=== PATIENT | female | born 1955 ===

== ENCOUNTER 2020-10-06 10:53 | Outpatient (REF) | payer MEDICARE, SELFPAY ==
[2020-10-09 13:53] LABS: H Pylori Breath Test NOT DETECTED (NOT DETECTED)
== END 2020-10-06 10:54 | disposition home or self-care (01) ==
LOC: HO.LNP 10:53
PROVIDERS: PCP Internal Medicine; Referring Provider Internal Medicine; Visit Provider Physician Assistant
DX: A04.8 Other specified bacterial intestinal infections (principal); R10.9 Unspecified abdominal pain; K59.00 Constipation, unspecified
CPT/HCPCS: 83013; 99202

== ENCOUNTER → 2020-10-20 10:49 | Outpatient (BNVA) | payer MEDICARE, SELFPAY | PROVIDERS: PCP Internal Medicine; Referring Provider Internal Medicine; Visit Provider Physician Assistant | DX: Z13.89 Encounter for screening for other disorder (principal) | CPT/HCPCS: Q3014 ==

== ENCOUNTER 2021-01-02 11:31 | Outpatient (REF) | payer MEDICARE, SELFPAY | END 2021-01-02 11:32 | disposition home or self-care (01) | LOC: HO.HAP 11:31 | PROVIDERS: Visit Provider Internal Medicine | DX: Z46.1 Encounter for fitting and adjustment of hearing aid (principal); H90.3 Sensorineural hearing loss, bilateral | CPT/HCPCS: 99499; V5266 ==

== ENCOUNTER 2021-01-23 10:40 | Outpatient (REF) | payer MEDICARE, SELFPAY ==
--- NOTE | ~2021-01-23 | MM_ITS ---
EXAMINATION: BONE DENSITOMETRY CLINICAL INDICATION: Osteoporosis. COMPARISON: None (current study represents initial baseline exam). TECHNIQUE: Using a [employer] DXA System (software version: 13.1) manufactured by [employer], dual-energy x-ray absorptiometry was performed of the lumbar spine and left hip. The images are of good technical quality. Summary results are attached. FINDINGS: AP SPINE L1-L4: BMD 0.757 g/cm2, Z-score -1.2, T-score -3.5, osteoporosis. LEFT FEMUR, NECK: BMD 0.659 g/cm2, Z-score -0.7, T-score -2.7, osteoporosis. LEFT FEMUR, TOTAL: BMD 0.771 g/cm2, Z-score -0.1, T-score -1.9, osteopenia. IDENTIFIED RISK FACTORS: Recurrent falls. Low calcium intake. Secondary osteoporosis (early menopause). Height loss. HISTORY OF FRACTURE: None listed. MEDICATIONS: Calcium supplement and/or multivitamin. Vitamin D. MM/XR DEXA axial skeleton IMPRESSION: 1. DIAGNOSIS: Osteoporosis based on the lowest T-score value of -3.5 in the lumbar spine applying World Health Organization criteria. 2. 10-YEAR FRACTURE RISK PREDICTION, FRAX: Major osteoporotic fracture (clinical spine, forearm, hip or shoulder) 8.4%. Hip fracture 2.3%. 3. Treatment Recommendations: NOF guidelines recommend consideration for treatment in postmenopausal women and men age 50 and older presenting with the following: -A hip or vertebral (clinical or morphometric) fracture. -T-score less than or equal to -2.5 at the femoral neck or spine after appropriate evaluation to exclude secondary causes. -Low bone mass at the hip or spine and a 10-year fracture probability by FRAX of greater than or equal to 3% for hip fracture or greater than or equal to 20% for major osteoporotic fracture based on the [place] adapted WHO algorithm. 4. Other Recommendations: All treatment decisions require clinical judgment and consideration of individual patient factors, including patient preferences, comorbidities, previous drug use, risk factors not captured in the FRAX model (e.g. frailty, falls, vitamin D deficiency, increased bone turnover, interval significant decline in bone density) and possible under or overestimation of fracture risk by FRAX. Additional medical evaluation for secondary cause of low bone mineral density may be appropriate. FUTURE SCAN RECOMMENDATION: People with diagnosed cases of osteoporosis or at high risk for fracture should have regular bone mineral density tests. For patients eligible for Medicare, routine testing is allowed once every 2 years. The testing frequency can be increased to one year for patients who have rapidly progressing disease, those who are receiving or discontinuing medical therapy to restore bone mass, or have additional risk factors.
== END 2021-01-23 10:41 | disposition home or self-care (01) ==
LOC: HO.MAMMO 10:40
PROVIDERS: PCP Internal Medicine; Visit Provider Internal Medicine
DX: Z13.820 Encounter for screening for osteoporosis (principal); R29.6 Repeated falls; E83.51 Hypocalcemia; R29.890 Loss of height
CPT/HCPCS: 77080

== ENCOUNTER 2021-02-20 12:33 | Outpatient (REF) | payer MEDICARE, SELFPAY ==
--- NOTE | 2021-02-20 12:49 | MHC.AU.HFU ---
Hearing Instrument Follow-Up- Binaural Date of Visit: 02/20/21 Right Ear: Auto Glass Installer: [employer] Model: Pepin SP-7 BTE SP Serial Number: [id number] Repair Warranty: 2017 Loss and Damage Warranty: Battery Size: 13 Color: Black Tubing: #13 Tube Lock Type of Mold: Microsonic Shell Left Ear: Auto Glass Installer: [employer] Model: Pepin SP-7 BTE SP Serial Number: [id number] RepairWarranty: 2017 Loss and Damage Warranty: Battery Size: 13 Color: Black Tubing: #13 Tube Lock Type of Mold: Microsonic Shell Follow-Up Summary: Patient's hearing aids were dropped off, reporting the right side was not working. Excessive moisture noted in the right tubing. Tubing on both molds replaced. Debris cleaned from battery compartments and microphones. Hearing aids are both working well after maintenance. Recommendations: Hearing instrument follow-up or maintenance as needed. Patient is scheduled for an audiological evaluation soon. These hearing aids were dispensed from [employer] and, per [employer], shipped out on 01/02/2015. Patient is likely eligible for new instruments soon. Diagnosis Code(s): Primary Diagnosis: H90.3 Bilateral Sensorineural Hearing Loss Signature: Provider: Radha Montoya, CCC-A
== END 2021-02-20 12:34 | disposition home or self-care (01) ==
LOC: HO.HAP 12:33
PROVIDERS: Visit Provider Internal Medicine
DX: Z46.1 Encounter for fitting and adjustment of hearing aid (principal); H90.3 Sensorineural hearing loss, bilateral
CPT/HCPCS: 92593

== ENCOUNTER 2021-03-06 12:13 | Outpatient (REF) | payer MEDICARE, SELFPAY | END 2021-03-06 12:14 | disposition home or self-care (01) | LOC: HO.MAMMO 12:13 | PROVIDERS: PCP Internal Medicine; Visit Provider Advanced Practice Midwife | DX: Z13.89 Encounter for screening for other disorder (principal) ==

== ENCOUNTER 2021-03-06 12:40 | Outpatient (REF) | payer MEDICARE, SELFPAY ==
--- NOTE | 2021-03-09 12:06 | MHC.AU.HFU ---
Hearing Instrument Follow-Up- Binaural Date of Visit: 03/06/21 Materials Planner Used: Not Applicable Right Ear: Operational Intelligence Analyst: [employer]on Model: Sargent SP-7 BTE SP Serial Number: [id number] Repair Warranty: 2017 Battery Size: 13 Color: Black Tubing: #13 Stay Dri Tube Lock Type of Mold: Microsonic Shell Left Ear: Operational Intelligence Analyst: [employer] Model: Sargent SP-7 BTE SP Serial Number: [id number] Repair Warranty: 2016 Battery Size: 13 Color: Black Tubing: #13 Tube Lock Type of Mold: Microsonic Shell Follow-Up Summary: Patient stayed in car. Reports the right aid volume is intermittently getting softer. Moisture is again noted in the tubing which occurred when aids checked on 02/20/2021. Changed to Stay-Dri tubing and aids is amplifying better. WHEN SEEN FOR HEARING TEST SCHEDULED NEXT WEEK, ADVISE ASKING QUESTIONS ABOUT CONTINUED MOISTURE PROBLEM OF THE RIGHT EAR. According to paperwork, patient appears to be eligible for new hearing aids and patient is interested given the recent problems with the aids. Recommendations: Has hearing re-evaluation scheduled for next week. Diagnosis Code(s): Primary Diagnosis: H90.3 Bilateral Sensorineural Hearing Loss Services Performed: AGUILAR Non-Quantity Charges: HANC: NonBillable Event Signature: Provider: Radha Bill, HARDE[facility]-A
== END 2021-03-06 12:41 | disposition home or self-care (01) ==
LOC: HO.HAP 12:40
PROVIDERS: Visit Provider Internal Medicine
DX: Z13.89 Encounter for screening for other disorder (principal)

== ENCOUNTER 2021-03-09 12:40 | Outpatient (REF) | payer MEDICARE, SELFPAY ==
--- NOTE | 2021-03-09 15:25 | MHC.AU.HAS ---
Hearing Aid Evaluation Date of Visit: 03/09/21 Top Bottom Attaching Machine Operator Used: Patient's SENIOR MAINTENANCE MACHINIST assisted with Tamazight interpretation Historical Information: Description of Hearing: Moderately-severe to profound sensorineural hearing loss bilaterally Current personal amplification information, if applicable: Oticon Weikert SP-7 BTEs Summary: Patient's current hearing aids were dispensed in 2014. She has been experiencing problems with moisture in the tubing. She has also been reporting itching in her ears (dry skin noted today). Hearing aid options were discussed. A different material of mold will be tried to see if it improves itching. Dri-tube will be requested for the molds. Hearing Aid Prescription: Based on the individual?s shared listening needs, communication environments, dexterity, desire for connectivity, and personal preferences, the following prescription for amplification has been made: Right ear: Mortgage Clerk: Oticon Model: Xceed 2 SP Battery Size: 13 Color: Black Type of Mold: Microsonic Shell Xcqkf-n-tuec Clear Left ear: Mortgage Clerk: Oticon Model: Xceed 2 SP Battery Size: 13 Color: Black Type of Mold: Microsonic Shell Btabn-t-rcwr Clear Action Taken/Action Needed: Earmold Impressions Taken Prior authorization to be requested Medical Clearance to be requested from PCP/ENT Hearing Fitting to be scheduled when materials arrive Primary Diagnosis: H90.3 Bilateral Sensorineural Hearing Loss Signature: Provider: Radha Montoya, CCC-A
--- NOTE | 2021-03-09 15:32 | MHC.AU.AHA ---
Adult Audiological Evaluation Date of Visit: 03/09/21 Exchange Mechanic Used: Patient's DRYWALL APPLICATOR assisted with Indian interpretation Reason for Appointment: Long-standing history of hearing loss. Patient arrives to determine if there has been a change in hearing. Patient reports she has been experiencing itchiness in her ears. Previous Hearing Test Results: At this clinic on 12/12/2019- Moderately-severe to profound sensorineural hearing loss bilaterally Ear History: Ear Deformity: None Reported History of Ear Wax Buildup: None Reported Hearing Instrument History- Right Ear: Hospital Education Coordinator: [employer] Model: Whitt SP-7 BTE Serial Number: [id number] Battery Size: 13 Repair Warranty: 2016 Loss and Damage Warranty: Dispensed By: [facility] Date of Fittin01/02/2015 Hearing Instrument History- Left Ear: Hospital Education Coordinator: [employer] Model: Whitt SP-7 BTE Serial Number: [id number] Battery Size: 13 Warranty: 2016 Loss and Damage Warranty: Dispensed By: [facility] Date of Fittin01/02/2015 Otoscopy: Right Ear: No cerumen. Dry skin noted. Left Ear: No cerumen. Dry skin noted. Tympanometry: Tympanometry performed due to: To assess integrity of the middle ear system Right Ear: Normal Middle Ear System (Type A) Left Ear: Hypercompliant Middle Ear System (Type Ad) Hearing Evaluation: Transducer(s) Used: Insert Earphones Method: Conventional Audiometry Stimuli Used: Pure Tones Right Ear: Description of Hearing: Moderately-severe to profound sensorineural hearing loss Left Ear: Description of Hearing: Moderately-severe to profound sensorineural hearing loss Speech Recognition Threshold (SRT): Method Used: Recorded Lists Right Ear: 80 dBHL Left Ear: 80 dBHL Word Discrimination: Method: Recorded Lists Word Lists Used: Lista Bisil?bica (Indian) Right Ear: 68% at 100 dBHL Left Ear: 52% at 100 dBHL Comparison: Compared to the most recent evaluation: Hearing is stable. Recommendations: Audiological re-evaluation in one year. See Hearing Aid Evaluation report for more information. Advised patient that there are ear drops available xumf-fah-jzzzkju that can help moisturize her ears and may help relieve itchiness. We will also try a different material of ear mold, in case the current material is not being tolerated. If itchiness in ear canals persists, follow-up with PCP may be warranted. Diagnosis: Primary Diagnosis: H90.3 Bilateral Sensorineural Hearing Loss Services Performed: Comprehensive Audiological Evaluation (CPT 45507), Tympanometry (CPT 74342) Signature: Provider: Radha Montoya, CCC-A
--- NOTE | 2021-03-09 15:38 | MHC.AU.MED ---
Medical Clearance for Hearing Instrumentation Date: 03/09/21 Patient Name: Saima Hammond Date of : 1955 Primary Care Provider: Referring Provider: Misti Carrillo MD We have seen your patient on 03/09/21 and have determined that they are a candidate for amplification (See accompanying report). Specifically, they would benefit from: Hearing aid use in both ears There is a statute that addresses Medical Evaluation Requirements prior to fitting a patient with a hearing aid. According to [place] statute 265 CMR:6.03(1), (a) General. Except as provided in 265 CMR 6.03(1)(b), a hearing officer shall not sell a hearing aid unless the prospective user has presented to the hearing officer a written statement signed by a licensed physician that states that the patient's hearing loss has been medically evaluated and the patient may be considered a candidate for a hearing aid. The medical evaluation must have taken place within the preceding six months. Please note: Due to the [place] Statute referenced above, we cannot accept a signature other than that of a licensed physician. CLIENT CARE COORDINATOR and PA signatures cannot be accepted. I am in agreement with the above recommendation. There is no medical contraindication for hearing instrumentation. Physician Signature Date Physician Name (Printed)
== END 2021-03-09 12:41 | disposition home or self-care (01) ==
LOC: HO.SH 12:40
PROVIDERS: Visit Provider Internal Medicine
DX: Z46.1 Encounter for fitting and adjustment of hearing aid (principal); H90.3 Sensorineural hearing loss, bilateral
CPT/HCPCS: 92557; 92567; 92591; V5275

== ENCOUNTER 2021-03-25 11:17 | Outpatient (REF) | payer MEDICARE, SELFPAY ==
--- NOTE | ~2021-03-25 | MM_ITS ---
EXAMINATION: MM SCREENING DIGITAL BREAST TOMOSYNTHESIS, BILATERAL CLINICAL INFORMATION: Screening. Asymptomatic. The lifetime risk of breast cancer based on the Tyrer-Cuzick Model is 2.2%. COMPARISON: Mammography: December 21, 2019 and May 25, 2016 TECHNIQUE: Digital breast tomosynthesis is performed in both the craniocaudal and mediolateral oblique views along with computer-aided detection (CAD). Synthesized 2D images are generated from the tomosynthesis. FINDINGS: There are scattered areas of fibroglandular density (ACR BI-RADS breast composition Category b). There are no significant masses, abnormal calcifications, or other abnormalities. MM/MM tomosynthesis screening BI IMPRESSION: There are no significant changes from prior study. ASSESSMENT: BI-RADS 1: Negative RECOMMENDATION: Routine annual mammography screening. This patient's information was entered into a reminder system with a target due date for their next mammogram.
== END 2021-03-25 11:18 | disposition home or self-care (01) ==
LOC: HO.MAMMO 11:17
PROVIDERS: Visit Provider Internal Medicine
DX: Z12.31 Encounter for screening mammogram for malignant neoplasm of breast (principal)
CPT/HCPCS: 77063; 77067

== ENCOUNTER 2021-04-20 15:08 | Outpatient (REF) | payer MEDICARE, SELFPAY | END 2021-04-20 15:09 | disposition home or self-care (01) | LOC: HO.HAP 15:08 | PROVIDERS: Visit Provider Internal Medicine | DX: Z46.1 Encounter for fitting and adjustment of hearing aid (principal); H90.3 Sensorineural hearing loss, bilateral | CPT/HCPCS: 92593 ==

== ENCOUNTER → 2021-04-29 12:17 | Outpatient (BNVA) | payer MEDICARE, SELFPAY | PROVIDERS: PCP Internal Medicine; Referring Provider Internal Medicine; Visit Provider Internal Medicine Cardiovascular Disease | DX: I10 Essential (primary) hypertension (principal); R00.2 Palpitations | CPT/HCPCS: 93005; 99202 ==

== ENCOUNTER → 2021-05-06 10:57 | Outpatient (REF) | payer MEDICARE, SELFPAY | LOC: HO.CARD 10:57 | PROVIDERS: Visit Provider Internal Medicine Cardiovascular Disease | DX: R00.2 Palpitations (principal) | CPT/HCPCS: 93270 ==

== ENCOUNTER 2021-05-08 12:40 | Outpatient (REF) | payer MEDICARE, SELFPAY ==
--- NOTE | 2021-05-13 09:13 | MHC.AU.HFA ---
Hearing Instrument Fitting- Adult- Binaural Date of Visit: 05/08/21 Supervisor Cartography Used: Ruthie Haddad, patient's TECHNICAL CUSTOMER SUPPORT SPECIALIST, assisted with Sri Lankan interpretation. Waiver signed. Hearing Instruments Dispensed: Right Ear: Demolition Hammer Operator: [employer]on Model: Xceed 2 BTE SP Serial Number: [id number] Repair Warranty: 05/02/2024 Loss and Damage Warranty: 05/02/2024 Service Plan: 05/08/2022 Battery Size: 13 Color: Black Tubing: Dri-Tube Type of Mold: Microsonic Shell Uhxxi-n-icqc Clear Left Ear: Demolition Hammer Operator: [employer]on Model: Xceed 2 BTE SP Serial Number: [id number] Repair Warranty: 05/02/2024 Loss and Damage Warranty: 05/02/2024 Service Plan: 05/08/2022 Battery Size: 13 Color: Black Tubing: Dri-Tube Type of Mold: Microsonic Shell Nchqy-n-xtim Clear Summary of Fitting: Verifit performed and levels adjusted to better reach targets. Patient felt that initial sound was uncomfortably loud. Lowered until patient felt sound was comfortable. Program button is deactivated. Volume control switch is activated. Patient was pleased with the sound of the instruments. She does not have a smart phone to pair them to at this time. Hearing aid care and maintenance were discussed and practiced. Recommendations: Patient is an experienced hearing aid user. She will call if follow-up is necessary. Diagnosis Code(s): Primary Diagnosis: H90.3 Bilateral Sensorineural Hearing Loss Signature: Provider: Radha Montoya, [facility]
== END 2021-05-08 12:41 | disposition home or self-care (01) ==
LOC: HO.HAP 12:40
PROVIDERS: Visit Provider Internal Medicine
DX: Z46.1 Encounter for fitting and adjustment of hearing aid (principal); H90.3 Sensorineural hearing loss, bilateral
CPT/HCPCS: V5011; V5020; V5160; V5261; V5264; V5266

== ENCOUNTER 2021-06-05 12:43 | Outpatient (REF) | payer MEDICARE, SELFPAY | END 2021-06-05 12:44 | disposition home or self-care (01) | LOC: HO.HAP 12:43 | PROVIDERS: Visit Provider Internal Medicine | DX: Z13.89 Encounter for screening for other disorder (principal) ==

== ENCOUNTER → 2021-07-29 12:36 | Outpatient (BNVA) | payer MEDICARE, SELFPAY | PROVIDERS: PCP Internal Medicine; Referring Provider Internal Medicine; Visit Provider Internal Medicine Cardiovascular Disease | DX: I10 Essential (primary) hypertension (principal); R00.2 Palpitations | CPT/HCPCS: 99212 ==

== ENCOUNTER 2021-09-11 10:43 | Outpatient (REF) | payer MEDICARE, SELFPAY ==
--- NOTE | 2021-09-11 13:24 | MHC.AU.HFU ---
Hearing Instrument Follow-Up- Binaural Date of Visit: 09/11/21 Fertilizer Supervisor Used: Patient's SUPERVISOR GRAIN AND YEAST PLANTS provided Venezuelan interpretation Right Ear: Director Of Counseling: [employer]on Model: Xceed 2 BTE SP Serial Number: [id number] Repair Warranty: 05/02/2024 Loss and Damage Warranty: 05/02/2024 Service Plan: 05/08/2022 Battery Size: 13 Color: Black Tubing: Dri-Tube Type of Mold: Microsonic Shell Vajyf-y-uprn Clear Dispensed By: [facility] Date of Fittin05/08/2021 Left Ear: Director Of Counseling: O[employer]on Model: Xceed 2 BTE SP Serial Number: [id number] Repair Warranty: 05/02/2024 Loss and Damage Warranty: 05/02/2024 Service Plan: 05/08/2022 Battery Size: 13 Color: Black Tubing: Dri-Tube Type of Mold: Microsonic Shell Diodi-n-uull Clear Dispensed By: [facility] Date of Fittin05/08/2021 Follow-Up Summary: Patient reports that her right hearing aid has been making a strange noise. When the noise happens, the hearing aid becomes muffled for a little while. Based on patient's description of the sound, she is likely hearing O[employer]on's feedback interruption system. The right hearing aid was inspected and re-tubed (patient did not bring left instrument today). The hearing aid is in good condition and amplifying clearly. When patient put the mold back in her ear, the top portion was not tucked into the helix. Counseled patient that the helix part must be tucked in to create an adequate seal and prevent feedback. Feedback analyzer was also run. Patient reports the hearing aid sounds good, and we could not recreate the noise in the office today after maintenance and running feedback analyzer. If the sound continues, we may need to consider remaking the mold or sending the hearing aid out for repair. Recommendations: Hearing instrument follow-up or maintenance as needed. Please contact our clinic with any questions or concerns. Diagnosis Code(s): Primary Diagnosis: H90.3 Bilateral Sensorineural Hearing Loss Signature: Provider: Radha Montoya, [facility]
== END 2021-09-11 10:44 | disposition home or self-care (01) ==
LOC: HO.HAP 10:43
PROVIDERS: Visit Provider Internal Medicine
DX: Z13.89 Encounter for screening for other disorder (principal)

== ENCOUNTER 2022-01-22 11:24 | Outpatient (REF) | payer MEDICARE, SELFPAY | END 2022-01-22 11:25 | disposition home or self-care (01) | LOC: HO.LAB 11:24 | PROVIDERS: PCP Internal Medicine | DX: N39.0 Urinary tract infection, site not specified (principal) | CPT/HCPCS: 87086; 99202 ==

== ENCOUNTER → 2022-01-29 11:52 | Outpatient (BNVA) | payer MEDICARE, SELFPAY | PROVIDERS: PCP Internal Medicine; Visit Provider Urology | DX: Z13.89 Encounter for screening for other disorder (principal) ==

== ENCOUNTER 2022-02-24 09:51 | Outpatient (REF) | payer OTHER, SELFPAY ==
[2022-02-24 15:15] LABS: CT PCR NOT DETECTED (Not Detect.); NG PCR NOT DETECTED (Not Detect.)
[2022-02-25 11:09] LABS: BV Int Neg Control Negative (Negative); BV Int Pos Control Positive (Positive)
[2022-02-27 07:26] LABS: HPV mRNA E6/E7 rflx Not Detected (Not Detected)
== END 2022-02-24 09:52 | disposition home or self-care (01) ==
LOC: HO.LAB 09:51
PROVIDERS: PCP Internal Medicine; Visit Provider Advanced Practice Midwife
DX: Z01.419 Encounter for gynecological examination (general) (routine) without abnormal findings (principal); Z11.51 Encounter for screening for human papillomavirus (HPV); N89.8 Other specified noninflammatory disorders of vagina; Z20.2 Contact with and (suspected) exposure to infections with a predominantly sexual mode of transmission; L29.2 Pruritus vulvae; N95.1 Menopausal and female climacteric states
CPT/HCPCS: 87480; 87491; 87510; 87591; 87624; 87660; 88142

== ENCOUNTER 2022-03-12 11:47 | Outpatient (REF) | payer SELFPAY | END 2022-03-12 11:48 | disposition home or self-care (01) | LOC: HO.HAP 11:47 | PROVIDERS: Visit Provider Internal Medicine | DX: Z13.89 Encounter for screening for other disorder (principal) ==

== ENCOUNTER 2022-03-26 11:56 | Outpatient (REF) | payer OTHER, SELFPAY ==
--- NOTE | ~2022-03-26 | MM_ITS ---
EXAMINATION: MM SCREENING DIGITAL BREAST TOMOSYNTHESIS, BILATERAL CLINICAL INFORMATION: Screening. Asymptomatic. The lifetime risk of breast cancer based on the Tyrer-Cuzick Model is 2%. COMPARISON: Mammography: 03/25/2021, 12/21/2019; outside mammography 05/25/2016 ([facility]). TECHNIQUE: Digital breast tomosynthesis is performed in both the craniocaudal and mediolateral oblique views along with computer-aided detection (CAD). Synthesized 2D images are generated from the tomosynthesis. Additional right MLO view is provided. FINDINGS: There are scattered areas of fibroglandular density (ACR BI-RADS breast composition Category b). There are no significant masses, abnormal calcifications, or other abnormalities. Parenchymal pattern is similar to prior studies and there is no developing density or architectural abnormality. The axilla and skin contours are unremarkable. MM/MM tomosynthesis screening BI IMPRESSION: No mammographic evidence of malignancy. ASSESSMENT: BI-RADS 1: Negative RECOMMENDATION: Routine annual mammography screening. This patient's information was entered into a reminder system with a target due date for their next mammogram.
== END 2022-03-26 11:57 | disposition home or self-care (01) ==
LOC: HO.MAMMO 11:56
PROVIDERS: Visit Provider Internal Medicine
DX: Z12.31 Encounter for screening mammogram for malignant neoplasm of breast (principal)
CPT/HCPCS: 77063; 77067

== ENCOUNTER 2022-07-26 11:48 | Outpatient (REF) | payer OTHER, SELFPAY ==
--- NOTE | ~2022-07-26 | XR_ITS ---
EXAMINATION: XR LUMBOSACRAL SPINE WITH OBLIQUES CLINICAL INFORMATION: Low back pain COMPARISON: None TECHNIQUE: AP, both oblique, and lateral views of the lumbar spine. Lateral view of the lumbosacral junction. FINDINGS: There is normal lumbar lordosis. The vertebral heights, alignment and disc heights are normal. No visible acute fracture, dislocation or subluxation seen. The SI joints are symmetrical and normal. XR/XR lumbar spine 4V min IMPRESSION: Unremarkable lumbar spine exam.
== END 2022-07-26 11:49 | disposition home or self-care (01) ==
LOC: HO.XRAY 11:48
PROVIDERS: Absent Provider Internal Medicine; PCP Internal Medicine; Visit Provider Internal Medicine
DX: M54.50 Low back pain, unspecified (principal)
CPT/HCPCS: 72110

== ENCOUNTER 2022-09-15 12:00 | Outpatient (RCR) | payer OTHER, SELFPAY | END 2022-10-13 14:26 | disposition home or self-care (01) | LOC: HO.PT 12:00 | PROVIDERS: PCP Internal Medicine; Visit Provider Internal Medicine | DX: M54.50 Low back pain, unspecified (principal) | CPT/HCPCS: 97110; 97162 ==

== ENCOUNTER → 2023-01-10 12:32 | Outpatient (BNVA) | payer OTHER, SELFPAY | PROVIDERS: PCP Internal Medicine; Referring Provider Internal Medicine; Visit Provider Internal Medicine Cardiovascular Disease | DX: I10 Essential (primary) hypertension (principal); R00.2 Palpitations | CPT/HCPCS: 93005; 99212 ==

== ENCOUNTER 2023-04-13 11:38 | Outpatient (REF) | payer OTHER, SELFPAY ==
--- NOTE | ~2023-04-13 | MM_ITS ---
EXAMINATION: MM SCREENING DIGITAL BREAST TOMOSYNTHESIS, BILATERAL CLINICAL INFORMATION: Screening. Asymptomatic. The lifetime risk of breast cancer based on the Tyrer-Cuzick Model is 2%. COMPARISON: Mammography: 03/26/2022, 03/25/2021, 12/21/2019, outside mammography 05/25/2016. TECHNIQUE: Digital breast tomosynthesis is performed in both the craniocaudal and mediolateral oblique views along with computer-aided detection (CAD). Synthesized 2D images are generated from the tomosynthesis. FINDINGS: There are scattered areas of fibroglandular density (ACR BI-RADS breast composition Category b). Right breast parenchymal pattern is similar to prior studies and there is no developing density or architectural abnormality or significant mass. Both breasts show scattered benign vascular and some round calcifications. The axilla and skin contours are unremarkable. Left breast has smooth benign-appearing macrolobulated nodule 6 mm in length mid central breast approximately 6 cm from nipple inferior to posterior nipple line. Smaller adjacent satellite nodule. The nodularity is increased from prior exams, possibly representing cysts. Patient will be recalled for targeted ultrasound. MM/MM tomosynthesis screening BI IMPRESSION: Left: -Benign-appearing nodularity mid central breast under 1 cm possibly cyst (s). Right: -No mammographic evidence of malignancy. ASSESSMENT: BI-RADS 0: Incomplete - Need Additional Imaging Evaluation RECOMMENDATION: 1. Targeted ultrasound left breast. 2. Radiology department staff will contact the patient for additional imaging. This patient's information was entered into a reminder system with a target due date for their next mammogram.
== END 2023-04-13 11:39 | disposition home or self-care (01) ==
LOC: HO.MAMMO 11:38
PROVIDERS: PCP Internal Medicine; Visit Provider Internal Medicine
DX: Z12.31 Encounter for screening mammogram for malignant neoplasm of breast (principal)
CPT/HCPCS: 77063; 77067

== ENCOUNTER 2023-04-25 12:40 | Outpatient (REF) | payer OTHER, SELFPAY ==
--- NOTE | ~2023-04-25 | US_ITS ---
EXAMINATION: US DIAGNOSTIC ULTRASOUND BREAST, LEFT CLINICAL INFORMATION: Macrolobulated nodule mid central left breast just inferior to posterior nipple line. COMPARISON: Prior mammography exams including most recent 04/13/2023. TECHNIQUE: Ultrasound left breast is performed using grayscale imaging and color Doppler without and with harmonics. FINDINGS: There is a grouping of at least 3 small circumscribed hypoechoic nodules mid 6:00 left breast corresponding to the finding on recent screening mammography. There is no associated color flow. Margins are smooth. There is no increased or decreased through transmission of sound. No architectural abnormality. Results are discussed with the patient at time of visit, using an pharmacist in charge owner. Findings are probably benign, possibly mildly complicated cysts with apocrine metaplasia. US/US breast LT limited IMPRESSION: - Small circumscribed hypoechoic nodules mid 6:00 left breast corresponding to finding on mammography, possibly mildly complicated cysts with apocrine metaplasia. No associated color flow. No posterior shadowing. ASSESSMENT: BI-RADS 3: Probably Benign RECOMMENDATION: Diagnostic left mammography and targeted ultrasound in 6 months. This patient's information was entered into a reminder system with a target due date for their next mammogram.
== END 2023-04-25 12:41 | disposition home or self-care (01) ==
LOC: HO.MAMMO 12:40
PROVIDERS: PCP Internal Medicine; Visit Provider Internal Medicine
DX: N63.25 Unspecified lump in the left breast, overlapping quadrants (principal)
CPT/HCPCS: 76642

== ENCOUNTER 2023-11-25 12:44 | Outpatient (REF) | payer OTHER, SELFPAY ==
--- NOTE | ~2023-11-25 | US_ITS ---
EXAMINATION: MM DIAGNOSTIC DIGITAL BREAST TOMOSYNTHESIS, LEFT US BREAST LIMITED, LEFT MAMMOGRAPHY: CLINICAL INFORMATION: Follow-up for smooth benign appearing macrolobulated grouped nodules in the mid central breast approximately 6 cm from the nipple just inferior to the posterior nipple line. COMPARISON: Mammography: 04/13/2013, 03/26/2022, 03/25/2021, 12/21/2017, and dating back to 2016. TECHNIQUE: Digital left breast tomosynthesis is performed in both the craniocaudal and mediolateral oblique views along with computer-aided detection (CAD). Synthesized 2D images are generated from the tomosynthesis. In addition, a full-field 3-D digital left mediolateral view was obtained. FINDINGS: There are scattered areas of fibroglandular density (ACR BI-RADS breast composition Category b). Within the central 6:00 axis of the left breast, there are a group of clustered nodules 3 cm from the nipple, of which at least one demonstrates a visible fatty notch, likely representing an intramammary lymph node. This measures 6 mm in length, with 2 smaller immediately satellite nodules. In review of mammography from 2020, these nodules are stable and unchanged, consistent with stability and benignity. Otherwise, there are vascular calcifications in the left breast. No suspicious masses, suspicious grouped microcalcifications, or areas of architectural distortion. No skin or axillary abnormalities. On ultrasound, there is a small benign intramammary lymph node at the 6:00 axis, 3 cm from the nipple, correlating well with the mammographic foci. There is an immediately abutting simple cyst also at the 6:00 axis, consistent with the additional mammographic foci. No suspicious findings on ultrasound, abnormal shadowing or mass. There has been no significant change from 04/25/2023 ultrasound exam. ULTRASOUND: CLINICAL INFORMATION: As above COMPARISON: 04/25/2023. TECHNIQUE: Targeted sonographic evaluation left breast 6:00 axis was performed using a high frequency linear transducer. Selected archived documentation. FINDINGS: LEFT BREAST: As stated above. US/US breast LT limited mamm only IMPRESSION: No findings suspicious for malignancy in the left breast. Previously described nodule for follow-up are stable, and in retrospect unchanged from 2020 exam, consistent with benign entity. At least one of these is a 6 mm benign intramammary lymph node. The other is a microcyst. These findings are benign and no further follow-up recommended. Recommend the patient resume routine annual screening mammography. OVERALL ASSESSMENT: Mammography: BI-RADS 2 - Benign Findings Ultrasound: BI-RADS 2 - Benign Findings RECOMMENDATION: 1 year F/U Results were provided to the patient at time of visit by the technologist. This patient's information was entered into a reminder system with a target due date for their next mammogram.
== END 2023-11-25 12:45 | disposition home or self-care (01) ==
LOC: HO.MAMMO 12:44
PROVIDERS: PCP Internal Medicine; Visit Provider Internal Medicine
DX: R92.2 Inconclusive mammogram (principal)
CPT/HCPCS: 76642; 77061; 77065

== ENCOUNTER → 2023-11-25 13:00 | Outpatient (BNV) | payer OTHER, SELFPAY | PROVIDERS: PCP Internal Medicine; Visit Provider Radiology Diagnostic Radiology | DX: N63.25 Unspecified lump in the left breast, overlapping quadrants (principal) | CPT/HCPCS: 76642; 77061; 77065 ==

== ENCOUNTER 2023-12-06 10:30 | Outpatient (REF) | payer OTHER, SELFPAY ==
[2023-12-06 12:56] LABS: Anion Gap 11 (12-20); Blood Urea Nitrogen 13 mg/dL (9-16); Calcium 9.6 mg/dL (8.4-10.2); Carbon Dioxide 27 mmol/L (22-29); Chloride 109 mmol/L (96-108); Cholesterol 232 mg/dL (<200); Estimated Glomerular Filt Rate > 60; Glucose Random 82 mg/dL (60-115); HDL Cholesterol 70 mg/dL (>40); LDL Cholesterol Calculated 133 mg/dL (<100); Potassium 3.9 mmol/L (3.3-5.1); Sodium 143 mmol/L (135-145); Triglycerides 149 mg/dL (<150)
[2023-12-06 13:13] LABS: TSH reflex Free T4 1.38 uIU/mL (0.32-4.0); Vitamin D 25-OH Total 16.3 ng/mL (>30)
[2023-12-06 13:17] LABS: Folate 11.7 ng/mL (> or = 4.0); Vitamin B12 271 pg/mL (200-900)
[2023-12-06 14:00] LABS: Reflex LDLD? No
== END 2023-12-06 10:31 | disposition home or self-care (01) ==
LOC: HO.HHCL 10:30
PROVIDERS: Visit Provider Internal Medicine
DX: I10 Essential (primary) hypertension (principal); E53.8 Deficiency of other specified B group vitamins; N95.2 Postmenopausal atrophic vaginitis
CPT/HCPCS: 36415; 80048; 80061; 82306; 82607; 82746; 84443

== ENCOUNTER 2024-01-16 12:27 | Outpatient (AMB) | payer OTHER, SELFPAY ==
[2024-01-16 12:46] VITALS: BP 110/54; PULSE 58; BMI 19.7
--- NOTE | 2024-01-16 12:46 | MHC.OFFVIS ---
Intake Vital Signs 01/16/24 12:46 Height 5 ft 1 in Weight 104 lb 0.931 oz BMI 19.7 BP 110/54 L Blood Pressure Location Lt brachial Position Sitting Pulse 58 Intake Visit Reasons: 1 yr f/u Intake Note: pt its here for a 1 yr f/up pt states that some time she feels the palpitations then it goes away. Servomechanism Assembler Required: No Servomechanism Assembler Name: clive/agricultural specialist Accompanied by: Employer Allergies penicillamine [PENICILLAMINE] Adverse Reaction (Intermediate, Verified 01/10/23 12:49) PALPATATIONS Medication List - Last Reconciled 01/16/24 by Lawson Kuhn MD amlodipine 2.5 mg PO DAILY clotrimazole-betamethasone 1-0.05 % 1 appl topical BID PRN 7 days docusate sodium (Colace) 100 mg PO BID estradiol 0.01%(0.1mg/gram) (Estrace) pea sized amount per urethra daily; 30 days omeprazole 40 mg PO DAILY HPI HPI Comments History of Present Illness Details 69-year-old female who is here for f/u. She previously saw us for palpitations. She was referred for cardiac event monitoring. It appears she had an allergic reaction with the lead stickers. She could not get the cardiac event monitor. She is here for follow-up. On follow-up today she is saying she gets palpitations 2 times a week lasting for couple of seconds. No dizziness or lightheadedness. No chest discomfort shortness of breath. Blood pressure control is good on the current regimen of amlodipine 2.5 mg. Overall doing well. 01/16/24: She returns for follow-up. She has been doing well. No chest discomfort shortness of breath. Occasional palpitations which last for few seconds. No new complaints otherwise. [facility] Medical History Hypertension Frequent UTI Surgical History No pertinent past surgical history Family History Father Prostate CA Mother No problems noted. Social History Household Members: None Alcohol intake: never Patient Tobacco Use Status: Never used Tobacco Review of Systems Const Denies chills, Denies fatigue, Denies fever(s), Denies frequent falls, Denies weakness, Denies weight gain and Denies weight loss ENT Denies dizziness Card Denies chest pain, Denies leg edema, Denies lightheadedness, Denies palpitations, Denies dyspnea and Denies dyspnea on exertion Resp Denies cough, Denies dyspnea and Denies dyspnea on exertion GI Denies hematochezia Musc Denies abnormal gait, Denies muscle weakness, Denies numbness, Denies radiating pain into limb and Denies tingling Neuro Denies abnormal gait, Denies dizziness, Denies frequent falls, Denies numbness, Denies tingling and Denies weakness Endo Denies fatigue and Denies palpitations Physical Exam Vital Signs: Last Vital Signs Pulse 58 01/16/24 12:46 BP 110/54 L 01/16/24 12:46 BMI result Body Mass Index 19.7 GENERAL APPEARANCE: in no acute distress, pleasant. NECK: no carotid bruit, no jugular venous distention. SKIN: no suspicious lesions, warm and dry. HEART: no murmurs, regular rate and rhythm. LUNGS: clear to auscultation bilaterally. ABDOMEN: soft, nontender. EXTREMITIES: no edema. PERIPHERAL PULSES: equal. NEUROLOGIC: No gross deficits, AAO X 3 Office Procedures EKG Details: Bradycardia 58 beats per minute, otherwise normal EKG, QTC 408 milliseconds. [id number], Complete Assessment & Plan Assessment & Plan (1) Palpitations: Code(s): R00.2 - Palpitations (2) Essential hypertension: Code(s): I10 - Essential (primary) hypertension Plan Very pleasant 69 year female who is here for follow-up. Blood pressure is well controlled on amlodipine 2.5 mg daily. She occasionally gets palpitations lasting for few seconds only. Clinically she has been stable. I have advised her to see us as needed from here onwards. Thank you for allowing me to participate in the care of your patient. Please feel free to contact me if you have any questions. Coding Level of Care Code Est Pt Level 3 (19238) Diagnoses Palpitations R00.2 Essential hypertension I10 CPT Codes EKG - CPT: [id number], Complete ([id number])
== END 2024-01-16 13:10 | disposition home or self-care (01) ==
PROVIDERS: PCP Internal Medicine; Visit Provider Internal Medicine Cardiovascular Disease
DX: R00.2 Palpitations (principal); I10 Essential (primary) hypertension
CPT/HCPCS: 93010; 99213

== ENCOUNTER → 2024-01-16 12:27 | Outpatient (BNVA) | payer OTHER, SELFPAY | PROVIDERS: Visit Provider Internal Medicine Cardiovascular Disease | DX: R00.2 Palpitations (principal); I10 Essential (primary) hypertension | CPT/HCPCS: 93005; 99212 ==

== ENCOUNTER 2024-05-14 18:12 | Outpatient (REF) | payer OTHER, SELFPAY | END 2024-05-14 18:13 | disposition home or self-care (01) | LOC: HO.HHCLNP 18:12 | PROVIDERS: Visit Provider Nurse Practitioner Family | DX: R10.9 Unspecified abdominal pain (principal) | CPT/HCPCS: 87086 ==

== ENCOUNTER 2024-05-16 11:35 | Outpatient (REF) | payer OTHER, SELFPAY | END 2024-05-16 11:36 | disposition home or self-care (01) | LOC: HO.MAMMO 11:35 | PROVIDERS: PCP Internal Medicine; Visit Provider Internal Medicine | DX: Z12.31 Encounter for screening mammogram for malignant neoplasm of breast (principal) | CPT/HCPCS: 77063; 77067 ==

== ENCOUNTER → 2024-05-16 11:45 | Outpatient (BNV) | payer OTHER, SELFPAY | PROVIDERS: PCP Internal Medicine; Visit Provider Radiology Diagnostic Radiology | DX: Z12.31 Encounter for screening mammogram for malignant neoplasm of breast (principal) | CPT/HCPCS: 77063; 77067 ==

== ENCOUNTER 2024-05-22 13:30 | Outpatient (REF) | payer OTHER, SELFPAY ==
--- NOTE | ~2024-05-22 | XR_ITS ---
EXAMINATION: XR LUMBOSACRAL SPINE CLINICAL INFORMATION: Lower back pain. COMPARISON: 07/26/2022 TECHNIQUE: Three views of the lumbosacral spine. FINDINGS: Bones appear to be diffusely osteopenic. There are five segmented, nonrib-bearing vertebra of the lumbar spine. The vertebral bodies have normal height and alignment. The disc spaces are maintained. No evidence of degenerative disc disease. No pars interarticularis defect or vertebral compression fracture. The anterior and posterior elements are intact. No lytic or osteoblastic lesion. No erosions or syndesmophyte formation. Sacrum and sacroiliac joints are normal. XR/XR lumbar spine 2-3V IMPRESSION: * Bones are diffusely osteopenic. * No specific source of pain is identified. No evidence of degenerative disc disease or lumbar vertebral compression fracture. No acute findings compared to 07/26/2022.
--- NOTE | ~2024-05-22 | XR_ITS ---
EXAMINATION: XR HIP, RIGHT XR HIP, LEFT CLINICAL INFORMATION: Chronic low back pain. Right hip pain. Left hip pain. Recent fall. COMPARISON: None TECHNIQUE: AP and frog-leg lateral views of each hip. FINDINGS: RIGHT HIP: No fracture. Alignment is anatomic. Hip joint space is maintained. Soft tissues are unremarkable. LEFT HIP: No fracture. Alignment is anatomic. Hip joint space is maintained. Soft tissues are unremarkable. XR/XR hip RT min 2V IMPRESSION: Normal hip radiographs.
== END 2024-05-22 13:31 | disposition home or self-care (01) ==
LOC: HO.HHCX 13:30
PROVIDERS: Visit Provider Family Medicine
DX: M54.50 Low back pain, unspecified (principal); M25.551 Pain in right hip; G89.29 Other chronic pain
CPT/HCPCS: 72100; 73502

== ENCOUNTER 2024-05-31 11:49 | Outpatient (REF) | payer OTHER, SELFPAY ==
--- NOTE | ~2024-05-31 | XR_ITS ---
EXAMINATION: XR HIP, RIGHT XR HIP, LEFT CLINICAL INFORMATION: Chronic low back pain. Right hip pain. Left hip pain. Recent fall. COMPARISON: None TECHNIQUE: AP and frog-leg lateral views of each hip. FINDINGS: RIGHT HIP: No fracture. Alignment is anatomic. Hip joint space is maintained. Soft tissues are unremarkable. LEFT HIP: No fracture. Alignment is anatomic. Hip joint space is maintained. Soft tissues are unremarkable. XR/XR hip LT min 2V IMPRESSION: Normal hip radiographs.
== END 2024-05-31 11:50 | disposition home or self-care (01) ==
LOC: HO.XRAY 11:49
PROVIDERS: PCP Internal Medicine; Visit Provider Family Medicine
DX: M25.552 Pain in left hip (principal)
CPT/HCPCS: 73502

== ENCOUNTER 2024-07-26 11:01 | Outpatient (AMB) | payer OTHER, SELFPAY ==
--- NOTE | 2024-07-26 11:11 | MHC.OFFVIS ---
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 Patient reports her pain has been present for 2 months with her right hip is worse. States her pain is located at the lateral aspect of hip that was radiating down her leg however this has subsided. She has numbness and tingling in her left leg. No previous tx. Finds some relief with Tylenol and no relief with topical patches. Food Preparation Supervisor Required: Yes Food Preparation Supervisor Services: Food Preparation Supervisor Present Food Preparation Supervisor Name: Alida ID#[id number] Allergies penicillamine [PENICILLAMINE] Adverse Reaction (Intermediate, Verified 07/26/24 11:16) PALPATATIONS Medication List - Last Reconciled 07/26/24 by Emanuel Lacy PA-C amlodipine 2.5 mg PO DAILY clindamycin HCl 300 mg PO Q6H clotrimazole-betamethasone 1-0.05 % 1 appl topical BID PRN 7 days docusate sodium (Colace) 100 mg PO BID estradiol 0.01%(0.1mg/gram) (Estrace) pea sized amount per urethra daily; 30 days omeprazole 40 mg PO DAILY HPI HPI FLOOR SCRAPER-Left Hip Pain: Details: 69 yo female presents to the office today for bilat hip pain, R>L. She states most of her pain is located along the side of the leg and travels down the leg. She denies n/t in the legs. She does feel weakness in the legs. She states when she is sleeping she has pain in the hips. She denies treatment to date. [facility] Medical History (Updated 07/26/24 @ 11:29 by Emanuel Lacy PA-C) Hypertension Frequent UTI Surgical History No pertinent past surgical history Family History Father Prostate CA Mother No problems noted. Social History Household Members: None Alcohol intake: never Patient Tobacco Use Status: Never used Tobacco Review of Systems Const All systems reviewed & are unremarkable except as noted in HPI and below Physical Exam Vital Signs: BMI result Body Mass Index 19.6 Const General: cooperative and no acute distress Orientation/consciousness: patient oriented x3 Resp Effort & Inspection: normal respiratory effort and able to speak in complete sentences Cardio Peripheral pulses: Peripheral pulses 2+ throughout Neuro General: patient oriented x3 Extrem Other: Bilat hip normal to inspection. No pain with ROM of the hip. Pain along the greater trochanter. No pain with hip flexion or abduction.There is tenderness along the si joint, Negative SLR. NVI. Results Reviewed Results Reviewed: Bilateral hip x-rays obtained in May of 2024- for any acute or chronic abnormalities. Assessment & Plan Assessment & Plan (1) Greater trochanteric bursitis of both hips: Code(s): M70.61 - Trochanteric bursitis, right hip; M70.62 - Trochanteric bursitis, left hip Category: Medical Plan: We discussed options which include PT, NSAIDs and injections. She will defer on the injection today and proceed with PT and NSAIDs. If symptoms persist she will contact me for an injection, otherwise, prn. Orders: Orders PT Evaluation and Treatment Today M70.61 - Trochanteric bursitis, right hip, M70.62 - Trochanteric bursitis, left hip Coding Level of Care Code New Pt Level 3 (77661) Complex EM visit Add On G2211 Diagnoses Greater trochanteric bursitis of both hips M70.61; M70.62
[2024-07-26 11:18] VITALS: BMI 19.6
== END 2024-07-26 11:30 | disposition home or self-care (01) ==
PROVIDERS: PCP Internal Medicine; Visit Provider Physician Assistant
DX: M70.61 Trochanteric bursitis, right hip (principal); M70.62 Trochanteric bursitis, left hip
CPT/HCPCS: 99203; G2211

== ENCOUNTER → 2024-07-26 11:01 | Outpatient (BNVA) | payer OTHER, SELFPAY | PROVIDERS: PCP Internal Medicine; Visit Provider Physician Assistant | DX: M70.61 Trochanteric bursitis, right hip (principal); M70.62 Trochanteric bursitis, left hip | CPT/HCPCS: 99202 ==

== ENCOUNTER 2024-08-10 18:01 | Outpatient (REF) | payer OTHER, SELFPAY | END 2024-08-10 18:02 | disposition home or self-care (01) | LOC: HO.CHCLNP 18:01 | PROVIDERS: Visit Provider Internal Medicine | DX: N95.2 Postmenopausal atrophic vaginitis (principal); R10.2 Pelvic and perineal pain | CPT/HCPCS: 87086 ==

== ENCOUNTER 2024-08-30 08:30 | Outpatient (REF) | payer OTHER, SELFPAY ==
[2024-08-30 11:31] LABS: Anion Gap 11 (12-20); Blood Urea Nitrogen 15 mg/dL (9-16); Calcium 9.7 mg/dL (8.4-10.2); Carbon Dioxide 27 mmol/L (22-29); Chloride 109 mmol/L (96-108); Cholesterol 228 mg/dL (<200); Estimated Glomerular Filt Rate > 60; Glucose Random 85 mg/dL (60-115); HDL Cholesterol 65 mg/dL (>40); LDL Cholesterol Calculated 139 mg/dL (<100); Potassium 3.8 mmol/L (3.3-5.1); Sodium 143 mmol/L (135-145); Triglycerides 123 mg/dL (<150)
[2024-08-30 11:35] LABS: Estimated Average Glucose 97 mg/dL; Hemoglobin A1C 102.9268 umol/L; Total Hemoglobin (HGBA1C) 3254.9133 umol/L
[2024-08-30 11:51] LABS: TSH reflex Free T4 1.68 uIU/mL (0.32-4.0); Vitamin D 25-OH Total 38.1 ng/mL (>30)
[2024-08-30 11:53] LABS: Syphilis Screen Nonreactive (Nonreactive)
[2024-08-30 12:12] LABS: Vitamin B12 203 pg/mL (200-900)
[2024-08-30 12:36] LABS: Reflex LDLD? No
== END 2024-08-30 08:31 | disposition home or self-care (01) ==
LOC: HO.HHCL 08:30
PROVIDERS: Visit Provider Internal Medicine
DX: R41.3 Other amnesia (principal); I10 Essential (primary) hypertension; K59.01 Slow transit constipation; Z13.1 Encounter for screening for diabetes mellitus
CPT/HCPCS: 36415; 80048; 80061; 82306; 82607; 82746; 83036; 84443; 86780

== ENCOUNTER 2024-09-06 11:23 | Outpatient (REF) | payer OTHER, SELFPAY | END 2024-09-06 11:24 | disposition home or self-care (01) | LOC: HO.US 11:23 | PROVIDERS: PCP Internal Medicine; Visit Provider Internal Medicine | DX: R10.2 Pelvic and perineal pain (principal) | CPT/HCPCS: 76830; 76856 ==

== ENCOUNTER 2024-09-26 10:58 | Outpatient (RCR) | payer OTHER, SELFPAY ==
--- NOTE | 2024-08-22 12:53 | MHC.PT.EP ---
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 THE Pt HAS DECR HS AND CALF FLEXIB, HABITUAL PPT W (+) LLI, WEAK TRUNK STAB, (-) SENSORY DEFICITS, AND FLUCTUATING PAIN LEVELS IN Rt > Lt HIP. THE Pt HAS DECR LUISA TO STANDING AND WALKING- SHE IS LIMITED W SQUAT MECH -> TENDS TO COMPENSATE W TRUNK FLEX. SHE WOULD BENEFIT FROM PT TO DEV A HEP, IMPROVE BODY MECH AWARENESS, INCR ACTIVITY LUISA/ HEP -> W HER DIRECTOR BUSINESS SYSTEMS'S SUPPORT. Frequency and Duration: The patient will be seen 2 x WK x 4 WKS Short Term Goals: *DECR LBP/ HIP PAIN TO 2-3/10 * INITIATE HEP-> IMPROVE HS AND CALF FLEXIB *Pt DEMON WFL SQUAT MECH Dispatcher Ship Pilot Goals: *INDEP HEP AND SELF SX MGMT TECHN *IMPROVE FUNCT MOB LUISA EVIDENT W IMPROVED LEFI (AT EVAL 18) *Pt DEMON WFL HS/ CALF FLEXIB-> MORE NEAUTRAL SPINE/ GAIT MECH/POSTURE Treatment Plan: Modalities to reduce pain, spasms and effusion. Manual therapy to restore motion and function. Therapeutic exercise to improve strength and flexibility. Neuromuscular re-education for posture and balance. Therapeutic activities to return to functional activities of daily living. Electronically signed by: AI FAYPT Please sign and return to therapist. Thank you for your referral.
--- NOTE | 2024-11-12 12:00 | MHC.PT.DC ---
[facility] [place] Office [place] Office [place] Office [address] Alaina Childers [address] [phone] F: [phone] F: [phone] F: [phone] F: [phone] Physical Therapy Discharge Report Diagnosis: Rt > Lt TROCHANTERIC BURSITIS Date of Surgery: Date of Evaluation: 08/22/24 Date of Discharge: 11/12/24 Treatments to Date: 4 Cancellations to Date: 5 No Shows to Date: 2 Discharge Status: Visit Non-compliance Discharge Summary: THE Pt HAD POOR ATTENDANCE FOR SCHED PT APPTS AND IS THEREFORE D/C FROM PT PER THE ATTENDANCE POLICY. Electronically signed by: AI FAY, PT Please sign and return to therapist. Thank you for your referral.
== END 2024-11-12 12:43 | disposition home or self-care (01) ==
LOC: HO.PT 10:58
PROVIDERS: PCP Internal Medicine; Visit Provider Physician Assistant
DX: M70.61 Trochanteric bursitis, right hip (principal); M70.62 Trochanteric bursitis, left hip
CPT/HCPCS: 97110; 97162

== ENCOUNTER 2024-11-16 11:33 | Outpatient (REF) | payer OTHER, SELFPAY ==
[2024-11-16 16:15] LABS: Bacterial Vaginosis PCR NEGATIVE (Negative); Candida Group PCR NOT DETECTED (Not Detect); Candida glab krusei PCR NOT DETECTED (Not Detect); Trichomonas vaginalis PCR NOT DETECTED (Not Detect)
[2024-11-16 16:44] LABS: CT PCR NOT DETECTED (Not Detect.); NG PCR NOT DETECTED (Not Detect.)
== END 2024-11-16 11:34 | disposition home or self-care (01) ==
LOC: HO.LNP 11:33
PROVIDERS: PCP Internal Medicine; Visit Provider Obstetrics & Gynecology
DX: N85.9 Noninflammatory disorder of uterus, unspecified (principal); D25.9 Leiomyoma of uterus, unspecified; N94.89 Other specified conditions associated with female genital organs and menstrual cycle; R10.2 Pelvic and perineal pain; R31.29 Other microscopic hematuria; N89.8 Other specified noninflammatory disorders of vagina
CPT/HCPCS: 81515; 87086; 87491; 87591; 99202; 99459

== ENCOUNTER 2024-11-16 11:33 | Outpatient (AMB) | payer OTHER, SELFPAY ==
--- NOTE | 2024-11-16 12:29 | MHC.OFFVIS ---
Intake Visit Reasons: pelvic pain Associate Professor Of Kinesiology Required: Yes Associate Professor Of Kinesiology Language: Gold Cutter Services: Associate Professor Of Kinesiology Present (in person) Associate Professor Of Kinesiology Name: EDA Flor Information Interpreted: non-clinical & clinical Plate Maker: Plate Maker Present (Joana EDA Cortes) Accompanied by: Self / Same As Patient Allergies penicillamine [PENICILLAMINE] Adverse Reaction (Intermediate, Verified 11/16/24 12:30) PALPATATIONS HPI Comments Details: The patient is referred complaining of a bilateral lower pelvic pain, throbbing in nature associated with vaginal discharge with no odor itching, no fever or chills no nausea or vomiting no constipation. No history of vaginal bleeding Pelvic ultrasound done on 09/06/2024 showed the following: IMPRESSION: 1. There is fluid within the endometrium, this is abnormal for postmenopausal patient. Cannot rule out obstructing lesion. Recommend UI UX DEVELOPER consultation, may consider D&C and/or Consider correlation with follow-up ultrasound in 6-8 weeks. 2. Prominence of the pelvic veins, cannot rule out pelvic congestion. 3. Intramural uterine mass likely fibroid 2 cm. 4. Ovaries not visualized might have been obscured by bowel gas or atrophic. [facility] Medical History Hypertension Frequent UTI Surgical History No pertinent past surgical history Family History Father Prostate CA Mother No problems noted. Social History Household Members: None Alcohol intake: never Patient Tobacco Use Status: Never used Tobacco Review of Systems Const All systems reviewed & are unremarkable except as noted in HPI and below Physical Exam General: Yes no CVA tenderness External Female Exam: normal external appearance and normal appearance of the urethra Speculum Exam - Vagina: normal appearance of the vagina, normal palpation, no lesions and no masses Speculum Exam - Cervix: normal appearance of the cervix, normal palpation, no lesions, no masses and nontender Bimanual exam- vagina & uterus: normal bimanual exam, normal palpation, uterine size normal, normal palpation, uterine shape normal, No Cervical tenderness present and non-tender Bimanual Exam- Adnexa, other: normal adnexae Back/Spine/Pelvis Back: no CVA tenderness Assessment & Plan Assessment & Plan (1) Fluid in endometrial cavity: Code(s): N85.9 - Noninflammatory disorder of uterus, unspecified Category: Medical Plan: Discussed with the patient the finding of fluid in the endometrial cavity, in spite of no vaginal bleeding the concern is the endometrial fluid visualized on ultrasound in case of cervical stenosis might be bleeding into the endometrial cavity and the blood and/or tissue was are unable to pass through the cervical os. Endometrial sampling in postmenopausal bleeding with endometrial fluid is indicated in case endometrial thickness is above 4 mm, however in cases with thin endometrial stripe, 4 mm and below, without any focal lesions, is a reassuring finding with a high negative predictive value for endometrial pathology including endometrial hyperplasia and/or malignancy or polyps. Instructions given to patient to call in case of vaginal bleeding will proceed with endometrial sampling to rule out endometrial pathology (2) Uterine myoma: Code(s): D25.9 - Leiomyoma of uterus, unspecified Category: Medical Plan: Discussed with the patient the findings on pelvic ultrasound & the risk of myosarcoma; discussed with the patient the options of treatment including expectant management versus hysterectomy; the pros and cons, risks benefits of each approach were discussed with the patient including the fact that in cases of myosarcoma, surgical treatment can lead to early diagnosis and positively affects the prognosis; after further discussion, the patient decided to proceed with expectant management. Will repeat pelvic ultrasound periodically. Instructions given to patient to call in case any of the following occurs: pressure symptoms, abnormal uterine bleeding, pelvic pain; and to schedule a six-months pelvic ultrasound (order placed) and a follow-up appointment . All questions answered, the patient verbalized understanding and agreed with the plan . (3) Pelvic congestion: Code(s): N94.89 - Other specified conditions associated with female genital organs and menstrual cycle Category: Medical Plan: Discussed with the patient the pelvic congestion syndrome treatment options including: Medical treatment , Invasive treatment available for patient who do not respond to medical therapy include embolization or sclerotherapy of the ovarian veins with or without the internal iliac veins, laparoscopic or open ligation of the ovarian veins and hysterectomy with bilateral salpingo-oophorectomy. Will proceed with the workup and treat accordingly. All questions answered, the patient verbalized understanding. (4) Pelvic pain: Code(s): R10.2 - Pelvic and perineal pain Category: Medical Plan: Urine dip done in the office showed microscopic hematuria. GC and chlamydia taken and pelvic ultrasound ordered. Discussed with the patient the differential diagnosis of pelvic pain including but not limited to adnexal, uterine masses, pelvic infections (PID), GI the (Irritable bowel syndrome, diverticulitis, others), musculoskeletal, myofascial pain abdominal wall , adhesions, endometriosis, psychological and others causes. Will check results and treat accordingly. All questions answered, the patient verbalized understanding. Instructed the patient to schedule a follow-up appointment in 2 weeks. All questions answered, the patient verbalized understanding and agreed with the plan. (5) Microscopic hematuria: Code(s): R31.29 - Other microscopic hematuria Category: Medical Plan: Urine dip showed microscopic hematuria, urine culture sent. Will repeat urine dip in 2 weeks. Discussed with the patient the possible causes of microscopic hematuria including but not limited to: interstitial cystitis, polyps, stones, masses, urethral inflammatory processes and others. If Urine Culture is negative and repeat urine dip in 2 weeks shows persistent microscopic hematuria, will proceed with CT abdomen/pelvis and urology referral. Instructions given the patient to schedule a 2 week urine dip follow-up appointment. All questions answered and the patient verbalized understanding. (6) Vaginal discharge: Code(s): N89.8 - Other specified noninflammatory disorders of vagina Category: Medical Plan: GC//CT with BV panel collected, will check the results and treat accordingly Orders: Orders US pelvic and transvaginal 6 Months D25.9 - Leiomyoma of uterus, unspecified Coding Level of Care Code New Pt Level 3 (02159) Diagnoses Fluid in endometrial cavity N85.9 Uterine myoma D25.9 Pelvic congestion N94.89 Pelvic pain R10.2 Microscopic hematuria R31.29 Vaginal discharge N89.8
== END 2024-11-16 12:56 | disposition home or self-care (01) ==
PROVIDERS: PCP Internal Medicine; Visit Provider Obstetrics & Gynecology
DX: N85.9 Noninflammatory disorder of uterus, unspecified (principal); D25.9 Leiomyoma of uterus, unspecified; N94.89 Other specified conditions associated with female genital organs and menstrual cycle; R10.2 Pelvic and perineal pain; R31.29 Other microscopic hematuria; N89.8 Other specified noninflammatory disorders of vagina
CPT/HCPCS: 99203

== ENCOUNTER 2024-12-04 12:57 | Outpatient (AMB) | payer OTHER, SELFPAY ==
--- NOTE | 2024-12-04 13:14 | A.OFFVIS_ITS ---
Intake Visit Reasons: urine dip Delivery Table Operator Required: Yes Delivery Table Operator Language: Advertising Associate Services: Delivery Table Operator Present ([employer]) Delivery Table Operator Name: Dot [id number] Information Interpreted: clinical only Pipe Threader: Pipe Threader Present (Molly) Accompanied by: Self / Same As Patient Allergies penicillamine [PENICILLAMINE] Adverse Reaction (Intermediate, Verified 12/04/24 13:14) PALPATATIONS HPI Comments Details: Presenting for repeat urine dip, last visit urine dip showed microscopic hematuria, urine culture grew lactobacillus 50-100 K. No other symptoms PFSH Medical History Hypertension Frequent UTI Surgical History No pertinent past surgical history Family History Father Prostate CA Mother No problems noted. Social History Household Members: None Alcohol intake: never Patient Tobacco Use Status: Never used Tobacco Review of Systems Const All systems reviewed & are unremarkable except as noted in HPI and below Reports as per HPI and Reports no additional complaints GI Reports no additional complaints Reports no additional complaints Assessment & Plan Assessment & Plan (1) Microscopic hematuria: Code(s): R31.29 - Other microscopic hematuria Category: Medical Plan: Repeat urine dip showed persistent microscopic hematuria. Discussed with the patient the possible causes of microscopic hematuria including but not limited to: interstitial cystitis, polyps, stones, masses, urethral inflammatory processes and others. Will proceed with CT abdomen/pelvis and urology referral. Instructed the patient to call our office back in case a referral appointment is not scheduled, missed or canceled so that we will assist on rescheduling another appointment, the patient verbalized understanding agreed with the plan. Orders: Orders CT abdomen pelvis wo/w IV con Today R31.29 - Other microscopic hematuria Referrals Urology Referral R31.29 - Other microscopic hematuria Coding Level of Care Code Est Pt Level 3 (26519) Diagnoses Microscopic hematuria R31.29
--- OUTSIDE RECORDS SUMMARY | 2024-12-04 13:52 | XMS_ITS | Data Portability ---
Author Organization [employer], [place] in - [place] Self Representation Document Preparation Address [address] [place] [address] Care Team Providers Care Soldering Machine Tender Name Role Phone [facility] Referring Provider Assessment No assessment recorded. Plan of Treatment Reminders Order Date Submit Date Provider Last Modified By Organization Details Last Modified Time Details Appointments None recorded. Lab culture, urine 023 023 [place] [facility], [address], [id number], 3 08:59:40 Referral None recorded. Procedures None recorded. Surgeries None recorded. Imaging None recorded. Medication Orders Bactrim DS 800 mg-160 mg tablet 023 023 [facility], [address] [facility] [place], [id number], 3 09:49:27 Patient TargetsNo targets recorded. Patient InstructionsNo instructions recorded. Reason for Referral None Reported. Results Created Date Observation Date Name Description Value Unit Range Abnormal Flag Note LastModifiedBy Organization Detail LastModifiedTime 07/15/2007/15/2023 URINE CULTU RE specimen description BLOOD Not Available [facility] [address] [place], [id number], 07/17/2023 08:59:39 07/15/20 23 07/15/2023 URINE CULTU RE special requests NONE Not Available [facility] [address] [place], [id number], 07/17/2023 08:59:39 07/15/20 23 07/17/2023 URINE CULTU RE culture <10,00 0 COL/ML abnormal Not Available [facility] [address] [place], [id number], 07/17/2023 08:59:39 07/15/20 23 07/17/2023 URINE CULTU RE report status FINAL 2022 Not Available [facility] [address] [place], [id number], 07/17/2023 08:59:39 Result Notes None recorded. Medical Equipment None Reported. Allergies Allergen ID Allergen Name Allergen Category Reaction Reaction Severity Criticality Documentation Date Start Date Code Code System Note Provider Name and Address Organization Details Recorded Time 8891 Product containin g penicilli n and antibioti c (product) medicatio n Not available Not available Not available 09/04/2024 83362 05 SNOMED Not Available [facility] - production 03:47:31 Medications Name Sig Start Date Stop Date Status Note LastModified by Organization Details LastModified Time cetirizine 10 mg tablet TAKE 1 TABLET BY MOUTH EVERY MORNING active Not Available Not Available No t Available clindamycin HCl 150 mg capsule TAKE 1 CAPSULE BY MOUTH EVERY 6 HOURS active Not Available Not Available No t Available amlodipine 2.5 mg tablet TAKE 1 TABLET BY MOUTH EVERY DAY active Not Available Not Available No t Available sulfamethoxa zole 800 mg-trimethop rim 160 mg tablet TAKE 1 TABLET BY MOUTH EVERY TWELVE HOURS FOR 7 DAYS active Not Available Not Available No t Available acetaminophe n ER 650 mg tablet,exten ded release TAKE 2 TABLETS BY MOUTH EVERY 8 HOURS NEEDED. SWALLOW WHOLE WITH WATER. DO NOT BREAK, CRUSH, DISSOLVE OR CHEW active Not Available Not Available No t Available prednisolone acetate 1 % eye drops,suspen steve ADMINISTER 1 DROP IN EACH EYE TWICE DAILY FOR FOURTEEN DAYS. SHAKE WELL BEFORE DE USE active Not Available Not Available No t Available ibuprofen 400 mg tablet TAKE 1 TABLET BY MOUTH EVERY 4 TO 6 HOURS NEEDED active Not Available Not Available No t Available cyclobenzapr ine 5 mg tablet TAKE 1 TABLET BY MOUTH THREE TIMES DAILY active Not Available Not Available Not Available chlorhexidin e gluconate 0.12 % mouthwash active Not Available Not Available No t Available diclofenac 1 % topical gel APPLY TO THE AFFECTED AREA(S) 2 GRAMS TWICE DAILY active Not Available Not Available No t Available Eye Itch Relief 0.025 % (0.035 %) drops INSTILL 1 DROP IN EACH EYE TWICE DAILY active Not Available Not Available Not Available Vitals Date Recorded Respiratory rate Heart rate Body temperature Oxygen saturation Oxygen saturation in Arterial blood by Pulse oximetry Systolic blood pressure Diastolic blood pressure Provider Name and Address Organization Details Last Updated DateTime 3 18 /min 84 /min 98.8 [degF] 99 % 99 % 130 mm[Hg] 78 mm[Hg] Not Available [facility] - production 3 15:57:04 Social History None recorded. Functional Status None recorded. Mental Status None recorded. Family History Nothing Reported. Medical History No medical history recorded. Gynecological HistoryNo gynecological history recorded. Obstetrics History GPAL:G 0 P 0 0 0 0 Past Encounters Encounter ID Performer Location Encounter Start Date Encounter Closed Date Diagnosis/Indication Diagnosis SNOMED-CT Code Diagnosis ICD10 Code Diagnosis Note [id number] Juan Huerta MD [facility] - [facility] [address] [place] [address] [phone] 07/15/2023 15:57:02 07/16/2023 16:03:07 Acute urinary tract infection [id number] N39.0 This 68-year-ol d female has had urinary symptoms for several days. Her U/A appeared consistent with an early UTI. I ordered a U/C and treatment with Bactrim DS twice daily for five days. She will follow-up with her PCP. The patient agreed with this plan. Urinary symptoms 9233105 08 R39.9 Health Concerns Section Related Observation LastModified by Organization Detai ls LastModified Time None Recorded Concern Status LastModified by Organization Details LastModified Time None Recorded Advance Directives Directive None Recorded Payers Encounter Date Sequence Insurance Name Policy Number Policy Chow Covered Member ID Chow Member ID Guarantor Name 07/15/2023 1 [facility] - DOS ON OR AFTER 2023 - DUAL ELIGIBLE - [facility] [employer] AND ONE [employer] (MEDICARE REPLACEMENT/AD VANTAGE - HMO) Saima Rodrigues [id number] Saima Rodrigues Notes Date Note Type Note Provider Name and Address Organization Details Recorded Time 07/15/2023 text/html HPI: Call to Saima Rodrigues, reports having pain with urination x 1 month. Per pt urine is very dark yellow. No blood or odor to urine. Pt having urinary frequency and urgency. Per pt no nausea or vomiting. Is having pelvic pain /flank pain. No fever. Unable to come into [facility]. Agrees to [facility] referral for UA/Cx. ..................... ..................... ..................... ..................... ..................... ..................... ............... CRC Nursing Assessment: Comments: Reviewed - Jass LUCERO ..................... ..................... ..................... ..................... ..................... ..................... ............... Lunch Wagon Operator Note From Emery Lai: PT complains of lower quadrant pain and dysuria (burning sensation) x months. PT was normal in appearance and reports that she missed a PCP appointment months ago and never rescheduled. PT denies chest pain. PT reports lower abdominal pain which increases upon urination and no abdominal tenderness was noted upon examination. PT denies lightheadedness and dizziness. PT reports decreased PO fluid intake in recent days at 8-12oz, normal appetite. PT denies flank pain and CVA tenderness was negative. UA dipstick was performed and cultures were obtained. contacted and ordered Bactrim DS, Rx was sent to PT preferred pharmacy and PT advised to increase PO fluid intake. PT education was provided related to symptom worsening. VG ..................... ..................... ..................... ..................... ..................... ..................... ............... Disposition: Fulfilled Juan Huerta MD [address] [place] [address],[address] [facility], [place], [phone], JOAN VALLE 07/15/2023 16:05:16 OBGyn Episode No OBEpisode recorded.
--- OUTSIDE RECORDS SUMMARY | 2024-12-04 13:52 | XMS_ITS | Encounter Summary ---
Author Organization [employer] Address [address] [facility] [address] [place] [address] Care Team Providers Care Cyber Incident Handler Name Role Phone Misti Carrillo MD Primary Care Provider + Misti Carrillo MD Unavailable [phone] Reason for Visit * Reason Comments Hypertension Encounter Details Date Type Department Care Team ([facility] st Contact Info) Description 11/19/2024 11:15 AM EST Office Visit [facility] [address], [place] [phone] Misti Carrillo MD [address], [place] [phone] Benign essential HTN (Primary Dx); Dysuria; Hypercholesterolemia; Screening for colon cancer; Uterine leiomyoma, unspecified location Social History Tobacco Use Types Packs/Day Years Used Date Smoking Tobacco: Never Passive Smoke Exposure: Never Smokeless Tobacco: Never Tobacco Cessation:Counseling Given: Not Answered Alcohol Use Standard Drinks/Week Comments Never 0 (1 standard drink = 0.6 oz pur e alcohol) Housing Stability Answer Date Recorded What is your housing situation today? I have veronica foley 11/30/[address] you li ve. Do you have problems with any of the following? None of the above 11/30/2023 Food Insecurity Answer Date Recorded Within the past 12 months, y ou worried that your food would run out before you got money to buy more: Never True 11/30/2023 Within the past 12 months,th e food you bought just didn't last and you didn't have enough money to get more: Never True Transportation Answer Date Recorded In the past 12 months, has l ack of transportation kept you from medical appts, meetings, work or from getting things needed for daily living? No 11/30/2023 Utilities Answer Date Recorded In the past 12 months, has t he electric, gas, oil or water company threatened to shut off services in your home? No 11/30/2023 Depression Answer Date Recorded Patient Health Questionnaire-2 Score 0 11/30/2023 Internet Access Answer Date Recorded Internet Access Q1 Yes 11/09/2024 Internet Access Q2 Not on file 11/09/2024 Comments Unknown Sex and Gender Information Value Date Recorded Sex Assigned at Female 07/15/2023 4:01 PM EDT Legal Sex Female 4:21 PM EDT Gender Identity Female 07/15/2023 4:01 PM EDT Sexual Orientation Lesbian or John 07/15/2023 4: 01 PM EDT Sexual Orientation Straight 07/15/2023 4: 01 PM EDT documented as of this encounter Last Filed Vital Signs Vital Sign Reading Time Taken Comments Blood Pressure 133/67 11/19/2024 11:10 AM EST Pulse 64 11/19/2024 11:10 AM EST Temperature 34.9 ??C (94.8 ??F) 11/19/2024 11:[address] Respiratory Rate 16 11/19/2024 11:10 AM EST Oxygen Saturation - - Inhaled Oxygen Concentration - - Weight 45.9 kg (101 lb 4 oz) 11/19/2024 11:10 AM EST Height 144.8 cm (4' 9 ) 11/19/2024 11:10 AM EST Body Mass Index 21.91 11/19/2024 11:10 AM EST documented in this encounter Progress Notes * Misti Carrillo MD - 11/19/2024 11:15 AM EST SUBJECTIVE: Saima Hammond is a 69 y.o. year old female who presents for fu . Denies recent illness,injury, or hospitalization. Patient had ultrasound on 09/06/2024 that showed uterine fibroids plus endometrial fluid, she was referred to the IT INSTRUCTOR. Labs on 08/30/2024 showed hyperlipidemia (she started on Atorvastatin), TSH, Vit D, BMP where normal. Patient has ERP BUSINESS ANALYST in consult with her. She comments to have her ser the IT INSTRUCTOR last Chad on 11/16/2024 and the doctor performed ? Endometrial biopsy. She has a follow up appointment with [facility] on 12/04/2024. Patient mentions to have persistent dysuria, blood in her urine and a whitish discharge. Vaginal swab on 11/16/2024 was negative. She says to be compliant with cholesterol medication taking it every night. Acute Concerns: Social History Social History Narrative Lives alone on a 4th floor apartment. Has ERP BUSINESS ANALYST. Her children live in [place] Patient Active Problem List Diagnosis Seasonal allergic rhinitis Allergic conjunctivitis of both eyes Atrophic vaginitis Decreased hearing Cobalamin deficiency Chronic low back pain Pruritus of vagina Hip pain Hyperactivity of bladder Left flank pain Low vision, both eyes Palpitations Slow transit constipation Dysuria Benign essential HTN Immunization declined Hypercholesterolemia Vitamin D deficiency Tipped teeth Dental calculus Periodontal disease Missing teeth, acquired Generalized gingival recession Memory deficit Trochanteric bursitis of left hip Pelvic pain Ear itching Earache Onychomycosis of toenail Screening for colon cancer Uterine leiomyoma Family History Problem Relation Name Age of Onset Prostate cancer Father Review of Systems Constitutional: Negative for chills, fatigue and fever. HENT: Negative for congestion, ear pain, nosebleeds, rhinorrhea, sinus pressure, sore throat and trouble swallowing. Eyes: Negative for pain and discharge. Respiratory: Negative for cough, chest tightness and shortness of breath. Cardiovascular: Negative for chest pain, palpitations and leg swelling. Gastrointestinal: Negative for abdominal pain, blood in stool, constipation, diarrhea and nausea. Endocrine: Negative for polydipsia and polyuria. Genitourinary: Positive for dysuria, hematuria and vaginal discharge. Negative for frequency, genital sores and pelvic pain. Musculoskeletal: Negative for back pain and neck pain. Skin: Negative for rash. Allergic/Immunologic: Negative for environmental allergies. Neurological: Negative for dizziness, seizures, weakness, light-headedness and headaches. Hematological: Negative for adenopathy. Psychiatric/Behavioral: Negative for agitation, behavioral problems, self-injury and suicidal ideas. OBJECTIVE: Vitals: 11/19/24 1110 BP: 133/67 Pulse: 64 Resp: 16 Temp: 94.8 ??F (34.9 ??C) Physical Exam HENT: Right Ear: Tympanic membrane and ear canal normal. Left Ear: Tympanic membrane and ear canal normal. Mouth/Throat: Mouth: Mucous membranes are moist. Pharynx: No oropharyngeal exudate or posterior oropharyngeal erythema. Eyes: Pupils: Pupils are equal, round, and reactive to light. Cardiovascular: Rate and Rhythm: Regular rhythm. Pulses: Normal pulses. Comments: Varicose vein, bilateral lower extremities, no ulcerations, or chronic skin changes. Pulmonary: Breath sounds: Normal breath sounds. Abdominal: General: Bowel sounds are normal. Palpations: Abdomen is soft. Tenderness: There is no abdominal tenderness. Musculoskeletal: General: Normal range of motion. Cervical back: Neck supple. Skin: General: Skin is warm. Neurological: General: No focal deficit present. Mental Status: She is alert and oriented to person, place, and time. Psychiatric: Mood and Affect: Mood normal. Behavior: Behavior normal. ASSESSMENT/PLAN Problem List Items Addressed This Visit Benign essential HTN - Primary Controlled. Compliant w/meds Continue Amlodipine 2.5 mg Counseled re low salt diet/increase moderate physical activity. Check home BP BIW and prn CP/AGUILAR/DOMÍNGUEZ Non smoking patient. Cautioned Pt and ERP BUSINESS ANALYST regarding cautious change of position due to vasovagal Sx. Patient denied having the Flu vaccine administered at this time. Dysuria Unclear if related to atrophic vaginitis versus hyperactive bladder. FU with [facility] for results of endometrial biopsy, otherwise she needs to FU with Urologist whom she sees every year. Hypercholesterolemia We discussed re rx options. Recommended moderate amount of exercise and increase consumption of fruit, vegetables, fish and high fiber foods. Should decrease consumption of highly saturated fats or trans fats. Patient started on Atorvastatin, tolerates well. FU lipids in 3-4 months and adjust medication if needed. Relevant Orders Hepatic Function Panel Lipid Panel with Reflex to Direct LDL Screening for colon cancer I discussed with patient CRC screening methods, including colonoscopy and cologuard. She wants to do Cologuard at this time. Relevant Orders Cologuard?? colon cancer screening Uterine leiomyoma Unclear if producing compressive symptoms on urinary bladder. Patient will FU with [facility]. FU with me in 6 months. Follow Up: Current Outpatient Medications on File Prior to Visit Medication Sig Dispense Refill acetaminophen (Tylenol 8 Hour) 650 MG ER tablet Take 1 tablet (650 mg) by mouth every 8 (eight) hours if needed for mild pain. Do not crush, chew, or split. 90 tablet 1 amLODIPine (Norvasc) 2.5 MG tablet Take 1 tablet by mouth at bed time. ammonium lactate (Amlactin) 12 % cream Apply topically if needed for dry skin. 140 g 3 cetirizine (ZyrTEC) 10 MG tablet Take 1 tablet (10 mg) by mouth Once per day. 90 tablet 3 chlorhexidine (Peridex) 0.12 % solution Diclofenac Sodium 1 % gel APPLY TO THE AFFECTED AREA(S) 2 GRAMS TWICE DAILY docusate sodium (Colace) 100 MG capsule Take 1 capsule (100 mg) by mouth Once per day. 90 capsule 3 estradiol (Estrace) 0.1 MG/GM vaginal cream 1 applicator full at bedtime x 2w then three times per week x 2w then BIW thereafter 42.5 g 5 ketotifen (Zaditor) 0.025 % ophthalmic solution Administer 1 drop into both eyes 2 times daily. 10 mL 1 [DISCONTINUED] atorvastatin (Lipitor) 40 MG tablet Take 1 tablet (40 mg) by mouth Once per day. 90 tablet 1 No current facility-administered medications on file prior to visit. I, Milady Rae, am serving as a scribe to document services personally performed by Dr. Misti Carrillo, based on the patient's response to questions by provider and provider's statements to me. documented in this encounter Miscellaneous Notes * Assessment & Plan Note - Milady Rae MA - 11/19/2024 12:08 PM EST Associated Problem(s): Encounter for colorectal cancer screening I discussed with patient CRC screening methods, including colonoscopy and cologuard. She wants to do Cologuard at this time. * Assessment & Plan Note - Milady Rae MA - 11/19/2024 12:06 PM EST Associated Problem(s): Hypercholesterolemia We discussed re rx options. Recommended moderate amount of exercise and increase consumption of fruit, vegetables, fish and high fiber foods. Should decrease consumption of highly saturated fats or trans fats. Patient started on Atorvastatin, tolerates well. FU lipids in 3-4 months and adjust medication if needed. * Assessment & Plan Note - Milady Rae MA - 11/19/2024 12:04 PM EST Associated Problem(s): Uterine leiomyoma Unclear if producing compressive symptoms on urinary bladder. Patient will FU with [facility]. FU with me in 6 months. * Assessment & Plan Note - Milady Rae MA - 11/19/2024 12:02 PM EST Associated Problem(s): Dysuria Unclear if related to atrophic vaginitis versus hyperactive bladder. FU with [facility] for results of endometrial biopsy, otherwise she needs to FU with Urologist whom she sees every year. * Assessment & Plan Note - Milady Rae MA - 11/19/2024 11:17 AM EST Associated Problem(s): Benign essential HTN Controlled. Compliant w/meds Continue Amlodipine 2.5 mg Counseled re low salt diet/increase moderate physical activity. Check home BP BIW and prn CP/AGUILAR/DOMÍNGUEZ Non smoking patient. Cautioned Pt and ERP BUSINESS ANALYST regarding cautious change of position due to vasovagal Sx. Patient denied having the Flu vaccine administered at this time. * Result Encounter Note - Misti Carrillo MD - 11/19/2024 11:15 AM EST Cologuard results on 11/22/24 was POS. I called patient but she was not available, I left voice message with ERP BUSINESS ANALYST Cinthia to call back about Cologuard results. Please let patient know that her results showed some changes in the colon cells present in the stool that may or not indicate that she has a tumor, please tell her she needs to be referred to colonoscopy to further evaluate the presence or notof a colon polyp. documented in this encounter Plan of Treatment Scheduled Orders Name Type Priority Associated Diagnoses Orde r Schedule Hepatic Function Panel Lab Routine Hypercholesterolemia Expected: 02/17/2025 (Approximate), Expires: 11/19/2025 Lipid Panel with Reflex to Direct LDL Lab Routine Hypercholesterolemia Expected: 02/17/2025 (Approximate), Expires: 11/19/2025 documented as of this encounter Procedures Procedure Name Priority Date/Time Associated Diagnosis Comments LAB COLOGUARD?? COLON CANCER SCREEN Routine 11/22/2024 11:47 AM EST Screening for colon cancer documented in this encounter Results * (ABNORMAL) Cologuard?? colon cancer screening (11/22/2024 11:47 AM EST) Cologuard Result Positive( A) Negative 11/29/2024 10:22 AM EST [facility] (CLIA #:[id number]) Comment: POSITIVE TEST RESULT. A positive Cologuard result should be followed with a colonoscopy or visual examination of the colon. The normal value (reference range) for this assay is negative. TEST DESCRIPTION: Composite algorithmic analysis of stool DNA-biomarkers with hemoglobin immunoassay. ?? Quantitative values of individual biomarkers are not reportable and are not associated with individual biomarker result reference ranges. Cologuard is intended for colorectal cancer screening of adults of either sex, 45 years or older, who are at average-risk for colorectal cancer (CRC). Cologuard has been approved for use by the U.S. FDA. The performance of Cologuard was established in a cross sectional study of average-risk adults aged 50-84. Cologuard performance in patients ages 45 to 49 years was estimated by sub-group analysis of near-age groups. Colonoscopies performed for a positive result may find as the most clinically significant lesion: colorectal cancer [4.0%], advanced adenoma (including sessile serrated polyps greater than or equal to 1cm diameter) [20%] or non- advanced adenoma [31%]; or no colorectal neoplasia [45%]. These estimates are derived from a prospective cross-sectional screening study of 10,000 individuals at average risk for colorectal cancer who were screened with both Cologuard and colonoscopy. (Annabel Martin al, N Engl J Med 2014;370(14):0761-7034.) Cologuard may produce a false negative or false positive result (no colorectal cancer or precancerous polyp present at colonoscopy follow up). A negative Cologuard test result does not guarantee the absence of CRC or advanced adenoma (pre-cancer). The current Cologuard screening interval is every 3 years. ([employer] and U.S. Multi-Society Task Force). Cologuard performance data in a 10,000 patient pivotal study using colonoscopy as the reference method can be accessed at the following location: www.[employer]/results. Additional description of the Cologuard test process, warnings and precautions can be found at [email or web address]. Stool specimen (specimen) 11/22/2024 11:47 AM EST 11/23/2024 1:19 PM EST Misti Carrillo MD LAB MOLECULAR DIAGNOSTIC S ORDERABLES Final Result [facility] (CLIA #:[id number]) [place] [address], documented in this encounter Visit Diagnoses Diagnosis Benign essential HTN- Primary Dysuria Hypercholesterolemia Pure hypercholesterolemia Screening for colon cancer Special screening for malignant neoplasms, colon Uterine leiomyoma, unspecified location documented in this encounter Care Teams Cyber Incident Handler Relationship Specialty Start Date End Date Misti Carrillo MD [address], [place] [phone] PCP - General Internal Medicine 07/15/23 Misti Carrillo MD [address], [place] [phone] Family Medicine 07/15/23 documented as of this encounter
--- OUTSIDE RECORDS SUMMARY | 2024-12-04 13:52 | XMS_ITS | Encounter Summary ---
Author Organization [employer] [facility] Address [address] [facility] 7t [place] [address] Care Team Providers Care Evp Name Role Phone Misti Carrillo MD Primary Care Provider + Misti Carrillo MD Primary Care Provider + Misti Carrillo MD Unavailable [phone] Encounter Details Date Type Department Care Team (Latest Contact Info) Description 10/17/2019 Abstract [facility] CONVERSIONS Dental, Provider, DDS Social History Tobacco Use Types Packs/Day Years Used Date Smoking Tobacco: Never Assessed Comments Unknown Sex and Gender Information Value Date Recorded Sex Assigned at Female 07/15/2023 4:01 PM EDT Legal Sex Female 4:21 PM EDT Gender Identity Female 07/15/2023 4:01 PM EDT Sexual Orientation Lesbian or John 07/15/2023 4: 01 PM EDT Sexual Orientation Straight 07/15/2023 4: 01 PM EDT documented as of this encounter Plan of Treatment Not on file documented as of this encounter Visit Diagnoses Not on filedocumented in this encounter Care Teams Evp Relationship Specialty Start Date End Date Misti Carrillo MD [address] [place] [address] PCP - General Family Medicine 10/17/19 07/14/23 Misti Carrillo MD [address] [place] [address] PCP - General Internal Medicine 07/15/23 Misti Carrillo MD [address] [place] [address] Family Medicine 07/15/23 documented as of this encounter
--- OUTSIDE RECORDS SUMMARY | 2024-12-04 13:52 | XMS_ITS | Encounter Summary ---
Author Organization [employer] Address [address] [facility] [facility] [address] 7t [place] [address] Care Team Providers Care Reimbursement Rep Name Role Phone Misti Carrillo MD Primary Care Provider + Misti Carrillo MD Unavailable [phone] Reason for Visit * Reason Onset Date Comments Error (VOID this visit) 11/29/2024 Encounter Details Date Type Department Care Team ([facility] st Contact Info) Description 11/29/2024 Telephone [facility] MEDICINE [address] [place] [address] Hillary Donovan, RN Error (VOID this visit) Social History Tobacco Use Types Packs/Day Years Used Date Smoking Tobacco: Never Passive Smoke Exposure: Never Smokeless Tobacco: Never Alcohol Use Standard Drinks/Week Comments Never 0 (1 standard drink = 0.6 oz pur e alcohol) Housing Stability Answer Date Recorded What is your housing situation today? I have veronica alaina 11/30/[address] you li [...] on filedocumented in this encounter Care Teams Reimbursement Rep Relationship Specialty Start Date End Date Misti Carrillo MD [address] [place] [address] PCP - General Internal Medicine 07/15/23 Misti Carrillo MD [address] [place] [address] Family Medicine 07/15/23 documented as of this encounter
--- OUTSIDE RECORDS SUMMARY | 2024-12-04 13:52 | XMS_ITS | Clinical Summary ---
Author Organization [facility] Address [address] [place] [address] Care Team Providers Care Twenty One Dealer Name Role Phone Trisha Jacques PA-C Primary Care Provider [phone] Source Comments PLEASE NOTE, if this patient is a minor, it may be UNLAWFUL to discuss sensitive information that is contained in these records (such as FAMILY PLANNING, MENTAL HEALTH or SUBSTANCE ABUSE) with the minor patient's parent or other person without the patient's specific authorization.[facility] Allergies No known active allergies Medications sodium chloride 0.65 % nasal solutionIndicatio ns:Routine adult health maintenance Place 2 Sprays into the nostril(s) as needed for nasal congestion. 50 mL 0 5 Active polyethylene glycol (GLYCOLAX, MIRALAX) 17 gram packetIndications :Constipation - functional Take 17 g by mouth once daily. Dissolve contents of packet in a glass (8 oz) of water. 30 Each 1 5 Active fluticasone (FLONASE) 50 mcg/actuation nasal sprayIndications: Throat dry Place 1 [place] into the nostril(s) once daily. 16 g 1 5 Active docusate sodium (COLACE) 50 mg capsuleIndication s:Slow transit constipation Take 1 Cap by mouth 2 (two) times daily. 60 Cap 1 5 Active polyethylene glycol (GLYCOLAX, MIRALAX) 17 gram/dose powderIndications :Constipation - functional Take 17 g by mouth once daily. Dissolve in a glass (8 oz) of water. 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 15 Cap 0 6 Active butalbital-acetam inophen-caffeine (FIORICET, ESGIC) 50-325-40 mg per tablet TAKE 1 TABLET BY MOUTH NEEDED FOR MIGRAINE 15 Tab 0 6 Active naproxen (NAPROSYN) 500 mg tablet Take 1 tablet by mouth 2 (two) times daily with a meal. 60 Tab 0 6 Active Active Problems Problem Noted Date Diagnosed Date Microscopic hematuria 10/13/2015 Overview (02/13/2016): Seen on urine culture on 09/26/2015 Saw urology on 01/09/2016 Dr. Malcolm at [facility]rology: negative workup With cysto and CT urogram. No further work up is necesarry at this point. A follow up urinalysis should be done yearly. Cystoscopy should be repeated if gross new onset hematuria occurs or change in symptoms occurs. Renal cyst: these are simple Bosniak 1 cysts and we no longer need to follow them as they do not represent malignancy. History of Papanicolaou smear of cervix 06/16/20 15 Overview (06/16/2015): Done 05/20/2015: Comments: Negative for Squamous Intraepithelial Lesion and Malignancy, High risk HPV negative, atrophy with inflammation is present. History of mammogram 03/24/2015 Overview (01/15/2016): Yesika screening done at [facility] on 03/20/2015: No mammographic evidence of malignancy in the right breast. Further eval of the left breast group of microcalcification by additional views. Pt will be contacted directly for imaging. BIRADS category 0 incomplete. Need further imaging. Second mammogram done 04/02/2015 at [facility]: small cluster microcalcifications seen in the mis third of the left breast likley represent early vascular calcicfications. Short term follow up with left breast mammogram with spot magnification in 2 projections is recommended in 6 months. The patient was informed. BIRADS category 3 probably benign. Short interval follow up recommended. Immunizations Name Administration Dates Next Due INFLUENZA, SEASONAL, INJECTABLE 12/31/2014 Family History Medical History Relation Name Comments Allergies Father Heart Problems Father Other (See Comments) Mother TB Relation Name Status Comments Father Mother Social History Tobacco Use Types Packs/Day Years Used Date Smoking Tobacco: Never Alcohol Use Standard Drinks/Week Comments No 0 (1 standard drink = 0.6 oz pur e alcohol) Comments No Sex and Gender Information Value Date Recorded Sex Assigned at Not on file Legal Sex Female 6:01 AM PST Gender Identity Not on file Sexual Orientation Not on file Occupation Industry Job Start Date Job End Date unemployed Not on file Not on file Not on file Last Filed Vital Signs Vital Sign Reading Time Taken Comments Blood Pressure 125/80 02/05/2016 4:03 PM EDT Pulse 82 02/05/2016 4:03 PM EDT Temperature 37.1 ??C (98.7 ??F) 02/05/2016 4:03 PM ED T Respiratory Rate 17 02/05/2016 4:03 PM EDT Oxygen Saturation 98% 05/21/2015 2:22 PM EDT Inhaled Oxygen Concentration - - Weight 54.4 kg (120 lb) 02/05/2016 4:03 PM EDT Height 146 cm (4' 9.48 ) 02/05/2016 4:03 PM EDT Body Mass Index 25.54 02/05/2016 4:03 PM EDT Plan of Treatment Not on file Insurance [facility] Member Subscriber Plan / Payer (Ef fective 2014-Present) Name:Saima Hand Relation to Subscriber:Self Name:Saima Hand Payer ID:[id number] Group ID:Not on file Type:Medicaid Address: [facility] [id number] [place] [address] [facility] [place] [address] [facility] Care Teams Twenty One Dealer Relationship Specialty Start Date End Date Trisha Jacques PA-C [address] [place] [address] PCP - General 09/27/18
--- OUTSIDE RECORDS SUMMARY | 2024-12-04 13:52 | XMS_ITS | Encounter Summary ---
Author Organization [email or web address] Address [address] [facility] [address] 7t [place] [address] Care Team Providers Care Pipe Line Gauger Name Role Phone Misti Carrillo MD Primary Care Provider + Misti Carrillo MD Unavailable [phone] Encounter Details Date Type Department Care Team ([facility] st Contact Info) Description 11/09/2024 Telephone [facility] MEDICINE [address] [place], [place] [phone] Misti Carrillo MD [address] [place], [place] [phone] Social History Tobacco Use Types Packs/Day Years Used Date Smoking Tobacco: Never Passive Smoke Exposure: Never Smokeless Tobacco: Never Alcohol Use Standard Drinks/Week Comments Never 0 (1 standard drink = 0.6 oz pur e alcohol) Housing Stability Answer Date Recorded What is your housing situation today? I have veronica sing 11/30/[address] you li [...] PM EDT documented as of this encounter Miscellaneous Notes * Telephone Encounter - Bee Oh LPN - 11/09/2024 1:00 PM EST Multiple attempts to reach patient at listed numbers for triage. No answers. Voice mails left for patient to return call to [phone]. Protocol Used: No Contact or Duplicate Contact Call (Adult) Protocol-Based Disposition: No Contact Call Positive Triage Questions: * Message left on identified voicemail * Second attempt to contact caller AND no contact made. Phone number verified. * Third attempt to contact caller AND no contact made. Phone number verified. * All higher-acuity triage questions were negative documented in this encounter Plan of Treatment Not on file documented as of this encounter Visit Diagnoses Not on filedocumented in this encounter Care Teams Pipe Line Gauger Relationship Specialty Start Date End Date Misti Carrillo MD [address] [place] [address] PCP - General Internal Medicine 07/15/23 Misti Carrillo MD [address] [place] [address] Family Medicine 07/15/23 documented as of this encounter
--- OUTSIDE RECORDS SUMMARY | 2024-12-04 13:52 | XMS_ITS | Encounter Summary ---
Author Organization [employer] [facility] Address [address] [facility] 7t [place] [address] Care Team Providers Care Electronic Health Records Specialist Name Role Phone Misti Carrillo MD Primary Care Provider + Misti Carrillo MD Primary Care Provider + Misti Carrillo MD Unavailable [phone] Encounter Details Date Type Department Care Team (Late st Contact Info) Description 10/19/2022 Abstract [facility] [address] [place] [address] Allison Sheehan, DDS [address] [place], [place] [phone] Social History Tobacco Use Types Packs/Day Years [...] on filedocumented in this encounter Care Teams Electronic Health Records Specialist Relationship Specialty Start Date End Date Misti Carrillo MD [address] [place] [address] PCP - General Family Medicine 10/17/19 07/14/23 Misti Carrillo MD [address] [place] [address] PCP - General Internal Medicine 07/15/23 Misti Carrillo MD [address] [place] [address] Family Medicine 07/15/23 documented as of this encounter
--- OUTSIDE RECORDS SUMMARY | 2024-12-04 13:52 | XMS_ITS | Encounter Summary ---
Author Organization [employer] Address [address] [address] [address] 7t [place] [address] Care Team Providers Care Catcher Filter Tip Name Role Phone Misti Carrillo MD Primary Care Provider + Misti Carrillo MD Unavailable [phone] Encounter Details Date Type Department Care Team (Late st Contact Info) Description 11/29/2024 Telephone [facility] MEDICINE [address] [place], [place] [phone] Hillary Donovan, RN Social History Tobacco Use Types Packs/Day Years [...] encounter Miscellaneous Notes * Telephone Encounter - Hillary Donovan RN - 11/29/2024 4:13 PM EST TC placed to pt via [employer] senior payroll administrator (ID#[id number]) per PCP message, Cologuard results on 11/22/24 was POS. I called patient but she was not available, I left voice message with DEMETRIA Vicente to call back about Cologuard results. Please let patient know that her results showed some changes in the colon cells present in the stool that may or not indicate that she has a tumor, please tell her she needs to be referred to colonoscopy to further evaluate the presence or not of a colon polyp. No answer, leftvoicemail requesting the patient call office back and ask to speak to the red team nurses. TC placed to home phone number via [employer] senior payroll administrator ([employer] ID#[id number]). Pt informed of PCP message. Pt informeda referral was placed and she will receive a call from gastroenterology to set up an appointment with them. Pt denies any further questions or concerns at this time. documented in this encounter Plan of Treatment Not on file documented as of this encounter Visit Diagnoses Not on filedocumented in this encounter Care Teams Catcher Filter Tip Relationship Specialty Start Date End Date Misti Carrillo MD [address] [place] [address] PCP - General Internal Medicine 07/15/23 Misti Carrillo MD [address] [place] [address] Family Medicine 07/15/23 documented as of this encounter
--- OUTSIDE RECORDS SUMMARY | 2024-12-04 13:52 | XMS_ITS | Encounter Summary ---
Author Organization [employer] Address [address] [facility] [address] [address] 7t [place] [address] Care Team Providers Care Signals Officer Name Role Phone Misti Carrillo MD Primary Care Provider + Misti Carrillo MD Unavailable [phone] Encounter Details Date Type Department Care Team (Late st Contact Info) Description 11/16/2024 Orders Only GENERIC EXTERNAL DATA DEPARTMENT Provider, Generic External Data Social History Tobacco Use Types Packs/Day Years [...] on file documented as of this encounter Procedures Procedure Name Priority Date/Time Associated Diagnosis Comments BACTERIAL VAGINOSIS PANEL Routine 11/16/2024 11:33 AM EST CHLAMYDIA/N. GONORRHOEAE RNA, TMA, UROGENITAL Routine 11/16/2024 11:33 AM EST CULTURE, URINE, ROUTINE Routine 11/16/2024 11:33 AM EST documented in this encounter Results * Culture, Urine, Routine (11/16/2024 11:33 AM EST) Urine Urine specimen obtained by clean catch procedure / Unknown 11/16/2024 11:33 AM EST 11/16/2024 3:33 PM EST Comment:UACC Narrative [facility] - 11/18/2024 11:25 AM EST Lactobacillus species Quant 50,000 to 100,000 cfu/mL Specimen Source: Urine clean catch us Generic External Data Provider LAB MICROBIOLOGY - GENERAL ORDERABLES Final Result [facility] [address] [place] [phone] * Chlamydia/N. Gonorrhoeae RNA, TMA, Urogenitial (11/16/2024 11:33 AM EST) CT PCR NOT DETECTED Not Detect. [facility] Comment:A not detected test result does not exclude the possibilityof infection because test results can be affected byimproper specimen collection, concurrent antibiotic therapy,or the number of organisms in the specimen which may bebelow the sensitivity of the test. As with many diagnostictests, results from the Xpert CT/NG assay should beinterpreted in conjunction with other laboratory andclinical data available to the clinician.Xpert CT/NG performance has not been evaluated in patientsless than 14 years of age. The assay should not be used forthe evaluationof suspected sexual abuse or for other medico-legalindications. Additional testing is recommended in anycircumstance when false positive or false negative resultscould lead to adverse medical, social or psychologicalconsequences. NG PCR NOT DETECTED Not Detect. [facility] Comment:A not detected test result does not exclude the possibilityof infection because test results can be affected byimproper specimen collection, concurrent antibiotic therapy,or the number of organisms in the specimen which may bebelow the sensitivity of the test. As with many diagnostictests, results from the Xpert CT/NG assay should beinterpreted in conjunction with other laboratory andclinical data available to the clinician.Xpert CT/NG performance has not been evaluated in patientsless than 14 years of age. The assay should not be used forthe evaluationof suspected sexual abuse or for other medico-legalindications. Additional testing is recommended in anycircumstance when false positive or false negative resultscould lead to adverse medical, social or psychologicalconsequences. 11/16/2024 11:3 3 AM EST 11/16/2024 3:07 PM EST Narrative [facility] - 11/16/2024 4:44 PM EST Vaginal us Generic External Data Provider LAB MICROBIOLOGY - GENERAL ORDERABLES Final Result [facility] [address] [place] [phone] * Bacterial Vaginosis (11/16/2024 11:33 AM EST) TRICHOMONAS VAGINALIS DETECTION BY PCR NOT DETECTED Not Detect [facility] BACTERIAL VAGINOSIS DETECTION BY PCR NEGATIVE Negative [facility] Comment:The BV organism targ ets of the Xpert Xpress MVP test can becommensal in women; Xpert Xpress MVP positive results forbacterial vaginosis should be considered in conjunction withother clinical and patient information to determine thedisease status. Organisms that are not detected by the XpertXpress MVP test have also been reported to be associatedwith BV and aerobic vaginitis.The Xpert Xpress MVP test performance has not been evaluatedin patients under the age of 14. RIA GROUP DETECTION BY PCR NOT DETECTED Not Detect [facility] Ria glab krusei PCR NOT DETECTED Not Detect [facility] 11/16/2024 11:3 3 AM EST 11/16/2024 3:07 PM EST us Generic External Data Provider LAB MICROBIOLOGY - GENERAL ORDERABLES Final Result Performing Organization Address City/State/[facility] Co de Phone Number [facility] [address] [place] [phone] documented in this encounter Visit Diagnoses Not on filedocumented in this encounter Care Teams Signals Officer Relationship Specialty Start Date End Date Misti Carrillo MD [address] [place] [address] PCP - General Internal Medicine 07/15/23 Misti Carrillo MD [address] [place] [address] Family Medicine 07/15/23 documented as of this encounter
--- OUTSIDE RECORDS SUMMARY | 2024-12-04 13:52 | XMS_ITS | Encounter Summary ---
Author Organization [employer] Address [address] [facility] 7t [place] [address] Care Team Providers Care Animal Care Technician Name Role Phone Misti Carrillo MD Primary Care Provider + Misti Carrillo MD Unavailable [phone] Reason for Referral * Consultation (Routine) - Closed Specialty Diagnoses / Procedures Referred By Contac t Referred To Contact Obstetrics and Gynecology Diagnoses Pelvic pain Atrophic vaginitis Misti Carrillo MD [address] [place] [address] Phone: tel: fax: [facility] [address] 5[address] Floor [address] (Main Hospital Entrance) [place], [place] Phone: tel: fax: Referral ID Status Reason Start Date Expiration Date V isits Requested Visits Authorized [id number] Closed Specialty Services Required 11/05/2024 11/05/2025 1 1 Encounter Details Date Type Department Care Team (Late st Contact Info) Description 11/05/2024 Orders Only [facility] MEDICINE [address] [place] [address] [phone] Misti Carrillo MD [address] [place] [phone] Pelvic pain (Primary Dx); Atrophic vaginitis Social History Tobacco Use Types Packs/Day Years [...] Recorded Patient Health Questionnaire-2 Score 0 11/30/2023 Comments Unknown Sex and Gender Information Value Date Recorded Sex Assigned at Female 07/15/2023 4:01 PM EDT Legal Sex Female 4:21 PM EDT Gender Identity Female 07/15/2023 4:01 PM EDT Sexual Orientation Lesbian or John 07/15/2023 4: 01 PM EDT Sexual Orientation Straight 07/15/2023 4: 01 PM EDT documented as of this encounter Plan of Treatment Scheduled Referrals Name Type Priority Associated Diagnoses Order Schedule Referral to Gynecology Outpatient Referral Routine Pelvic pain Atrophic vaginitis Expected: 11/05/2024 (Approximate), Expires: 11/05/2025 documented as of this encounter Visit Diagnoses Diagnosis Pelvic pain- Primary Atrophic vaginitis Postmenopausal atrophic vaginitis documented in this encounter Care Teams Animal Care Technician Relationship Specialty Start Date End Date Misti Carrillo MD [address] [place] [address] PCP - General Internal Medicine 07/15/23 Misti Carrillo MD [address] [place] [address] [place] [address] Family Medicine 07/15/23 documented as of this encounter
--- OUTSIDE RECORDS SUMMARY | 2024-12-04 13:52 | XMS_ITS | Encounter Summary ---
Author Organization [employer] Address [address] [facility] 7t [place] [address] Care Team Providers Care Criminal Defense Lawyer Name Role Phone Misti Carrillo MD Primary Care Provider + Misti Carrillo MD Unavailable [phone] Encounter Details Date Type Department Care Team (Latest Contact Info) Description 11/19/2024 Travel Social History Tobacco Use Types Packs/Day Years [...] on filedocumented in this encounter Care Teams Criminal Defense Lawyer Relationship Specialty Start Date End Date Misti Carrillo MD [address] [place] [address] PCP - General Internal Medicine 07/15/23 Misti Carrillo MD [address] [place] [address] Family Medicine 07/15/23 documented as of this encounter
--- OUTSIDE RECORDS SUMMARY | 2024-12-04 13:52 | XMS_ITS | Encounter Summary ---
Author Organization [employer] Address [address] [facility] 7t [place] [address] Care Team Providers Care Bait Packer Name Role Phone Misti Carrillo MD Primary Care Provider + Misti Carrillo MD Unavailable [phone] Reason for Visit * Reason Comments Pre-visit Planning SDOH screening negat arnav and tobacco screening negative Encounter Details Date Type Department Care Team (Late st Contact Info) Description 11/09/2024 Patient Outreach [facility] MEDICINE [address] [place], [place] [phone] Misti Carrillo MD [address] [place], [place] [phone] Pre-visit Planning (SDOH screening negative and tobacco screening negative) Social History Tobacco Use Types Packs/Day Years [...] PM EDT documented as of this encounter Progress Notes * Trena Schwarz - 11/09/2024 10:12 AM EST CC Trena placed successful outbound call to patient for pre-visit planning. Patient name and confirmed. Patient confirms appt date and time, and has transportation. Biggest concern for appointment at this time is bladder pain with dark urine and noted blood in urine Patient advised to bring toappointment a photo id and insurance card. Appropriate screenings completed in anticipation of appointment. documented in this encounter Plan of Treatment Not on file documented as of this encounter Visit Diagnoses Not on filedocumented in this encounter Care Teams Bait Packer Relationship Specialty Start Date End Date Misti Carrillo MD [address] [place] [address] PCP - General Internal Medicine 07/15/23 Misti Carrillo MD [address] [place] [address] Family Medicine 07/15/23 documented as of this encounter
--- OUTSIDE RECORDS SUMMARY | 2024-12-04 13:52 | XMS_ITS | Clinical Summary ---
Author Organization [employer] Address [address] [facility] [address] [place] [address] Care Team Providers Care Air Traffic Instructor Name Role Phone Misti Carrillo MD Primary Care Provider + Misti Carrillo MD Unavailable Allergies Active Allergy Reactions Criticality Noted Date Comments Penicillins 10/17/2019 Other reaction(s): palpitations Medications amLODIPine (Norvasc) 2.5 MG tablet Take 1 tablet by mouth at bed time. Active ketotifen (Zaditor) 0.025 % ophthalmic solution Administer 1 drop into both eyes 2 times daily. 10 mL 1 02/19/20 23 Active chlorhexidine (Peridex) 0.12 % solution 06/11/20 20 Active ammonium lactate (Amlactin) 12 % cream Apply topically if needed for dry skin. 140 g 3 05/18/20 24 025 Active cetirizine (ZyrTEC) 10 MG tablet Take 1 tablet (10 mg) by mouth Once per day. 90 tablet 3 05/14/20 24 025 Active Diclofenac Sodium 1 % gel APPLY TO THE AFFECTED AREA(S) 2 GRAMS TWICE DAILY 07/23/20 22 Active estradiol (Estrace) 0.1 MG/GM vaginal cream 1 applicator full at bedtime x 2w then three times per week x 2w then BIW thereafter 42.5 g 5 08/10/20 24 Active docusate sodium (Colace) 100 MG capsule Take 1 capsule (100 mg) by mouth Once per day. 90 capsule 3 08/10/20 24 025 Active acetaminophen (Tylenol 8 Hour) 650 MG ER tablet Take 1 tablet (650 mg) by mouth every 8 (eight) hours if needed for mild pain. Do not crush, chew, or split. 90 tablet 1 08/10/20 24 Active atorvastatin (Lipitor) 40 MG tablet Take 1 tablet (40 mg) by mouth Once per day. 90 tablet 1 11/19/19 25 026 Active atorvastatin (Lipitor) 40 MG tablet Take 1 tablet (40 mg) by mouth Once per day. 90 tablet 1 09/04/20 24 025 Discontinued(Re order (will not trigger notification to Pharmacy)) clotrimazole (Lotrimin) 1 % external solution Apply topically 2 times daily. 09/10/20 24 024 Active Problems Problem Noted Date Diagnosed Date Positive colorectal cancer screening using Colog uard test 11/29/2024 Encounter for colorectal cancer screening 2024 Assessment & Plan (11/19/2024 12:08 PM EST): I discussed with patient CRC screening methods, including colonoscopy and cologuard. She wants to do Cologuard at this time. Uterine leiomyoma 11/19/2024 Assessment & Plan (11/19/2024 12:05 PM EST): Unclear if producing compressive symptoms on urinary bladder. Patient will FU with Slab Lifting Supervisor. FU with me in 6 months. Ear itching 08/21/2024 Assessment & Plan (08/21/2024 2:21 PM EDT): Patient with c/o bilateral ear itch for weeks. On exam no evidence of infection. Only external auditory canal dryness. Plan: I have discussed with patient the importance of NOT using Qtips to allow for some cerumen to be built and naturally lubricate her ear canal. Pt reasurred Earache 08/21/2024 Onychomycosis of toenail 08/21/2024 Assessment & Plan (08/21/2024 2:22 PM EDT): Patient with c/o thickened and painful toe nails Exam suggestive of onychomycosis Plan: Podiatry evaluation for proper toe nail care Memory deficit 08/10/2024 Assessment & Plan (08/10/2024 2:07 PM EDT): KITCHEN LEAD reports that she is forgetting things at times, I notice she asked same questions today. Order labs and follow up in 3 months, will need mini COG. She has a KITCHEN LEAD to help her with cooking, she will be keeping an eye on activities that may put Pt at risk. Trochanteric bursitis of left hip 08/10/2024 Assessment & Plan (08/10/2024 2:05 PM EDT): Seen by Orthopaedics, she will follow up with PT. Take Tylenol prn. Pelvic pain 08/10/2024 Assessment & Plan (08/10/2024 2:03 PM EDT): Order pelvic US Tipped teeth 2024 Dental calculus 2024 Periodontal disease 2024 Missing teeth, acquired 2024 Generalized gingival recession 2024 Hypercholesterolemia 12/19/2023 Assessment & Plan (11/19/2024 12:06 PM EST): We discussed re rx options. Recommended moderate amount of exercise and increase consumption of fruit, vegetables, fish and high fiber foods. Should decrease consumption of highly saturated fats or trans fats. Patient started on Atorvastatin, tolerates well. FU lipids in 3-4 months and adjust medication if needed. Assessment & Plan (05/18/2024 12:12 PM EDT): Lipids are wnl, Recommended moderate amount of exercise and increase consumption of fruit, vegetables, fish and high fiber foods. Should decrease consumption of highly saturated fats or trans fats. Vitamin D deficiency 12/19/2023 Assessment & Plan (05/18/2024 12:12 PM EDT): Start vit D supplementation x 6m Advised re outdoor exercise, sun exposure x 15min/d Benign essential HTN 11/30/2023 Assessment & Plan (11/19/2024 11:39 AM EST): Controlled. Compliant w/meds Continue Amlodipine 2.5 mg Counseled re low salt diet/increase moderate physical activity. Check home BP BIW and prn CP/AGUILAR/DOMÍNGUEZ Non smoking patient. Cautioned Pt and KITCHEN LEAD regarding cautious change of position due to vasovagal Sx. Patient denied having the Flu vaccine administered at this time. Assessment & Plan (08/10/2024 2:04 PM EDT): Controlled. Compliant w/meds Continue Amlodipine 2.5 mg Counseled re low salt diet/increase moderate physical activity. Check home BP BIW and prn CP/AGUILAR/DOMÍNGUEZ Non smoking patient. Cautioned Pt and KITCHEN LEAD regarding cautious change of position due to vasovagal Sx. Follow up in 3 months with labs. Assessment & Plan (11/30/2023 1:48 PM EST): Controlled. Compliant w/meds Continue amlodipine same dose Counseled re low salt diet/increase moderate physical activity. Check home BP BIW and prn CP/AGUILAR/DOMÍNGUEZ Non smoking patient. Fu with labs next month. Immunization declined 11/30/2023 Assessment & Plan (11/30/2023 1:56 PM EST): Declined Influenza, Covid and PCV vax today. I explained that these viral diseases can cause serious complications and advised to get vaccinated at earliest covenience. Atrophic vaginitis 11/29/2023 11/29/2023 Assessment & Plan (08/10/2024 2:05 PM EDT): Pt is symptomatic, will restart Estrace daily x 2 weeks and continue three times per week. Pap smear due next year with lay midwife. Assessment & Plan (05/18/2024 12:10 PM EDT): Doing better re U. Incontinence on estrace cream. Advised to continue maintenance at least 1x/w Needs pelvic exam next year Assessment & Plan (11/30/2023 1:50 PM EST): Restart estrace cream daily x 2w then taper down slowly to BIW FU 1mo. Decreased hearing 11/29/2023 11/29/2023 Cobalamin deficiency 11/29/2023 11/29/2023 Assessment & Plan (05/18/2024 12:11 PM EDT): Off b12 supplementation, levels are nl/low side. Advised re increase B12 consumption, red meat 1x/w, eggs, can buy OTC MVI Recheck levels. next year. Assessment & Plan (11/30/2023 1:50 PM EST): Recheck b12 levels. Chronic low back pain 11/29/2023 11/29/2023 Pruritus of vagina 11/29/2023 11/29/2023 Hip pain 11/29/2023 11/29/2023 Hyperactivity of bladder 11/29/2023 024 Left flank pain 11/29/2023 11/29/2023 Low vision, both eyes 11/29/2023 11/29/2023 Palpitations 11/29/2023 11/29/2023 Slow transit constipation 11/29/20232023 Assessment & Plan (08/10/2024 2:04 PM EDT): Advised increase of fluids, advised to take Colace daily. Agreed to have Colonoscopy, never has had Colonoscopy. Dysuria 11/29/2023 11/29/2023 Assessment & Plan (11/19/2024 12:02 PM EST): Unclear if related to atrophic vaginitis versus hyperactive bladder. FU with Slab Lifting Supervisor for results of endometrial biopsy, otherwise she needs to FU with Urologist whom she sees every year. Assessment & Plan (11/30/2023 1:46 PM EST): UA is normal, FU urine cx, no abs Given. It maybe related to atrophic vaginitis, hyperactive bladder FU at next RV. Allergic conjunctivitis of both eyes 03/17/2023 Seasonal allergic rhinitis 02/18/2023 Resolved Problems Problem Noted Date Diagnosed Date Resolved Date RSV bronchitis 11/30/2023 08/10/2024 Assessment & Plan (11/30/2023 1:48 PM EST): Mostly resolved, O2 sat on ambulation 3 min is still 100% RA. I told her To Take breaks and she could still have some bronchial inflammation, will consider inhaled steroids if sxs persist next month. Declined Influenza, Covid or PCV20. Fu 1mo Elevated blood pressure read ing with diagnosis of hypertension 11/29/2023 11/29/2023 11/19/2024 UTI symptoms 11/29/2023 11/29/2023 11/19/2024 Encounters Date Type Department Care Team Description 11/29/2024 Telephone [facility] [place] [address] Hillary Donovan, JAZMINE Error (VOID this visit) 11/29/2024 Telephone [facility] [place] [address] Hillary Donovan, JAZMINE 11/29/2024 Orders Only [facility] [place] [address] Misti Carrillo MD Encounter for colorectal cancer screening (Primary Dx); Positive colorectal cancer screening using Cologuard test 11/19/2024 11:15 AM EST Office Visit [facility] [place] [address] Misti Carrillo MD Benign essential HTN (Primary Dx); Dysuria; Hypercholesterolemia; Screening for colon cancer; Uterine leiomyoma, unspecified location 11/19/2024 Travel 11/16/2024 Orders Only GENERIC EXTERNAL DATA DEPARTMENT Provider, Generic External Data 11/09/2024 Telephone [facility] [place] [address] Misti Carrillo MD 11/09/2024 Patient Outreach [facility] [place] [address] Misti Carrillo MD Pre-visit Planning (SDOH screening negative and tobacco screening negative) 11/05/2024 Telephone [facility] [place] [address] Brianna Wilde, JAZMINE Results 11/05/2024 Orders Only [facility] [place] [address] Misti Carrillo MD Pelvic pain (Primary Dx); Atrophic vaginitis 09/21/2024 10:30 AM EST Office Visit [facility] [address] [place] [address] Yan Rachel 09/18/2024 Telephone [facility] [address] [place] [address] Misti Carrillo MD November09/13/2024 11:00 AM EST Office Visit [facility] [address] [place], [place] [phone] Caitlyn Snyder Dental calculus (Primary Dx) 09/05/2024 Telephone [facility] [address] [place], [place] [phone] Evi Kapoor RN 09/04/2024 Orders Only [facility] [address] [place], [place] [phone] Misti Carrillo MD Pure hypercholesterolemia (Primary Dx) from Last 3 Months Immunizations Name Administration Dates Next Due Influenza High-dose Quadriva lent Preservative Free 09/03/2021,11/12/2020 Influenza, High Dose Seasona l, Preservative Free 10/19/2019 Influenza, IIV3, injectable 12/15/2018, 8,12/31/2014 Pneumococcal Conjugate PCV 13 01/18/2018 Pneumococcal Polysaccharide PPSV23 01/18/2018 Tdap 01/18/2018 Family History Medical History Relation Name Comments Prostate cancer Father Relation Name Status Comments Father Social History Tobacco Use Types Packs/Day Years [...] Orientation Straight 07/15/2023 4: 01 PM EDT Last Filed Vital Signs Vital Sign Reading Time Taken Comments Blood Pressure 133/67 11/19/2024 11:10 AM EST Pulse 64 11/19/2024 11:10 AM EST Temperature 34.9 ??C (94.8 ??F) 11/19/2024 11:[address] Respiratory Rate 16 11/19/2024 11:10 AM EST Oxygen Saturation 99% 08/21/2024 1:49 PM EDT Inhaled Oxygen Concentration - - Weight 45.9 kg (101 lb 4 oz) 11/19/2024 11:10 AM EST Height 144.8 cm (4' 9 ) 11/19/2024 11:10 AM EST Body Mass Index 21.91 11/19/2024 11:10 AM EST Plan of Treatment Health Maintenance Due Date Last Done Comments CT Colonography 1955 Colonoscopy 1955 FIT 1955 FOBT 1955 Sigmoidoscopy 1955 Alcohol/Substance Use Screening 1965 Hepatitis C Screening 1971 Zoster Vaccines (1 of 2) 2003 COVID-19 Vaccine ( season) 2024 Influenza Vaccine (#1) 2024 1, 11/12/2020, 10/19/2019, Additional history exists Depression Screening 11/30/2024 11/30/2023, 11/30/19 Dental X-Ray: Bitewings 2025 2024 Dental Oral Exam 03/14/2025 09/13/2024, 03/2024, 08/02/2023, Additional history exists Dental Prophylaxis 03/14/2025 09/13/2024, 0 2024, 09/27/2022 Mammogram 05/16/2025 05/16/2024, 11/07, 11/25/2023, Additional history exists SDOH Screening 11/09/2025 11/09/2024 Tobacco Screening 11/19/2025 11/19/2024 Dental X-Ray: Full Mouth 08/03/2026 023, 01/21/2022, 10/17/2019 HPV/Cotest 02/24/2027 02/24/2022, 04/2 , 01/29/2022 Pap Smear 02/24/2027 02/24/2022, 01/29/2022 Colorectal Cancer Screening 11/22/2027 FIT DNA/Cologuard 11/22/2027 11/22/2024 RSV Patients and Patients Aged 60 years or older (1 - 1-dose 75+ series) 01/11/2028 DTaP/Tdap/Td Vaccines (2 - Td or Tdap) 01/19/2028 01/18/2018 Lipid Panel 08/30/2029 08/30/2024, 12/06/2023 Pneumococcal Vaccine: 65+ Years Completed 01/18/2018, 01/18/2018 HIB Vaccines Aged Out No longer eligi ble based on patient's age to complete this topic HPV Vaccines Aged Out No longer eligi ble based on patient's age to complete this topic Hepatitis A Vaccines Aged Out No long er eligible based on patient's age to complete this topic Hepatitis B Vaccines Aged Out No long er eligible based on patient's age to complete this topic IPV Vaccines Aged Out No longer eligi ble based on patient's age to complete this topic Meningococcal Vaccine Aged Out No christi mackenzie eligible based on patient's age to complete this topic RSV under 20 months Aged Out No longe r eligible based on patient's age to complete this topic Rotavirus Vaccines Aged Out No longer eligible based on patient's age to complete this topic Procedures Procedure Name Priority Date/Time Associated Diagnosis Comments LAB COLOGUARD?? COLON CANCER SCREEN Routine 11/22/2024 11:47 AM EST Screening for colon cancer CULTURE, URINE, ROUTINE Routine 11/16/2024 11:33 AM EST CHLAMYDIA/N. GONORRHOEAE RNA, TMA, UROGENITAL Routine 11/16/2024 11:33 AM EST BACTERIAL VAGINOSIS PANEL Routine 11/16/2024 11:33 AM EST LIMITED ORAL EVALUATION - PROBLEM FOCUSED Routine 09/21/2024 10:30 AM EST COMPREHENSIVE PERIODONTAL EVALUATION - NEW OR ESTABLISHED PATIENT Routine 09/13/2024 11:00 AM EST PERIODIC ORAL EVALUATION - ESTABLISHED PATIENT Routine 09/13/2024 11:00 AM EST ORAL HYGIENE INSTRUCTIONS Routine 09/13/2024 11:00 AM EST ADJUNCTIVE GENERAL SERVICES - PROFESSIONAL VISITS - CASE PRESENTATION, SUBSEQUENT TO DETAILED AND EXTENSIVE TREATMENT PLANNING Routine 09/13/2024 11:00 AM EST PROPHYLAXIS - ADULT Routine 09/13/2024 1 1:00 AM EST US PELVIS TRANSVAGINAL Routine 11:47 AM EDT Pelvic pain LIPID PANEL WITH REFLEX TO DIRECT LDL Routine 08/30/2024 8:35 AM EDT Benign essential HTN BI MAMMOGRAM SCREENING TOMOSYNTHESIS BILATERAL Routine 05/16/2024 12:00 PM EDT PANORAMIC RADIOGRAPHIC IMAGE Routine 08/02/2023 10:30 AM EDT ZZZ HISTORICAL HPV E6/E7 RFLX KATHLEEN 16 18/45 Routine 02/24/2022 10:32 AM EDT HM PAP/HPV Routine 02/24/2022 from Last 3 Months or Most Recently Relevant to Health Maintenance Results * (ABNORMAL) Cologuard?? colon cancer screening (11/22/2024 11:47 AM EST) Cologuard Result Positive( A) Negative 11/29/2024 10:22 AM EST [facility] (CLIA #:[id number]) Comment: POSITIVE TEST RESULT. A positive Cologuard [...] screened with both Cologuard and colonoscopy. (Annabel Ward. et al, N Engl J Med 2014;370(14):9245-4148.) Cologuard may produce a false negative or false positive result (no colorectal cancer or precancerous polyp present at colonoscopy follow up). A negative Cologuard test result does not guarantee the absence of CRC or advanced adenoma (pre-cancer). The current Cologuard screening interval is every 3 years. ([place] [employer] and U.S. Multi-Society Task Force). Cologuard performance data in a 10,000 patient pivotal study using colonoscopy as the reference method can be accessed at the following location: www.[employer].me/results. Additional description of the Cologuard test process, warnings and precautions can be found at www.cologuard.com. Stool specimen (specimen) 11/22/2024 11:47 AM EST 11/23/2024 1:19 PM EST Misti Carrillo MD LAB MOLECULAR DIAGNOSTIC S ORDERABLES Final Result [facility] (CLIA #:[id number]) [place] [address], * Bacterial Vaginosis (11/16/2024 11:33 AM EST) TRICHOMONAS VAGINALIS DETECTION BY PCR NOT DETECTED Not Detect [facility] BACTERIAL VAGINOSIS DETECTION BY PCR NEGATIVE Negative [facility] Comment:The BV organism targ ets of [...] DETECTION BY PCR NOT DETECTED Not Detect [facility] Ria glab krusei PCR NOT DETECTED Not Detect [facility] 11/16/2024 11:3 3 AM EST 11/16/2024 3:07 PM EST us Generic External Data Provider LAB MICROBIOLOGY - GENERAL ORDERABLES Final Result Performing Organization Address City/[facility]/ZIP Co de Phone Number [facility] [address] [place] [phone] * Chlamydia/N. Gonorrhoeae RNA, TMA, Urogenitial (11/16/2024 11:33 AM EST) CT PCR NOT DETECTED Not Detect. [facility] Comment:A not detected test result does [...] psychologicalconsequences. NG PCR NOT DETECTED Not Detect. [facility] Comment:A not detected test result does [...] AM EST 11/16/2024 3:07 PM EST Narrative [facility] - 11/16/2024 4:44 PM EST Vaginal us Generic External Data Provider LAB MICROBIOLOGY - GENERAL ORDERABLES Final Result [facility] [address] [place] [phone] * Culture, Urine, Routine (11/16/2024 11:33 AM EST) Urine Urine specimen obtained by clean catch procedure / Unknown 11/16/2024 11:33 AM EST 11/16/2024 3:33 PM EST Comment:UACC Narrative [facility] - 11/18/2024 11:25 AM EST Lactobacillus species Quant 50,000 to 100,000 cfu/mL Specimen Source: Urine clean catch us Generic External Data Provider LAB MICROBIOLOGY - GENERAL ORDERABLES Final Result [facility] [address] [place] [address] [phone] * US Pelvis Transvaginal (09/06/2024 11:47 AM EDT) Anatomical Region Laterality Modality Pelvis Ultrasound 09/06/2024 11:4 7 AM EDT Narrative 11/03/2024 1:58 PM EST ? [facility] ?[address] ?[place] [address] ? Ultrasound Report ? Signed ? Patient: Machicote Hammond,Saima ?MR ?? #: [id number] ? : 1955 ?Acct:[id number] ? Age/Sex: 69 / F ?ADM Date: 09/06/24 ? Loc: HO.US ? Attending Dr: Misti Carrillo MD ? Ordering Physician: Misti Carrillo MD ?? Date of Service: 09/06/24 ?? Procedure(s): US pelvic and transvaginal ?? Accession Number(s): [id number] ? cc: Misti Carrillo MD ? EXAMINATION:US PELVIS TRANSABDOMINAL AND TRANSVAGINAL ? CLINICAL INFORMATION: ??pelvic pain ? COMPARISON: ?? No priors available. ? LMP: Postmenopausal ? FINDINGS: ? UTERUS: The uterus is anteverted. ?? Size: 5.5 x 2.3 x 3.4 cm. ?? Uterine mass: Intramural uterine mass likely fibroid 2 x 1.5 x 1.8 cm. ?? Cervix: Grossly unremarkable. ?? Endometrium: No ultrasound evidence of endometrial lesion. endometrial ?? thickness measures 0.3 cm normal thickness. Fluid seen within the ?? endometrium, this is abnormal for postmenopausal patient. Cannot rule ?? out obstructing lesion. Prominence of the pelvic veins, cannot rule out ?? pelvic congestion. ? ADNEXA: Ovaries not visualized might have been obscured by bowel gas or ?? atrophic. ?? FREE FLUID: Trace amount of free fluid. ? OTHER FINDINGS: None ? US/US pelvic and transvaginal ?? IMPRESSION: ? 1. ??There is fluid within the endometrium, this is abnormal for ?? postmenopausal patient. Cannot rule out obstructing lesion. Recommend ?? EXHIBITION CARVER consultation, may consider D C and/or Consider correlation with ?? follow-up ultrasound in 6-8 weeks. ? 2. ??Prominence of the pelvic veins, cannot rule out pelvic congestion. ? 3. ??Intramural uterine mass likely fibroid 2 cm. ? 4. ??Ovaries not visualized might have been obscured by bowel gas or ?? atrophic. ? Electronically signed by: ??Huang Grayson MD ??11/03/2024 01:55 PM EST ? Dictated By: ?Huang Grayson MD ? Signed By: ?<Electronically signed by Huang Grayson MD in OV> ?11/03/24 0115 ? DD/ 1147 ? TD/TT: 09/06/24 1208 ? Routing Equipment Tender: HS ? Procedure Note Ismael, Gus - 11/03/2024 [place] [address] Ultrasound Report Signed Patient: Vania Pelaez #: [id number] : 3Acct:[id number] Age/Sex: 69 / FADM Date: 09/06/24 Loc: HO.US Attending Dr: Misti Carrillo MD Ordering Physician: Misti Carrillo MD Date of Service: 09/06/24 Procedure(s): US pelvic and transvaginal Accession Number(s): [id number] cc: Misti Carrillo MD EXAMINATION:US PELVIS TRANSABDOMINAL AND TRANSVAGINAL CLINICAL INFORMATION: pelvic pain COMPARISON: No priors available. LMP: Postmenopausal FINDINGS: UTERUS: The uterus is anteverted. Size: 5.5 x 2.3 x 3.4 cm. Uterine mass: Intramural uterine mass likely fibroid 2 x 1.5 x 1.8 cm. Cervix: Grossly unremarkable. Endometrium: No ultrasound evidence of endometrial lesion. endometrial thickness measures 0.3 cm normal thickness. Fluid seen within the endometrium, this is abnormal for postmenopausal patient. Cannot rule out obstructing lesion. Prominence of the pelvic veins, cannot rule out pelvic congestion. ADNEXA: Ovaries not visualized might have been obscured by bowel gas or atrophic. FREE FLUID: Trace amount of free fluid. OTHER FINDINGS: None US/US pelvic and transvaginal IMPRESSION: 1. There is fluid within the endometrium, this is abnormal for postmenopausal patient. Cannot rule out obstructing lesion. Recommend EXHIBITION CARVER consultation, may consider D C and/or Consider correlation with follow-up ultrasound in 6-8 weeks. 2. Prominence of the pelvic veins, cannot rule out pelvic congestion. 3. Intramural uterine mass likely fibroid 2 cm. 4. Ovaries not visualized might have been obscured by bowel gas or atrophic. Electronically signed by: Huang Grayson MD 11/03/2024 01:55 PM [facility] Dictated By: Huang Grayson MD Signed By: <Electronically signed by Huang Grayson MD in OV> 11/03/24 1355 DD/ 1147 TD/TT: 09/06/24 1208 Routing Equipment Tender: us Misti Carrillo MD IM US PROCEDURES Edited Result - Final * (ABNORMAL) Lipid Panel with Reflex to Direct LDL (08/30/2024 8:35 AM EDT) Triglycerides 123 <150 mg/dL [facility] Comment:Desirable Triglyceri de: less than 150 mg/dLBorderline High Triglyceride 150-199 mg/dLHigh Triglyceride: 200-499 mg/dLVery High Triglyceride: greater than or equal to 5OO mg/dL Cholesterol 228(H) <200 mg/dL [facility] Comment:Desirable Cholestero l: less than 200 mg/dLBorderline High Cholesterol: 200-239 mg/dLHigh Cholesterol: greater than 239 mg/dL LDL Cholesterol Calculated 139(H) <100 mg/dL [facility] Comment:Desirable LDL: less than 100 mg/dLNear Optimal/Above Optimal LDL: 110- 129 mg/dLBorderline High LDL: 130-159 mg/dLHigh LDL: 160-189 mg/dLVery High LDL: greater than or equal to 190 mg/dL HDL Cholesterol 65 >40 mg/dL [facility] Comment:Desirable HDL: great er than 40 mg/dL Note: This HDL assay may give artificially low results in patients with liver disease. Blood 08/30/2024 8:35 AM EDT 08/30/2024 10:59 AM EDT us Misti Carrillo MD LAB BLOOD ORDERABLES Fin al Result [facility] [address] [place] [address] [phone] * BI Mammogram Screening Tomosynthesis Bilateral (05/16/2024 12:00 PM EDT) Anatomical Region Laterality Modality Breast Bilateral Mammography 05/16/2024 12:0 0 PM EDT Narrative 06/11/2024 10:53 PM EDT ? [facility] ? [address] ?[place] [address] ? Mammography Report ? Signed ? Patient: Machicote Hammond,Saima ?MR ?? #: [id number] ? : 1955 ?Acct:[id number] ? Age/Sex: 69 / F ?ADM Date: 07//24 ? Loc: HO.MAMMO ? Attending Dr: Misti Carrillo MD ? Ordering Physician: Misti Carrillo MD ?Results: 1Ne ?? gative ? Date of Service: 05/16/24 ?Follow Up: 1 Year From Orig ?? inal Mammogram ? Procedure(s): MM tomosynthesis screening BI ?? Accession Number(s): [id number] ? cc: Misti Carrillo MD ? EXAMINATION: ?? MM SCREENING DIGITAL BREAST TOMOSYNTHESIS, BILATERAL ? CLINICAL INFORMATION: ? Screening. Asymptomatic. ? COMPARISON: ?? Mammography: This study is compared with prior exams dating back to ?? 2019. ? TECHNIQUE: ?? Digital breast tomosynthesis is performed in both the craniocaudal and ?? mediolateral oblique views along with computer-aided detection (CAD). ?? Synthesized 2D images are generated from the tomosynthesis. ? FINDINGS: ?? There are scattered areas of fibroglandular density (ACR BI-RADS breast ?? composition Category b). ? There are no significant masses, abnormal calcifications, or other ?? abnormalities. ? MM/MM tomosynthesis screening BI ?? IMPRESSION: ?? No mammographic evidence of malignancy. ? ASSESSMENT: ? BI-RADS BI-RADS 1 - Negative ? RECOMMENDATION: ?? Routine annual mammography screening. ? 1 year F/U ? This examination should not preclude the clinical evaluation of a ?? suspicious palpable abnormality. ? This patient's information was entered into a reminder system with a ?? target due date for their next mammogram. ? Dictated By: ?Ashleigh Griffiths MD ? Signed By: ?<Electronically signed by Ashleigh Griffiths MD in OV> ? 06/11/242248 ? DD/ 1200 ? TD/TT: ? Routing Equipment Tender: ? Procedure Note Ismael, Gus - 06/11/2024 [facility] [address] [place] [address] [place] [address] Mammography Report Signed Patient: Naty PelaezR #: [id number] : 3Acct:[id number] Age/Sex: 69 / FADM Date: 05/16/24 Loc: HO.MAMMO Attending Dr: Misti Carrillo MD Ordering Physician: Misti Carrillo MDResults: 1Ne gative Date of Service: 05/16/24Follow Up: 1 Year From Orig inal Mammogram Procedure(s): MM tomosynthesis screening BI Accession Number(s): [id number] cc: Misti Carrillo MD EXAMINATION: MM SCREENING DIGITAL BREAST TOMOSYNTHESIS, BILATERAL CLINICAL INFORMATION: Screening. Asymptomatic. COMPARISON: Mammography: This study is compared with prior exams dating back to 2019. TECHNIQUE: Digital breast tomosynthesis is performed in both the craniocaudal and mediolateral oblique views along with computer-aided detection (CAD). Synthesized 2D images are generated from the tomosynthesis. FINDINGS: There are scattered areas of fibroglandular density (ACR BI-RADS breast composition Category b). There are no significant masses, abnormal calcifications, or other abnormalities. MM/MM tomosynthesis screening BI IMPRESSION: No mammographic evidence of malignancy. ASSESSMENT: BI-RADS BI-RADS 1 - Negative RECOMMENDATION: Routine annual mammography screening. 1 year F/U This examination should not preclude the clinical evaluation of a suspicious palpable abnormality. This patient's information was entered into a reminder system with a target due date for their next mammogram. Dictated By: Ashleigh Griffiths MD Signed By: <Electronically signed by Ashleigh Griffiths MD in OV> 06/11/24 2249 DD/ 1200 TD/TT: Routing Equipment Tender: Misti Carrillo MD IMG BI PROCEDURES Final Result * HPV E6/E7 RFLX KATHLEEN 16 18/45 (02/24/2022 10:32 AM EDT) HPV mRNA E6/E7 rflx Not Detected Not Detected [facility] Comment: Methodology: [employer] Architect-Mediated Amplification This assay detects E6/E7 viral messenger RNA (mRNA) from 14 high-risk HPV types (16,18,31,33,35,39,45,51,52,56,58,59,66,68). The analytical performance characteristics of this assay have been determined by [employer]. The modifications have not been cleared or approved by the FDA. This assay has been validated pursuant to the CLIA regulations and is used for clinical purposes. For additional information, please refer to http://education.Win Win Slots/faq/RHX824d0 (This link if provided for information/ educational purposes only.) THIS TEST WAS PERFORMED AT: [facility] [address] [place] [address] [address] [place], [place] ??[phone] DEV MICHAEL MD 02/24/2022 10:3 2 AM EDT Jessica Monroy HISTORICAL/NON ORDERABLE LABS Fi nal Result [facility] [address] * Hm Pap Smear (02/24/2022) Historical Provider HEALTH MAINTENANCE Final Result from Last 3 Months or Most Recently Relevant to Health Maintenance Insurance [facility] - [facility] Care Teams Air Traffic Instructor Relationship Specialty Start Date End Date Misti Carrillo MD [address] [place] [address] PCP - General Internal Medicine 07/15/23 Misti Carrillo MD [address] [place] [address] Family Medicine 07/15/23
--- OUTSIDE RECORDS SUMMARY | 2024-12-04 13:52 | XMS_ITS | Encounter Summary ---
Author Organization [facility] Address [address] [facility] 7[address] [place] [address] Care Team Providers Care Claims Adjudicator Name Role Phone Misti Carrillo MD Primary Care Provider + Misti Carrillo MD Unavailable [phone] Reason for Referral * Consultation (Routine) - Authorized Specialty Diagnoses / Procedures Referred By Contrufina moncada Referred To Contact Gastroenterology Diagnoses Encounter for colorectal cancer screening Positive colorectal cancer screening using Cologuard test Misti Carrillo MD [address] [place] [address] Phone: tel: fax: [facility] [address] [place] [address] Phone: tel: fax: Referral ID Status Reason Start Date Expiration Date Visits Requested Visits Authorized [id number] Authorized Specialty Services Required 11/29/2024 11/29/2025 1 1 Encounter Details Date Type Department Care Team (Late st Contact Info) Description 11/29/2024 Orders Only [facility] MEDICINE [address] [place], [place] [phone] Misti Carrillo MD [address] [place], [place] [phone] Encounter for colorectal cancer screening (Primary Dx); Positive colorectal cancer screening using Cologuard test Social History Tobacco Use Types Packs/Day Years [...] Priority Associated Diagnoses Order Schedule Referral to Gastroenterology Outpatient Referral Routine Encounter for colorectal cancer screening Positive colorectal cancer screening using Cologuard test Expected: 11/29/2024 (Approximate), Expires: 11/29/2025 documented as of this encounter Visit Diagnoses Diagnosis Encounter for colorectal cancer screening- Primary Positive colorectal cancer screening using Cologuard test documented in this encounter Care Teams Claims Adjudicator Relationship Specialty Start Date End Date Misti Carrillo MD [address] [place] [address] PCP - General Internal Medicine 07/15/23 Misti Carrillo MD [address] [place] [address] Family Medicine 07/15/23 documented as of this encounter
--- OUTSIDE RECORDS SUMMARY | 2024-12-04 13:52 | XMS_ITS | Encounter Summary ---
Author Organization [employer] Address [address] [facility] [address] 7[address] [place] [address] Care Team Providers Care Paralegal Name Role Phone Misti Carrillo MD Primary Care Provider + Misti Carrillo MD Primary Care Provider + Misti Carrillo MD Unavailable [phone] Reason for Visit * Reason Onset Date Comments Referral 03/11/2023 Encounter Details Date Type Department Care Team (Late st Contact Info) Description 03/11/2023 Telephone [facility] MEDICINE [address] [place], [place] [phone] Misti Carrillo MD [address] [place], [place] [phone] Referral Social History Tobacco Use Types Packs/Day Years Used Date Smoking Tobacco: Never Passive Smoke Exposure: Never Smokeless Tobacco: Never Comments Unknown Sex and Gender Information Value Date Recorded Sex Assigned at Female 07/15/2023 4:01 PM EDT Legal Sex Female 4:21 PM EDT Gender Identity Female 07/15/2023 4:01 PM EDT Sexual Orientation Lesbian or John 07/15/2023 4: 01 PM EDT Sexual Orientation Straight 07/15/2023 4: 01 PM EDT COVID-19 Exposure Response Date Recorded In the last 10 days, have yo u been in contact with someone who was confirmed or suspected to have Coronavirus/COVID-19? No / Unsure 03/11/2023 12:52 PM EDT documented as of this encounter Miscellaneous Notes * Telephone Encounter - Christina Rodgers - 03/11/2023 2:03 PM EDT Tc from Ruthie alyson SENIOR ACCOUNT CLERK requesting a referral for a patient care specialist advised by her counter pocket trimmer. [facility] and has a f/u appt on 03/25/23 for allergy. Patient speaks Indonesian documented in this encounter Plan of Treatment Not on file documented as of this encounter Visit Diagnoses Diagnosis Allergic conjunctivitis of both eyes- Primary Other chronic allergic conjunctivitis Seasonal allergic rhinitis due to pollen documented in this encounter Care Teams Paralegal Relationship Specialty Start Date End Date Misti Carrillo MD [address] [place] [address] PCP - General Family Medicine 10/17/19 07/14/23 Misti Carrillo MD [address] [place] [address] PCP - General Internal Medicine 07/15/23 Misti Carrillo MD [address] [place] [address] Family Medicine 07/15/23 documented as of this encounter
--- OUTSIDE RECORDS SUMMARY | 2024-12-04 13:52 | XMS_ITS | Encounter Summary ---
Author Organization [employer] Address [address] [facility] [address] 7[address] [place] [address] Care Team Providers Care Screen Tender Helper Name Role Phone Misti Carrillo MD Primary Care Provider + Misti Carrillo MD Unavailable Reason for Visit * Reason Onset Date Comments Results 11/05/2024 Encounter Details Date Type Department Care Team ([facility] Contact Info) Description 11/05/2024 Telephone [facility] MEDICINE [address] [place], [place] [phone] Brianna Wilde, JAZMINE Results Social History Tobacco Use Types Packs/Day Years [...] encounter Miscellaneous Notes * Telephone Encounter - Brianna Wilde RN - 11/06/2024 10:10 AM EST Telephone call returned to patient in regards to below message. Patient verbalized understanding and denied having any further questions or concerns at this time. Patient to follow up as needed. * Telephone Encounter - Brianna Wilde RN - 11/05/2024 2:29 PM EST Telephone call placed to patient in regards to message below. No answer, left voicemail. Patient tocall as needed. * Telephone Encounter - Shahzad Sweeney - 11/05/2024 2:24 PM EST Tc from pt returning your call. Pt does speak armenian. Contact information: [phone] * Telephone Encounter - Brianna Wilde RN - 11/05/2024 2:05 PM EST Telephone call placed to pt x1 PM in regards to below lab results. No answer, left VM. Will retask to red nurses for second attempt * Telephone Encounter - Brianna Wilde RN - 11/05/2024 2:05 PM EST ----- Message from Misti Carrillo MD sent at 11/05/2024 1:22 PM EST ----- Pelvic US on 09/06/24 (read on 11/03) showed pelvic congestion + uterine fibroid + endometrial fluid. Please call patient and tell her she needs to be seen by REGULATORY TECHNICIAN due to pelvic pain as it may be related to fibroid or something else like estrogen cream use? She needs addtl eval. Tell her to stop using vaginal cream for now. documented in this encounter Plan of Treatment Not on file documented as of this encounter Visit Diagnoses Not on filedocumented in this encounter Care Teams Screen Tender Helper Relationship Specialty Start Date End Date Misti Carrillo MD [address] [place] [address] PCP - General Internal Medicine 07/15/23 Misti Carrillo MD [address] [place] [address] Family Medicine 07/15/23 documented as of this encounter
--- OUTSIDE RECORDS SUMMARY | 2024-12-04 13:52 | XMS_ITS | Clinical Summary ---
Author Organization [address] [facility] Address [address] [place] [address] Phone Care Team Providers Care Cylinder Block Mechanic Name Role Phone Toby Fink MD Primary Care Provi dinh Allergies Active Allergy Reactions Criticality Noted Date Comments Penicillins 09/10/2024 Medications Medication Sig Dispensed Refills Start Date End Date Status clotrimazole (LOTRIMIN) 1 % external solution Apply topically 2 (two) times a day. 30 mL 09/10/2024 11/05/2024 Encounters Date Type Department Care Team Description 09/10/2024 1:15 PM EST Office Visit Orthopedic [facility] [address] [phone] Shahab Rivera, DPM Dermatophytosis of nail (Primary Dx); Tinea pedis of both feet from Last 3 Months Social History Tobacco Use Types Packs/Day Years Used Date Smoking Tobacco: Never Assessed Sex and Gender Information Value Date Recorded Sex Assigned at Not on file Gender Identity Not on file Sexual Orientation Not on file Job Start Date Occupation Industry Not on file Not on file Not on file Last Filed Vital Signs Vital Sign Reading Time Taken Comments Blood Pressure - - Pulse - - Temperature - - Respiratory Rate - - Oxygen Saturation - - Inhaled Oxygen Concentration - - Weight 47.6 kg (105 lb) 09/10/2024 1:30 PM EST Height 144.8 cm (4' 9 ) 09/10/2024 1:30 PM EST Body Mass Index 22.72 09/10/2024 1:30 PM EST Plan of Treatment Upcoming Encounters Date Type Department Care Team ([facility] st Contact Info) Description 01/15/2025 10:45 AM EDT Office Visit Orthopedic [facility] [address] [phone] Shahab Rivera, DPM [facility] [address] [place] [address] Health Maintenance Due Date Last Done Comments Breast Cancer Screening 1955 Zoster Vaccines (1 of 2) 2003 COVID-19 Vaccine ( season) 2024 Influenza Vaccine (#1) 2024 , 11/12/2020, 10/19/2019, Additional history exists Cholesterol Screening (Lipid Panel) 08/27/2024 Colorectal Cancer Screening: Colonoscopy 08/27/2024 Depression Screening 08/27/2024 Falls Risk Assessment 08/27/2024 Hepatitis C Screening 08/27/2024 Osteoporosis Screening (Bone Density Screening) 08/27/2024 Social Influencers of Health Screening 08/27/2024 Hypertension/CHF/CAD Annual BMP Blood Test 08/30/2025 08/30/2024 RSV Immunization Patients 60+ Years Old (1 - 1-dose 75+ series) 01/11/2028 DTaP,Tdap,and Td Vaccines (2 - Td or Tdap) 01/19/2028 01/18/2018 Pneumococcal Vaccine: 65+ Years Completed 01/18/2018, 01/18/2018 [...] on patient's age to complete this topic MMR Vaccines Aged Out No longer eligi ble based on patient's age to complete this topic Meningococcal ACWY Vaccine Aged Out N o longer eligible based on patient's age to complete this topic RSV Immunization Patients Under 20 months Aged Out No longer eligible based on patient's age to complete this topic Varicella Vaccines Aged Out No longer eligible based on patient's age to complete this topic Care Teams Cylinder Block Mechanic Relationship Specialty Start Date End Date Toby Fink MD [address] [place] [address] PCP - General Internal Medicine 08/27/24
--- OUTSIDE RECORDS SUMMARY | 2024-12-04 13:52 | XMS_ITS | Encounter Summary ---
Author Organization [employer] [facility] Address [address] [facility] 7t [place] [address] Care Team Providers Care Planning Associate Name Role Phone Misti Carrillo MD Primary Care Provider + Misti Carrillo MD Unavailable [phone] Encounter Details Date Type Department Care Team (Late st Contact Info) Description 08/04/2023 Orders Only [facility] MEDICINE [address] [place] [address] Provider, MD Eloisa Social History Tobacco Use Types Packs/Day Years [...] Procedure Name Priority Date/Time Associated Diagnosis Comments HM PAP/HPV Routine 02/24/2022 documented in this encounter Results * Hm Pap Smear (02/24/2022) Historical Provider HEALTH MAINTENANCE Final Result documented in this encounter Visit Diagnoses Not on filedocumented in this encounter Care Teams Planning Associate Relationship Specialty Start Date End Date Misti Carrillo MD [address] [place], [place] [phone] PCP - General Internal Medicine 07/15/23 Misti Carrillo MD [address] [place] [address] Family Medicine 07/15/23 documented as of this encounter
--- OUTSIDE RECORDS SUMMARY | 2024-12-04 13:52 | XMS_ITS | Encounter Summary ---
Author Organization [employer] [facility] Address [address] [facility] 7t [place] [address] Care Team Providers Care Phlebotomy Tech Name Role Phone Misti Carrillo MD Primary Care Provider + Misti Carrillo MD Primary Care Provider + Misti Carrillo MD Unavailable [phone] Encounter Details Date Type Department Care Team (Latest Contact Info) Description 06/09/2022 Abstract [facility] CONVERSIONS Dental, Provider, DDS Social History Tobacco [...] on filedocumented in this encounter Care Teams Phlebotomy Tech Relationship Specialty Start Date End Date Misti Carrillo MD [address] [place] [address] PCP - General Family Medicine 10/17/19 07/14/23 Misti Carrillo MD [address] [place], [place] [phone] PCP - General Internal Medicine 07/15/23 Misti Carrillo MD [address] [place] [address] Family Medicine 07/15/23 documented as of this encounter
== END 2024-12-04 14:20 | disposition home or self-care (01) ==
LOC: HO.HWS 12:57
PROVIDERS: PCP Internal Medicine; Visit Provider Obstetrics & Gynecology
DX: R31.29 Other microscopic hematuria (principal)
CPT/HCPCS: 99213

== ENCOUNTER → 2024-12-04 12:57 | Outpatient (BNVA) | payer OTHER, SELFPAY | PROVIDERS: PCP Internal Medicine; Visit Provider Obstetrics & Gynecology | DX: R31.29 Other microscopic hematuria (principal) | CPT/HCPCS: 99212 ==

== ENCOUNTER 2024-12-27 11:28 | Outpatient (AMB) | payer OTHER, SELFPAY ==
[2024-12-27 12:09] VITALS: BMI 19.6
--- NOTE | 2024-12-27 12:09 | A.OFFVIS_ITS ---
Vital Signs 12/27/24 12:09 Height 5 ft 1 in Weight 104 lb BMI 19.6 Intake Visit Reasons: vaginal itching Program Clinician Required: Yes Program Clinician Language: Mold Tooling Technician Services: Program Clinician Present (in person) Program Clinician Name: Joana VERAS Information Interpreted: non-clinical & clinical Superintendent Generating Plant: Superintendent Generating Plant Present (Joana VERAS) Accompanied by: Self / Same As Patient Allergies penicillamine [PENICILLAMINE] Adverse Reaction (Intermediate, Verified 12/27/24 12:19) PALPATATIONS HPI Comments Details: Presenting complaining of vulvovaginalirritation no associated vaginal discharge or itching PFSH Medical History Hypertension Frequent UTI Surgical History No pertinent past surgical history Family History Father Prostate CA Mother No problems noted. Social History Household Members: None Alcohol intake: never Patient Tobacco Use Status: Never used Tobacco Review of Systems Const All systems reviewed & are unremarkable except as noted in HPI and below Physical Exam General: Yes no CVA tenderness External Female Exam: normal appearance of the urethra and other (Left labia majora 0.5 cm dark lesion) Speculum Exam - Vagina: normal appearance of the vagina, normal palpation, no lesions and no masses Speculum Exam - Cervix: normal appearance of the cervix, normal palpation, no lesions, no masses and nontender Bimanual exam- vagina & uterus: normal bimanual exam, normal palpation, uterine size normal, normal palpation, uterine shape normal, No Cervical tenderness present and non-tender Bimanual Exam- Adnexa, other: normal adnexae Back/Spine/Pelvis Back: no CVA tenderness Assessment & Plan Assessment & Plan (1) Atrophic vaginitis: Code(s): N95.2 - Postmenopausal atrophic vaginitis Category: Medical Plan: Discussed with the patient the finding on pelvic exam showing atrophic vaginitis, recommended estrogen vaginal treatment, all pros and cons risks benefits were discussed with the patient, the patient would like to think about it and get back to us in addition , recommended the patient to use KY jelly during intercourse. All questions answered, the patient verbalized understanding (2) Vulvar lesion: Comment: Left labia majora 0.5 cm dark lesion Code(s): N90.89 - Other specified noninflammatory disorders of vulva and perineum Category: Medical Plan: Discussed with the patient the finding on pelvic exam showing a left labia majora 0.5 cm dark lesions, differential diagnosis was discussed with the patient including precancer and cancer, recommended excisional biopsy. Instructions given the patient to schedule excisional biopsy within 2 weeks. All questions answered the patient verbalized understanding and agreed with the plan Coding Level of Care Code Est Pt Level 3 (03492) Diagnoses Atrophic vaginitis N95.2 Vulvar lesion N90.89
--- OUTSIDE RECORDS SUMMARY | 2024-12-27 12:48 | XMS_ITS | Clinical Summary ---
Author Organization [facility] Address [address] [place] [address] Care Team Providers Care Associate Professor Name Role Phone Trisha Jacques PA-C Primary Care Provider [phone] Source Comments PLEASE NOTE, if this patient [...] mcg/actuation nasal sprayIndications: Throat dry Place 1 [place] into the nostril(s) once daily. 16 g [...] Saw urology on 01/09/2016 Dr. Malcolm at [facility] urology: negative workup With cysto and CT [...] 03/24/2015 Overview (01/15/2016): Yesika screening done at [facility] on 03/20/2015: No mammographic evidence of malignancy in the right breast. Further eval of the left breast group of microcalcification by additional views. Pt will be contacted directly for imaging. BIRADS category 0 incomplete. Need further imaging. Second mammogram done 04/02/2015 at [facility]: small cluster microcalcifications seen in the [...] Plan of Treatment Not on file Insurance [facility] Member Subscriber Plan / Payer (Ef fective 2014-Present) Name:Saima Hand Relation to Subscriber:Self Name:Saima Hand Payer ID:[id number] Group ID:Not on file Type:Medicaid Address: [facility] [id number] [place] [address] [facility] [place] [address] [facility] D[facility] Care Teams Associate Professor Relationship Specialty Start Date End Date Trisha Jacques PA-C [address] [place] [address] PCP - General 09/27/18
--- OUTSIDE RECORDS SUMMARY | 2024-12-27 12:48 | XMS_ITS | Data Portability ---
Author Organization [employer] Address [address] [place] [address] Care Team Providers Care Border Measurer Name Role Phone [facility] Referring Provider Assessment No assessment recorded. Plan of Treatment Reminders Order Date Submit Date Provider Last Modified By Organization Details Last Modified Time Details Appointments None recorded. Lab culture, urine 023 023 [place], [address] [place], [id number], 3 08:59:40 Referral None recorded. Procedures None recorded. Surgeries None recorded. Imaging None recorded. Medication Orders Bactrim DS 800 mg-160 mg tablet 023 023 [facility], [address] [facility] [place], [id number], 3 09:49:27 Patient TargetsNo targets recorded. Patient InstructionsNo instructions recorded. Reason for Referral None Reported. Results Created Date Observation Date Name Description Value Unit Range Abnormal Flag Note LastModifiedBy Organization Detail LastModifiedTime 07/15/2007/15/2023 URINE CULTU RE specimen description BLOOD Not Available [facility] [address] [place], [id number], 07/17/2023 08:59:39 07/15/20 23 07/15/2023 URINE CULTU RE special requests NONE Not Available [facility] [address] [place], [address], 07/17/2023 08:59:39 07/15/20 23 07/17/2023 URINE CULTU RE culture <10,00 0 COL/ML abnormal Not Available [facility] [address] [place], [address], 07/17/2023 08:59:39 07/15/20 23 07/17/2023 URINE CULTU RE report status FINAL 2022 Not Available [facility] [address] [place], [address], 07/17/2023 08:59:39 Result Notes None recorded. Medical Equipment None Reported. Allergies Allergen ID Allergen Name Allergen Category Reaction Reaction Severity Criticality Documentation Date Start Date Code Code System Note Provider Name and Address Organization Details Recorded Time 8891 Product containin g penicilli n (product) medicatio n Not available Not available Not available 09/04/2024 89578 8001 SNOMED Not Available [facility] - production 03:47:31 [...] SNOMED-CT Code Diagnosis ICD10 Code Diagnosis Note [id number] Juan Huerta MD Main - [facility] [address] [place] [phone] 07/15/2023 15:57:02 07/16/2023 16:03:07 Acute urinary tract infection [id number] N39.0 This 68-year-ol d female has had urinary symptoms for several days. Her U/A appeared consistent with an early UTI. I ordered a U/C and treatment with Bactrim DS twice daily for five days. She will follow-up with her PCP. The patient agreed with this plan. Urinary symptoms [id number] R39.9 Health Concerns Section Related Observation LastModified by Organization Detai ls LastModified Time None Recorded Concern Status LastModified by Organization Details LastModified Time None Recorded Advance Directives Directive None Recorded Payers Encounter Date Sequence Insurance Name Policy Number Policy Chow Covered Member ID Chow Member ID Guarantor Name 07/15/2023 1 [facility] - DOS ON OR AFTER 2023 - DUAL ELIGIBLE - LONG TERM OPTIONS AND ONE CARE (MEDICARE REPLACEMENT/AD VANTAGE - HMO) Saima Rodrigues [id number] Saima Rodrigues Notes Date Note Type Note [...] pain. No fever. Unable to come into [facility]. Agrees to [facility] referral for UA/Cx. ..................... ..................... ..................... ..................... ..................... ..................... ............... CRC Nursing Assessment: Comments: Reviewed - Jass LUCERO ..................... ..................... ..................... ..................... ..................... ..................... ............... Director Of Home Health Services Note From Emery Lai: PT complains of [...] ..................... ............... Disposition: Fulfilled Juan Huerta MD [address] [place] [address],[address] [facility], [place], [phone], JOAN VALLE 07/15/2023 16:05:16 OBGyn Episode No OBEpisode recorded.
--- OUTSIDE RECORDS SUMMARY | 2024-12-27 12:48 | XMS_ITS | Clinical Summary ---
Author Organization [address] [facility] Address [address] [place] [address] Phone Care Team Providers Care Mold Builder Name Role Phone Toby Fink MD Primary Care Provi dinh Allergies Active Allergy Reactions Criticality Noted Date Comments Penicillins 09/10/2024 Social History Tobacco Use Types Packs/Day Years Used Date Smoking Tobacco: Never Assessed Comments Unknown Sex and Gender Information Value Date Recorded Sex Assigned at Not on file Legal Sex Female 11:03 PM EST Gender Identity Not on file Sexual Orientation Not on file Last Filed Vital Signs [...] Upcoming Encounters Date Type Department Care Team ([facility] Contact Info) Description 01/15/2025 10:45 AM EDT Office Visit Orthopedic Surgery - [place] [address] [phone] Shahab Rivera DPM [address] [address] Health Maintenance Due Date Last Done Comments [...] Td or Tdap) 01/19/2028 01/18/2018 Pneumococcal Vaccine: 50+ Years Completed 01/18/2018, 01/18/2018 HIB Vaccines Aged [...] patient's age to complete this topic Meningococcal B Vacine Aged Out No lo nger eligible based on patient's age to complete this topic RSV Immunization Patients Under 20 months Aged Out No longer eligible based on patient's age to complete this topic Varicella Vaccines Aged Out No longer eligible based on patient's age to complete this topic Insurance MEDICAID - [place] Care Teams Mold Builder Relationship Specialty Start Date End Date Toby Fink MD [address] [place] [phone] PCP - General Internal Medicine 08/27/24
== END 2024-12-27 12:23 | disposition home or self-care (01) ==
PROVIDERS: PCP Internal Medicine; Visit Provider Obstetrics & Gynecology
DX: N95.2 Postmenopausal atrophic vaginitis (principal); N90.89 Other specified noninflammatory disorders of vulva and perineum
CPT/HCPCS: 99213

== ENCOUNTER → 2024-12-27 11:28 | Outpatient (BNVA) | payer OTHER, SELFPAY | PROVIDERS: PCP Internal Medicine; Visit Provider Obstetrics & Gynecology | DX: N95.2 Postmenopausal atrophic vaginitis (principal); N90.89 Other specified noninflammatory disorders of vulva and perineum | CPT/HCPCS: 99212 ==

== ENCOUNTER 2024-12-28 10:17 | Outpatient (REF) | payer OTHER, SELFPAY ==
--- OUTSIDE RECORDS SUMMARY | 2024-12-28 11:07 | XMS_ITS | Encounter Summary ---
Author Organization [employer] [facility] Address [address] [facility] 7t [place] [address] Care Team Providers Care Test Manager Name Role Phone Misti Carrillo MD Primary Care Provider + Misti Carrillo MD Primary Care Provider + Misti Carrillo MD Unavailable [phone] Encounter Details Date Type Department Care Team (Latest Contact Info) Description 06/09/2022 Abstract [facility] CONVERSIONS Dental, Provider, DDS Social History Tobacco [...] on filedocumented in this encounter Care Teams Test Manager Relationship Specialty Start Date End Date Misti Carrillo MD [address] [place] [address] PCP - General Family Medicine 10/17/19 07/14/23 Misti Carrillo MD [address] [place], [place] [phone] PCP - General Internal Medicine 07/15/23 Misti Carrillo MD [address] [place] [address] Family Medicine 07/15/23 documented as of this encounter
--- OUTSIDE RECORDS SUMMARY | 2024-12-28 11:07 | XMS_ITS | Encounter Summary ---
Author Organization [facility] Address [address] [facility] 7t [place] [address] Care Team Providers Care Industrial Hygienist Name Role Phone Misti Carrillo MD Primary Care Provider + Misti Carrillo MD Primary Care Provider + Misti Carrillo MD Unavailable [phone] Encounter Details Date Type Department Care Team (Latest Contact Info) Description 10/17/2019 Abstract [facility] CONVERSIONS Dental, Provider, DDS Social History [...] on filedocumented in this encounter Care Teams Industrial Hygienist Relationship Specialty Start Date End Date Misti Carrillo MD [address] [place] [address] PCP - General Family Medicine 10/17/19 07/14/23 Misti Carrillo MD [address] [place] [address] PCP - General Internal Medicine 07/15/23 Misti Carrillo MD [address] [place] [phone] Family Medicine 07/15/23 documented as of this encounter
--- OUTSIDE RECORDS SUMMARY | 2024-12-28 11:08 | XMS_ITS | Encounter Summary ---
Author Organization [employer] [facility] Address [address] [facility] 7t [place] [address] Care Team Providers Care Manager Financial Reporting Name Role Phone Misti Carrillo MD Primary Care Provider + Misti Carrillo MD Unavailable [phone] Reason for Referral * Consultation (Routine) - Authorized Specialty Diagnoses / Procedures Referred By Contrufina monacda Referred To Contact Gastroenterology Diagnoses Encounter for colorectal cancer screening Positive colorectal cancer screening using Cologuard test Misti Carrillo MD [address] [place] [address] Phone: tel: fax: [facility] [address] [place] [address] Phone: tel: fax: Referral ID Status Reason Start Date Expiration Date Visits Requested Visits Authorized [id number] Authorized Specialty Services Required 11/29/2024 11/29/2025 1 1 Encounter Details Date Type Department Care Team (Late st Contact Info) Description 11/29/2024 Orders Only [facility] MEDICINE [address] [place], [place] [phone] Misti Carrillo MD [address] [place], [place] [phone] Encounter for colorectal cancer screening (Primary Dx); [...] test documented in this encounter Care Teams Manager Financial Reporting Relationship Specialty Start Date End Date Misti Carrillo MD [address] [place] [phone] PCP - General Internal Medicine 07/15/23 Misti Carrillo MD [address] [place] [phone] Family Medicine 07/15/23 documented as of this encounter
--- OUTSIDE RECORDS SUMMARY | 2024-12-28 11:08 | XMS_ITS | Clinical Summary ---
Author Organization [address] [facility] Address [address] [place] [address] Phone Care Team Providers Care Open Hearth Furnace Operator Name Role Phone Toby Fink MD Primary [...] Upcoming Encounters Date Type Department Care Team ([facility] Contact Info) Description 01/15/2025 10:45 AM EDT Office Visit Orthopedic Surgery [facility] [address] [phone] Shahab Rivera DPM [address] [address] Health Maintenance Due Date Last Done Comments [...] topic Insurance MEDICAID - [place] Care Teams Open Hearth Furnace Operator Relationship Specialty Start Date End Date Toby Fink MD [address] [place] [phone] PCP - General Internal Medicine 08/27/24
--- OUTSIDE RECORDS SUMMARY | 2024-12-28 11:08 | XMS_ITS | Encounter Summary ---
Author Organization [employer] Address [address] [facility] [address] [place] [address] Care Team Providers Care Nuclear Equipment Design Engineer Name Role Phone Misti Carrillo MD Primary Care Provider + Misti Carrillo MD Unavailable [phone] Encounter Details Date Type Department Care Team (Late st Contact Info) Description 11/29/2024 Telephone [facility]INE [address] [place], [place] [phone] Hillary Donovan, RN Social History Tobacco Use [...] PM EST TC placed to pt via [employer] workflow consultant (ID#[id number]) per PCP message, Cologuard results on 11/22/24 [...] TC placed to home phone number via [employer] workflow consultant ([employer] ID#[id number]). Pt informed of PCP message. Pt informeda referral was placed and she will receive a call from gastroenterology to set up an appointment with them. Pt denies any further questions or concerns at this time. documented in this encounter Plan of Treatment Not on file documented as of this encounter Visit Diagnoses Not on filedocumented in this encounter Care Teams Nuclear Equipment Design Engineer Relationship Specialty Start Date End Date Misti Carrillo MD [address] [place] [phone] PCP - General Internal Medicine 07/15/23 Misti Carrillo MD [address] [place] [phone] Family Medicine 07/15/23 documented as of this encounter
--- OUTSIDE RECORDS SUMMARY | 2024-12-28 11:09 | XMS_ITS | Encounter Summary ---
Author Organization [employer] Address [address] [facility] [address] 7[address] [place] [address] Care Team Providers Care Photographic Equipment Inspector Name Role Phone Misti Carrillo MD Primary Care Provider + Misti Carrillo MD Primary Care Provider + Misti Carrillo MD Unavailable [phone] Reason for Visit * Reason Onset Date Comments Referral 03/11/2023 Encounter Details Date Type Department Care Team (Late st Contact Info) Description 03/11/2023 Telephone [facility] MEDICINE [address] [place], [place] [phone] Misti Carrillo MD [address] [place], [place] [phone] Referral Social History Tobacco Use Types Packs/Day [...] 2:03 PM EDT Tc from Ruthie alyson [facility] requesting a referral for a assessment specialist advised by her bankman. Patient was seen at the [facility] 03/11/23 and has a f/u appt on 03/25/23 for allergy. Patient speaks Algerian documented in this encounter Plan of Treatment Not on file documented as of this encounter Visit Diagnoses Diagnosis Allergic conjunctivitis of both eyes- Primary Other chronic allergic conjunctivitis Seasonal allergic rhinitis due to pollen documented in this encounter Care Teams Photographic Equipment Inspector Relationship Specialty Start Date End Date Misti Carrillo MD [address] [place] [address] PCP - General Family Medicine 10/17/19 07/14/23 Misti Carrillo MD [address] [place] [address] PCP - General Internal Medicine 07/15/23 Misti Carrillo MD [address] [place] [phone] Family Medicine 07/15/23 documented as of this encounter
--- OUTSIDE RECORDS SUMMARY | 2024-12-28 11:09 | XMS_ITS | Encounter Summary ---
Author Organization [employer] [facility] Address [address] [facility] 7t [place] [address] Care Team Providers Care Pick Pack Worker Name Role Phone Misti Carrillo MD Primary Care Provider + Misti Carrillo MD Unavailable [phone] Encounter Details Date Type Department Care Team (Late st Contact Info) Description 08/04/2023 Orders Only [facility] MEDICINE [address] [place] [address] Provider, MD Eloisa Social History Tobacco Use [...] on filedocumented in this encounter Care Teams Pick Pack Worker Relationship Specialty Start Date End Date Misti Carrillo MD [address] [place], [place] [phone] PCP - General Internal Medicine 07/15/23 Misti Carrillo MD [address] [place] [phone] Family Medicine 07/15/23 documented as of this encounter
--- OUTSIDE RECORDS SUMMARY | 2024-12-28 11:09 | XMS_ITS | Clinical Summary ---
Author Organization [employer] Address [address] [facility] 7t [place] [address] Care Team Providers Care Fish Smoker Name Role Phone Misti Carrillo MD Primary Care Provider + Misti Carrillo MD Unavailable [phone] Allergies Active Allergy Reactions Criticality Noted Date Comments Penicillins 10/17/2019 Other reaction(s): palpitations Medications amLODIPine (Norvasc) 2.5 MG tablet Take 1 tablet by mouth at bed time. Active ketotifen (Zaditor) 0.025 % ophthalmic solution Administer 1 drop into both eyes 2 times daily. 10 mL 1 3 Active chlorhexidine (Peridex) 0.12 % solution 0 Active ammonium lactate (Amlactin) 12 % cream Apply topically if needed for dry skin. 140 g 3 4 05/18/20 25 Active cetirizine (ZyrTEC) 10 MG tablet Take 1 tablet (10 mg) by mouth Once per day. 90 tablet 3 4 05/14/20 25 Active Diclofenac Sodium 1 % gel APPLY TO THE AFFECTED AREA(S) 2 GRAMS TWICE DAILY 2 Active estradiol (Estrace) 0.1 MG/GM vaginal cream 1 applicator full at bedtime x 2w then three times per week x 2w then BIW thereafter 42.5 g 5 4 Active docusate sodium (Colace) 100 MG capsule Take 1 capsule (100 mg) by mouth Once per day. 90 capsule 3 4 08/10/20 25 Active acetaminophen (Tylenol 8 Hour) 650 MG ER tablet Take 1 tablet (650 mg) by mouth every 8 (eight) hours if needed for mild pain. Do not crush, chew, or split. 90 tablet 1 4 Active atorvastatin (Lipitor) 40 MG tablet Take 1 tablet (40 mg) by mouth Once per day. 90 tablet 1 5 11/19/19 26 Active Active Problems Problem Noted Date Diagnosed [...] on urinary bladder. Patient will FU with Printed Circuit Board Panels Plater. FU with me in 6 months. Ear [...] Assessment & Plan (08/10/2024 2:07 PM EDT): SYSTEM SAFETY ENGINEER reports that she is forgetting things at times, I notice she asked same questions today. Order labs and follow up in 3 months, will need mini COG. She has a SYSTEM SAFETY ENGINEER to help her with cooking, she will [...] CP/AGUILAR/DOMÍNGUEZ Non smoking patient. Cautioned Pt and SYSTEM SAFETY ENGINEER regarding cautious change of position due to vasovagal Sx. Patient denied having the Flu vaccine administered at this time. Assessment & Plan (08/10/2024 2:04 PM EDT): Controlled. Compliant w/meds Continue Amlodipine 2.5 mg Counseled re low salt diet/increase moderate physical activity. Check home BP BIW and prn CP/AGUILAR/DOMÍNGUEZ Non smoking patient. Cautioned Pt and SYSTEM SAFETY ENGINEER regarding cautious change of position due to [...] week. Pap smear due next year with middle card tender. Assessment & Plan (05/18/2024 12:10 PM EDT): [...] pain 11/29/2023 11/29/2023 Hyperactivity of bladder 11/29/2023 Left flank pain 11/29/2023 11/29/2023 Low vision, both eyes 11/29/2023 11/29/2023 Palpitations 11/29/2023 11/29/2023 Slow transit constipation 11/29/20232023 Assessment & Plan (08/10/2024 2:04 PM EDT): Advised increase of fluids, advised to take Colace daily. Agreed to have Colonoscopy, never has had Colonoscopy. Dysuria 11/29/2023 11/29/2023 Assessment & Plan (11/19/2024 12:02 PM EST): Unclear if related to atrophic vaginitis versus hyperactive bladder. FU with Printed Circuit Board Panels Plater for results of endometrial biopsy, otherwise she [...] Type Department Care Team Description 11/29/[address] [address] Hillary Donovan, JAZMINE Error (VOID this visit) 11/29/[address] [address] Hillary Donovan, RN 11/29/2024 Orders Only [address] [address] Misti Carrillo MD Encounter for colorectal cancer screening (Primary Dx); Positive colorectal cancer screening using Cologuard test 11/19/2024 11:15 AM EST Office Visit [address] [address] Misti Carrillo MD Benign essential HTN (Primary Dx); Dysuria; Hypercholesterolemi a; Screening for colon cancer; Uterine leiomyoma, unspecified location 11/19/2024 Travel 11/16/2024 Orders Only GENERIC EXTERNAL DATA DEPARTMENT Provider, Generic External Data 11/09/[address] [address] Misti Carrillo MD 11/09/2024 Patient Outreach [address] [address] Misti Carrillo MD Pre-visit Planning (SDOH screening negative and tobacco screening negative) 11/05/[address] [address] Brianna Wilde, JAZMINE Results 11/05/2024 Orders Only [address] [address] Misti Carrillo MD Pelvic pain (Primary Dx); Atrophic vaginitis from Last 3 Months Immunizations Name Administration [...] 2024 , 11/12/2020, 10/19/2019, Additional history exists Depression Screening [...] Lipid Panel 08/30/2029 08/30/2024, 12/06/2023 Pneumococcal Vaccine: 50+ Years Completed 01/18/2018, 01/18/2018 [...] VAGINOSIS PANEL Routine 11/16/2024 11:33 AM EST PROPHYLAXIS - ADULT Routine 09/13/2024 1 1:00 AM EST PERIODIC ORAL EVALUATION - ESTABLISHED PATIENT Routine 09/13/2024 11:00 AM EST LIPID PANEL WITH REFLEX TO DIRECT LDL [...] Positive( A) Negative 11/29/2024 10:22 AM EST [facility] (CLIA #:[id number]) Comment: POSITIVE TEST RESULT. A positive Cologuard [...] (Annabel Martin al, N Engl J Med 2014;370(14):6621-1204.) Cologuard may produce a false negative or false positive result (no colorectal cancer or precancerous polyp present at colonoscopy follow up). A negative Cologuard test result does not guarantee the absence of CRC or advanced adenoma (pre-cancer). The current Cologuard screening interval is every 3 years. ([place] [employer] Society and U.S. Multi-Society Task Force). Cologuard performance data in a 10,000 patient pivotal study using colonoscopy as the reference method can be accessed at the following location: www.medidametrics.LYYN/results. Additional description of the Cologuard test process, warnings and precautions can be found at [email or web address]. Stool specimen (specimen) 11/22/2024 11:47 AM EST 11/23/2024 1:19 PM EST Misti Carrillo MD LAB MOLECULAR DIAGNOSTIC S ORDERABLES Final Result [facility] (CLIA #:[id number]) [place] [address], * Bacterial Vaginosis (11/16/2024 11:33 AM EST) TRICHOMONAS VAGINALIS DETECTION BY PCR NOT DETECTED Not Detect [facility] BACTERIAL VAGINOSIS DETECTION BY PCR NEGATIVE Negative [facility] Comment:The BV organism targ ets of [...] DETECTION BY PCR NOT DETECTED Not Detect [facility] Ria glab krusei PCR NOT DETECTED Not Detect [facility] 11/16/2024 11:3 3 AM EST 11/16/2024 3:07 PM EST us Generic External Data Provider LAB MICROBIOLOGY - GENERAL ORDERABLES Final Result [facility] [address] [place] [address] [phone] * Chlamydia/N. Gonorrhoeae RNA, TMA, Urogenitial (11/16/2024 11:33 AM EST) CT PCR NOT DETECTED Not Detect. [facility] Comment:A not detected test result does [...] psychologicalconsequences. NG PCR NOT DETECTED Not Detect. [facility] Comment:A not detected test result does [...] AM EST 11/16/2024 3:07 PM EST Narrative [facility] - 11/16/2024 4:44 PM EST Vaginal us Generic External Data Provider LAB MICROBIOLOGY - GENERAL ORDERABLES Final Result Performing Organization Address City/[facility]/ZIP Co de Phone Number [facility] [address] [place] [address] [phone] * Culture, Urine, Routine (11/16/2024 11:33 AM EST) Urine Urine specimen obtained by clean catch procedure / Unknown 11/16/2024 11:33 AM EST 11/16/2024 3:33 PM EST Comment:UACC Narrative [facility] - 11/18/2024 11:25 AM EST Lactobacillus species Quant 50,000 to 100,000 cfu/mL Specimen Source: Urine clean catch us Generic External Data Provider LAB MICROBIOLOGY - GENERAL ORDERABLES Final Result Performing Organization Address [facility] Co de Phone Number [facility] [address] [place] [address] [phone] * (ABNORMAL) Lipid Panel with Reflex to Direct LDL (08/30/2024 8:35 AM EDT) Triglycerides 123 <150 mg/dL [facility] Comment:Desirable Triglyceri de: less than 150 mg/dLBorderline High Triglyceride 150-199 mg/dLHigh Triglyceride: 200-499 mg/dLVery High Triglyceride: greater than or equal to 5OO mg/dL Cholesterol 228(H) <200 mg/dL [facility] Comment:Desirable Cholestero l: less than 200 mg/dLBorderline High Cholesterol: 200-239 mg/dLHigh Cholesterol: greater than 239 mg/dL LDL Cholesterol Calculated 139(H) <100 mg/dL [facility] Comment:Desirable LDL: less than 100 mg/dLNear Optimal/Above Optimal LDL: 110- 129 mg/dLBorderline High LDL: 130-159 mg/dLHigh LDL: 160-189 mg/dLVery High LDL: greater than or equal to 190 mg/dL HDL Cholesterol 65 >40 mg/dL [facility] Comment:Desirable HDL: great er than 40 mg/dL Note: This HDL assay may give artificially low results in patients with liver disease. Blood 08/30/2024 8:35 AM EDT 08/30/2024 10:59 AM EDT us Misti Carrillo MD LAB BLOOD ORDERABLES Fin al Result [facility] [address] [facility] [place] [address] [phone] * BI Mammogram Screening Tomosynthesis Bilateral (05/16/2024 12:00 PM EDT) Anatomical Region Laterality Modality Breast Bilateral Mammography 05/16/2024 12:0 0 PM EDT Narrative 06/11/2024 10:53 PM EDT ? [facility] ? [address] ?[place] [address] ? Mammography Report ? Signed ? Patient: Machicote Hammond,Saima ?MR ?? #: [id number] ? : 1955 ?Acct:[id number] ? Age/Sex: 69 / F ?ADM Date: 05/16/24 ? Loc: HO.MAMMO ? Attending Dr: Misti Carrillo MD ? Ordering Physician: Misti Carrillo MD ?Results: 1Ne ?? gative ? Date of Service: 05/16/24 ?Follow Up: 1 Year From Orig ?? inal Mammogram ? Procedure(s): MM tomosynthesis screening BI ?? Accession Number(s): [id number] ? cc: Misti Carrillo MD ? EXAMINATION: [...] by Ashleigh Griffiths MD in OV> ? 06/11/249 ? DD/ 1200 ? TD/TT: ? Rn Assessment: ? Procedure Note Gus Guevara - 06/11/2024 [facility] [address] [place] [address] Mammography Report Signed Patient: Melanie PelaezDeglado #: [id number] : 3Acct:[id number] Age/Sex: 69 / FADM Date: 05/16/24 Loc: JANETH Attending Dr: Misti Carrillo MD Ordering Physician: Misti Carrilloults: 1Ne gative Date of Service: 05/16/24Follow Up: 1 Year From [facility] Mammogram Procedure(s): MM tomosynthesis screening BI Accession Number(s): [id number] cc: Misti Carrillo MD EXAMINATION: MM SCREENING [...] in OV> 06/11/24 2249 DD/ 1200 TD/TT: Rn Assessment: Misti Carrillo MD IMG BI PROCEDURES Final Result * HPV E6/E7 RFLX KATHLEEN 16 18/45 (02/24/2022 10:32 AM EDT) HPV mRNA E6/E7 rflx Not Detected Not Detected [facility] Comment: Methodology: Senior National Account Manager-Mediated Amplification This assay detects E6/E7 viral messenger RNA (mRNA) from 14 high-risk HPV types (16,18,31,33,35,39,45,51,52,56,58,59,66,68). The analytical performance characteristics of this assay have been determined by [facility]. The modifications have not been cleared or approved by the FDA. This assay has been validated pursuant to the CLIA regulations and is used for clinical purposes. For additional information, please refer to http://education.Knowable.LYYN/faq/LJW106o3 (This link if provided for information/ educational purposes only.) THIS TEST WAS PERFORMED AT: [facility] [address] [facility] [address] [place], [place] ??[phone] DEV MICHAEL MD 02/24/2022 10:3 2 AM EDT Jessica Monroy HISTORICAL/NON ORDERABLE LABS Fi nal Result [facility] [address] * Pap Smear (02/24/2022) Historical Provider HEALTH MAINTENANCE Final Result from Last 3 Months or Most Recently Relevant to Health Maintenance Insurance [facility] Care Teams Fish Smoker Relationship Specialty Start Date End Date Misti Carrillo MD [address] [place] [address] PCP - General Internal Medicine 07/15/23 Misti Carrillo MD [address] [place] [address] Family Medicine 07/15/23
--- OUTSIDE RECORDS SUMMARY | 2024-12-28 11:09 | XMS_ITS | Encounter Summary ---
Author Organization [employer] Address [address] 7[address] [place] [address] Care Team Providers Care Post Office Markup Clerk Name Role Phone Misti Carrillo MD Primary Care Provider + Misti Carrillo MD Unavailable [phone] Reason for Visit * Reason Onset Date Comments Error (VOID this visit) 11/29/2024 Encounter Details Date Type Department Care Team ([facility] st Contact Info) Description 11/29/2024 Telephone [facility] MEDICINE [address] [place] [address] Hillary Donovan, RN Error (VOID this visit) [...] on filedocumented in this encounter Care Teams Post Office Markup Clerk Relationship Specialty Start Date End Date Misti Carrillo MD [address] [place] [address] PCP - General Internal Medicine 07/15/23 Misti Carrillo MD [address] [place] [address] Family Medicine 07/15/23 documented as of this encounter
--- OUTSIDE RECORDS SUMMARY | 2024-12-28 11:09 | XMS_ITS | Encounter Summary ---
Author Organization [employer] [facility] Address [address] [facility] 7t [place] [address] Care Team Providers Care Roofer Name Role Phone Misti Carrillo MD Primary Care Provider + Misti Carrillo MD Primary Care Provider + Misti Carrillo MD Unavailable [phone] Encounter Details Date Type Department Care Team (Late st Contact Info) Description 10/19/2022 Abstract [facility] [address] [place] [address] Allison Sheehan, DDS [address] [place], [place] [phone] Social History Tobacco Use Types Packs/Day Years [...] on filedocumented in this encounter Care Teams Roofer Relationship Specialty Start Date End Date Misti Carrillo MD [address] [place] [address] PCP - General Family Medicine 10/17/19 07/14/23 Misti Carrillo MD [address] [place] [address] PCP - General Internal Medicine 07/15/23 Misti Carrillo MD [address] [place] [address] Family Medicine 07/15/23 documented as of this encounter
[2024-12-28 11:44] LABS: Alanine Aminotransferase 20 U/L (0-31); Alkaline Phosphatase 83 U/L (39-117); Aspartate Amino Transferase 22 U/L (5-31); Bilirubin Direct 0.2 mg/dL (0.0-0.5); Bilirubin Total 0.7 mg/dL (0.0-1.0); Cholesterol 222 mg/dL (<200); HDL Cholesterol 66 mg/dL (>40); LDL Cholesterol Calculated 135 mg/dL (<100); Total Protein 6.9 g/dL (6.5-8.0); Triglycerides 107 mg/dL (<150)
[2024-12-28 11:46] LABS: Reflex LDLD? No
== END 2024-12-28 10:18 | disposition home or self-care (01) ==
LOC: HO.HHCL 10:17
PROVIDERS: Visit Provider Internal Medicine
DX: E78.00 Pure hypercholesterolemia, unspecified (principal)
CPT/HCPCS: 36415; 80061; 80076

== ENCOUNTER 2025-01-25 10:20 | Outpatient (AMB) | payer OTHER, SELFPAY ==
--- NOTE | 2025-01-25 10:36 | A.OFFVIS_ITS ---
Intake Visit Reasons: vulva biopsy Resource Development Director Required: Yes Resource Development Director Language: Office Machine Inspector Services: Resource Development Director Present (in person) Resource Development Director Name: EDA Flor Information Interpreted: non-clinical & clinical Global Account Director: Global Account Director Present (Molly) Accompanied by: Self / Same As Patient Allergies penicillamine [PENICILLAMINE] Adverse Reaction (Intermediate, Verified 01/25/25 10:37) PALPATATIONS HPI Comments Details: Presenting for left vulvar dark lesion excisional biopsy [facility] Medical History Hypertension Frequent UTI Surgical History No pertinent past surgical history Family History Father Prostate CA Mother No problems noted. 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 Preop dx: Left lower vulvar dark lesion Op: Left lower vulvar dark lesion excision Post op: Same Anesthesia: Lidocaine 1% 3cc used Procedure: Using betadine the area was scrubbed and draped in the usual manner. 3 cc of lidocaine was used for anesthesia at the Left lower vulvar dark lesion area ; using scissors and pickup the left lower vulvar dark lesion was excised, 4.0 Vicryl was used to approximate the edges. Pressure was used for hemostasis. The patient tolerated the procedure well. Discharge Instructions: The patient was instructed to schedule an appointment in 2 weeks for follow-up and to call if temp>100.4, area of the biopsy redness or pain, nausea/vomiting. This note was generated with a voice recognition program. Some errors may have been overlooked during the review of this note. Sometimes these errors may affect the content or meaning of a given sentence. 62461-Vwuyae of Vulva/Perineum Procedure code (CPT) selection complete Assessment & Plan Assessment & Plan (1) Vulvar lesion: Comment: Left labia majora 0.5 cm dark lesion Code(s): N90.89 - Other specified noninflammatory disorders of vulva and perineum Category: Medical Plan: Excisional biopsy of the left low vulva dark lesion done, see procedure Orders: Orders AMB [employer] PRODUCTS INSPECTORS Biopsy Today N90.89 - Other specified noninflammatory disorders of vulva and perineum Coding Level of Care Code Procedure Only Diagnoses Vulvar lesion N90.89 CPT Codes [employer] INSPECTORS Biopsy - CPT: 39991-Zbmvgf of Vulva/Perineum ([id number])
== END 2025-01-25 11:15 | disposition home or self-care (01) ==
PROVIDERS: PCP Internal Medicine; Visit Provider Obstetrics & Gynecology
DX: N90.89 Other specified noninflammatory disorders of vulva and perineum (principal)
CPT/HCPCS: 56605

== ENCOUNTER 2025-01-25 10:20 | Outpatient (REF) | payer OTHER, SELFPAY | END 2025-01-25 10:21 | disposition home or self-care (01) | LOC: HO.LNP 10:20 | PROVIDERS: PCP Internal Medicine; Visit Provider Obstetrics & Gynecology | DX: N90.89 Other specified noninflammatory disorders of vulva and perineum (principal) | CPT/HCPCS: 56605; 88305 ==

== ENCOUNTER 2025-01-31 10:25 | Outpatient (REF) | payer OTHER, SELFPAY ==
--- NOTE | ~2025-01-31 | CT_ITS ---
CLINICAL HISTORY: R31.29 - Other microscopic hematuria CT abdomen and pelvis with and without contrast Comparison: None Findings: No consolidation or effusion. The gallbladder and solid organs are within normal limits. There are right renal parenchymal calculi. No bowel obstruction, pneumoperitoneum, or pneumatosis. Pelvic contents unremarkable. Normal appendix. No acute fracture. IMPRESSION: No acute findings. This document has been electronically signed by: Abhijeet Torres MD on 02/01/2025 08:26:44
[2025-01-31] MEDS: iohexoL 350 MG/ML 100 ML INFUS..BTL IV (11:30)
--- OUTSIDE RECORDS SUMMARY | 2025-01-31 13:26 | XMS_ITS | Encounter Summary ---
Author Organization [employer] [facility] Address [address] [facility] 7t [place] [address] Care Team Providers Care Biomedical Engineering Supervisor Name Role Phone Misti Carrillo MD Primary Care Provider + Misti Carrillo MD Primary Care Provider + Misti Carrillo MD Unavailable [phone] Encounter Details Date Type Department Care Team (Latest Contact Info) Description 10/17/2019 Abstract [facility] CONVERSIONS Dental, Provider, DDS Social [...] as of this encounter Plan of Treatment Upcoming Encounters Date Type Department Care Team (Late st Contact Info) Description 04/23/2025 11:15 AM EDT Office Visit [facility] MEDICINE [address] [place] [address] Misti Carrillo MD [address] [place], [place] [phone] documented as of this encounter Visit Diagnoses Not on filedocumented in this encounter Care Teams Biomedical Engineering Supervisor Relationship Specialty Start Date End Date Misti Carrillo MD [address] [place], [place] [phone] PCP - General Family Medicine 10/17/19 07/14/23 Misti Carrillo MD [address] [place] [address] PCP - General Internal Medicine 07/15/23 Misti Carrillo MD [address] [place] [address] Family Medicine 07/15/23 documented as of this encounter
--- OUTSIDE RECORDS SUMMARY | 2025-01-31 13:26 | XMS_ITS | Encounter Summary ---
Author Organization [email or web address] [facility] Address [address] [facility] 7t [place] [address] Care Team Providers Care Hot Baller Name Role Phone Misti Carrillo MD Primary Care Provider + Misti Carrillo MD Primary Care Provider + Misti Carrillo MD Unavailable [phone] Encounter Details Date Type Department Care Team (Latest Contact Info) Description 06/09/2022 Abstract [facility] CONVERSIONS Dental, Provider, DDS Social History Tobacco [...] Description 04/23/2025 11:15 AM EDT Office Visit [facility] MEDICINE [address] [place] [address] Misti Carrillo MD [address] [place], [place] [phone] documented as of this encounter Visit Diagnoses Not on filedocumented in this encounter Care Teams Hot Baller Relationship Specialty Start Date End Date Misti Carrillo MD [address] [place], [place] [phone] PCP - General Family Medicine 10/17/19 07/14/23 Misti Carrillo MD [address] [place] [address] PCP - General Internal Medicine 07/15/23 Misti Carrillo MD [address] [place] [address] Family Medicine 07/15/23 documented as of this encounter
--- OUTSIDE RECORDS SUMMARY | 2025-01-31 13:27 | XMS_ITS | Clinical Summary ---
Author Organization [address] [facility] Address [address] [place] [address] Phone Care Team Providers Care Silver Recovery Operator Name Role Phone Toby Fink MD [...] 09/10/2024 1:30 PM EST Plan of Treatment Health Maintenance Due [...] patient's age to complete this topic Insurance [place] [id number] MEDICAID - [place] Care Teams Silver Recovery Operator Relationship Specialty Start Date End Date Toby Fink MD [address] [place] [address] PCP - General Internal Medicine 08/27/24
--- OUTSIDE RECORDS SUMMARY | 2025-01-31 13:27 | XMS_ITS | Encounter Summary ---
Author Organization [email or web address] Address [address] [facility] 7t [place] [address] Care Team Providers Care Staffing Specialist Name Role Phone Misti Carrillo MD Primary Care Provider + Misti Carrillo MD Unavailable [phone] Reason for Visit * Reason Onset Date Comments Spring recall 01/18/2025 Encounter Details Date Type Department Care Team ([facility] st Contact Info) Description 01/18/2025 Telephone [facility] MEDICINE [address] [place], [place] [phone] Misti Carrillo MD [address] [place], [place] [phone] April recall Social History Tobacco Use Types Packs/Day Years [...] encounter Miscellaneous Notes * Telephone Encounter - Yamila Howard MA - 01/18/2025 2:42 PM EDT Telephone call to patient to schedule the following recall: Visit type: Office visit Appointment notes: fu dysuria/HTN Patient agree to appointment on 04/23/25 at 11:15 AM with Lorena. documented in this encounter Plan of Treatment Upcoming Encounters Date Type Department Care Team (Late st Contact Info) Description 04/23/2025 11:15 AM EDT Office Visit [facility] MEDICINE [address] [place] [phone] Misti Carrillo MD [address] [place] [address] documented as of this encounter Visit Diagnoses Not on filedocumented in this encounter Care Teams Staffing Specialist Relationship Specialty Start Date End Date Misti Carrillo MD [address] [place] [address] PCP - General Internal Medicine 07/15/23 Misti Carrillo MD [address] [place] [address] Family Medicine 07/15/23 documented as of this encounter
--- OUTSIDE RECORDS SUMMARY | 2025-01-31 13:28 | XMS_ITS | Encounter Summary ---
Author Organization [employer] Address [address] 7[address] [place] [address] Care Team Providers Care Aircraft Metalsmith Name Role Phone Misti Carrillo MD Primary Care Provider + Misti Carrillo MD Primary Care Provider + Misti Carrillo MD Unavailable [phone] Reason for Visit * Reason Onset Date Comments Referral 03/11/2023 Encounter Details Date Type Department Care Team (Late st Contact Info) Description 03/11/2023 Telephone [facility] MEDICINE [address] [place], [place] [phone] Misti Carrillo MD [address] [place], [place] [phone] Referral Social History Tobacco Use Types Packs/Day [...] 03/11/2023 2:03 PM EDT Tc from Ruthie patients SUB ACUTE CARE NURSE requesting a referral for a forest fire specialist supervisor advised by her grid inspector. [facility] and has a f/u appt on 03/25/23 for allergy. Patient speaks Czech documented in this encounter Plan of Treatment Upcoming Encounters Date Type Department Care Team (Late st Contact Info) Description 04/23/2025 11:15 AM EDT Office Visit [facility] MEDICINE [address] [place] [address] Misti Carrillo MD [address] [place] [phone] documented as of this encounter Visit Diagnoses Diagnosis Allergic conjunctivitis of both eyes- Primary Other chronic allergic conjunctivitis Seasonal allergic rhinitis due to pollen documented in this encounter Care Teams Aircraft Metalsmith Relationship Specialty Start Date End Date Misti Carrillo MD [address] [place] [address] PCP - General Family Medicine 10/17/19 07/14/23 Misti Carrillo MD [address] [place] [phone] PCP - General Internal Medicine 07/15/23 Misti Carrillo MD [address] [place] [address] Family Medicine 07/15/23 documented as of this encounter
--- OUTSIDE RECORDS SUMMARY | 2025-01-31 13:28 | XMS_ITS | Data Portability ---
Author Organization [facility] Address [address] [place] [address] Care Team Providers Care Large Animal Veterinarian Name Role Phone [facility] Referring Provider Assessment No assessment recorded. Plan of Treatment Reminders Order Date Submit Date Provider Last Modified By Organization Details Last Modified Time Details Appointments None recorded. Lab culture, urine 023 023 [facility] (Centralized Electronic Ordering - All Locations), Patient Can Go To The Location Of Their Choice, 08:59:40 Referral None recorded. Procedures None recorded. Surgeries None recorded. Imaging None recorded. Medication Orders Bactrim DS 800 mg-160 mg tablet 023 023 [facility], [address], [place], [id number], 3 09:49:27 Patient TargetsNo targets recorded. Patient InstructionsNo instructions recorded. Reason for Referral None Reported. Results Created Date Observation Date Name Description Value Unit Range Abnormal Flag Note LastModifiedBy Organization Detail LastModifiedTime 07/15/2007/15/2023 URINE CULTU RE specimen description BLOOD Not Available [facility] (Centralized Electronic Ordering - All Locations) Patient Can Go To The Location Of Their Choice, 07/17/2023 08:59:39 07/15/2007/15/2023 URINE CULTU RE special requests NONE Not Available [facility] (Centralized Electronic Ordering - All Locations) Patient Can Go To The Location Of Their Choice, 07/17/2023 08:59:39 07/15/2007/17/2023 URINE CULTU RE culture <10,00 0 COL/ML abnormal Not Available [facility] (Centralized Electronic Ordering - All Locations) Patient Can Go To The Location Of Their Choice, 07/17/2023 08:59:39 07/15/20 23 07/17/2023 URINE CULTU RE report status FINAL 2022 Not Available [facility] (Centralized Electronic Ordering - All Locations) Patient Can Go To The Location Of Their Choice, [id number] 07/17/2023 08:59:39 Result Notes None recorded. Medical Equipment None Reported. Allergies Allergen ID Allergen Name Allergen Category Reaction Reaction Severity Criticality Documentation Date Start Date Code Code System Note Provider Name and Address Organization Details Recorded Time 8891 Product containin g penicilli n (product) medicatio n Not available Not available Not available 09/04/2024 [id number] 8001 SNOMED Not Available [facility] - production [...] SNOMED-CT Code Diagnosis ICD10 Code Diagnosis Note [id number] [facility] [address] [place] [address] 07/15/2023 15:57:02 07/16/2023 16:03:07 Acute urinary tract infection [id number] N39.0 This 68-year-ol d female has had urinary symptoms for several days. Her U/A appeared consistent with an early UTI. I ordered a U/C and treatment with Bactrim DS twice daily for five days. She will follow-up with her PCP. The patient agreed with this plan. Urinary symptoms [id number] R39.9 Health Concerns Section Related Observation LastModified by Organization Detai ls LastModified Time None Recorded Concern Status LastModified by Organization Details LastModified Time None Recorded Advance Directives Directive None Recorded Payers Encounter Date Sequence Insurance Name Policy Number Policy Chow Covered Member ID Chow Member ID Guarantor Name 07/15/2023 1 [facility] - DOS ON OR AFTER 2023 - DUAL ELIGIBLE - [employer] OPTIONS AND ONE [employer] (MEDICARE REPLACEMENT/AD VANTAGE - HMO) Saima Rodrigues [id number] Saima Rodrigues Notes Date Note Type Note [...] pain. No fever. Unable to come into [facility]. Agrees to [facility] referral for UA/Cx. ..................... ..................... ..................... ..................... ..................... ..................... ............... CRC Nursing Assessment: Comments: Reviewed - Jass LUCERO ..................... ..................... ..................... ..................... ..................... ..................... ............... Proofer Prepress Note From Emery Lai: PT complains of [...] ..................... ............... Disposition: Fulfilled Juan Huerta MD [address] [facility],[address], [place], [address], JOAN VALLE 07/15/2023 16:05:16 OBGyn Episode No OBEpisode recorded.
--- OUTSIDE RECORDS SUMMARY | 2025-01-31 13:28 | XMS_ITS | Clinical Summary ---
Author Organization [employer] Address [address] [facility] 7t [place] [address] Care Team Providers Care Paper Finisher Name Role Phone Misti Carrillo MD Primary Care Provider + Misti Carrillo MD Unavailable [phone] Allergies Active Allergy Reactions Criticality Noted Date [...] on urinary bladder. Patient will FU with Distance Learning Unit Leader. FU with me in 6 months. Ear [...] Assessment & Plan (08/10/2024 2:07 PM EDT): TEACHER DANCING reports that she is forgetting things at times, I notice she asked same questions today. Order labs and follow up in 3 months, will need mini COG. She has a TEACHER DANCING to help her with cooking, she will [...] CP/AGUILAR/DOMÍNGUEZ Non smoking patient. Cautioned Pt and TEACHER DANCING regarding cautious change of position due to vasovagal Sx. Patient denied having the Flu vaccine administered at this time. Assessment & Plan (08/10/2024 2:04 PM EDT): Controlled. Compliant w/meds Continue Amlodipine 2.5 mg Counseled re low salt diet/increase moderate physical activity. Check home BP BIW and prn CP/AGUILAR/DOMÍNGUEZ Non smoking patient. 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 Assessment & Plan (05/18/2024 12:10 PM EDT): [...] atrophic vaginitis versus hyperactive bladder. FU with Distance Learning Unit Leader for results of endometrial biopsy, otherwise she [...] Encounters Date Type Department Care Team Description 01/25/2025 Orders Only GENERIC EXTERNAL DATA DEPARTMENT Provider, Generic External Data 01/18/[address] [address] Misti Carrillo MD Spring recall 11/29/[address] [address] Hillary Donovan, RN Error (VOID this visit) 11/29/[address] [address] Hillary Donovan, RN 11/29/2024 Orders Only [address] [address] Misti Carrillo MD Encounter for colorectal cancer screening (Primary Dx); Positive colorectal cancer screening using Cologuard test 11/19/2024 11:15 AM EST Office Visit [address] [address] Misti Carrillo MD Benign essential HTN (Primary Dx); Dysuria; Hypercholesterolemi a; Screening for colon cancer; Uterine leiomyoma, unspecified location 11/19/2024 Travel 11/16/2024 Orders Only GENERIC EXTERNAL DATA DEPARTMENT Provider, Generic External Data 11/09/[address] [address] Misti Carrillo MD 11/09/2024 Patient Outreach [address] [address] Misti Carrillo MD Pre-visit Planning (SDOH screening negative and tobacco screening negative) 11/05/[address] [address] Brianna Wilde, JAZMINE Results 11/05/2024 Orders Only [address] [address] Misti Carrillo MD Pelvic pain (Primary Dx); [...] 11/19/2024 11:10 AM EST Plan of Treatment Upcoming Encounters Date Type Department Care Team (Late st Contact Info) Description 04/23/2025 11:15 AM EDT Office Visit [facility] [address] [place], [place] [phone] Misti Carrillo MD [address] [place], [place] [phone] Health Maintenance Due Date Last Done Comments [...] 08/03/2026 023, 01/21/2022, 10/17/2019 HPV/Cotest 02/24/2027 02/24/2022, 02/06, 01/29/2022 Pap Smear 02/24/2027 02/24/2022, 01/29/2022 Colorectal Cancer Screening 11/22/2027 FIT DNA/Cologuard 11/22/2027 11/22/2024 RSV Patients and Patients Aged 60 years or older (1 - 1-dose 75+ series) 01/11/2028 DTaP/Tdap/Td Vaccines (2 - Td or Tdap) 01/19/2028 01/18/2018 Lipid Panel 12/28/2029 12/28/2024, 08/08, 12/06/2023 Pneumococcal Vaccine: 50+ Years Completed 01/18/2018, [...] Procedure Name Priority Date/Time Associated Diagnosis Comments HEMATOXYLIN AND EOSIN STAIN Routine 01/25/2025 11:15 AM EDT HEPATIC FUNCTION PANEL Routine 12/28/2024 10:19 AM EST Hypercholesterolemia LIPID PANEL WITH REFLEX TO DIRECT LDL Routine 12/28/2024 10:19 AM EST Pure hypercholesterolemia LAB COLOGUARD?? COLON CANCER SCREEN Routine 11/22/2024 11:47 AM EST Screening for colon cancer CULTURE, URINE, ROUTINE Routine 11/16/2024 11:33 AM EST CHLAMYDIA/N. GONORRHOEAE RNA, TMA, UROGENITAL Routine 11/16/2024 11:33 AM EST BACTERIAL VAGINOSIS PANEL Routine 11/16/2024 11:33 AM EST PROPHYLAXIS - ADULT Routine 09/13/2024 11:00 AM EST PERIODIC ORAL EVALUATION - ESTABLISHED PATIENT Routine 09/13/2024 11:00 AM EST BI MAMMOGRAM SCREENING TOMOSYNTHESIS BILATERAL Routine 05/16/2024 12:00 PM EDT PANORAMIC RADIOGRAPHIC IMAGE Routine 08/02/2023 10:30 AM EDT GRACIELA HISTORICAL HPV E6/E7 RFLX KATHLEEN 16 18/45 Routine 02/24/2022 10:32 AM EDT HM PAP/HPV Routine 02/24/2022 from Last 3 Months or Most Recently Relevant to Health Maintenance Results * Hematoxylin and Eosin Stain (01/25/2025 11:15 AM EDT) 01/25/2025 11:1 5 AM EDT 01/25/2025 3:10 PM EDT [facility] - 01/28/2025 3:36 PM EDT ----- ------- Name: Saima Pelaez ?Age/Sex: 70/F ? : 1955 Unit#: [id number] ?? Attend Dr: Favio Cook MD ?Re01/25/25 ?Status: DEP REF ? Location: HO.LNP ?Disch: ? ----- ------- SPEC : [id number] ? RECD: 01/25/25-1509 ? STATUS: ??SOUT ? REQ NUM: [id number] ? BAR: 01/25/25-5 ? SUBM DR: Favio Cook MD ? ENTERED: ??01/25/25-1511 ?SP TYPE: Surgical ? OTHR DR: Misti Carrillo MD ? ORDERED: ??HE Stain/3, Gross Micro L4 ? Diagnosis ?? Vulva, lesion, excision: ??Seborrheic keratosis. ?Clinical History Vulva lesion ?Microscopic Description Microscopic sections reviewed. ? Material Received ?? Vulva lesion ? Gross Description Received in formalin labeled ?vulva lesion? is a fragment of skin measuring 0.9 x 0.8 x 0.3 cm. ??The skin surface is gruber to brown and smooth. ??The underside is white and unremarkable. The underside is inked blue. ??The specimen is bisected, wrapped in lens paper and entirely submitted for microscopic examination, 2 pieces in cassette A. ??([facility]) This case was reviewed intradepartmentally. Copies To: ?? Misti Carrillo MD ?? [facility] ?? [address] ?? [place] [address] ?? [phone] ?? Favio Coko MD ?? [facility] ?? [address] [facility] [address] ?? [place] [address] ?? [phone] ----- ------- Signed (signature on file) Yadi Aleman 01/28/25 1536 ? ----- ------- ? END OF REPORT ? us Generic External Data Provider LAB BLOOD ORDERAB LES Final Result Performing Organization Address [facility] de Phone Number [facility] [address] [place] [address] [phone] * (ABNORMAL) Lipid Panel with Reflex to Direct LDL (12/28/2024 10:19 AM EST) Triglycerides 107 <150 mg/dL [facility] Comment:Desirable Triglyceri de: less than 150 mg/dLBorderline High Triglyceride 150-199 mg/dLHigh Triglyceride: 200-499 mg/dLVery High Triglyceride: greater than or equal to 5OO mg/dL Cholesterol 222(H) <200 mg/dL [facility] Comment:Desirable Cholestero l: less than 200 mg/dLBorderline High Cholesterol: 200-239 mg/dLHigh Cholesterol: greater than 239 mg/dL LDL Cholesterol Calculated 135(H) <100 mg/dL [facility] Comment:Desirable LDL: less than 100 mg/dLNear Optimal/Above Optimal LDL: 110- 129 mg/dLBorderline High LDL: 130-159 mg/dLHigh LDL: 160-189 mg/dLVery High LDL: greater than or equal to 190 mg/dL HDL Cholesterol 66 >40 mg/dL [facility] Comment:Desirable HDL: great er than 40 mg/dL Note: This HDL assay may give artificially low results in patients with liver disease. Blood 12/28/2024 10:1 9 AM EST 12/28/2024 11:04 AM EST us Misti Carrillo MD LAB BLOOD ORDERABLES Fin al Result Performing Organization Address [facility]/ZIP Co de Phone Number [facility] [address] [place] [address] [phone] * Hepatic Function Panel (12/28/2024 10:19 AM EST) Bilirubin, Total 0.7 0.0 - 1.0 mg/dL [facility] Bilirubin, Direct 0.2 0.0 - 0.5 mg/dL [facility] Aspartate Amino Transferase 22 5 - 31 U/L [facility] Alanine Aminotransferase 20 0 - 31 U/L [facility] Total Protein 6.9 6.5 - 8.0 g/dL [facility] Albumin Level 4.0 3.5 - 5.0 g/dL [facility] Alkaline Phosphatase 83 39 - 117 U/L [facility] Blood Venous blood specimen / Unknown 12/28/2024 10:19 AM EST 12/28/2024 11:04 AM EST us Misti Carrillo MD LAB BLOOD ORDERABLES Fin al Result [facility] [address] [place] [address] [phone] * (ABNORMAL) Cologuard?? colon cancer screening (11/22/2024 11:47 AM EST) Cologuard Result Positive( A) Negative 11/29/2024 10:22 AM EST [employer] [facility] (CLIA #:[id number]) Comment: POSITIVE TEST RESULT. A positive Cologuard [...] (Annabel Martin al, N Engl J Med 2014;370(14):3914-2890.) Cologuard may produce a false negative or false positive result (no colorectal cancer or precancerous polyp present at colonoscopy follow up). A negative Cologuard test result does not guarantee the absence of CRC or advanced adenoma (pre-cancer). The current Cologuard screening interval is every 3 years. ([place] Cancer Society and U.S. Multi-Society Task Force). Cologuard performance data in a 10,000 patient pivotal study using colonoscopy as the reference method can be accessed at the following location: www.[employer]oc/results. Additional description of the Cologuard test process, warnings and precautions can be found at www.[employer]rd.iCrossing. Stool specimen (specimen) 11/22/2024 11:47 AM EST 11/23/2024 1:19 PM EST us Misti Carrillo MD LAB MOLECULAR DIAGNOSTIC S ORDERABLES Final Result [facility] (CLIA #:[id number]) [place] [address], * Bacterial Vaginosis (11/16/2024 11:33 AM EST) TRICHOMONAS VAGINALIS DETECTION BY PCR NOT DETECTED Not Detect [facility] BACTERIAL VAGINOSIS DETECTION BY PCR NEGATIVE Negative [facility] Comment:The BV organism targ ets [...] DETECTION BY PCR NOT DETECTED Not Detect [facility] Ria glab krusei PCR NOT DETECTED Not Detect [facility] 11/16/2024 11:3 3 AM EST 11/16/2024 3:07 PM EST us Generic External Data Provider LAB MICROBIOLOGY - GENERAL ORDERABLES Final Result [facility] [address] [place] [address] [phone] * Chlamydia/N. Gonorrhoeae RNA, TMA, Urogenitial (11/16/2024 11:33 AM EST) CT PCR NOT DETECTED Not Detect. [facility] Comment:A not detected test result [...] psychologicalconsequences. NG PCR NOT DETECTED Not Detect. [facility] Comment:A not detected test result [...] 3 AM EST 11/16/2024 3:07 PM EST [facility] - 11/16/2024 4:44 PM EST Vaginal Generic External Data Provider LAB MICROBIOLOGY - GENERAL ORDERABLES Final Result Performing Organization Address [facility] de Phone Number [facility] [address] [place] [phone] * Culture, Urine, Routine (11/16/2024 11:33 AM EST) Urine Urine specimen obtained by clean catch procedure / Unknown 11/16/2024 11:33 AM EST 11/16/2024 3:33 PM EST Comment:UACC Narrative [facility] - 11/18/2024 11:25 AM EST Lactobacillus species Quant 50,000 to 100,000 cfu/mL Specimen Source: Urine clean catch Generic External Data Provider LAB MICROBIOLOGY - GENERAL ORDERABLES Final Result Performing Organization Address [facility] de Phone Number [facility] [address] [place] [phone] * BI Mammogram Screening Tomosynthesis Bilateral (05/16/2024 12:00 PM EDT) Anatomical Region Laterality Modality Breast Bilateral Mammography 05/16/2024 12:0 0 PM EDT Narrative 06/11/2024 10:53 PM EDT ? [facility] ? [address] ?[place] [address] ? Mammography Report ? Signed ? Patient: Machicote Hammond,Saima ?MR ?? #: [id number] ? : 1955 ?Acct:[id number] ? Age/Sex: 69 / F ?ADM Date: 07/10/24 ? Loc: HO.MAMMO ? Attending Dr: Misti Carrillo MD ? Ordering Physician: Misti Carrillo MD ?Results: 1Ne ?? gative ? Date of Service: 05/16/24 ?Follow Up: 1 Year From Orig ?? inal Mammogram ? Procedure(s): MM tomosynthesis screening BI ?? Accession Number(s): [id number] ? cc: Misti Carrillo MD ? EXAMINATION: [...] 06/11/242248 ? DD/ 1200 ? TD/TT: ? Generator Operator Straight Bevel Gear: ? Procedure Note Donotuseinterpreter, Image - 06/11/2024 [place] [facility] [address] [place] [address] Mammography Report Signed Patient: Naty PelaezR #: [id number] : 3Acct:[id number] Age/Sex: 69 / FADM Date: 05/16/24 Loc: HO.MAMMO Attending Dr: Misti Carrillo MD Ordering Physician: Misti Carrillo MDResults: 1Ne gative Date of Service: 05/16/24Follow Up: 1 Year From Orig inal Mammogram Procedure(s): MM tomosynthesis screening BI Accession Number(s): [id number] cc: Misti Carrillo MD EXAMINATION: MM SCREENING [...] in OV> 06/11/24 2249 DD/ 1200 TD/TT: Generator Operator Straight Bevel Gear: Misti Carrillo MD IMG BI PROCEDURES Final Result * HPV E6/E7 RFLX KATHLEEN 16 18/45 (02/24/2022 10:32 AM EDT) HPV mRNA E6/E7 rflx Not Detected Not Detected [facility] Comment: Methodology: Plant Maintenance Manager-Mediated Amplification This assay detects E6/E7 viral messenger RNA (mRNA) from 14 high-risk HPV types (16,18,31,33,35,39,45,51,52,56,58,59,66,68). The analytical performance characteristics of this assay have been determined by [employer]. The modifications have not been cleared or approved by the FDA. This assay has been validated pursuant to the CLIA regulations and is used for clinical purposes. For additional information, please refer to http://education.Disrupt CK/faq/FHA890w2 (This link if provided for information/ educational purposes only.) THIS TEST WAS PERFORMED AT: [employer] [address] [facility] [address] [place], [place] ??[phone] DEV MICHAEL MD 02/24/2022 10:3 2 AM EDT Jessica Monroy HISTORICAL/NON ORDERABLE LABS Fi nal Result [facility] [address] * Hm Pap Smear (02/24/2022) Historical Provider HEALTH MAINTENANCE Final Result from Last 3 Months or Most Recently Relevant to Health Maintenance [place] [address] [place] [address] - [facility] Care Teams Paper Finisher Relationship Specialty Start Date End Date Misti Carrillo MD [address] [place] [address] PCP - General Internal Medicine 07/15/23 Misti Carrillo MD [address] [place] [address] Family Medicine 07/15/23
--- OUTSIDE RECORDS SUMMARY | 2025-01-31 13:28 | XMS_ITS | Encounter Summary ---
Author Organization [employer] Address [address] [facility] [place] [address] Care Team Providers Care Construction Mgr Name Role Phone Misti Carrillo MD Primary Care Provider + Misti Carrillo MD Unavailable [phone] Encounter Details Date Type Department Care Team (Late st Contact Info) Description 01/25/2025 Orders Only GENERIC EXTERNAL DATA [...] Description 04/23/2025 11:15 AM EDT Office Visit [facility] MEDICINE [address] [place], [place] [phone] Misti Carrillo MD [address] [place] [address] documented as of this encounter Procedures Procedure Name Priority Date/Time Associated Diagnosis Comments HEMATOXYLIN AND EOSIN STAIN Routine 01/25/2025 11:15 AM EDT documented in this encounter Results * Hematoxylin and Eosin Stain (01/25/2025 11:15 AM EDT) 01/25/2025 11:1 5 AM EDT 01/25/2025 3:10 PM EDT [facility] - 01/28/2025 3:36 PM EDT ----- ------- Name: Saima Pelaez ?Age/Sex: 70/F ? : 1955 Unit#: [id number] ?? Attend Dr: Favio Cook MD ?Re01/25/25 ?Status: DEP REF ? Location: HO.LNP ?Disch: ? ----- ------- SPEC : [id number] ? RECD: 01/25/25 ? STATUS: ??SOUT ? REQ NUM: [id number] ? BAR: 01/25/25-1115 ? SUBM DR: Favio Cook MD ? ENTERED: ??01/25/25 ?SP TYPE: Surgical ? OTHR DR: Misti [...] microscopic examination, 2 pieces in cassette A. ??([facility]) This case was reviewed intradepartmentally. Copies To: ?? Misti Carrillo MD ?? [facility] ?? [address] [facility] ?? [place] [address] ?? [phone] ?? Favio Cook MD ?? [facility] ?? [address] [facility] [address] ?? [place] [address] ?? [phone] ----- ------- Signed (signature on file) Yadi Aleman 01/28/251535 ? ----- ------- ? END OF REPORT ? us Generic External Data Provider LAB BLOOD ORDERAB LES Final Result [facility] [address] [place] [address] [phone] documented in this encounter Visit Diagnoses Not on filedocumented in this encounter Care Teams Construction Mgr Relationship Specialty Start Date End Date Misti Carrillo MD [address] [place] [address] PCP - General Internal Medicine 07/15/23 Misti Carrillo MD [address] [place] [phone] Family Medicine 07/15/23 documented as of this encounter
--- OUTSIDE RECORDS SUMMARY | 2025-01-31 13:28 | XMS_ITS | Encounter Summary ---
Author Organization [employer] [facility] Address [address] [facility] [address] [place] [address] Care Team Providers Care Family Living Educator Name Role Phone Misti Carrillo MD Primary Care Provider + Misti Carrillo MD Unavailable [phone] Encounter Details Date Type Department Care Team (Late st Contact Info) Description 08/04/2023 Orders Only [facility] MEDICINE [address] [place] [address] ProviderEloisa MD Social History Tobacco Use Types Packs/Day Years [...] Description 04/23/2025 11:15 AM EDT Office Visit [facility] MEDICINE [address] [place] [phone] Misti Carrillo MD [address] [place] [address] documented as of this encounter Procedures Procedure Name Priority Date/Time Associated Diagnosis Comments HM PAP/HPV Routine 02/24/2022 documented in this encounter Results * Hm Pap Smear (02/24/2022) us Historical Provider HEALTH MAINTENANCE Final Result documented in this encounter Visit Diagnoses Not on filedocumented in this encounter Care Teams Family Living Educator Relationship Specialty Start Date End Date Misti Carrillo MD [address] [place] [phone] PCP - General Internal Medicine 07/15/23 Misti Carrillo MD [address] [place] [address] Family Medicine 07/15/23 documented as of this encounter
--- OUTSIDE RECORDS SUMMARY | 2025-01-31 13:28 | XMS_ITS | Encounter Summary ---
Author Organization [employer] [facility] Address [address] [facility] 7t [place] [address] Care Team Providers Care Station Examiner Name Role Phone Misti Carrillo MD Primary Care Provider + Misti Carrillo MD Primary Care Provider + Misti Carrillo MD Unavailable [phone] Encounter Details Date Type Department Care Team (Late st Contact Info) Description 10/19/2022 Abstract [facility] [address] [place] [address] Allison Sheehan, DDS [address], [place] [phone] Social History Tobacco Use Types Packs/Day Years [...] 11:15 AM EDT Office Visit [facility] MED[facility]INE [address] [place] [address] Misti Carrillo MD [address] [place] [address] documented as of this encounter Visit Diagnoses Not on filedocumented in this encounter Care Teams Station Examiner Relationship Specialty Start Date End Date Misti Carrillo MD [address] [place] [address] PCP - General Family Medicine 10/17/19 07/14/23 Misti Carrillo MD [address] [place] [phone] PCP - General Internal Medicine 07/15/23 Misti Carrillo MD [address] [place] [address] Family Medicine 07/15/23 documented as of this encounter
[2025-02-01 12:42] LABS: Creatinine POC 0.7 mg/dL (0.5-1.4); GFR POC > 60
== END 2025-01-31 10:26 | disposition home or self-care (01) ==
LOC: HO.CT 10:25
PROVIDERS: PCP Internal Medicine; Visit Provider Obstetrics & Gynecology
DX: R31.29 Other microscopic hematuria (principal)
CPT/HCPCS: 74178; 82565; Q9967

== ENCOUNTER → 2025-01-31 10:29 | Outpatient (BNV) | payer OTHER, SELFPAY | PROVIDERS: PCP Internal Medicine; Visit Provider Specialist | DX: R31.29 Other microscopic hematuria (principal); N20.0 Calculus of kidney | CPT/HCPCS: 74178 ==

== ENCOUNTER 2025-02-04 10:23 | Outpatient (REF) | payer OTHER, SELFPAY ==
--- OUTSIDE RECORDS SUMMARY | 2025-02-04 14:59 | XMS_ITS | Clinical Summary ---
Author Organization [facility] Address [address] [place] [address] Care Team Providers Care Director Of Billing Name Role Phone Trisha Jacques PA-C Primary Care Provider [phone] Source Comments PLEASE NOTE, if this patient [...] mcg/actuation nasal sprayIndications: Throat dry Place 1 [place] into the nostril(s) once daily. 16 g [...] Saw urology on 01/09/2016 Dr. Malcolm at [facility] urology: negative workup With cysto and [...] 03/24/2015 Overview (01/15/2016): Yesika screening done at [facility] on 03/20/2015: No mammographic evidence of malignancy in the right breast. Further eval of the left breast group of microcalcification by additional views. Pt will be contacted directly for imaging. BIRADS category 0 incomplete. Need further imaging. Second mammogram done 04/02/2015 at [facility]: small cluster microcalcifications seen in the mis [...] of Treatment Not on file Insurance [facility] Member Subscriber Plan / Payer (Ef fective 2014-Present) Name:Saima Hand Relation to Subscriber:Self Name:Saima Hand Payer ID:[id number] Group ID:Not on file Type:Medicaid Address: [facility] [id number] [place] [address] [facility] [place] [address] [facility] Care Teams Director Of Billing Relationship Specialty Start Date End Date Trisha Jacques PA-C [address] [place] [address] PCP - General 09/27/18
--- OUTSIDE RECORDS SUMMARY | 2025-02-04 14:59 | XMS_ITS | Encounter Summary ---
Author Organization [employer] [facility] Address [address] [facility] 7t [place] [address] Care Team Providers Care Booking Prizer Name Role Phone Misti Carrillo MD Primary Care Provider + Misti Carrillo MD Unavailable [phone] Encounter Details Date Type Department Care Team (Late st Contact Info) Description 08/04/2023 Orders Only [facility] MEDICINE [address] [place] [address] ProviderEloisa MD Social History Tobacco Use [...] Description 04/23/2025 11:15 AM EDT Office Visit [facility] [address] [place] [address] [phone] Misti Carrillo MD [address] [place] [address] documented as of this encounter Procedures Procedure Name Priority Date/Time Associated Diagnosis Comments HM PAP/HPV Routine 02/24/2022 documented in this encounter Results * Hm Pap Smear (02/24/2022) us Historical Provider HEALTH MAINTENANCE Final Result documented in this encounter Visit Diagnoses Not on filedocumented in this encounter Care Teams Booking Prizer Relationship Specialty Start Date End Date Misti Carrillo MD [address] [place] [address] PCP - General Internal Medicine 07/15/23 Misti Carrillo MD [address] [place] [address] Family Medicine 07/15/23 documented as of this encounter
--- OUTSIDE RECORDS SUMMARY | 2025-02-04 14:59 | XMS_ITS | Encounter Summary ---
Author Organization [employer] [facility] Address [address] [facility] 7t [place] [address] Care Team Providers Care Weight Loss Counselor Name Role Phone Misti Carrillo MD Primary Care Provider + Misti Carrillo MD Primary Care Provider + Misti Carrillo MD Unavailable [phone] Encounter Details Date Type Department Care Team (Latest Contact Info) Description 10/17/2019 Abstract [facility] CONVERSIONS Dental, Provider, DDS Social History [...] Description 04/23/2025 11:15 AM EDT Office Visit [facility] MEDICINE [address] [place] [address] Misti Carrillo MD [address] [place], [place] [phone] documented as of this encounter Visit Diagnoses Not on filedocumented in this encounter Care Teams Weight Loss Counselor Relationship Specialty Start Date End Date Misti Carrillo MD [address] [place], [place] [phone] PCP - General Family Medicine 10/17/19 07/14/23 Misti Carrillo MD [address] [place] [address] PCP - General Internal Medicine 07/15/23 Misti Carrillo MD [address] [place] [address] Family Medicine 07/15/23 documented as of this encounter
--- OUTSIDE RECORDS SUMMARY | 2025-02-04 14:59 | XMS_ITS | Encounter Summary ---
Author Organization [employer] [facility] Address [address] [facility] 7t [place] [address] Care Team Providers Care Painting Technician Name Role Phone Misti Carrillo MD Primary Care Provider + Misti Carrillo MD Primary Care Provider + Misti Carrillo MD Unavailable [phone] Encounter Details Date Type Department Care Team (Latest Contact Info) Description 06/09/2022 Abstract [facility] CONVERSIONS Dental, Provider, DDS Social History Tobacco [...] Description 04/23/2025 11:15 AM EDT Office Visit [facility] MEDICINE [address] [place] [address] Misti Carrillo MD [address] [place], [place] [phone] documented as of this encounter Visit Diagnoses Not on filedocumented in this encounter Care Teams Painting Technician Relationship Specialty Start Date End Date Misti Carrillo MD [address] [place], [place] [phone] PCP - General Family Medicine 10/17/19 07/14/23 Misti Carrillo MD [address] [place] [address] PCP - General Internal Medicine 07/15/23 Misti Carrillo MD [address] [place] [address] Family Medicine 07/15/23 documented as of this encounter
--- OUTSIDE RECORDS SUMMARY | 2025-02-04 14:59 | XMS_ITS | Clinical Summary ---
Author Organization [facility] Address [address] [place] [address] Phone Care Team Providers Care Senior Quality Assurance Specialist Name Role Phone Toby Fink MD Primary [...] patient's age to complete this topic Insurance [address] [address] [address] MEDICAID - [place] Care Teams Senior Quality Assurance Specialist Relationship Specialty Start Date End Date Toby Fink MD [address] [place] [address] PCP - General Internal Medicine 08/27/24
--- OUTSIDE RECORDS SUMMARY | 2025-02-04 15:00 | XMS_ITS | Encounter Summary ---
Author Organization [employer] Address [address] [facility] [address] [address] [facility] [address] 7t [place] [address] Care Team Providers Care Purchasing Contracting Clerk Name Role Phone Misti Carrillo MD Primary Care Provider + Misti Carrillo MD Primary Care Provider + Misti Carrillo MD Unavailable [phone] Reason for Visit * Reason Onset Date Comments Referral 03/11/2023 Encounter Details Date Type Department Care Team (Late st Contact Info) Description 03/11/2023 Telephone [facility] MEDICINE [address] [place], [place] [phone] Misti Carrillo MD 230 [place], [place] [phone] Referral Social History Tobacco Use Types Packs/Day [...] 2:03 PM EDT 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 [facility] and has a f/u appt on 03/25/23 for allergy. Patient speaks Ukrainian documented in this encounter Plan of Treatment Upcoming Encounters Date Type Department Care Team (Late st Contact Info) Description 04/23/2025 11:15 AM EDT Office Visit [facility] MEDICINE [address] [place] [address] Misti Carrillo MD [address] [place] [address] documented as of this encounter Visit Diagnoses Diagnosis Allergic conjunctivitis of both eyes- Primary Other chronic allergic conjunctivitis Seasonal allergic rhinitis due to pollen documented in this encounter Care Teams Purchasing Contracting Clerk Relationship Specialty Start Date End Date Misti Carrillo MD [address] [place] [address] PCP - General Family Medicine 10/17/19 07/14/23 Misti Carrillo MD [address] [place] [address] [phone] PCP - General Internal Medicine 07/15/23 Misti Carrillo MD [address] [place] [address] Family Medicine 07/15/23 documented as of this encounter
--- OUTSIDE RECORDS SUMMARY | 2025-02-04 15:00 | XMS_ITS | Encounter Summary ---
Author Organization [employer] [facility] Address [address] [facility] 7t [place] [address] Care Team Providers Care Stock Sheets Cleaner Inspector Name Role Phone Misti Carrillo MD Primary Care Provider + Misti Carrillo MD Primary Care Provider + Misti Carrillo MD Unavailable [phone] Encounter Details Date Type Department Care Team (Late st Contact Info) Description 10/19/2022 Abstract [facility] [address] [place] [address] Allison Sheehan, DDS [address] [place], [place] [phone] Social History Tobacco Use Types Packs/Day Years [...] Description 04/23/2025 11:15 AM EDT Office Visit [facility]ICINE [address] [place] [address] Misti Carrillo MD [address] [place] [address] documented as of this encounter Visit Diagnoses Not on filedocumented in this encounter Care Teams Stock Sheets Cleaner Inspector Relationship Specialty Start Date End Date Misti Carrillo MD [address] [place] [address] PCP - General Family Medicine 10/17/19 07/14/23 Misti Carrillo MD [address] [place] [address] PCP - General Internal Medicine 07/15/23 Misti Carrillo MD [address] [place] [address] Family Medicine 07/15/23 documented as of this encounter
--- OUTSIDE RECORDS SUMMARY | 2025-02-04 15:00 | XMS_ITS | Clinical Summary ---
Author Organization [employer] Address [address] [facility] 7t [place] [address] Care Team Providers Care Civil Engineer In Training Name Role Phone Misti Carrillo MD Primary Care Provider + Misti Carrillo MD Unavailable [phone] Allergies Active Allergy Reactions Criticality Noted Date [...] on urinary bladder. Patient will FU with Heading Maker. FU with me in 6 months. Ear [...] Assessment & Plan (08/10/2024 2:07 PM EDT): ELECTRIC SHOVEL OPERATOR reports that she is forgetting things at times, I notice she asked same questions today. Order labs and follow up in 3 months, will need mini COG. She has a ELECTRIC SHOVEL OPERATOR to help her with cooking, she will [...] CP/AGUILAR/DOMÍNGUEZ Non smoking patient. Cautioned Pt and ELECTRIC SHOVEL OPERATOR regarding cautious change of position due to vasovagal Sx. Patient denied having the Flu vaccine administered at this time. Assessment & Plan (08/10/2024 2:04 PM EDT): Controlled. Compliant w/meds Continue Amlodipine 2.5 mg Counseled re low salt diet/increase moderate physical activity. Check home BP BIW and prn CP/AGUILAR/DOMÍNGUEZ Non smoking patient. Cautioned Pt and ELECTRIC SHOVEL OPERATOR regarding cautious change of position due to [...] week. Pap smear due next year with software developer mid level. Assessment & Plan (05/18/2024 12:10 PM EDT): [...] atrophic vaginitis versus hyperactive bladder. FU with Heading Maker for results of endometrial biopsy, otherwise she [...] DEPARTMENT Provider, Generic External Data 01/18/[address] [address] Misti Carrillo MD Spring recall 11/29/[address] [address] Hillary Donovan, RN Error (VOID this visit) 11/29/[address] [address] Hillary Donovan, JAZMINE 11/29/2024 Orders Only [address] [address] Misti Carrillo MD Encounter for colorectal cancer screening (Primary Dx); Positive colorectal cancer screening using Cologuard test 11/19/2024 11:15 AM EST Office Visit [address] [address] Misti Carrillo MD Benign essential HTN (Primary Dx); Dysuria; Hypercholesterolemi a; Screening for colon cancer; Uterine leiomyoma, unspecified location 11/19/2024 Travel 11/16/2024 Orders Only GENERIC EXTERNAL DATA DEPARTMENT Provider, Generic External Data 11/09/[address] [address] Misti Carrillo MD 11/09/2024 Patient Outreach [address] [address] Misti Carrillo MD Pre-visit Planning (SDOH screening [...] Description 04/23/2025 11:15 AM EDT Office Visit [facility] [address] [place] [address] Misti Carrillo MD [address] [place] [address] Health Maintenance Due Date Last Done Comments [...] AM EDT GRACIELA HISTORICAL HPV E6/E7 RFLX KATLHEEN 16 18/45 Routine 02/24/2022 10:32 AM EDT HM PAP/HPV Routine 02/24/2022 from Last 3 Months or Most Recently Relevant to Health Maintenance Results * CT Abdomen Pelvis w/ and w/o Contrast (02/01/2025 8:26 AM EDT) Anatomical Region Laterality Modality Body, Pelvis, Abdomen Computed T omography 02/01/2025 8:26 AM EDT Narrative 02/01/2025 8:28 AM EDT ? [facility] ?[address] ?[place] [address] ? CT Scan Report ? Signed ? Patient: Machicote Hammond,Saima ?MR ?? #: [id number] ? : 1955 ?Acct:[id number] ? Age/Sex: 70 / F ?ADM Date: 03/27/25 ? Loc: HO.CT ? Attending Dr: Favio Cook MD ? Ordering Physician: Favio Cook MD ?? Date of Service: 01/31/25 ?? Procedure(s): CT abdomen pelvis wo/w IV con ?? Accession Number(s): [id number] ? cc: Misti Carrillo MD; Favio Cook MD ? Report Number: ?? [id number]: Total DLP = ??369.00 mGy-cm ? CLINICAL [...] ? DD/ 5 ? TD/TT: 02/01/25825 ? Rn Clinical Research: ? Procedure Note Ismael, Gus - 02/01/[address] [place] [address] [address] Scan Report Signed Patient: Vania Pelaez #: [id number] : 3Acct:[id number] Age/Sex: 70 / FADM Date: 01/31/25 Loc: HO.CT Attending Dr: Favio Cook MD Ordering Physician: Favio Cook MD Date of Service: 01/31/25 Procedure(s): CT abdomen pelvis wo/w IV con Accession Number(s): [id number] cc: Misti Carrillo MD; Favio Cook MD Report Number: [id number]: Total DLP = 369.00 mGy-cm CLINICAL HISTORY: [...] in OV> 02/01/25826 DD/ 5 TD/TT: 02/01/25825 Rn Clinical Research: [facility] External Provider IMG CT PROCEDURES Final Result * POCT Creatinine GFR (01/31/2025 10:54 AM EDT) POCT Creatinine 0.7 0.5 - 1.4 mg/dL [facility] GFR POC >60 [facility] Comment:Chronic Kidney Disea se: Estimated GFR < 60 mL/min/1.66r0Sxbuvs Kidney Disease: Estimated GFR < 15 mL/min/1.73m2 01/31/2025 10:5 4 AM EDT 02/01/2025 12:40 PM EDT [facility] - 02/01/2025 12:42 PM EDT [id number] Generic External Data Provider LAB POINT OF CARE TEST DOCKED DEVICE ORDERABLES Final Result [facility] [address] [place] [phone] * Hematoxylin and Eosin Stain (01/25/2025 11:15 AM EDT) 01/25/2025 11:1 5 AM EDT 01/25/2025 3:10 PM EDT [facility] - 01/28/2025 3:36 PM EDT ----- ------- Name: Saima Pelaez ?Age/Sex: 70/F ? : 1955 Unit#: [id number] ?? Attend Dr: Favio Cook MD ?Re01/25/25 ?Status: DEP REF ? Location: HO.LNP ?Disch: ? ----- ------- SPEC : [id number] ? RECD: 01/25/25-1509 ? STATUS: ??SOUT ? REQ NUM: [id number] ? BAR: 01/25/25-1115 ? SUBM DR: Favio [...] microscopic examination, 2 pieces in cassette A. ??([facility]) This case was reviewed intradepartmentally. Copies To: ?? Misti Carrillo MD ?? [facility] ?? [address] [facility] ?? [place] [address] ?? [phone] ?? Favio Cook MD ?? [facility] ?? [address] [place] [address] [address] ?? [place] [address] ?? [phone] ----- ------- Signed (signature on file) Yadi Aleman 01/28/25 1536 ? ----- ------- ? END OF REPORT ? us Generic External Data Provider LAB BLOOD ORDERAB LES Final Result Performing Organization Address [facility] de Phone Number [facility] [address] [place] [address] [phone] * (ABNORMAL) Lipid Panel with Reflex to Direct LDL (12/28/2024 10:19 AM EST) Triglycerides 107 <150 mg/dL [facility] Comment:Desirable Triglyceri de: less than 150 mg/dLBorderline High Triglyceride 150-199 mg/dLHigh Triglyceride: 200-499 mg/dLVery High Triglyceride: greater than or equal to 5OO mg/dL Cholesterol 222(H) <200 mg/dL [facility] Comment:Desirable Cholestero l: less than 200 mg/dLBorderline High Cholesterol: 200-239 mg/dLHigh Cholesterol: greater than 239 mg/dL LDL Cholesterol Calculated 135(H) <100 mg/dL [facility] Comment:Desirable LDL: less than 100 mg/dLNear Optimal/Above Optimal LDL: 110- 129 mg/dLBorderline High LDL: 130-159 mg/dLHigh LDL: 160-189 mg/dLVery High LDL: greater than or equal to 190 mg/dL HDL Cholesterol 66 >40 mg/dL [facility] Comment:Desirable HDL: great er than 40 mg/dL Note: This HDL assay may give artificially low results in patients with liver disease. Blood 12/28/2024 10:1 9 AM EST 12/28/2024 11:04 AM EST us Misti Carrillo MD LAB BLOOD ORDERABLES Fin al Result Performing Organization Address [facility]/ZIP Co de Phone Number [facility] [address] [place] [address] [phone] * Hepatic Function Panel (12/28/2024 10:19 AM EST) Bilirubin, Total 0.7 0.0 - 1.0 mg/dL [facility] Bilirubin, Direct 0.2 0.0 - 0.5 mg/dL [facility] Aspartate Amino Transferase 22 5 - 31 U/L [facility] Alanine Aminotransferase 20 0 - 31 U/L [facility] Total Protein 6.9 6.5 - 8.0 g/dL [facility] Albumin Level 4.0 3.5 - 5.0 g/dL [facility] Alkaline Phosphatase 83 39 - 117 U/L [facility] Blood Venous blood specimen / Unknown 12/28/2024 10:19 AM EST 12/28/2024 11:04 AM EST Misti Carrillo MD LAB BLOOD ORDERABLES Fin al Result [facility] [address] [place] [phone] * (ABNORMAL) Cologuard?? colon cancer screening (11/22/2024 11:47 AM EST) Pathologist [facility] Cologuard Result Positive( A) Negative 11/29/2024 10:22 AM EST [facility] (CLIA #:[id number]) Comment: POSITIVE TEST RESULT. A positive Cologuard [...] Contreras et al, N Engl J Med 2014;370(14):5834-7183.) Cologuard may produce a false negative or false positive result (no colorectal cancer or precancerous polyp present at colonoscopy follow up). A negative Cologuard test result does not guarantee the absence of CRC or advanced adenoma (pre-cancer). The current Cologuard screening interval is every 3 years. ([place] Cancer Society and U.S. Multi-Society Task Force). Cologuard performance data in a 10,000 patient pivotal study using colonoscopy as the reference method can be accessed at the following location: www.FrogApps/results. Additional description of the Cologuard test process, warnings and precautions can be found at [email or web address].My COI. Stool specimen (specimen) 11/22/2024 11:47 AM EST 11/23/2024 1:19 PM EST us Misti Carrillo MD LAB MOLECULAR DIAGNOSTIC S ORDERABLES Final Result [facility] (CLIA #:[id number]) [place] [address] [place] [address], * Bacterial Vaginosis (11/16/2024 11:33 AM EST) TRICHOMONAS VAGINALIS DETECTION BY PCR NOT DETECTED Not Detect [facility] BACTERIAL VAGINOSIS DETECTION BY PCR NEGATIVE Negative [facility] Comment:The BV organism targ ets [...] DETECTION BY PCR NOT DETECTED Not Detect [facility] Ria glab krusei PCR NOT DETECTED Not Detect [facility] 11/16/2024 11:3 3 AM EST 11/16/2024 3:07 PM EST us Generic External Data Provider LAB MICROBIOLOGY - GENERAL ORDERABLES Final Result [facility] [address] [place] [address] [phone] * Chlamydia/N. Gonorrhoeae RNA, TMA, Urogenitial (11/16/2024 11:33 AM EST) CT PCR NOT DETECTED Not Detect. [facility] Comment:A not detected test result [...] psychologicalconsequences. NG PCR NOT DETECTED Not Detect. [facility] Comment:A not detected test result [...] AM EST 11/16/2024 3:07 PM EST Narrative [facility] - 11/16/2024 4:44 PM EST Vaginal Generic External Data Provider LAB MICROBIOLOGY - GENERAL ORDERABLES Final Result Performing Organization Address [facility] Co de Phone Number [facility] [address] [place] [phone] * Culture, Urine, Routine (11/16/2024 11:33 AM EST) Urine Urine specimen obtained by clean catch procedure / Unknown 11/16/2024 11:33 AM EST 11/16/2024 3:33 PM EST Comment:UACC Narrative [facility] - 11/18/2024 11:25 AM EST Lactobacillus species Quant 50,000 to 100,000 cfu/mL Specimen Source: Urine clean catch Generic External Data Provider LAB MICROBIOLOGY - GENERAL ORDERABLES Final Result Performing Organization Address [facility] de Phone Number [facility] [address] [place] [phone] * BI Mammogram Screening Tomosynthesis Bilateral (05/16/2024 12:00 PM EDT) Anatomical Region Laterality Modality Breast Bilateral Mammography 05/16/2024 12:0 0 PM EDT Narrative 06/11/2024 10:53 PM EDT ? [facility] ? [address] ?[place] [address] ? Mammography Report ? Signed ? Patient: Machicote Hammond,Saima ?MR ?? #: [id number] ? : 1955 ?Acct:[id number] ? Age/Sex: 69 / F ?ADM Date: 07//24 ? Loc: HO.MAMMO ? Attending Dr: Misti Carrillo MD ? Ordering Physician: Misti Carrillo MD ?Results: 1Ne ?? gative ? Date of Service: 05/16/24 ?Follow Up: 1 Year From Orig ?? inal Mammogram ? Procedure(s): MM tomosynthesis screening BI ?? Accession Number(s): [id number] ? cc: Misti Carrillo MD ? EXAMINATION: [...] 06/11/242248 ? DD/ 1200 ? TD/TT: ? Rn Clinical Research: ? Procedure Note Donotcateinterpreter, Image - 06/11/2024 [facility] [address] [place] [address] Mammography Report Signed Patient: Naty PelaezR #: [id number] : 3Acct:[id number] Age/Sex: 69 / FADM Date: 05/16/24 Loc: HO.MAMMO Attending Dr: Misti Carrillo MD Ordering Physician: Misti Carrillo MDResults: 1Ne gative Date of Service: 05/16/24Follow Up: 1 Year From Orig ina Mammogram Procedure(s): MM tomosynthesis screening BI Accession Number(s): [id number] cc: Misti Carrillo MD EXAMINATION: MM SCREENING [...] OV> 06/11/24 2249 DD/ 1200 TD/TT: Rn Clinical Research: Misti Carrillo MD IMG BI PROCEDURES Final Result * HPV E6/E7 RFLX KATHLEEN 16 18/45 (02/24/2022 10:32 AM EDT) HPV mRNA E6/E7 rflx Not Detected Not Detected [facility] Comment: Methodology: Dredge Operator Supervisor-Mediated Amplification This assay detects E6/E7 viral messenger RNA (mRNA) from 14 high-risk HPV types (16,18,31,33,35,39,45,51,52,56,58,59,66,68). The analytical performance characteristics of this assay have been determined by [employer] The modifications have not been cleared or approved by the FDA. This assay has been validated pursuant to the CLIA regulations and is used for clinical purposes. For additional information, please refer to http://education.The Bucket BBQ/faq/YFW615t3 (This link if provided for information/ educational purposes only.) THIS TEST WAS PERFORMED AT: [facility] [address] [place], [place] ??[phone] DEV MICHAEL MD 02/24/2022 10:3 2 AM EDT Jessica Monroy HISTORICAL/NON ORDERABLE LABS Fi nal Result [facility] [address] * Hm Pap Smear (02/24/2022) Historical Provider HEALTH MAINTENANCE Final Result from Last 3 Months or Most Recently Relevant to Health Maintenance Insurance [facility] - [facility] Care Teams Civil Engineer In Training Relationship Specialty Start Date End Date Misti Carrillo MD [address] [place] [address] PCP - General Internal Medicine 07/15/23 Misti Carrillo MD [address] [place] [address] Family Medicine 07/15/23
--- OUTSIDE RECORDS SUMMARY | 2025-02-04 15:00 | XMS_ITS | Encounter Summary ---
Author Organization [employer] Address [address] [facility] [place] [address] Care Team Providers Care Biology Specimen Technician Name Role Phone Misti Carrillo MD Primary Care Provider + Misti Carrillo MD Unavailable [phone] Encounter Details Date Type Department Care Team [...] Description 04/23/2025 11:15 AM EDT Office Visit [facility] [address] [place] [address] Misti Carrillo MD [address] [place] [address] documented as of this encounter Procedures Procedure Name Priority Date/Time Associated Diagnosis Comments POCT CREATININE GFR Routine 01/31/2025 1 0:54 AM EDT documented in this encounter Results * POCT Creatinine GFR (01/31/2025 10:54 AM EDT) POCT Creatinine 0.7 0.5 - 1.4 mg/dL [facility] GFR POC >60 [facility] Comment:Chronic Kidney Disea se: Estimated GFR < 60 mL/min/1.16d6Krlays Kidney Disease: Estimated GFR < 15 mL/min/1.73m2 01/31/2025 10:5 4 AM EDT 02/01/2025 12:40 PM EDT Narrative [facility] - 02/01/2025 12:42 PM EDT [id number] us Generic External Data Provider LAB POINT OF CARE TEST DOCKED DEVICE ORDERABLES Final Result [facility] [address] [place] [address] [phone] documented in this encounter Visit Diagnoses Not on filedocumented in this encounter Care Teams Biology Specimen Technician Relationship Specialty Start Date End Date Misti Carrillo MD [address] [place] [phone] PCP - General Internal Medicine 07/15/23 Misti Carrillo MD [address] [place] [address] Family Medicine 07/15/23 documented as of this encounter
[2025-02-04 16:56] LABS: Urine Cytology See Pathology rpt
== END 2025-02-04 10:24 | disposition home or self-care (01) ==
LOC: HO.LAB 10:23
PROVIDERS: PCP Internal Medicine; Visit Provider Urology
DX: N39.0 Urinary tract infection, site not specified (principal); R31.29 Other microscopic hematuria; R30.0 Dysuria; N28.89 Other specified disorders of kidney and ureter
CPT/HCPCS: 51798; 81003; 88112; 99202

== ENCOUNTER 2025-02-04 10:23 | Outpatient (AMB) | payer OTHER, SELFPAY ==
--- NOTE | 2025-02-04 11:26 | MHC.OFFVIS ---
Intake Visit Reasons: microscopic hematuria Intake Note: New patient presents today for initial visit for microscopic hematuria Imagin01/31/25 Urology Medication:Estradiol Blood Thinner:none Antibiotic Allergies:Penicillin PVR:0ml Allergies penicillamine [PENICILLAMINE] Adverse Reaction (Intermediate, Verified 02/04/25 11:45) PALPATATIONS Medication List - Last Reconciled 02/04/25 by Cecilia Rodriguez MD amlodipine 2.5 mg PO DAILY clindamycin HCl 300 mg PO Q6H clotrimazole-betamethasone 1-0.05 % 1 appl topical BID PRN 7 days docusate sodium (Colace) 100 mg PO BID estradiol 0.01%(0.1mg/gram) (Estrace) pea sized amount per urethra daily; 30 days omeprazole 40 mg PO DAILY HPI Comments Details: Saima is a 70-year-old female who is evaluation for microscopic hematuria. She presents with her friend and declines pattern puncher. she was sent by Dr. Joey vázquez a CT imaging was performed which noted some parenchymal calcifications in the kidneys. I have discussed further evaluation with 24 hour urine I have discussed reasons for blood in the urine may include but are not limited to kidney stones, cancer in the urinary tract, BPH, or inflammatory conditions of the urinary tract. I have discussed workup to include cystoscopy evaluation. Discussed further evaluation with office cystoscopy, we will send urine for cytology. She complains of dysuria and I have discussed avoiding dietary bladder irritants to include but not limited to caffeinated beverages spicy foods sodas. PFSH Medical History Hypertension Frequent UTI Surgical History No pertinent past surgical history Family History Father Prostate CA Mother No problems noted. Social History Household Members: None Alcohol intake: never Patient Tobacco Use Status: Never used Tobacco Review of Systems Const All systems reviewed & are unremarkable except as noted in HPI and below Reports no additional complaints Eyes Reports no additional complaints ENT Reports no additional complaints Card Reports no additional complaints Resp Reports no additional complaints GI Reports no additional complaints Reports as per HPI Musc Reports no additional complaints Skin/Breast Reports system reviewed and no additional complaints, except as documented Neuro Reports no additional complaints Psych Reports no additional complaints Endo Reports no additional complaints Carlos/Lymph Reports no additional complaints Aller/Immun Reports no additional complaints Physical Exam Const General: cooperative, healthy appearing and no acute distress Orientation/consciousness: patient oriented x3 HEENT Head: Yes normal to inspection, Yes normocephalic and Yes atraumatic Eyes Conjunctivae: conjunctivae normal Neck Neck: Yes normal visual inspection and Yes trachea midline Chest Chest palpation & inspection: normal inspection of the chest Resp Effort & Inspection: normal respiratory effort Cardio Rate: regular rate GI Inspection: Yes normal to inspection Neuro General: patient oriented x3 Psych Appearance: grossly normal Results Reviewed Results Reviewed: Date of Service: 01/31/25 Procedure(s): CT abdomen pelvis wo/w IV con Accession Number(s): [id number] cc: Misti Carrillo MD; Favio Cook MD~ Report Number: [id number]: Total DLP = 369.00 mGy-cm CLINICAL HISTORY: R31.29 - Other microscopic hematuria CT abdomen and pelvis with and without contrast Comparison: None Findings: No consolidation or effusion. The gallbladder and solid organs are within normal limits. There are right renal parenchymal calculi. No bowel obstruction, pneumoperitoneum, or pneumatosis. Pelvic contents unremarkable. Normal appendix. No acute fracture. IMPRESSION: No acute findings. Assessment & Plan Assessment & Plan (1) Dysuria: Code(s): R30.0 - Dysuria Category: Medical (2) Renal calcification: Code(s): N28.89 - Other specified disorders of kidney and ureter Category: Medical (3) Microscopic hematuria: Code(s): R31.29 - Other microscopic hematuria Category: Medical Plan Urine cytology, follow-up office cystoscopy, 24 hour urine. Avoid dietary bladder irritants Patient Instructions: The patient had an opportunity to ask questions regarding treatment plan. The patient expressed understanding and agreement with the above treatment plan. The patient is aware they should contact our office by phone for worsening of their current condition or the appearance of new symptoms. Compliance is encouraged with any medications and followup testing that is ordered. It is a privilege to be allowed the opportunity to participate in the urologic care of your patient. If you have any questions or concerns regarding treatment for the above conditions please do not hesitate to contact me. The office telephone contact is [phone]. This note is constructed in part using voice recognition software. While every effort has been made to ensure accuracy research associate policy errors may have been included. Yours sincerely, Cecilia Rodriguez MD Coding Level of Care Code New Pt Level 4 (46982) Diagnoses Dysuria R30.0 Renal calcification N28.89 Microscopic hematuria R31.29
--- OUTSIDE RECORDS SUMMARY | 2025-02-04 11:36 | XMS_ITS | Clinical Summary ---
Author Organization [address] [facility] Address [address] [place] [address] Phone Care Team Providers Care Cafeteria Director Name Role Phone Toby Fink MD Primary [...] patient's age to complete this topic [place] [id number] MEDICAID - [place] Care Teams Cafeteria Director Relationship Specialty Start Date End Date Toby Fink MD [address] [place] [address] PCP - General Internal Medicine 08/27/24
--- OUTSIDE RECORDS SUMMARY | 2025-02-04 11:36 | XMS_ITS | Clinical Summary ---
Author Organization [facility] Address [address] [facility] [address] [place] [address] Care Team Providers Care Credit Card Specialist Name Role Phone Misti Carrillo MD Primary Care Provider + Misti Carrillo MD Unavailable [phone] Allergies Active Allergy Reactions Criticality Noted Date [...] on urinary bladder. Patient will FU with Pouch Making Machine Operator. FU with me in 6 months. Ear [...] Assessment & Plan (08/10/2024 2:07 PM EDT): SPECIAL NEEDS TUTOR reports that she is forgetting things at times, I notice she asked same questions today. Order labs and follow up in 3 months, will need mini COG. She has a SPECIAL NEEDS TUTOR to help her with cooking, she will [...] CP/AGUILAR/DOMÍNGUEZ Non smoking patient. Cautioned Pt and SPECIAL NEEDS TUTOR regarding cautious change of position due to vasovagal Sx. Patient denied having the Flu vaccine administered at this time. Assessment & Plan (08/10/2024 2:04 PM EDT): Controlled. Compliant w/meds Continue Amlodipine 2.5 mg Counseled re low salt diet/increase moderate physical activity. Check home BP BIW and prn CP/AGUILAR/DOMÍNGUEZ Non smoking patient. Cautioned Pt and SPECIAL NEEDS TUTOR regarding cautious change of position due to [...] week. Pap smear due next year with shaker flatwork. Assessment & Plan (05/18/2024 12:10 PM EDT): [...] atrophic vaginitis versus hyperactive bladder. FU with Pouch Making Machine Operator for results of endometrial biopsy, otherwise she [...] Encounters Date Type Department Care Team Description 01/31/2025 Orders Only GENERIC EXTERNAL DATA DEPARTMENT Provider, Generic External Data 01/25/2025 Orders Only GENERIC EXTERNAL DATA DEPARTMENT Provider, Generic External Data 01/18/[address] [address] Misti Carrillo MD Spring recall 11/29/[address] [address] Hillary Donovan, RN Error (VOID this visit) 11/29/[address] [address] Hillary Donovan, JAZMINE 11/29/2024 Orders Only [address] [address] Misti Carrillo MD Encounter for colorectal cancer screening (Primary Dx); Positive colorectal cancer screening using Cologuard test 11/19/2024 11:15 AM EST Office Visit [address] [address] Misti Carrillo MD Benign essential HTN (Primary Dx); Dysuria; Hypercholesterolemi a; Screening for colon cancer; Uterine leiomyoma, unspecified location 11/19/2024 Travel 11/16/2024 Orders Only GENERIC EXTERNAL DATA DEPARTMENT Provider, Generic External Data 11/09/[address] [address] Misti Carrillo MD 11/09/2024 Patient Outreach [address] [address] Misti Carrillo MD Pre-visit Planning (SDOH screening negative and tobacco screening negative) from Last 3 Months Immunizations Name Administration [...] is your housing situation today? I have veronicafrancesco foley 11/30/[address] you [...] Description 04/23/2025 11:15 AM EDT Office Visit [facility] [address] [place] [address] Misti Carrillo MD [address] [place] [address] Health Maintenance Due Date Last Done Comments CT Colonography 1955 Colonoscopy 1955 FIT 1955 FOBT 1955 Sigmoidoscopy 1955 Alcohol/Substance Use Screening 1965 Hepatitis C Screening 1971 Zoster Vaccines (1 of 2) 2003 COVID-19 Vaccine ( season) 2024 Influenza Vaccine (#1) 2024 , 11/12/2020, 10/19/2019, Additional history exists Depression Screening 11/30/2024 11/30/2023, 11/30/19 24 Dental X-Ray: Bitewings 2025 2024 Dental Oral Exam 03/14/2025 09/13/2024, 03/2024, 08/02/2023, Additional history exists Dental Prophylaxis 03/14/2025 09/13/2024, 0 2024, 09/27/2022 Mammogram 05/16/2025 05/16/2024, 11/07, 11/25/2023, Additional history exists SDOH Screening 11/09/2025 11/09/2024 Tobacco Screening 11/19/2025 11/19/2024 Dental X-Ray: Full Mouth 08/03/2026 023, 01/21/2022, 10/17/2019 HPV/Cotest 02/24/2027 02/24/2022, 2 , 01/29/2022 Pap Smear 02/24/2027 02/24/2022, 01/29/2022 [...] Procedure Name Priority Date/Time Associated Diagnosis Comments CT ABDOMEN PELVIS W AND WO CONTRAST Routine 02/01/2025 8:26 AM EDT POCT CREATININE GFR Routine 01/31/2025 10:54 AM EDT HEMATOXYLIN AND EOSIN STAIN Routine 01/25/2025 11:15 [...] Recently Relevant to Health Maintenance Results * CT Abdomen Pelvis w/ and w/o Contrast (02/01/2025 8:26 AM EDT) Anatomical Region Laterality Modality Body, Pelvis, Abdomen Computed T omography 02/01/2025 8:26 AM EDT Narrative 02/01/2025 8:28 AM EDT ? [facility] ?[address] ?[place] [address] ? CT Scan Report ? Signed ? Patient: Machicote Hammond,Saima ?MR ?? #: [id number] ? : 1955 ?Acct:[id number] ? Age/Sex: 70 / F ?ADM Date: 03/27/25 ? Loc: HO.CT ? Attending Dr: Favio Cook MD ? Ordering Physician: Favio Cook MD ?? Date of Service: 01/31/25 ?? Procedure(s): CT abdomen pelvis wo/w IV con ?? Accession Number(s): [id number] ? cc: Misti Carrillo MD; Favio Cook MD ? Report Number: ?? [id number]: Total DLP = ??369.00 mGy-cm ? CLINICAL HISTORY: R31.29 - Other microscopic hematuria ? CT abdomen and pelvis with and without contrast ? Comparison: None ? Findings: ?? No consolidation or effusion. ? The gallbladder and solid organs are within normal limits. ?? There are right renal parenchymal calculi. ?? No bowel obstruction, pneumoperitoneum, or pneumatosis. ? Pelvic contents unremarkable. Normal appendix. ?? No acute fracture. ? IMPRESSION: ?? No acute findings. ? This document has been electronically signed by: Abhijeet Torres MD on ?? 02/01/2025 08:26:44 ? Dictated By: ?Abhijeet Torres MD ? Signed By: ?<Electronically signed by Abhijeet Torres MD in OV> ?02/01/25 0827 ? DD/ 5 ? TD/TT: 02/01/25825 ? Switch Cleaner: ? Procedure Note Ismael, Gus - 02/01/[address] [place] [address] [address] Scan Report Signed Patient: Vania Pelaez #: [id number] : 3Acct:[id number] Age/Sex: 70 / FADM Date: 01/31/25 Loc: HO.CT Attending Dr: Favio Cook MD Ordering Physician: Favio Cook MD Date of Service: 01/31/25 Procedure(s): CT abdomen pelvis wo/w IV con Accession Number(s): [id number] cc: Misti Carrillo MD; Favio Cook MD Report Number: [id number]: Total DLP = 369.00 mGy-cm CLINICAL HISTORY: R31.29 - Other microscopic hematuria CT abdomen and pelvis with and without contrast Comparison: None Findings: No consolidation or effusion. The gallbladder and solid organs are within normal limits. There are right renal parenchymal calculi. No bowel obstruction, pneumoperitoneum, or pneumatosis. Pelvic contents unremarkable. Normal appendix. No acute fracture. IMPRESSION: No acute findings. This document has been electronically signed by: Abhijeet Torres MD on 02/01/2025 08:26:44 Dictated By: Abhijeet Torres MD Signed By: <Electronically signed by Abhijeet Torres MD in OV> 02/01/25826 DD/ 5 TD/TT: 02/01/25825 Switch Cleaner: [facility] External Provider IMG CT PROCEDURES Final Result * POCT Creatinine GFR (01/31/2025 10:54 AM EDT) POCT Creatinine 0.7 0.5 - 1.4 mg/dL [facility] GFR POC >60 [facility] Comment:Chronic Kidney Disea se: Estimated GFR < 60 mL/min/1.32v1Ddmcqs Kidney Disease: Estimated GFR < 15 mL/min/1.73m2 01/31/2025 10:5 4 AM EDT 02/01/2025 12:40 PM EDT [facility] - 02/01/2025 12:42 PM EDT [id number] Generic External Data Provider LAB POINT OF CARE TEST DOCKED DEVICE ORDERABLES Final Result [facility] [address] [place] [phone] * Hematoxylin and Eosin Stain (01/25/2025 11:15 AM EDT) 01/25/2025 11:1 5 AM EDT 01/25/2025 3:10 PM EDT [facility] - 01/28/2025 3:36 PM EDT ----- ------- Name: Saima Pelaez ?Age/Sex: 70/F ? : 1955 Unit#: [id number] ?? Attend Dr: Favio Cook MD ?Re01/25/25 ?Status: DEP REF ? Location: HO.LNP ?Disch: ? ----- ------- SPEC : [id number] ? RECD: 01/25/25-1509 ? STATUS: ??SOUT ? REQ NUM: [id number] ? BAR: 01/25/25-1115 ? SUBM DR: Favio [...] microscopic examination, 2 pieces in cassette A. ??([facility]) This case was reviewed intradepartmentally. Copies To: ?? Misti Carrillo MD ?? [facility] ?? [address] [facility] ?? [place] [address] ?? [phone] ?? Favio Cook MD ?? [facility] ?? [address] [place] [address] [address] ?? [place] [address] ?? [phone] ----- ------- Signed (signature on file) Yadi Aleman 01/28/25 1536 ? ----- ------- ? END OF REPORT ? us Generic External Data Provider LAB BLOOD ORDERAB LES Final Result Performing Organization Address [facility] de Phone Number [facility] [address] [place] [address] [phone] * (ABNORMAL) Lipid Panel with Reflex to Direct LDL (12/28/2024 10:19 AM EST) Triglycerides 107 <150 mg/dL [facility] Comment:Desirable Triglyceri de: less than 150 mg/dLBorderline High Triglyceride 150-199 mg/dLHigh Triglyceride: 200-499 mg/dLVery High Triglyceride: greater than or equal to 5OO mg/dL Cholesterol 222(H) <200 mg/dL [facility] Comment:Desirable Cholestero l: less than 200 mg/dLBorderline High Cholesterol: 200-239 mg/dLHigh Cholesterol: greater than 239 mg/dL LDL Cholesterol Calculated 135(H) <100 mg/dL [facility] Comment:Desirable LDL: less than 100 mg/dLNear Optimal/Above Optimal LDL: 110- 129 mg/dLBorderline High LDL: 130-159 mg/dLHigh LDL: 160-189 mg/dLVery High LDL: greater than or equal to 190 mg/dL HDL Cholesterol 66 >40 mg/dL [facility] Comment:Desirable HDL: great er than 40 mg/dL Note: This HDL assay may give artificially low results in patients with liver disease. Blood 12/28/2024 10:1 9 AM EST 12/28/2024 11:04 AM EST us Misti Carrillo MD LAB BLOOD ORDERABLES Fin al Result Performing Organization Address [facility]/ZIP Co de Phone Number [facility] [address] [place] [address] [phone] * Hepatic Function Panel (12/28/2024 10:19 AM EST) Bilirubin, Total 0.7 0.0 - 1.0 mg/dL [facility] Bilirubin, Direct 0.2 0.0 - 0.5 mg/dL [facility] Aspartate Amino Transferase 22 5 - 31 U/L [facility] Alanine Aminotransferase 20 0 - 31 U/L [facility] Total Protein 6.9 6.5 - 8.0 g/dL [facility] Albumin Level 4.0 3.5 - 5.0 g/dL [facility] Alkaline Phosphatase 83 39 - 117 U/L [facility] Blood Venous blood specimen / Unknown 12/28/2024 10:19 AM EST 12/28/2024 11:04 AM EST Misti Carrillo MD LAB BLOOD ORDERABLES Fin al Result [facility] [address] [place] [phone] * (ABNORMAL) Cologuard?? colon cancer screening (11/22/2024 11:47 AM EST) Pathologist [facility] Cologuard Result Positive( A) Negative 11/29/2024 10:22 AM EST Team [employer] (CLIA #:[id number]) Comment: POSITIVE TEST RESULT. A positive Cologuard [...] screened with both Cologuard and colonoscopy. (Annabel Contreras et al, N Engl J Med 2014;370(14):5790-7055.) Cologuard may produce a false negative or false positive result (no colorectal cancer or precancerous polyp present at colonoscopy follow up). A negative Cologuard test result does not guarantee the absence of CRC or advanced adenoma (pre-cancer). The current Cologuard screening interval is every 3 years. ([place] [employer] Society and U.S. Multi-Society Task Force). Cologuard performance data in a 10,000 patient pivotal study using colonoscopy as the reference method can be accessed at the following location: www.Anystream/results. Additional description of the Cologuard test process, warnings and precautions can be found at www.SafeBootrd.eKonnekt. Stool specimen (specimen) 11/22/2024 11:47 AM EST 11/23/2024 1:19 PM EST us Misti Carrillo MD LAB MOLECULAR DIAGNOSTIC S ORDERABLES Final Result Team [employer] (CLIA #:[id number]) [place] [address] [address], * Bacterial Vaginosis (11/16/2024 11:33 AM EST) TRICHOMONAS VAGINALIS DETECTION BY PCR NOT DETECTED Not Detect [facility] BACTERIAL VAGINOSIS DETECTION BY PCR NEGATIVE Negative [facility] Comment:The BV organism targ ets [...] DETECTION BY PCR NOT DETECTED Not Detect [facility] Ria glab krusei PCR NOT DETECTED Not Detect [facility] 11/16/2024 11:3 3 AM EST 11/16/2024 3:07 PM EST us Generic External Data Provider LAB MICROBIOLOGY - GENERAL ORDERABLES Final Result [facility] [address] [place] [phone] * Chlamydia/N. Gonorrhoeae RNA, TMA, Urogenitial (11/16/2024 11:33 AM EST) CT PCR NOT DETECTED Not Detect. [facility] Comment:A not detected test result [...] psychologicalconsequences. NG PCR NOT DETECTED Not Detect. [facility] Comment:A not detected test result [...] AM EST 11/16/2024 3:07 PM EST Narrative [facility] - 11/16/2024 4:44 PM EST Vaginal Generic External Data Provider LAB MICROBIOLOGY - GENERAL ORDERABLES Final Result Performing Organization Address [facility] Co de Phone Number [facility] [address] [place] [phone] * Culture, Urine, Routine (11/16/2024 11:33 AM EST) Urine Urine specimen obtained by clean catch procedure / Unknown 11/16/2024 11:33 AM EST 11/16/2024 3:33 PM EST Comment:UACC Narrative [facility] - 11/18/2024 11:25 AM EST Lactobacillus species Quant 50,000 to 100,000 cfu/mL Specimen Source: Urine clean catch Generic External Data Provider LAB MICROBIOLOGY - GENERAL ORDERABLES Final Result Performing Organization Address [facility] de Phone Number [facility] [address] [place] [phone] * BI Mammogram Screening Tomosynthesis Bilateral (05/16/2024 12:00 PM EDT) Anatomical Region Laterality Modality Breast Bilateral Mammography 05/16/2024 12:0 0 PM EDT Narrative 06/11/2024 10:53 PM EDT ? [facility] ? [address] ?[place] [address] ? Mammography Report ? Signed ? Patient: Machicote Hammond,Saima ?MR ?? #: [id number] ? : 1955 ?Acct:[id number] ? Age/Sex: 69 / F ?ADM Date: 07//24 ? Loc: HO.MAMMO ? Attending Dr: Misti Carrillo MD ? Ordering Physician: Misti Carrillo MD ?Results: 1Ne ?? gative ? Date of Service: 05/16/24 ?Follow Up: 1 Year From Orig ?? inal Mammogram ? Procedure(s): MM tomosynthesis screening BI ?? Accession Number(s): [id number] ? cc: Misti Carrillo MD ? EXAMINATION: [...] 06/11/242248 ? DD/ 1200 ? TD/TT: ? Switch Cleaner: ? Procedure Note Donotcateinterpreter, Image - 06/11/2024 [place] [facility] [address] [place] [address] Mammography Report Signed Patient: Naty PelaezR #: [id number] : 3Acct:[id number] Age/Sex: 69 / FADM Date: 05/16/24 Loc: HO.MAMMO Attending Dr: Misti Carrillo MD Ordering Physician: Misti Carrillo MDResults: 1Ne gative Date of Service: 05/16/24Follow Up: 1 Year From Orig ina Mammogram Procedure(s): MM tomosynthesis screening BI Accession Number(s): [id number] cc: Misti Carrillo MD EXAMINATION: MM SCREENING [...] in OV> 06/11/24 2249 DD/ 1200 TD/TT: Switch Cleaner: Misti Carrillo MD IMG BI PROCEDURES Final Result * HPV E6/E7 RFLX KATHLEEN 16 18/45 (02/24/2022 10:32 AM EDT) HPV mRNA E6/E7 rflx Not Detected Not Detected [facility] Comment: Methodology: Diffuser Operator-Mediated Amplification This assay detects E6/E7 viral messenger RNA (mRNA) from 14 high-risk HPV types (16,18,31,33,35,39,45,51,52,56,58,59,66,68). The analytical performance characteristics of this assay have been determined by [employer]. The modifications have not been cleared or approved by the FDA. This assay has been validated pursuant to the CLIA regulations and is used for clinical purposes. For additional information, please refer to http://education.Myer/faq/TJD862z6 (This link if provided for information/ educational purposes only.) THIS TEST WAS PERFORMED AT: [employer] [address] [place], [place] ??[phone] DEV MICHAEL MD 02/24/2022 10:3 2 AM EDT Jessica Monroy HISTORICAL/NON ORDERABLE LABS Fi nal Result [facility] [address] * Hm Pap Smear (02/24/2022) Historical Provider HEALTH MAINTENANCE Final Result from Last 3 Months or Most Recently Relevant to Health Maintenance Insurance [facility] Care Teams Credit Card Specialist Relationship Specialty Start Date End Date Misti Carrillo MD [address] [place] [address] PCP - General Internal Medicine 07/15/23 Misti Carrillo MD [address] [place] [address] Family Medicine 07/15/23
--- OUTSIDE RECORDS SUMMARY | 2025-02-04 11:36 | XMS_ITS | Encounter Summary ---
Author Organization [employer] [facility] Address [address] [facility] 7t [place] [address] Care Team Providers Care Plant Maintenance Technician Name Role Phone Misti Carrillo MD Primary Care Provider + Misti Carrillo MD Primary Care Provider + Misti Carrillo MD Unavailable [phone] Encounter Details Date Type Department Care Team (Latest Contact Info) Description 06/09/2022 Abstract [facility] CONVERSIONS Dental, Provider, DDS Social History [...] Description 04/23/2025 11:15 AM EDT Office Visit [facility] [address] [place] [address] Misti Carrillo MD 230 [place], [place] [phone] documented as of this encounter Visit Diagnoses Not on filedocumented in this encounter Care Teams Plant Maintenance Technician Relationship Specialty Start Date End Date iMsti Carrillo MD [address] [place], [place] [phone] PCP - General Family Medicine 10/17/19 07/14/23 Misti Carrillo MD [address] [place] [address] PCP - General Internal Medicine 07/15/23 Misti Carrillo MD [address] [place] [address] Family Medicine 07/15/23 documented as of this encounter
--- OUTSIDE RECORDS SUMMARY | 2025-02-04 11:36 | XMS_ITS | Encounter Summary ---
Author Organization [employer] [facility] Address [address] [facility] 7t [place] [address] Care Team Providers Care Cashier Associate Name Role Phone Misti Carrillo MD Primary Care Provider + Misti Carrillo MD Primary Care Provider + Misti Carrillo MD Unavailable [phone] Encounter Details Date Type Department Care Team (Latest Contact Info) Description 10/17/2019 Abstract [facility] CONVERSIONS Dental, Provider, DDS Social History [...] Description 04/23/2025 11:15 AM EDT Office Visit [facility] MEDICINE [address] [place] [address] Misti Carrillo MD [address] [place], [place] [phone] documented as of this encounter Visit Diagnoses Not on filedocumented in this encounter Care Teams Cashier Associate Relationship Specialty Start Date End Date Misti Carrillo MD [address] [place], [place] [phone] PCP - General Family Medicine 10/17/19 07/14/23 Misti Carrillo MD [address] [place] [address] PCP - General Internal Medicine 07/15/23 Misti Carrillo MD [address] [place] [address] Family Medicine 07/15/23 documented as of this encounter
--- OUTSIDE RECORDS SUMMARY | 2025-02-04 11:36 | XMS_ITS | Clinical Summary ---
Author Organization [facility] Address [address] [place] [address] Care Team Providers Care Keyboarding Clerk Name Role Phone Trisha Jacques PA-C Primary Care Provider [phone] Source Comments PLEASE NOTE, if this patient [...] mcg/actuation nasal sprayIndications: Throat dry Place 1 [place] into the nostril(s) once daily. 16 g [...] Saw urology on 01/09/2016 Dr. Malcolm at [facility] urology: negative workup With cysto and CT [...] 03/24/2015 Overview (01/15/2016): Yesika screening done at [facility] on 03/20/2015: No mammographic evidence of malignancy in the right breast. Further eval of the left breast group of microcalcification by additional views. Pt will be contacted directly for imaging. BIRADS category 0 incomplete. Need further imaging. Second mammogram done 04/02/2015 at [facility]: small cluster microcalcifications seen in the mis third of the left breast likley represent early vascular calcicfications. Short term follow up with left breast mammogram with spot magnification in 2 projections is recommended in 6 months. The patient was informed. BIRADS category 3 probably benign. Short interval follow up recommended. Immunizations Immunization Administration Dates Next Due INFLUENZA, SEASONAL, INJECTABLE [...] of Treatment Not on file Insurance [facility] Member Subscriber Plan / Payer (Ef fective 2014-Present) Name:Saima Hand Relation to Subscriber:Self Name:Saima Hand Payer ID:[id number] Group ID:Not on file Type:Medicaid Address: [facility] [id number] [place] [address] [facility] [place] [place] [address] [facility] Care Teams Keyboarding Clerk Relationship Specialty Start Date End Date Trisha Jacques PA-C [address] [place] [address] PCP - General 09/27/18
--- OUTSIDE RECORDS SUMMARY | 2025-02-04 11:36 | XMS_ITS | Encounter Summary ---
Author Organization [employer] Address [address] 7t [place] [address] Care Team Providers Care Director Case Management Name Role Phone Misti Carrillo MD Primary Care Provider + Misti Carrillo MD Unavailable [phone] Encounter Details Date Type Department Care Team (Late st Contact Info) Description 01/31/2025 Orders Only GENERIC EXTERNAL DATA [...] Description 04/23/2025 11:[address] [facility] MEDICINE [address] [place] [address] Misti Carrillo MD [address] [place] [address] documented as of this encounter Procedures Procedure Name Priority Date/Time Associated Diagnosis Comments POCT CREATININE GFR Routine 01/31/2025 1 0:54 AM EDT documented in this encounter Results * POCT Creatinine GFR (01/31/2025 10:54 AM EDT) POCT Creatinine 0.7 0.5 - 1.4 mg/dL [facility] GFR POC >60 [facility] Comment:Chronic Kidney Disea se: Estimated GFR < 60 mL/min/1.57x7Okvuqm Kidney Disease: Estimated GFR < 15 mL/min/1.73m2 01/31/2025 10:5 4 AM EDT 02/01/2025 12:40 PM EDT Narrative [facility] - 02/01/2025 12:42 PM EDT [id number] us Generic External Data Provider LAB POINT OF CARE TEST DOCKED DEVICE ORDERABLES Final Result [facility] [address] [place] [address] [phone] documented in this encounter Visit Diagnoses Not on filedocumented in this encounter Care Teams Director Case Management Relationship Specialty Start Date End Date Misti Carrillo MD [address] [place] [phone] PCP - General Internal Medicine 07/15/23 Misti Carrillo MD [address] [place] [address] Family Medicine 07/15/23 documented as of this encounter
--- OUTSIDE RECORDS SUMMARY | 2025-02-04 11:36 | XMS_ITS | Encounter Summary ---
Author Organization [employer] Address [address] [facility] [address] 7t [place] [address] Care Team Providers Care Coal Miner Name Role Phone Misti Carrillo MD Primary Care Provider + Misti Carrillo MD Primary Care Provider + Misti Carrillo MD Unavailable [phone] Reason for Visit * Reason Onset Date Comments Referral 03/11/2023 Encounter Details Date Type Department Care Team (Late st Contact Info) Description 03/11/2023 Telephone [facility] MEDICINE [address] [place], [place] [phone] Misti Carrillo MD [address] [place], [place] [phone] Referral Social History Tobacco Use Types Packs/Day [...] 2:03 PM EDT Tc from [facility] CLIENT ANALYST requesting a referral for a market research specialist advised by her fitting room maintenance mechanic. [facility] and has a f/u appt on 03/25/23 for allergy. Patient speaks Kiswahili documented in this encounter Plan of Treatment Upcoming Encounters Date Type Department Care Team (Late st Contact Info) Description 04/23/2025 11:15 AM EDT Office Visit [facility]IC[facility] [address] [place] [address] Misti Carrillo MD [address] [place] [address] documented as of this encounter Visit Diagnoses Diagnosis Allergic conjunctivitis of both eyes- Primary Other chronic allergic conjunctivitis Seasonal allergic rhinitis due to pollen documented in this encounter Care Teams Coal Miner Relationship Specialty Start Date End Date Misti Carrillo MD [address] [place] [address] PCP - General Family Medicine 10/17/19 07/14/23 Misti Carrillo MD [address] [place] [address] [phone] PCP - General Internal Medicine 07/15/23 Misti Carrillo MD [address] [place] [address] Family Medicine 07/15/23 documented as of this encounter
--- OUTSIDE RECORDS SUMMARY | 2025-02-04 11:36 | XMS_ITS | Encounter Summary ---
Author Organization [employer] [facility] Address [address] [facility] 7t [place] [address] Care Team Providers Care Mail Examiner Name Role Phone Misti Carrillo MD Primary Care Provider + Misti Carrillo MD Primary Care Provider + Misti Carrillo MD Unavailable [phone] Encounter Details Date Type Department Care Team (Late st Contact Info) Description 10/19/2022 Abstract [facility] [address] [place] [address] Allison Sheehan, DDS [address] [place], [place] [phone] Social History Tobacco Use Types Packs/Day Years [...] Description 04/23/2025 11:15 AM EDT Office Visit [facility] MEDICINE [address] [place] [address] Misti Carrillo MD 230 [place] [address] documented as of this encounter Visit Diagnoses Not on filedocumented in this encounter Care Teams Mail Examiner Relationship Specialty Start Date End Date Misti Carrillo MD [address] [place] [address] PCP - General Family Medicine 10/17/19 07/14/23 Misti Carrillo MD [address] [place] [address] PCP - General Internal Medicine 07/15/23 Misti Carrillo MD [address] [place] [address] Family Medicine 07/15/23 documented as of this encounter
--- OUTSIDE RECORDS SUMMARY | 2025-02-04 11:36 | XMS_ITS | Data Portability ---
Author Organization [employer] [facility] Address [address] [place] [address] Care Team Providers Care Anesthesiology Crna Name Role Phone [facility] Referring Provider Assessment No assessment recorded. Plan of Treatment Reminders Order Date Submit Date Provider Last Modified By Organization Details Last Modified Time Details Appointments None recorded. Lab culture, urine 023 023 [place] [facility] (Centralized Electronic Ordering - All Locations), Patient Can Go To The Location Of Their Choice, 08:59:40 Referral None recorded. Procedures None recorded. Surgeries None recorded. Imaging None recorded. Medication Orders Bactrim DS 800 mg-160 mg tablet 023 023 [facility], [address] [place], [place], [id number], 3 09:49:27 Patient TargetsNo targets recorded. Patient [...] Go To The Location Of Their Choice, [address] 07/17/2023 08:59:39 Result Notes None recorded. Medical Equipment None Reported. Allergies Allergen ID Allergen Name Allergen Category Reaction Reaction Severity Criticality Documentation Date Start Date Code Code System Note Provider Name and Address Organization Details Recorded Time 8891 Product containin g penicilli n (product) medicatio n Not available Not available Not available 09/04/2024 83119 8001 SNOMED Not Available [facility] - production [...] SNOMED-CT Code Diagnosis ICD10 Code Diagnosis Note [id number] [facility] [address] [place] [address] 07/15/2023 15:57:02 07/16/2023 16:03:07 Acute urinary tract infection [id number] N39.0 This 68-year-ol d female has had urinary symptoms for several days. Her U/A appeared consistent with an early UTI. I ordered a U/C and treatment with Bactrim DS twice daily for five days. She will follow-up with her PCP. The patient agreed with this plan. Urinary symptoms [id number] R39.9 Health Concerns Section Related Observation LastModified by Organization Detai ls LastModified Time None Recorded Concern Status LastModified by Organization Details LastModified Time None Recorded Advance Directives Directive None Recorded Payers Encounter Date Sequence Insurance Name Policy Number Policy Chow Covered Member ID Chow Member ID Guarantor Name 07/15/[address] [facility] - DOS ON OR AFTER 2023 - DUAL ELIGIBLE - HALFWAY OPTIONS AND ONE CARE (MEDICARE REPLACEMENT/AD VANTAGE - HMO) Saima Rodrigues [id number] Saima Rodrigues Notes Date Note Type Note [...] pain. No fever. Unable to come into [facility]. Agrees to [facility] referral for UA/Cx. ..................... ..................... ..................... ..................... ..................... ..................... ............... CRC Nursing Assessment: Comments: Reviewed - Jass LUCERO ..................... ..................... ..................... ..................... ..................... ..................... ............... Market Developer Note From Emery Lai: PT complains of [...] ............... Disposition: Fulfilled Juan Huerta MD [address] [facility],[address], [place], [address], JOAN VALLE 07/15/2023 16:05:16 OBGyn Episode No OBEpisode recorded.
--- OUTSIDE RECORDS SUMMARY | 2025-02-04 11:36 | XMS_ITS | Encounter Summary ---
Author Organization [facility] Address [address] [facility] 7t [place] [address] Care Team Providers Care Sales Mgr Name Role Phone Misti Carrillo MD Primary Care Provider + Misti Carrillo MD Unavailable [phone] Encounter Details Date Type Department Care Team (Late st Contact Info) Description 08/04/2023 Orders Only [facility] MEDICINE [address] [place] [address] ProviderEloisa MD Social History Tobacco Use [...] Description 04/23/2025 11:15 AM EDT Office Visit [facility] [address] [place] [address] [phone] Misti Carrillo MD [address] [place] [address] documented as of this encounter Procedures Procedure Name Priority Date/Time Associated Diagnosis Comments HM PAP/HPV Routine 02/24/2022 documented in this encounter Results * Hm Pap Smear (02/24/2022) us Historical Provider HEALTH MAINTENANCE Final Result documented in this encounter Visit Diagnoses Not on filedocumented in this encounter Care Teams Sales Mgr Relationship Specialty Start Date End Date Misti Carrillo MD [address] [place] [address] PCP - General Internal Medicine 07/15/23 Misti Carrillo MD [address] [place] [address] Family Medicine 07/15/23 documented as of this encounter
== END 2025-02-04 12:16 | disposition home or self-care (01) ==
LOC: HO.HUSH 10:23
PROVIDERS: PCP Internal Medicine; Visit Provider Urology
DX: R30.0 Dysuria (principal); N28.89 Other specified disorders of kidney and ureter; R31.29 Other microscopic hematuria; Z13.9 Encounter for screening, unspecified
CPT/HCPCS: 99204

== ENCOUNTER 2025-02-19 10:26 | Outpatient (AMB) | payer OTHER, SELFPAY ==
--- NOTE | 2025-02-19 10:46 | MHC.OFFVIS ---
Intake Visit Reasons: Biopsy results Physical Science Professor Required: Yes Physical Science Professor Language: Modern Greek Studies Professor Services: Physical Science Professor Present (in person) Physical Science Professor Name: EDA Flor Information Interpreted: non-clinical & clinical Household Appliance Mechanic: Household Appliance Mechanic Present (Joana EDA Cortes) Accompanied by: Self / Same As Patient Allergies penicillamine [PENICILLAMINE] Adverse Reaction (Intermediate, Verified 02/19/25 10:47) PALPATATIONS HPI Comments Details: The patient is presenting after vulvar excisional biopsy. The patient has no complaints, no vaginal bleeding, no feverishness chills or abdominal pain. The vulvar lesion pathology showed the following: Vulva, lesion, excision: Seborrheic keratosis PFSH Medical History Hypertension Frequent UTI Surgical History No pertinent past surgical history Family History Father Prostate CA Mother No problems noted. Social History Household Members: None Alcohol intake: never Patient Tobacco Use Status: Never used Tobacco Review of Systems Const All systems reviewed & are unremarkable except as noted in HPI and below Reports as per HPI and Reports no additional complaints GI Reports no additional complaints Reports no additional complaints Assessment & Plan Assessment & Plan (1) Seborrheic keratosis: Code(s): L82.1 - Other seborrheic keratosis Category: Medical Plan: Discussed with the patient the results of the pathology, the patient was reassured. Instructions given the patient to call in case of recurrence of her lesion, hard areas or unhealing ulcers. All questions answered, the patient verbalized understanding. Coding Level of Care Code Est Pt Level 3 (36968) Diagnoses Seborrheic keratosis L82.1
--- OUTSIDE RECORDS SUMMARY | 2025-02-19 12:33 | XMS_ITS | Encounter Summary ---
Author Organization [employer] [facility] Address [address] [facility] 7t [place] [address] Care Team Providers Care Nurse Manager Name Role Phone Misti Carrillo MD Primary Care Provider + Misti Carrillo MD Primary Care Provider + Misti Carrillo MD Unavailable [phone] Encounter Details Date Type Department Care Team (Latest Contact Info) Description 06/09/2022 Abstract [facility] CONVERSIONS Dental, Provider, DDS Social History Tobacco [...] Care Team (Late st Contact Info) Description 05/16/2025 11:15 AM EDT Office Visit [facility] [address] [place] [address] Misti Carrillo MD [address] [place], [place] [phone] documented as of this encounter Visit Diagnoses Not on filedocumented in this encounter Care Teams Nurse Manager Relationship Specialty Start Date End Date Misti Carrillo MD [address] [place], [place] [phone] PCP - General Family Medicine 10/17/19 07/14/23 Misti Carrillo MD [address] [place] [address] PCP - General Internal Medicine 07/15/23 Misti Carrillo MD [address] [place] [address] Family Medicine 07/15/23 documented as of this encounter
--- OUTSIDE RECORDS SUMMARY | 2025-02-19 12:33 | XMS_ITS | Clinical Summary ---
Author Organization [facility] Address [address] [place] [address] Phone Care Team Providers Care Assistant Professor Of Surgery Name Role Phone Toby Fink MD Primary [...] 2) 2003 COVID-19 Vaccine ( season) 2024 Cholesterol Screening (Lipid Panel) 08/27/2024 Colorectal Cancer Screening: Colonoscopy 08/27/2024 Depression Screening 08/27/2024 Falls Risk Assessment 08/27/2024 Hepatitis C Screening 08/27/2024 Osteoporosis Screening (Bone Density Screening) 08/27/2024 Social Influencers of Health Screening 08/27/2024 Influenza Vaccine (Season Ended) 2025 09/03/2021, 11/12/2020, 10/19/2019, Additional history exists Hypertension/CHF/CAD Annual BMP Blood Test 08/30/2025 08/30/2024 RSV Immunization Adult Patients (1 - 1-dose 75+ series) 01/11/2028 DTaP,Tdap,and [...] age to complete this topic Meningococcal B Vaccine Aged Out No l onger eligible based on patient's age to complete this topic RSV Immunization Patients Under 20 months Aged Out No longer eligible based on patient's age to complete this topic Varicella Vaccines Aged Out No longer eligible based on patient's age to complete this topic Insurance MEDICAID - [place] Care Teams Assistant Professor Of Surgery Relationship Specialty Start Date End Date Toby Fink MD [address] [place] [address] PCP - General Internal Medicine 08/27/24
--- OUTSIDE RECORDS SUMMARY | 2025-02-19 12:33 | XMS_ITS | Encounter Summary ---
Author Organization [employer] Address [address] [facility] 7t [place] [address] Care Team Providers Care Sorter Packer Name Role Phone Misti Carrillo MD Primary Care Provider + Misti Carrillo MD Unavailable [phone] Reason for Visit * Reason Onset Date Comments Appointment Request 02/14/2025 Encounter Details Date Type Department Care Team ([facility] Contact Info) Description 02/14/2025 Telephone [facility] [address] [place], [place] [phone] Misti Carrillo MD [address] [place], [place] [phone] Appointment Request Social History Tobacco Use Types Packs/Day Years [...] Telephone Encounter - Yamila Howard [place] - 02/15/2025 9:01 AM EDT Tc to pt to reschedule OV appt with PCP as Provider won't be in that morning. Appt has been rescheduled for 05/15/25 at 10:15 am. documented in this encounter Plan of Treatment Upcoming Encounters Date Type Department Care Team (Late st Contact Info) Description 05/16/2025 11:15 AM EDT Office Visit [facility] [address] [place] [address] Misti Carrillo MD [address] [place] [address] documented as of this encounter Visit Diagnoses Not on filedocumented in this encounter Care Teams Sorter Packer Relationship Specialty Start Date End Date Misti Carrillo MD [address] [place] [phone] PCP - General Internal Medicine 07/15/23 Misti Carrillo MD [address] [place] [phone] Family Medicine 07/15/23 documented as of this encounter
--- OUTSIDE RECORDS SUMMARY | 2025-02-19 12:33 | XMS_ITS | Clinical Summary ---
Author Organization [facility] Address [address] [place] [address] Care Team Providers Care Etiology Teacher Name Role Phone Trisha Jacques PA-C Primary Care Provider [phone] Source Comments PLEASE NOTE, if this patient [...] mcg/actuation nasal sprayIndications: Throat dry Place 1 [place] into the nostril(s) once daily. 16 g [...] Saw urology on 01/09/2016 Dr. Malcolm at [facility] urology: negative workup With cysto and CT [...] 03/24/2015 Overview (01/15/2016): Yesika screening done at [facility] on 03/20/2015: No mammographic evidence of [...] Plan of Treatment Not on file Insurance [facility] Member Subscriber Plan / Payer (Ef fective 2014-Present) Name:Saima Hand Relation to Subscriber:Self Name:Saima Hand Payer ID:[id number] Group ID:Not on file Type:Medicaid Address: [facility] [id number] [place] [address] [facility] [place] [address] [facility] Care Teams Etiology Teacher Relationship Specialty Start Date End Date Trisha Jacques PA-C [address] [place] [address] PCP - General 09/27/18
--- OUTSIDE RECORDS SUMMARY | 2025-02-19 12:33 | XMS_ITS | Encounter Summary ---
Author Organization [facility] Address [address] [facility] 7t [place] [address] Care Team Providers Care Beadworker Name Role Phone Misti Carrillo MD Primary Care Provider + Misti Carrillo MD Primary Care Provider + Misti Carrillo MD Unavailable [phone] Encounter Details Date Type Department Care Team (Latest Contact Info) Description 10/17/2019 Abstract [facility] CONVERSIONS Dental, Provider, DDS Social History [...] Description 05/16/2025 11:15 AM EDT Office Visit [facility] MEDICINE [address] [place] [address] Misti Carrillo MD [address] [place], [place] [phone] documented as of this encounter Visit Diagnoses Not on filedocumented in this encounter Care Teams Beadworker Relationship Specialty Start Date End Date Misti Carrillo MD [address] [place], [place] [phone] PCP - General Family Medicine 10/17/19 07/14/23 Misti Carrillo MD [address] [place] [address] PCP - General Internal Medicine 07/15/23 Misti Carrillo MD [address] [place] [address] Family Medicine 07/15/23 documented as of this encounter
--- OUTSIDE RECORDS SUMMARY | 2025-02-19 12:34 | XMS_ITS | Encounter Summary ---
Author Organization [facility] Address [address] [facility] 7t [place] [address] Care Team Providers Care Email Producer Name Role Phone Misti Carrillo MD Primary Care Provider + Misti Carrillo MD Unavailable [phone] Encounter Details Date Type Department Care Team (Late st Contact Info) Description 08/04/2023 Orders Only [facility] [address] [place] [address] [phone] ProviderEloisa MD Social History Tobacco Use Types [...] Description 05/16/2025 11:15 AM EDT Office Visit [facility] [address] [place] [address] [phone] Misti Carrillo MD [address] [place] [address] documented as of this encounter Procedures Procedure Name Priority Date/Time Associated Diagnosis Comments HM PAP/HPV Routine 02/24/2022 documented in this encounter Results * Hm Pap Smear (02/24/2022) us Historical Provider HEALTH MAINTENANCE Final Result documented in this encounter Visit Diagnoses Not on filedocumented in this encounter Care Teams Email Producer Relationship Specialty Start Date End Date Misti Carrillo MD [address] [place] [address] PCP - General Internal Medicine 07/15/23 Misti Carrillo MD [address] [place] [address] Family Medicine 07/15/23 documented as of this encounter
--- OUTSIDE RECORDS SUMMARY | 2025-02-19 12:34 | XMS_ITS | Clinical Summary ---
Author Organization [employer] Address [address] [facility] 7t [place] [address] Care Team Providers Care Relief Docking Master Name Role Phone Misti Carrillo MD Primary Care Provider + Misti Carrillo MD Unavailable [phone] Allergies Active Allergy Reactions Criticality Noted Date [...] on urinary bladder. Patient will FU with Flag Signalman. FU with me in 6 months. Ear [...] Assessment & Plan (08/10/2024 2:07 PM EDT): CABLE WORKER HELPER reports that she is forgetting things at times, I notice she asked same questions today. Order labs and follow up in 3 months, will need mini COG. She has a CABLE WORKER HELPER to help her with cooking, she will [...] CP/AGUILAR/DOMÍNGUEZ Non smoking patient. Cautioned Pt and CABLE WORKER HELPER regarding cautious change of position due to vasovagal Sx. Patient denied having the Flu vaccine administered at this time. Assessment & Plan (08/10/2024 2:04 PM EDT): Controlled. Compliant w/meds Continue Amlodipine 2.5 mg Counseled re low salt diet/increase moderate physical activity. Check home BP BIW and prn CP/AGUILAR/DOMÍNGUEZ Non smoking patient. Cautioned Pt and CABLE WORKER HELPER regarding cautious change of position due to [...] week. Pap smear due next year with account contact associate. Assessment & Plan (05/18/2024 12:10 PM EDT): [...] atrophic vaginitis versus hyperactive bladder. FU with Flag Signalman for results of endometrial biopsy, otherwise she [...] Encounters Date Type Department Care Team Description 02/14/2025 Telephone [facility] [place], [place] [address] Misti Carrillo MD Appointment Request 02/04/2025 Orders Only GENERIC EXTERNAL DATA DEPARTMENT Provider, Generic External Data 01/31/2025 Orders Only GENERIC EXTERNAL DATA DEPARTMENT Provider, Generic External Data 01/25/2025 Orders Only GENERIC EXTERNAL DATA DEPARTMENT Provider, Generic External Data 01/18/2025 Telephone [facility] [address] [facility] [place] [address] Misti Carrillo MD Spring recall 11/29/2024 Telephone [facility] [place] [address] Hillary Donovan RN Error (VOID this visit) 11/29/2024 Telephone [facility] [place] [address] Hillary Donovan RN 11/29/2024 Orders Only [facility] [place] [address] Misti Carrillo MD Encounter for colorectal cancer screening (Primary Dx); Positive colorectal cancer screening using Cologuard test from Last 3 Months Immunizations Name Administration [...] Description 05/16/2025 11:15 AM EDT Office Visit [facility] MED[facility]INE [address] [place] [address] Misti Carrillo MD [address] [place] [address] Health Maintenance Due Date Last Done Comments CT Colonography 1955 Colonoscopy 1955 FIT 1955 FOBT 1955 Sigmoidoscopy 1955 Alcohol/Substance Use Screening 1965 Hepatitis C Screening 1971 Zoster Vaccines (1 of 2) 2003 COVID-19 Vaccine (2023- season) 2024 Influenza Vaccine (#1) 2024 , [...] Procedure Name Priority Date/Time Associated Diagnosis Comments CYTOPATH-CELL ENHANCED Routine 02/04/2025 4:[address] ABDOMEN PELVIS W AND WO CONTRAST [...] 11:47 AM EST Screening for colon cancer PROPHYLAXIS - ADULT Routine 09/13/2024 11:00 AM [...] Recently Relevant to Health Maintenance Results * Cytopath-cell enhanced (02/04/2025 4:55 PM EDT) 02/04/2025 4:55 PM EDT 02/05/2025 6:00 AM EDT [facility] - 02/05/2025 3:53 PM EDT ----- ------- Name: Saima Pelaez ?Age/Sex: 70/F ? : 1955 Unit#: [id number] ?? Attend Dr: Cecilia Rodriguez MD ?Re02/04/25 ?Status: DEP REF ? Location: HO.LAB ?Disch: ? ----- ------- SPEC : [id number] ? RECD: 02/05/25 ? STATUS: ??SOUT ? REQ NUM: [id number] ? BAR: 02/04/25 ? SUBM DR: Cecilia Rodriguez MD ? ENTERED: ??02/05/25 ?SP TYPE: Cytology ? OTHR DR: Misti Carrillo MD ? ORDERED: ??Cyto-enhanced ? Diagnosis ?? Urine, cytology: ??Highly atypical urothelial cells (see comment). ? COMMENT: ??Review of the cytology preparation demonstrates a cellular specimen composed of ?? squames and few urothelial cells with increased nuclear to cytoplasmic ratios, irregular ?? nuclear membranes and nuclear hyperchromasia. Red blood cells are noted. ?Clinical History Urinary tract infection, site not specified ? Material Received ?? Urine ? Gross Description Received is 60 cc of clear yellow fluid from which a ThinPrep slide is prepared. Copies To: ?? Cecilia Rodriguez MD ?? [facility] ?? [address] ?? [place] [address] ?? [phone] ?? [email or web address] ?? Misti Carrillo MD ?? [facility] ?? [address] ?? [place] [address] ?? [phone] ----- ------- Signed (signature on file) Yulia Tipton MD 02/05/25 1553 ? ----- ------- ? END OF REPORT ? us Generic External Data Provider LAB CYTOLOGY EDWAR CHAMORRO Final Result [facility] [address] [place] [phone] * CT Abdomen Pelvis w/ and w/o Contrast (02/01/2025 8:26 AM EDT) Anatomical Region Laterality Modality Body, Pelvis, Abdomen Computed T omography 02/01/2025 8:26 AM EDT Narrative 02/01/2025 8:28 AM EDT ? [facility] ?[address] ?[place] [address] ? CT Scan Report ? Signed ? Patient: Machicote Hammond,Saima ?MR ?? #: [id number] ? : 1955 ?Acct:[id number] ? Age/Sex: 70 / F ?ADM Date: 03/27/25 ? Loc: HO.CT ? Attending Dr: Favio Cook MD ? Ordering Physician: Favio Cook MD ?? Date of Service: 01/31/25 ?? Procedure(s): CT abdomen pelvis wo/w IV con ?? Accession Number(s): [id number] ? cc: Misti Carrillo MD; Favio Cook MD ? Report Number: ?? [id number]: Total DLP = ??369.00 mGy-cm ? CLINICAL [...] ? DD/ 5 ? TD/TT: 02/01/25825 ? Deputy Sheriff: ? Procedure Note Ismael, Image - 02/01/[address] [place] [address] [address] Scan Report Signed Patient: Vania Pelaez #: [id number] : 3Acct:[id number] Age/Sex: 70 / FADM Date: 01/31/25 Loc: HO.CT Attending Dr: Favio Cook MD Ordering Physician: Favio Cook MD Date of Service: 01/31/25 Procedure(s): CT abdomen pelvis wo/w IV con Accession Number(s): [id number] cc: Misti Carrillo MD; Favio Cook MD Report Number: [id number]: Total DLP = 369.00 mGy-cm CLINICAL HISTORY: [...] in OV> 02/01/25826 DD/ 5 TD/TT: 02/01/25825 Deputy Sheriff: [facility] External Provider IMG CT PROCEDURES Final Result * POCT Creatinine GFR (01/31/2025 10:54 AM EDT) POCT Creatinine 0.7 0.5 - 1.4 mg/dL [facility] GFR POC >60 [facility] Comment:Chronic Kidney Disea se: Estimated GFR < 60 mL/min/1.41d1Hqhrim Kidney Disease: Estimated GFR < 15 mL/min/1.73m2 01/31/2025 10:5 4 AM EDT 02/01/2025 12:40 PM EDT [facility] - 02/01/2025 12:42 PM EDT [id number] Generic External Data Provider LAB POINT OF CARE TEST DOCKED DEVICE ORDERABLES Final Result [facility] [address] [place] [phone] * Hematoxylin and Eosin Stain (01/25/2025 11:15 AM EDT) 01/25/2025 11:1 5 AM EDT 01/25/2025 3:10 PM EDT [facility] - 01/28/2025 3:36 PM EDT ----- ------- Name: Saima Pelaez ?Age/Sex: 70/F ? : 1955 Unit#: [id number] ?? Attend Dr: Favio Cook MD ?Re01/25/25 ?Status: DEP REF ? Location: HO.LNP ?Disch: ? ----- ------- SPEC : [id number] ? RECD: 01/25/25 ? STATUS: ??SOUT ? REQ NUM: [id number] ? BAR: 01/25/25-1114 ? SUBM DR: Favio Cook MD ? [...] microscopic examination, 2 pieces in cassette A. ??([facility]) This case was reviewed intradepartmentally. Copies To: ?? Misti Carrillo MD ?? [facility] ?? [address] [facility] ?? [place] [address] ?? [phone] ?? Favio Cook MD ?? [facility] Women[facility] Services ?? [address] [facility] [address] ?? [place] [address] ?? [phone] ----- ------- Signed (signature on file) Yadi Aleman 01/28/25 1536 ? ----- ------- ? END OF REPORT ? us Generic External Data Provider LAB BLOOD ORDERAB LES Final Result Performing Organization Address [facility] de Phone Number [facility] [address] [place] [address] [phone] * (ABNORMAL) Lipid Panel with Reflex to Direct LDL (12/28/2024 10:19 AM EST) Triglycerides 107 <150 mg/dL [facility] Comment:Desirable Triglyceri de: less than 150 mg/dLBorderline High Triglyceride 150-199 mg/dLHigh Triglyceride: 200-499 mg/dLVery High Triglyceride: greater than or equal to 5OO mg/dL Cholesterol 222(H) <200 mg/dL [facility] Comment:Desirable Cholestero l: less than 200 mg/dLBorderline High Cholesterol: 200-239 mg/dLHigh Cholesterol: greater than 239 mg/dL LDL Cholesterol Calculated 135(H) <100 mg/dL [facility] Comment:Desirable LDL: less than 100 mg/dLNear Optimal/Above Optimal LDL: 110- 129 mg/dLBorderline High LDL: 130-159 mg/dLHigh LDL: 160-189 mg/dLVery High LDL: greater than or equal to 190 mg/dL HDL Cholesterol 66 >40 mg/dL [facility] Comment:Desirable HDL: great er than 40 mg/dL Note: This HDL assay may give artificially low results in patients with liver disease. Blood 12/28/2024 10:1 9 AM EST 12/28/2024 11:04 AM EST Misti Carrillo MD LAB BLOOD ORDERABLES Fin al Result Performing Organization Address [facility] Co de Phone Number [facility] [address] [place] [address] [phone] * Hepatic Function Panel (12/28/2024 10:19 AM EST) Bilirubin, Total 0.7 0.0 - 1.0 mg/dL [facility] Bilirubin, Direct 0.2 0.0 - 0.5 mg/dL [facility] Aspartate Amino Transferase 22 5 - 31 U/L [facility] Alanine Aminotransferase 20 0 - 31 U/L [facility] Total Protein 6.9 6.5 - 8.0 g/dL [facility] Albumin Level 4.0 3.5 - 5.0 g/dL [facility] Alkaline Phosphatase 83 39 - 117 U/L [facility] Blood Venous blood specimen / Unknown 12/28/2024 10:19 AM EST 12/28/2024 11:04 AM EST Misti Carrillo MD LAB BLOOD ORDERABLES Fin al Result Performing Organization Address City/State/[facility] Co de Phone Number [facility] [address] [place] [address] [phone] * (ABNORMAL) Cologuard?? colon cancer screening (11/22/2024 11:47 AM EST) Pathologist [facility] Cologuard Result Positive( A) Negative 11/29/2024 10:22 AM EST [facility] (CLIA #:[id number]) Comment: POSITIVE TEST RESULT. A positive Cologuard [...] (Annabel Martin al, N Engl J Med 2014;370(14):8939-7214.) Cologuard may produce a false negative or false positive result (no colorectal cancer or precancerous polyp present at colonoscopy follow up). A negative Cologuard test result does not guarantee the absence of CRC or advanced adenoma (pre-cancer). The current Cologuard screening interval is every 3 years. ([place] [employer] Society and U.S. Multi-Society Task Force). Cologuard performance data in a 10,000 patient pivotal study using colonoscopy as the reference method can be accessed at the following location: www.[employer].GoComm/results. Additional description of the Cologuard test process, warnings and precautions can be found at www.[employer].GoComm. Stool specimen (specimen) 11/22/2024 11:47 AM EST 11/23/2024 1:19 PM EST Misti Carrillo MD LAB MOLECULAR DIAGNOSTIC S ORDERABLES Final Result [facility] (CLIA #:[id number]) [place] [address], * BI Mammogram Screening Tomosynthesis Bilateral (05/16/2024 12:00 PM EDT) Anatomical Region Laterality Modality Breast Bilateral Mammography 05/16/2024 12:0 0 PM EDT Narrative 06/11/2024 10:53 PM EDT ? [place] [facility] ? [address] ?[place] [address] ? Mammography Report ? Signed ? Patient: Machicote Hammond,Saima ?MR ?? #: [id number] ? : 1955 ?Acct:[id number] ? Age/Sex: 69 / F ?ADM Date: 05/16/24 ? Loc: HO.MAMMO ? Attending Dr: Misti Carrillo MD ? Ordering Physician: Misti Carrillo MD ?Results: 1Ne ?? gative ? Date of Service: 05/16/24 ?Follow Up: 1 Year From Orig ?? inal Mammogram ? Procedure(s): MM tomosynthesis screening BI ?? Accession Number(s): [id number] ? cc: Misti Carrillo MD ? EXAMINATION: [...] 06/11/242248 ? DD/ 1200 ? TD/TT: ? Deputy Sheriff: ? Procedure Note Donotcateinterpreter, Image - 06/11/2024 [facility] [address] [place] [address] Mammography Report Signed Patient: Melanie PelaezaMR #: [id number] : 3Acct:[id number] Age/Sex: 69 / FADM Date: 05/16/24 Loc: HO.MAMMO Attending Dr: Misti Carrillo MD Ordering Physician: Misti Carrillo MDResults: 1Ne gative Date of Service: 05/16/24Follow Up: 1 Year From Orig inal Mammogram Procedure(s): MM tomosynthesis screening BI Accession Number(s): [id number] cc: Misti Carrillo MD EXAMINATION: MM SCREENING [...] in OV> 06/11/24 2249 DD/ 1200 TD/TT: Deputy Sheriff: Misti Carrillo MD IMG BI PROCEDURES Final Result * HPV E6/E7 RFLX KATHLEEN 16 18/45 (02/24/2022 10:32 AM EDT) HPV mRNA E6/E7 rflx Not Detected Not Detected [facility] Comment: Methodology: Obstetrics Technician-Mediated Amplification This assay detects E6/E7 viral messenger RNA (mRNA) from 14 high-risk HPV types (16,18,31,33,35,39,45,51,52,56,58,59,66,68). The analytical performance characteristics of this assay have been determined by [employer]. The modifications have not been cleared or approved by the FDA. This assay has been validated pursuant to the CLIA regulations and is used for clinical purposes. For additional information, please refer to http://education.[employer].GoComm/faq/IVI291f6 (This link if provided for information/ educational purposes only.) THIS TEST WAS PERFORMED AT: [employer] [address] [place] [address] [address] [place], [place] ??[phone] DEV MICHAEL MD 02/24/2022 10:3 2 AM EDT Jessica Monroy HISTORICAL/NON ORDERABLE LABS Fi nal Result [facility] [address] [place] [address], * Hm Pap Smear (02/24/2022) us Historical Provider HEALTH MAINTENANCE Final Result from Last 3 Months or Most Recently Relevant to Health Maintenance Insurance [facility] Care Teams Relief Docking Master Relationship Specialty Start Date End Date Misti Carrillo MD [address] [place] [address] PCP - General Internal Medicine 07/15/23 Misti Carrillo MD [address] [place] [address] Family Medicine 07/15/23
--- OUTSIDE RECORDS SUMMARY | 2025-02-19 12:34 | XMS_ITS | Encounter Summary ---
Author Organization [facility] Address [address] [facility] 7t [place] [address] Care Team Providers Care Building Maintenance Custodian Name Role Phone Misti Carrillo MD Primary Care Provider + Misti Carrillo MD Primary Care Provider + Misti Carrillo MD Unavailable [phone] Encounter Details Date Type Department Care Team (Late st Contact Info) Description 10/19/2022 Abstract [facility] [address] [place] [address] Allison Sheehan, DDS [address] [place], [place] [phone] Social History Tobacco Use Types Packs/Day Years [...] Description 05/16/2025 11:15 AM EDT Office Visit [facility] [address] [place] [address] Misti Carrillo MD [address] [place] [address] documented as of this encounter Visit Diagnoses Not on filedocumented in this encounter Care Teams Building Maintenance Custodian Relationship Specialty Start Date End Date Misti Carrillo MD [address] [place] [phone] PCP - General Family Medicine 10/17/19 07/14/23 Misti Carrillo MD [address] [place] [address] PCP - General Internal Medicine 07/15/23 Misti Carrillo MD [address] [place] [address] Family Medicine 07/15/23 documented as of this encounter
--- OUTSIDE RECORDS SUMMARY | 2025-02-19 12:34 | XMS_ITS | Data Portability ---
Author Organization [employer] Address [address] [place] [address] Care Team Providers Care Electromagnet Crane Operator Name Role Phone [facility] Referring Provider Assessment No assessment recorded. Plan of Treatment Reminders Order Date Submit Date Provider Last Modified By Organization Details Last Modified Time Details Appointments None recorded. Lab culture, urine 023 023 [facility] (Centralized Electronic Ordering - All Locations), Patient Can Go To The Location Of Their Choice, 08:59:40 Referral None recorded. Procedures None recorded. Surgeries None recorded. Imaging None recorded. Medication Orders Bactrim DS 800 mg-160 mg tablet 023 023 [facility], [address] [place], [place], [phone], 3 09:49:27 Patient TargetsNo targets recorded. Patient [...] Go To The Location Of Their Choice, [address] 07/17/2023 08:59:39 Result Notes None recorded. Medical Equipment None Reported. Allergies Allergen ID Allergen Name Allergen Category Reaction Reaction Severity Criticality Documentation Date Start Date Code Code System Note Provider Name and Address Organization Details Recorded Time 8891 Product containin g penicilli n (product) medicatio n Not available Not available Not available 09/04/2024 44774 8001 SNOMED Not Available [facility] - production [...] SNOMED-CT Code Diagnosis ICD10 Code Diagnosis Note [id number] [facility] [address] [place] [phone] 07/15/2023 15:57:02 07/16/2023 16:03:07 Acute urinary tract infection [id number] N39.0 This 68-year-ol d female has had urinary symptoms for several days. Her U/A appeared consistent with an early UTI. I ordered a U/C and treatment with Bactrim DS twice daily for five days. She will follow-up with her PCP. The patient agreed with this plan. Urinary symptoms [id number] R39.9 Health Concerns Section Related Observation LastModified by Organization Detai ls LastModified Time None Recorded Concern Status LastModified by Organization Details LastModified Time None Recorded Advance Directives Directive None Recorded Payers Encounter Date Sequence Insurance Name Policy Number Policy Chow Covered Member ID Chow Member ID Guarantor Name 07/15/2023 1 [facility] - DOS ON OR AFTER 2023 - DUAL ELIGIBLE - [employer] AND ONE [employer] (MEDICARE REPLACEMENT/AD VANTAGE - HMO) Saima Rodrigues [id number] Saima Rodrigues Notes Date Note Type Note [...] pain. No fever. Unable to come into [facility]. Agrees to instED referral for UA/Cx. ..................... ..................... ..................... ..................... ..................... ..................... ............... CRC Nursing Assessment: Comments: Reviewed - Jass LUCERO ..................... ..................... ..................... ..................... ..................... ..................... ............... Seat Cover Cutter Note From Emery Lai: PT complains of [...] ............... Disposition: Fulfilled Juan Huerta MD [address] [facility], [place], [address], JOAN VALLE 07/15/2023 16:05:16 OBGyn Episode No OBEpisode recorded.
--- OUTSIDE RECORDS SUMMARY | 2025-02-19 12:34 | XMS_ITS | Encounter Summary ---
Author Organization [employer] Address [address] 7[address] [place] [address] Care Team Providers Care Filter Plant Operator Name Role Phone Misti Carrillo MD Primary Care Provider + Misti Carrillo MD Primary Care Provider + Misti Carrillo MD Unavailable [phone] Reason for Visit * Reason Onset Date Comments Referral 03/11/2023 Encounter Details Date Type Department Care Team (Late st Contact Info) Description 03/11/2023 Telephone [facility] [address] [place], [place] [phone] Misti Carrillo MD [address] [place], [place] [phone] Referral Social History Tobacco Use Types Packs/Day [...] 2:03 PM EDT Tc from Ruthie patients NET C DEVELOPER requesting a referral for a animal care specialist advised by her copyist. [facility] and has a f/u appt on 03/25/23 for allergy. Patient speaks Slovenian documented in this encounter Plan of Treatment Upcoming Encounters Date Type Department Care Team (Late st Contact Info) Description 05/16/2025 11:15 AM EDT Office Visit [facility] [address] [place] [address] Misti Carrillo MD [address] [place] [address] documented as of this encounter Visit Diagnoses Diagnosis Allergic conjunctivitis of both eyes- Primary Other chronic allergic conjunctivitis Seasonal allergic rhinitis due to pollen documented in this encounter Care Teams Filter Plant Operator Relationship Specialty Start Date End Date Misti Carrillo MD [address] [place] [address] PCP - General Family Medicine 10/17/19 07/14/23 Misti Carrillo MD [address] [place] [address] [phone] PCP - General Internal Medicine 07/15/23 Misit Carrillo MD [address] [place] [address] Family Medicine 07/15/23 documented as of this encounter
== END 2025-02-19 10:57 | disposition home or self-care (01) ==
LOC: HO.HWS 10:26
PROVIDERS: PCP Internal Medicine; Visit Provider Obstetrics & Gynecology
DX: L82.1 Other seborrheic keratosis (principal)
CPT/HCPCS: 99213

== ENCOUNTER → 2025-02-19 10:26 | Outpatient (BNVA) | payer OTHER, SELFPAY | PROVIDERS: PCP Internal Medicine; Visit Provider Obstetrics & Gynecology | DX: L82.1 Other seborrheic keratosis (principal) | CPT/HCPCS: 99212 ==

== ENCOUNTER 2025-03-04 12:05 | Outpatient (REF) | payer OTHER, SELFPAY ==
[2025-03-04 13:40] LABS: Urine Cytology See Pathology rpt
--- OUTSIDE RECORDS SUMMARY | 2025-03-04 14:26 | XMS_ITS | Clinical Summary ---
Author Organization [employer] Address [address] [facility] 7t [place] [address] Care Team Providers Care Deaf/Hard Of Hearing Specialist Name Role Phone Misti Carrillo MD [...] on urinary bladder. Patient will FU with Dry Pan Charger. FU with me in 6 months. Ear [...] Assessment & Plan (08/10/2024 2:07 PM EDT): SENIOR MEDIA PLANNER reports that she is forgetting things at times, I notice she asked same questions today. Order labs and follow up in 3 months, will need mini COG. She has a SENIOR MEDIA PLANNER to help her with cooking, she will [...] CP/AGUILAR/DOMÍNGUEZ Non smoking patient. Cautioned Pt and SENIOR MEDIA PLANNER regarding cautious change of position due to vasovagal Sx. Patient denied having the Flu vaccine administered at this time. Assessment & Plan (08/10/2024 2:04 PM EDT): Controlled. Compliant w/meds Continue Amlodipine 2.5 mg Counseled re low salt diet/increase moderate physical activity. Check home BP BIW and prn CP/AGUILAR/DOMÍNGUEZ Non smoking patient. 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 Assessment & Plan (05/18/2024 12:10 PM [...] atrophic vaginitis versus hyperactive bladder. FU with Dry Pan Charger for results of endometrial biopsy, otherwise she [...] Type Department Care Team Description 02/14/2025 Telephone [facility] MEDICINE [address] [place] [address] Misti Carrillo MD Appointment Request 02/04/2025 Orders Only GENERIC EXTERNAL DATA DEPARTMENT Provider, Generic External Data 01/31/2025 Orders Only GENERIC EXTERNAL DATA DEPARTMENT Provider, Generic External Data 01/25/2025 Orders Only GENERIC EXTERNAL DATA DEPARTMENT Provider, Generic External Data 01/18/2025 Telephone [facility] MEDICINE [address] [place] [address] Misti Carrillo MD April recall from Last 3 Months Immunizations Name Administration [...] Visit [facility] MEDICINE [address] [place] [address] Misti Carrillo MD [address] [place] [address] Health Maintenance Due Date Last Done Comments CT Colonography 1955 Colonoscopy 1955 FIT 1955 FOBT 1955 Sigmoidoscopy 1955 Alcohol/Substance Use Screening 1965 Hepatitis C Screening 1971 Zoster Vaccines (1 of 2) 2003 COVID-19 Vaccine ( - season) 2024 Influenza Vaccine (#1) 2024 , [...] 4:55 PM EDT 02/05/2025 6:00 AM EDT [facility] - 02/05/2025 3:53 PM EDT ----- ------- Name: Saima Pelaez ?Age/Sex: 70/F ? : 1955 Unit#: [id number] ?? Attend Dr: Cecilia Rodriguez MD ?Re02/04/25 ?Status: DEP REF ? Location: HO.LAB ?Disch: ? ----- ------- SPEC : [id number] ? RECD: 02/05/25-599 ? STATUS: ??SOUT ? REQ NUM: [id number] ? BAR: 02/04/25-1654 ? SUBM DR: Cecilia Rodriguez MD ? [...] Copies To: ?? Cecilia Rodriguez MD ?? [facility] Urology Services ?? [address] [place] [address] [address] ?? [place] [address] ?? [phone] ?? [email or web address] ?? Misti Carrillo MD ?? [facility] ?? [address] [place] [address] ?? [place] [address] ?? [phone] ----- ------- Signed (signature on file) Yulia Tipton MD 02/05/25 1553 ? ----- ------- ? END OF REPORT ? us Generic External Data Provider LAB CYTOLOGY JACKSONE ASHTYN Final Result [facility] [address] [place] [address] [place] [phone] * CT Abdomen Pelvis w/ and w/o Contrast (02/01/2025 8:26 AM EDT) Anatomical Region Laterality Modality Body, Pelvis, Abdomen Computed T omography 02/01/2025 8:26 AM EDT Narrative 02/01/2025 8:28 AM EDT ? [facility] ?[address] [place] [address]. ?[place] [address] ? CT Scan Report ? Signed ? Patient: Saima Pelaez ?MR ?? #: [id number] ? : 1955 ?Acct:[id number] ? Age/Sex: 70 / F ?ADM Date: 01/31/25 ? Loc: HO.CT ? Attending Dr: Favio Cook MD ? Ordering Physician: Favio Cook MD ?? Date of Service: 01/31/25 ?? Procedure(s): CT abdomen pelvis wo/w IV con ?? Accession Number(s): [id number] ? cc: Misti Carrillo MD; Favio Cook MD ? Report Number: ?? [id number]: Total DLP = ??369.00 mGy-cm ? CLINICAL [...] ? DD/ 5 ? TD/TT: 02/01/25825 ? Institution Librarian: ? Procedure Note Donotelisabethter, Image - 02/01/[address] [place] [address] [address] Scan Report Signed Patient: Vania Pelaez #: [id number] : 1955cct:[id number] Age/Sex: 70 / FADM Date: 01/31/25 Loc: HO.CT Attending Dr: Favio Cook MD Ordering Physician: Favio Cook MD Date of Service: 01/31/25 Procedure(s): CT abdomen pelvis wo/w IV con Accession Number(s): [id number] cc: Misti Carrillo MD; Favio Cook MD Report Number: [id number]: Total DLP = 369.00 mGy-cm CLINICAL HISTORY: [...] in OV> 02/01/25826 DD/ 5 TD/TT: 02/01/25825 Institution Librarian: us [facility] External Provider IMG CT PROCEDURES Final Result * POCT Creatinine GFR (01/31/2025 10:54 AM EDT) POCT Creatinine 0.7 0.5 - 1.4 mg/dL [facility] GFR POC >60 [facility] Comment:Chronic Kidney Disea se: Estimated GFR < 60 mL/min/1.92l5Cepjjm Kidney Disease: Estimated GFR < 15 mL/min/1.73m2 01/31/2025 10:5 4 AM EDT 02/01/2025 12:40 PM EDT [facility] - 02/01/2025 12:42 PM EDT [id number] Generic External Data Provider LAB POINT OF CARE TEST DOCKED DEVICE ORDERABLES Final Result Performing Organization Address City/State/[facility] Co de Phone Number [facility] [address] [place] [phone] * Hematoxylin and Eosin Stain (01/25/2025 11:15 AM EDT) 01/25/2025 11:1 5 AM EDT 01/25/2025 3:10 PM EDT [facility] - 01/28/2025 3:36 PM EDT ----- ------- Name: Saima Pelaez ?Age/Sex: 70/F ? : 1955 Unit#: [id number] ?? Attend Dr: Favio Cook MD ?Re01/25/25 ?Status: DEP REF ? Location: HO.LNP ?Disch: ? ----- ------- SPEC : [id number] ? RECD: 01/25/25-1509 ? STATUS: ??SOUT ? REQ NUM: [id number] ? BAR: 01/25/25-1115 ? SUBM DR: Favio [...] microscopic examination, 2 pieces in cassette A. ??([facility]) This case was reviewed intradepartmentally. Copies To: ?? Misti Carrillo MD ?? [facility] ?? [address] [address] ?? [place] [address] ?? [phone] ?? Favio Cook MD ?? [facility] Women's Services ?? [address] ?? [place] [address] ?? [phone] ----- ------- Signed (signature on file) Yadi Ashland 01/28/251535 ? ----- ------- ? END OF REPORT ? us Generic External Data Provider LAB BLOOD ORDERAB LES Final Result [facility] [address] [place], [place] [phone] * (ABNORMAL) Lipid Panel with Reflex to Direct LDL (12/28/2024 10:19 AM EST) Triglycerides 107 <150 mg/dL [facility] Comment:Desirable Triglyceri de: less than 150 mg/dLBorderline High Triglyceride 150-199 mg/dLHigh Triglyceride: 200-499 mg/dLVery High Triglyceride: greater than or equal to 5OO mg/dL Cholesterol 222(H) <200 mg/dL [facility] Comment:Desirable Cholestero l: less than 200 mg/dLBorderline High Cholesterol: 200-239 mg/dLHigh Cholesterol: greater than 239 mg/dL LDL Cholesterol Calculated 135(H) <100 mg/dL [facility] Comment:Desirable LDL: less than 100 mg/dLNear Optimal/Above Optimal LDL: 110- 129 mg/dLBorderline High LDL: 130-159 mg/dLHigh LDL: 160-189 mg/dLVery High LDL: greater than or equal to 190 mg/dL HDL Cholesterol 66 >40 mg/dL [facility] Comment:Desirable HDL: great er than 40 mg/dL Note: This HDL assay may give artificially low results in patients with liver disease. Blood 12/28/2024 10:1 9 AM EST 12/28/2024 11:04 AM EST us Misti Carrillo MD LAB BLOOD ORDERABLES Fin al Result [facility] [address] [place] [phone] * Hepatic Function Panel (12/28/2024 10:19 AM EST) Bilirubin, Total 0.7 0.0 - 1.0 mg/dL [facility] Bilirubin, Direct 0.2 0.0 - 0.5 mg/dL [facility] Aspartate Amino Transferase 22 5 - 31 U/L [facility] Alanine Aminotransferase 20 0 - 31 U/L [facility] Total Protein 6.9 6.5 - 8.0 g/dL [facility] Albumin Level 4.0 3.5 - 5.0 g/dL [facility] Alkaline Phosphatase 83 39 - 117 U/L [facility] Blood Venous blood specimen / Unknown 12/28/2024 10:19 AM EST 12/28/2024 11:04 AM EST us Misti Carrillo MD LAB BLOOD ORDERABLES Fin al Result [facility] [address] [place] [address] [phone] * (ABNORMAL) Cologuard?? colon cancer screening (11/22/2024 11:47 AM EST) Cologuard Result Positive( A) Negative 11/29/2024 10:22 AM EST [facility] (CLIA #:[id number]) Comment: POSITIVE TEST RESULT. A positive Cologuard [...] were screened with both Cologuard and colonoscopy. (Imperiale T. et al, N Engl J Med 2014;370(14):4275-3371.) Cologuard may produce a false negative or false positive result (no colorectal cancer or precancerous polyp present at colonoscopy follow up). A negative Cologuard test result does not guarantee the absence of CRC or advanced adenoma (pre-cancer). The current Cologuard screening interval is every 3 years. ([place] Cancer Society and U.S. Multi-Society Task Force). Cologuard performance data in a 10,000 patient pivotal study using colonoscopy as the reference method can be accessed at the following location: www.[employer]iver[employer].com/results. Additional description of the Cologuard test process, warnings and precautions can be found at www.cologBuddytrukrd.com. Stool specimen (specimen) 11/22/2024 11:47 AM EST 11/23/2024 1:19 PM EST Misti Carrillo MD LAB MOLECULAR DIAGNOSTIC S ORDERABLES Final Result [facility] (CLIA #:[id number]) [place] [address], * BI Mammogram Screening Tomosynthesis Bilateral (05/16/2024 12:00 PM EDT) Anatomical Region Laterality Modality Breast Bilateral Mammography 05/16/2024 12:0 0 PM EDT Narrative 06/11/2024 10:53 PM EDT ? [facility] [place] ? [address] ?[place] [address] ? Mammography Report ? Signed ? Patient: Machicote Hammond,Saima ?MR ?? #: [id number] ? : 1955 ?Acct:[id number] ? Age/Sex: 69 / F ?ADM Date: 07/10/24 ? Loc: HO.MAMMO ? Attending Dr: Misti Carrillo MD ? Ordering Physician: iMsti Carrillo MD ?Results: 1Ne ?? gative ? Date of Service: 05/16/24 ?Follow Up: 1 Year From Orig ?? inal Mammogram ? Procedure(s): MM tomosynthesis screening BI ?? Accession Number(s): [id number] ? cc: Misti Carrillo MD ? EXAMINATION: [...] 06/11/242248 ? DD/ 1200 ? TD/TT: ? Institution Librarian: ? Procedure Note Donotcateinterpreter, Image - 06/11/20[facility] [address] [place] [address] Mammography Report Signed Patient: Melanie PelaezaMR #: [id number] : 3Acct:[id number] Age/Sex: 69 / FADM Date: 05/16/24 Loc: JANETH Attending Dr: Misti Carrillo MD Ordering Physician: Misti Carrilloults: 1Ne gative Date of Service: 05/16/24Follow Up: 1 Year From Orig inal Mammogram Procedure(s): MM tomosynthesis screening BI Accession Number(s): [id number] cc: Misti Carrillo MD EXAMINATION: MM SCREENING [...] in OV> 06/11/24 2249 DD/ 1200 TD/TT: Institution Librarian: Misti Carrillo MD IMG BI PROCEDURES Final Result * HPV E6/E7 RFLX KATHLEEN 16 18/45 (02/24/2022 10:32 AM EDT) HPV mRNA E6/E7 rflx Not Detected Not Detected [facility] Comment: Methodology: Rod Welder-Mediated Amplification This assay detects E6/E7 viral messenger RNA (mRNA) from 14 high-risk HPV types (16,18,31,33,35,39,45,51,52,56,58,59,66,68). The analytical performance characteristics of this assay have been determined by [employer]. The modifications have not been cleared or approved by the FDA. This assay has been validated pursuant to the CLIA regulations and is used for clinical purposes. For additional information, please refer to http://education.[employer]/faq/WRO900d3 (This link if provided for information/ educational purposes only.) THIS TEST WAS PERFORMED AT: [address] [facility] [address] [place], [place] ??[phone] DEV MICHAEL MD 02/24/2022 10:3 2 AM EDT Jessica Monroy HISTORICAL/NON ORDERABLE LABS Fi nal Result [facility] [address] * Pap Smear (02/24/2022) Historical Provider HEALTH MAINTENANCE Final Result from Last 3 Months or Most Recently Relevant to Health Maintenance Insurance [facility] USP OPTIONS (O D-SNP) DENTAL - [facility] Care Teams Deaf/Hard Of Hearing Specialist Relationship Specialty Start Date End Date Misti Carrillo MD [address] [place] [address] PCP - General Internal Medicine 07/15/23 Misti Carrillo MD [address] [place] [address] Family Medicine 07/15/23
--- OUTSIDE RECORDS SUMMARY | 2025-03-04 14:26 | XMS_ITS | Encounter Summary ---
Author Organization [employer] [facility] Address [address] [facility] 7t [place] [address] Care Team Providers Care Guest Relations Executive Name Role Phone Misti Carrillo MD Primary Care Provider + Misti Carrillo MD Primary Care Provider + Misti Carrillo MD Unavailable [phone] Encounter Details Date Type Department Care Team (Latest Contact Info) Description 10/17/2019 Abstract [facility] CONVERSIONS Dental, [...] Visit [facility] MEDICINE [address] [place] [address] Misti Carrillo MD [address] [place], [place] [phone] documented as of this encounter Visit Diagnoses Not on filedocumented in this encounter Care Teams Guest Relations Executive Relationship Specialty Start Date End Date Misti Carrillo MD [address] [place], [place] [phone] PCP - General Family Medicine 10/17/19 07/14/23 Misti Carrillo MD [address] [place] [address] PCP - General Internal Medicine 07/15/23 Misti Carrillo MD [address] [place] [address] Family Medicine 07/15/23 documented as of this encounter
--- OUTSIDE RECORDS SUMMARY | 2025-03-04 14:26 | XMS_ITS | Encounter Summary ---
Author Organization [employer] [facility] Address [address] [facility] 7t [place] [address] Care Team Providers Care Contract Attorney Name Role Phone Misti Carrillo MD Primary Care Provider + Misti Carrillo MD Primary Care Provider + Misti Carrillo MD Unavailable [phone] Encounter Details Date Type Department Care Team (Latest Contact Info) Description 06/09/2022 Abstract [facility] CONVERSIONS Dental, Provider, DDS Social History Tobacco [...] Description 05/16/2025 11:15 AM EDT Office Visit [facility] MEDICINE [address] [place] [address] Misti Carrillo MD [address] [place], [place] [phone] documented as of this encounter Visit Diagnoses Not on filedocumented in this encounter Care Teams Contract Attorney Relationship Specialty Start Date End Date Misti Carrillo MD [address] [place], [place] [phone] PCP - General Family Medicine 10/17/19 07/14/23 Misti Carrillo MD [address] [place] [address] PCP - General Internal Medicine 07/15/23 Misti Carrillo MD [address] [place] [address] Family Medicine 07/15/23 documented as of this encounter
--- OUTSIDE RECORDS SUMMARY | 2025-03-04 14:26 | XMS_ITS | Encounter Summary ---
Author Organization [employer] [facility] Address [address] [facility] 7t [place] [address] Care Team Providers Care Payroll Analyst Name Role Phone Misti Carrillo MD Primary Care Provider + Misti Carrillo MD Unavailable [phone] Encounter Details Date Type Department Care Team (Late st Contact Info) Description 08/04/2023 Orders Only [facility] MEDICINE [address] [place] [address] ProviderEloisa MD Social History Tobacco Use [...] 05/16/2025 11:15 AM EDT Office Visit [facility] [address] [place] [phone] Misti Carrillo MD [address] [place] [address] documented as of this encounter Procedures Procedure Name Priority Date/Time Associated Diagnosis Comments HM PAP/HPV Routine 02/24/2022 documented in this encounter Results * Hm Pap Smear (02/24/2022) us Historical Provider HEALTH MAINTENANCE Final Result documented in this encounter Visit Diagnoses Not on filedocumented in this encounter Care Teams Payroll Analyst Relationship Specialty Start Date End Date Misti Carrillo MD [address] [place] [address] PCP - General Internal Medicine 07/15/23 Misti Carrillo MD [address] [place] [address] Family Medicine 07/15/23 documented as of this encounter
--- OUTSIDE RECORDS SUMMARY | 2025-03-04 14:26 | XMS_ITS | Clinical Summary ---
Author Organization [facility] Address [address] [place] [address] Phone Care Team Providers Care Supervisor Drawing Name Role Phone Toby Fink MD Primary [...] topic Insurance MEDICAID - [place] Care Teams Supervisor Drawing Relationship Specialty Start Date End Date Toby Fink MD [address] [place] [address] PCP - General Internal Medicine 08/27/24
--- OUTSIDE RECORDS SUMMARY | 2025-03-04 14:26 | XMS_ITS | Data Portability ---
Author Organization [employer] Address [address] [place] [address] Care Team Providers Care Studio Set Up Worker Name Role Phone [employer] Referring Provider Assessment No assessment recorded. Plan of Treatment Reminders Order Date Submit Date Provider Last Modified By Organization Details Last Modified Time Details Appointments None recorded. Lab culture, urine 023 023 [facility] (Centralized Electronic Ordering - All Locations), Patient Can Go To The Location Of Their Choice, 08:59:40 Referral None recorded. Procedures None recorded. Surgeries None recorded. Imaging None recorded. Medication Orders Bactrim DS 800 mg-160 mg tablet 023 023 [facility], [address] [place], [place], [id number], 3 09:49:27 Patient TargetsNo targets recorded. Patient [...] Go To The Location Of Their Choice, [address] 07/17/2023 08:59:39 Result Notes None recorded. Medical Equipment None Reported. Allergies Allergen ID Allergen Name Allergen Category Reaction Reaction Severity Criticality Documentation Date Start Date Code Code System Note Provider Name and Address Organization Details Recorded Time 8891 Product containin g penicilli n (product) medicatio n Not available Not available Not available 09/04/2024 46402 8001 SNOMED Not Available [facility] - production [...] SNOMED-CT Code Diagnosis ICD10 Code Diagnosis Note [id number] [facility] [address] [place] [address] 07/15/2023 15:57:02 07/16/2023 16:03:07 Acute urinary tract infection [id number] N39.0 This 68-year-ol d female has had urinary symptoms for several days. Her U/A appeared consistent with an early UTI. I ordered a U/C and treatment with Bactrim DS twice daily for five days. She will follow-up with her PCP. The patient agreed with this plan. Urinary symptoms [id number] R39.9 Health Concerns Section Related Observation LastModified by Organization Detai ls LastModified Time None Recorded Concern Status LastModified by Organization Details LastModified Time None Recorded Advance Directives Directive None Recorded Payers Encounter Date Sequence Insurance Name Policy Number Policy Chow Covered Member ID Chow Member ID Guarantor Name 07/15/2023 1 [facility] - DOS ON OR AFTER 2023 - DUAL ELIGIBLE - ASSISTED OPTIONS AND ONE CARE (MEDICARE REPLACEMENT/AD VANTAGE - HMO) Saima Rodrigues [id number] Saima Rodrigues Notes Date Note Type Note [...] pain. No fever. Unable to come into MIC. Agrees to instED referral for UA/Cx. ..................... ..................... ..................... ..................... ..................... ..................... ............... CRC Nursing Assessment: Comments: Reviewed - Jass LUCERO ..................... ..................... ..................... ..................... ..................... ..................... ............... Crimp Setter Note From Emery Lai: PT complains of [...] ............... Disposition: Fulfilled Juan Huerta MD [address] [facility],[address], [place], [address], JOAN VALLE 07/15/2023 16:05:16 OBGyn Episode No OBEpisode recorded.
--- OUTSIDE RECORDS SUMMARY | 2025-03-04 14:26 | XMS_ITS | Encounter Summary ---
Author Organization [employer] [facility] Address [address] [facility] 7t [place] [address] Care Team Providers Care Supervisor Cell Maintenance Name Role Phone Misti Carrillo MD Primary Care Provider + Misti Carrillo MD Primary Care Provider + Misti Carrillo MD Unavailable [phone] Encounter Details Date Type Department Care Team (Late st Contact Info) Description 10/19/[address] [facility] D[facility] [address] [place] [address] Allison Sheehan, DDS [address] [place], [place] [phone] Social History Tobacco Use Types Packs/Day Years [...] Description 05/16/2025 11:15 AM EDT Office [address] [facility] MED[facility] [address] [place] [address] Misti Carrillo MD [address] [place] [address] documented as of this encounter Visit Diagnoses Not on filedocumented in this encounter Care Teams Supervisor Cell Maintenance Relationship Specialty Start Date End Date Misti Carrillo MD [address] [place] [address] PCP - General Family Medicine 10/17/19 07/14/23 Misti Carrillo MD [address] [place] [address] PCP - General Internal Medicine 07/15/23 Misti Carrillo MD [address] [place] [address] Family Medicine 07/15/23 documented as of this encounter
--- OUTSIDE RECORDS SUMMARY | 2025-03-04 14:26 | XMS_ITS | Encounter Summary ---
Author Organization [employer] Address [address] [facility] [address] 7[address] [place] [address] Care Team Providers Care Clerk General Name Role Phone Misti Carrillo MD Primary Care Provider + Misti Carrillo MD Primary Care Provider + Misti Carrillo MD Unavailable [phone] Reason for Visit * Reason Onset Date Comments Referral 03/11/2023 Encounter Details Date Type Department Care Team (Late st Contact Info) Description 03/11/2023 Telephone [facility] [address] [place], [place] [phone] Misti Carrillo MD [address] [place], [place] [phone] Referral Social History Tobacco Use Types Packs/Day [...] 2:03 PM EDT Tc from Ruthie patients ROUTE CLERK requesting a referral for a demo event specialist advised by her rhia. [facility] and has a f/u appt on 03/25/23 for allergy. Patient speaks Swedish documented in this encounter Plan of Treatment Upcoming Encounters Date Type Department Care Team (Late st Contact Info) Description 05/16/2025 11:15 AM EDT Office Visit [facility] [address] [place] [address] Misti Carrillo MD [address] [place] [phone] documented as of this encounter Visit Diagnoses Diagnosis Allergic conjunctivitis of both eyes- Primary Other chronic allergic conjunctivitis Seasonal allergic rhinitis due to pollen documented in this encounter Care Teams Clerk General Relationship Specialty Start Date End Date Misti Carrillo MD [address] [place] [address] PCP - General Family Medicine 10/17/19 07/14/23 Misti Carrillo MD [address] [place] [phone] PCP - General Internal Medicine 07/15/23 Misti Carrillo MD [address] [place] [address] Family Medicine 07/15/23 documented as of this encounter
--- OUTSIDE RECORDS SUMMARY | 2025-03-04 14:26 | XMS_ITS | Clinical Summary ---
Author Organization [facility] Address [address] [place] [address] Care Team Providers Care Offshore Wind Operations Manager Name Role Phone Trisha Jacques PA-C Primary Care Provider [phone] Source Comments PLEASE NOTE, if this patient [...] mcg/actuation nasal sprayIndications: Throat dry Place 1 [place] into the nostril(s) once daily. 16 g [...] Saw urology on 01/09/2016 Dr. Malcolm at [facility] urology: negative workup With cysto and CT [...] Yesika screening done at [facility] on 03/20/2015: No mammographic evidence of [...] Plan of Treatment Not on file Insurance [facility] Member Subscriber Plan / Payer (Ef fective 2014-Present) Name:Saima Hand Relation to Subscriber:Self Name:Saima Hand Payer ID:[id number] Group ID:Not on file Type:Medicaid Address: [facility] [address] [place] [address] [facility] [address] [facility] D[facility] Care Teams Offshore Wind Operations Manager Relationship Specialty Start Date End Date Trisha Jacques PA-C [address] [place] [address] PCP - General 09/27/18
== END 2025-03-04 12:06 | disposition home or self-care (01) ==
LOC: HO.LAB 12:05
PROVIDERS: PCP Internal Medicine; Visit Provider Urology
DX: R31.29 Other microscopic hematuria (principal); R82.998 Other abnormal findings in urine
CPT/HCPCS: 88112

== ENCOUNTER 2025-05-09 14:21 | Outpatient (AMB) | payer OTHER, SELFPAY ==
--- OUTSIDE RECORDS SUMMARY | 2025-05-09 14:23 | XMS_ITS | Clinical Summary ---
Author Organization [facility] Address [address] [place] [address] Care Team Providers Care X Ray Consultant Name Role Phone Trisha Jacques PA-C Primary Care Provider [phone] Source Comments PLEASE NOTE, if this patient [...] mcg/actuation nasal sprayIndications: Throat dry Place 1 [place] into the nostril(s) once daily. 16 g [...] Saw urology on 01/09/2016 Dr. Malcolm at [facility] urology: negative workup With cysto and CT [...] 03/24/2015 Overview (01/15/2016): Yesika screening done at [facility] on 03/20/2015: No mammographic evidence of malignancy in the right breast. Further eval of the left breast group of microcalcification by additional views. Pt will be contacted directly for imaging. BIRADS category 0 incomplete. Need further imaging. Second mammogram done 04/02/2015 at [facility]: small cluster microcalcifications seen in the [...] 82 02/05/2016 4:03 PM EDT Temperature 37.1 C (98.7 F) 02/05/2016 4:03 PM EDT Respiratory Rate 17 02/05/2016 4:03 PM EDT Oxygen Saturation 98% 05/21/2015 2:22 PM EDT Inhaled Oxygen Concentration - - Weight 54.4 kg (120 lb) 02/05/2016 4:03 PM EDT Height 146 cm (4' 9.48 ) 02/05/2016 4:03 PM EDT Body Mass Index 25.54 02/05/2016 4:03 PM EDT Plan of Treatment Not on file Insurance [facility] Member Subscriber Plan / Payer (Ef fective 2014-Present) Name:Saima Hand Relation to Subscriber:Self Name:Saima Hand Payer ID:[id number] Group ID:Not on file Type:Medicaid Address: [facility] [id number] [place] [address] [facility] DENTAL [facility] DENTAL Care Teams X Ray Consultant Relationship Specialty Start Date End Date Trisha Jacques PA-C [address] [place] [address] PCP - General 09/27/18
--- OUTSIDE RECORDS SUMMARY | 2025-05-09 14:23 | XMS_ITS | Clinical Summary ---
Author Organization [facility] Address [address] [place] [address] Phone Care Team Providers Care Textile Machinery Instructor Name Role Phone Toby Fink MD Primary [...] complete this topic Insurance [place] - [place] [facility] Member Subscriber Plan / Payer (Ef fective 2018-Present) Name:KALE ABREU Relation to Subscriber:Self Name:Kale Abreu Payer ID:[id number] Group ID:Not on file Type:Not on file Address: [address] [place] [address] Care Teams Textile Machinery Instructor Relationship Specialty Start Date End Date Toby Fink MD [address] [place] [address] PCP - General Internal Medicine 08/27/24
--- OUTSIDE RECORDS SUMMARY | 2025-05-09 14:23 | XMS_ITS | Data Portability ---
Author Organization [place] [employer] [facility], [facility] Address [address] [place] [address] Care Team Providers Care Water Resource Consultant Name Role Phone [facility] Referring Provider Assessment No assessment recorded. Plan of Treatment Reminders Order Date Submit Date Provider Last Modified By Organization Details Last Modified Time Details Appointments None recorded. Lab culture, urine 023 023 [place] [facility] (Centralized Electronic Ordering - All Locations), Patient Can Go To The Location Of Their Choice, 3 08:59:40 Referral None recorded. Procedures None recorded. Surgeries None recorded. Imaging None recorded. Medication Orders Bactrim DS 800 mg-160 mg tablet 023 023 [facility], [address] [place], [place], [id number], 3 09:49:27 Patient TargetsNo targets recorded. Patient InstructionsNo instructions recorded. Reason for Referral None Reported. Results Created Date Observation Date Name Description Value Unit Range Abnormal Flag Note LastModifiedBy Organization Detail LastModifiedTime 07/15/2007/15/2023 URINE CULTU RE specimen description BLOOD Not Available [facility] (Centralized Electronic Ordering - All Locations) Patient Can Go To The Location Of Their Choice, 07/17/2023 08:59:39 07/15/20 23 07/15/2023 URINE CULTU RE special requests NONE Not Available [facility] (Centralized Electronic Ordering - All Locations) Patient Can Go To The Location Of Their Choice, 07/17/2023 08:59:39 07/15/20 23 07/17/2023 URINE CULTU RE culture <10,00 0 COL/ML abnormal Not Available [facility] (Centralized Electronic Ordering - All Locations) Patient Can Go To The Location Of Their Choice, [address] 07/17/2023 08:59:39 07/15/20 23 07/17/2023 URINE CULTU RE report status FINAL 2022 Not Available [facility] (Centralized Electronic Ordering - All Locations) Patient Can Go To The Location Of Their Choice, [address] 07/17/2023 08:59:39 Result Notes None recorded. Medical Equipment None Reported. Allergies Allergen ID Allergen Name Allergen Category Reaction Reaction Severity Criticality Documentation Date Start Date Code Code System Note Provider Name and Address Organization Details Recorded Time 8891 Product containin g penicilli n (product) medicatio n Not available Not available Not available 09/04/2024 97187 8001 SNOMED Not Available [facility] - production [...] in Arterial blood by Pulse oximetry Systolic And Diastolic Provider Name and Address Organization Details Last Updated DateTime 3 18 /min 84 /min 98.8 [degF] 99 % 99 % 130/78 mm[Hg] Not Available [facility] - production 3 [...] SNOMED-CT Code Diagnosis ICD10 Code Diagnosis Note 29975 [facility] [address] [place] [phone] 07/15/2023 15:57:02 07/16/2023 16:03:07 Acute urinary tract infection [id number] N39.0 This 68-year-ol d female has had urinary symptoms for several days. Her U/A appeared consistent with an early UTI. I ordered a U/C and treatment with Bactrim DS twice daily for five days. She will follow-up with her PCP. The patient agreed with this plan. Urinary symptoms [id number] R39.9 Health Concerns Section Related Observation LastModified by Organization Detai ls LastModified Time None Recorded Concern Status LastModified by Organization Details LastModified Time None Recorded Advance Directives Directive None Recorded Payers Insurance Date Sequence Insurance Name Policy Number Policy Chow Covered Member ID Chow Member ID Guarantor Name 01/09/2024 1 [facility] - DOS ON OR AFTER 2023 - DUAL ELIGIBLE - [facility] OPTIONS AND ONE CARE (MEDICARE REPLACEMENT/AD VANTAGE - HMO) Saima Rodrigues [id number] Saima Rodrigues Notes Date Note Type Note [...] pain. No fever. Unable to come into [facility]. Agrees to [facility] referral for UA/Cx. ..................... ..................... ..................... ..................... ..................... ..................... ............... CRC Nursing Assessment: Comments: Reviewed - Jass LUCERO ..................... ..................... ..................... ..................... ..................... ..................... ............... Clinical Document Improvement Educator Note From Emery Lai: PT complains of [...] ..................... ............... Disposition: Fulfilled Juan Huerta MD [address] [place] [address],[address] [facility], [place], [address], JOAN VALLE 07/15/2023 16:05:16 OBGyn Episode No OBEpisode recorded.
--- OUTSIDE RECORDS SUMMARY | 2025-05-09 14:23 | XMS_ITS | Encounter Summary ---
Author Organization [facility] Address [address] [facility] [address] [place] [address] Care Team Providers Care Cytology Teacher Name Role Phone Misti Carrillo MD Primary Care Provider + Misti Carrillo MD Primary Care Provider + Misti Carrillo MD Unavailable [phone] Encounter Details Date Type Department Care Team (Latest Contact Info) Description 10/17/2019 Abstract [facility] CONVERSIONS Dental, Provider, DDS Social History [...] 11:15 AM EDT Office Visit [facility] MEDICINE [address] [place] [address] Misti Carrillo MD [address] [place], [place] [phone] 06/12/2025 2:30 PM EDT Office Visit [facility] CHC ADULT DENTAL [address] [place], [place] [phone] Tonio Dawson, REBEKAH [address] [place], [place] [phone] documented as of this encounter Visit Diagnoses Not on filedocumented in this encounter Care Teams Cytology Teacher Relationship Specialty Start Date End Date Misti Carrillo MD [address] [place] [address] PCP - General Family Medicine 10/17/19 07/14/23 Misti Carrillo MD [address] [place] [address] PCP - General Internal Medicine 07/15/23 Misti Carrillo MD [address] [place] [address] Family Medicine 07/15/23 documented as of this encounter
[2025-05-09 14:35] VITALS: BP 108/54; PULSE 68; BMI 19.1
--- NOTE | 2025-05-09 14:35 | A.OFFVIS_ITS ---
Vital Signs 05/09/25 14:35 Height 5 ft 1 in Weight 100 lb 15.547 oz BMI 19.1 BP 108/54 L Blood Pressure Location Lt brachial Position Sitting Pulse 68 Pulse Source Monitor Intake Visit Reasons: Followup HTN r/s 04/18/25 Typewriter Assembler Required: Yes Typewriter Assembler Language: Industrial Relations Representative Name: voice dickson [id number] Allergies penicillamine (PENICILLAMINE) Adverse Reaction (Intermediate, Verified 05/09/25 14:38) PALPATATIONS Medication List - Last Reconciled 05/09/25 by Taty Agarwal, CLOVER-C amlodipine 2.5 mg PO DAILY cetirizine 10 mg PO DAILY clotrimazole-betamethasone 1-0.05 % 1 appl topical BID PRN 7 days docusate sodium (Colace) 100 mg PO BID HPI HPI Followup HTN r/s 04/18/25: Details: Saima is a 70-year-old female with past medical history of hypertension, heart palpitations who presents for follow-up. Her last prior visit was 01/16/2024. Today she reports that she has been feeling well overall. She does feel brief heart palpitations lasting 2 seconds and then resolving. She has no lightheadedness, presyncope, syncope, falls. No shortness of breath, PND, orthopnea or edema. No chest discomfort at rest or with activity. She does li ght activities around her home. She drinks several caffeinated cups of coffee per day, 3 in the morning and some in the afternoon and evening. Certified flight surveyor used. [facility] Medical History Hypertension Frequent UTI Surgical History No pertinent past surgical history Family History Father Prostate CA Mother No problems noted. Social History Household Members: None Alcohol intake: never Patient Tobacco Use Status: Never used Tobacco Review of Systems Const All systems reviewed & are unremarkable except as noted in HPI and below ENT Denies dizziness Card Details: brief palpitations Denies chest pain, Denies chest pain at rest, Denies chest pain with activity, Denies rapid heart rate, Denies pedal edema, Denies edema, Denies leg edema, Denies lightheadedness, Denies palpitations, Denies dyspnea, Denies dyspnea on exertion and Denies orthopnea Resp Denies cough, Denies dyspnea and Denies dyspnea on exertion GI Denies hematochezia and Denies change in stool character Musc Denies abnormal gait, Denies limited range of motion, Denies muscle cramps, Denies muscle weakness, Denies numbness, Denies radiating pain into limb, Denies stiffness and Denies tingling Neuro Denies abnormal gait, Denies dizziness, Denies numbness and Denies tingling Endo Denies palpitations Physical Exam Vital Signs: Last Vital Signs Pulse 68 05/09/25 14:35 BP 108/54 L 05/09/25 14:35 BMI result Body Mass Index 19.1 Const General: cooperative, healthy appearing, comfortable and no acute distress Orientation/consciousness: patient oriented x3 Neck Neck: Yes normal visual inspection and Yes no JVD Resp Effort & Inspection: normal respiratory effort Auscultation: clear to auscultation bilaterally, no rales, no rhonchi and no wheezes Cardio Rate: regular rate Rhythm: regular rhythm Heart sounds: S1 normal heart sound present, S2 normal heart sound present, no gallops, no murmurs and no rubs Neuro General: patient oriented x3 Extrem General: Yes normal to inspection, No no pedal edema and No calf tenderness Psych Appearance: grossly normal Mental Status: mental status grossly normal Speech and movement: Normal speech and movement present Office Procedures EKG Details: Today read by me, normal sinus rhythm, low-voltage QRS, rate 68, QTC 427 milliseconds [id number], Complete Assessment & Plan Assessment & Plan (1) Palpitations: Code(s): R00.2 - Palpitations Category: Medical Plan: Reports of heart palpitations lasting 2 seconds and resolving. No sustained rapid or irregular rates noted. In the past Holter monitor was attempted however she had allergic reaction to the adhesives and no report was available. Her palpitations have not been changing or increasing over the last year. She is not on any rate slowing medications. She does drink an excess amount of caffeinated beverages per day and was instructed to reduce this amount. No treatment needed at this time. Will arrange for cardiology follow-up as needed. (2) Essential hypertension: Code(s): I10 - Essential (primary) hypertension Category: Medical Plan: Blood pressure goal less than 130/80. Well controlled at this time. Continues on amlodipine 2.5 mg daily. Can be further followed by PCP. Plan I discussed with the patient that her brief palpitations are not concerning if they remain short-lived. I advised reducing caffeine intake if palpitations increase and explained the follow-up plan with cardiology as needed. Patient Instructions: - Monitor heart palpitations and note any increase in frequency or duration. - Reduce caffeine intake and call if palpitations become more frequent. - Follow up with cardiology if symptoms worsen. - Continue taking medications as prescribed. - Maintain regular appointments with primary care provider. Patient was informed and verbally consented to the use of an ambient scribe for clinic note documentation during this visit. Visit time spent on chart review, interview, assessment, orders, documentation. Coding Level of Care Code Est Pt Level 3 (39663) Complex EM visit Add On G2211 Diagnoses Palpitations R00.2 Essential hypertension I10 CPT Codes EKG - CPT: 70803-Ctervuibijyvjretj, Complete ([id number]) Time Spent (min) 24
== END 2025-05-09 15:00 | disposition home or self-care (01) ==
LOC: HO.HCS 14:22
PROVIDERS: Visit Provider Nurse Practitioner Family
DX: R00.2 Palpitations (principal); I10 Essential (primary) hypertension
CPT/HCPCS: 93010; 99213; G2211

== ENCOUNTER → 2025-05-09 14:21 | Outpatient (BNVA) | payer OTHER, SELFPAY | PROVIDERS: Visit Provider Nurse Practitioner Family | DX: I10 Essential (primary) hypertension (principal); R00.2 Palpitations | CPT/HCPCS: 93005; 99212 ==

== ENCOUNTER 2025-05-20 10:32 | Outpatient (REF) | payer OTHER, SELFPAY ==
--- OUTSIDE RECORDS SUMMARY | 2025-05-20 11:21 | XMS_ITS | Clinical Summary ---
Author Organization [facility] Address [address] [place] [address] Phone Care Team Providers Care Wool Carder Name Role Phone Toby Fink MD Primary [...] Influencers of Health Screening 08/27/2024 Influenza Vaccine (#1) 2025 , 11/12/2020, 10/19/2019, Additional history exists Hypertension/CHF/CAD Annual [...] complete this topic Insurance [place] - [place] [facility] Member Subscriber Plan / Payer (Ef fective 2018-Present) Name:KALE ABREU Relation to Subscriber:Self Name:Kale Abreu Payer ID:[id number] Group ID:Not on file Type:Not on file Address: [address] [place] [place] [address] Care Teams Wool Carder Relationship Specialty Start Date End Date Toby Fink MD [address] [place] [address] PCP - General Internal Medicine 08/27/24
--- OUTSIDE RECORDS SUMMARY | 2025-05-20 11:21 | XMS_ITS | Encounter Summary ---
Author Organization [facility] Address [address] [facility] [address]t [place] [address] Care Team Providers Care Firer Retort Name Role Phone Misti Carrillo MD Primary Care Provider + Misti Carrillo MD Primary Care Provider + Misti Carrillo MD Unavailable [phone] Encounter Details Date Type Department Care Team (Latest Contact Info) Description 10/17/2019 Abstract [facility] CONVERSIONS Dental, Provider, DDS Social History Tobacco [...] on filedocumented in this encounter Care Teams Firer Retort Relationship Specialty Start Date End Date Misti Carrillo MD [address] [place], [place] [phone] PCP - General Family Medicine 10/17/19 07/14/23 Misti Carrillo MD [address] [place], [place] [phone] PCP - General Internal Medicine 07/15/23 Misti Carrillo MD [address] [place] [address] Family Medicine 07/15/23 documented as of this encounter
== END 2025-05-20 10:33 | disposition home or self-care (01) ==
LOC: HO.MAMMO 10:32
PROVIDERS: PCP Internal Medicine; Visit Provider Internal Medicine
DX: Z12.31 Encounter for screening mammogram for malignant neoplasm of breast (principal)
CPT/HCPCS: 77063; 77067

== ENCOUNTER → 2025-05-20 10:45 | Outpatient (BNV) | payer OTHER, SELFPAY | PROVIDERS: PCP Internal Medicine; Visit Provider Internal Medicine | DX: Z12.31 Encounter for screening mammogram for malignant neoplasm of breast (principal) | CPT/HCPCS: 77063; 77067 ==

== ENCOUNTER 2025-05-23 10:47 | Outpatient (REF) | payer OTHER, SELFPAY ==
--- NOTE | ~2025-05-23 | US_ITS ---
EXAMINATION: US PELVIS TRANSABDOMINAL AND TRANSVAGINAL HISTORY: D25.9 - Leiomyoma of uterus, unspecified COMPARISON: Comparison is made with the prior examination dated 09/06/2024. TECHNIQUE: Transabdominal and endovaginal real-time 2D pagan-scale ultrasound was performed. FINDINGS: Uterus: The uterus is normal in size, measuring 5.0 x 2.7 x 4.2 cm. Myometrium demonstrates heterogeneous echotexture. There is a left anterior fibroid measuring 11 x 12 x 11 mm. Endometrium: The endometrial stripe measures 8 mm in thickness and is mildly irregular in appearance. Again seen is fluid in the endometrial canal. Right ovary: The right ovary measures 1.7 x 1.3 x 1.2 cm. The right ovary is normal in size and echotexture. Left ovary: The left ovary measures 2.2 x 1.1 x 1.7 cm. The left ovary is normal in size and echotexture. Pelvic fluid: none. US/US pelvic and transvaginal IMPRESSION: 1. Again seen is fluid in the endometrial canal. Irregular endometrial thickening. Direct visualization is suggested. 2. 12 mm uterine fibroid. Electronically signed by: Jhon Le MD 05/23/2025 12:11 PM EDT
--- OUTSIDE RECORDS SUMMARY | 2025-05-23 11:26 | XMS_ITS | Data Portability ---
Author Organization [facility], [facility] Address [address] [place] [address] Care Team Providers Care Travel Cota Name Role Phone [facility] Referring Provider Assessment No assessment recorded. Plan of Treatment Reminders Order Date Submit Date Provider Last Modified By Organization Details Last Modified Time Details Appointments None recorded. Lab culture, urine 023 023 [place] [facility] (Centralized Electronic Ordering - All Locations), Patient Can Go To The Location Of Their Choice, 3 08:59:40 Referral None recorded. Procedures None recorded. Surgeries None recorded. Imaging None recorded. Medication Orders Bactrim DS 800 mg-160 mg tablet 023 023 [facility], [address] [place], [place], [id number], 3 09:49:27 Patient TargetsNo targets recorded. Patient [...] Go To The Location Of Their Choice, [address] 07/17/2023 08:59:39 07/15/20 23 07/17/2023 URINE CULTU RE report status FINAL 2022 Not Available [facility] (Centralized Electronic Ordering - All Locations) Patient Can Go To The Location Of Their Choice, [address] 07/17/2023 08:59:39 Result Notes None recorded. Medical Equipment None Reported. Allergies Allergen ID Allergen Name Allergen Category Reaction Reaction Severity Criticality Documentation Date Start Date Code Code System Note Provider Name and Address Organization Details Recorded Time 8891 Product containin g penicilli n (product) medicatio n Not available Not available Not available 09/04/2024 11515 8001 SNOMED Not Available [facility] - production [...] SNOMED-CT Code Diagnosis ICD10 Code Diagnosis Note 63611 [facility] [address] [place] [phone] 07/15/2023 15:57:02 07/16/2023 16:03:07 Acute urinary tract infection [id number] N39.0 This 68-year-ol d female has had urinary symptoms for several days. Her U/A appeared consistent with an early UTI. I ordered a U/C and treatment with Bactrim DS twice daily for five days. She will follow-up with her PCP. The patient agreed with this plan. Urinary symptoms [id number] R39.9 Health Concerns Section Related Observation LastModified by Organization Detai ls LastModified Time None Recorded Concern Status LastModified by Organization Details LastModified Time None Recorded Advance Directives Directive None Recorded Payers Insurance Date Sequence Insurance Name Policy Number Policy Chow Covered Member ID Chow Member ID Guarantor Name 01/09/2024 1 [facility] - DOS ON OR AFTER 2023 - DUAL ELIGIBLE - HALF-WAY OPTIONS AND ONE CARE (MEDICARE REPLACEMENT/AD VANTAGE - HMO) Saima Rodrigues [id number] Saima Rodrigues Notes Date Note Type Note [...] pain. No fever. Unable to come into [facility]. Agrees to [facility] referral for UA/Cx. ..................... ..................... ..................... ..................... ..................... ..................... ............... CRC Nursing Assessment: Comments: Reviewed - Jass LUCERO ..................... ..................... ..................... ..................... ..................... ..................... ............... Heavy Machinery Assembler Note From Emery Lai: PT complains of [...] ..................... ............... Disposition: Fulfilled Juan Huerta MD [address] [place] [address],[address] [facility], [place], [address], JOAN VALLE 07/15/2023 16:05:16 OBGyn Episode No OBEpisode recorded.
--- OUTSIDE RECORDS SUMMARY | 2025-05-23 11:26 | XMS_ITS | Clinical Summary ---
Author Organization [facility] Address [address] [place] [address] Care Team Providers Care Carpet Inspector Finished Name Role Phone Trisha Jacques PA-C Primary Care Provider [phone] Source Comments PLEASE NOTE, if this patient [...] mcg/actuation nasal sprayIndications: Throat dry Place 1 [place] into the nostril(s) once daily. 16 g [...] Saw urology on 01/09/2016 Dr. Malcolm at [facility] urology: negative workup With cysto and CT [...] 03/24/2015 Overview (01/15/2016): Yesika screening done at [facility] on 03/20/2015: No mammographic evidence of malignancy in the right breast. Further eval of the left breast group of microcalcification by additional views. Pt will be contacted directly for imaging. BIRADS category 0 incomplete. Need further imaging. Second mammogram done 04/02/2015 at [facility]: small cluster microcalcifications seen in the mis [...] Plan of Treatment Not on file Insurance [facility] LIN[facility] Member Subscriber Plan / Payer (Ef fective 2014-Present) Name:Saima Hand Relation to Subscriber:Self Name:Saima Hand Payer ID:[id number] Group ID:Not on file Type:Medicaid Address: [facility] [id number] [place] [address] [facility] DENTAL Care Teams Carpet Inspector Finished Relationship Specialty Start Date End Date Trisha Jacques PA-C [address] [place] [address] PCP - General 09/27/18
--- OUTSIDE RECORDS SUMMARY | 2025-05-23 11:26 | XMS_ITS | Clinical Summary ---
Author Organization [facility] Address [address] [place] [address] Phone Care Team Providers Care Operational Risk Analyst Name Role Phone Toby Fink MD Primary [...] complete this topic Insurance [place] - [place] [facility] Member Subscriber Plan / Payer (Ef fective 2018-Present) Name:KALE ABREU Relation to Subscriber:Self Name:Kale Abreu Payer ID:[id number] Group ID:Not on file Type:Not on file Address: [address] [address] Care Teams Operational Risk Analyst Relationship Specialty Start Date End Date Toby Fink MD [address] [place] [address] PCP - General Internal Medicine 08/27/24
--- OUTSIDE RECORDS SUMMARY | 2025-05-23 11:26 | XMS_ITS | Encounter Summary ---
Author Organization [employer] [facility] Address [address] [place] [address] Care Team Providers Care Counselor Marriage And Family Name Role Phone Misti Carrillo MD Primary Care Provider + Misti Carrillo MD Primary Care Provider + Misti Carrillo MD Unavailable [phone] Encounter Details Date Type Department Care Team (Latest Contact Info) Description 10/17/2019 Abstract [facility] CONVERSIONS Dental, Provider, DDS Social History [...] on filedocumented in this encounter Care Teams Counselor Marriage And Family Relationship Specialty Start Date End Date Misti Carrillo MD [address], [place] [phone] PCP - General Family Medicine 10/17/19 07/14/23 Misti Carrillo MD [address], [place] [phone] PCP - General Internal Medicine 07/15/23 Misti Carrillo MD [address] [place] [id number] Family Medicine 07/15/23 documented as of this encounter
== END 2025-05-23 10:48 | disposition home or self-care (01) ==
LOC: HO.US 10:47
PROVIDERS: Visit Provider Obstetrics & Gynecology
DX: D25.9 Leiomyoma of uterus, unspecified (principal)
CPT/HCPCS: 76830; 76856

== ENCOUNTER → 2025-05-23 10:49 | Outpatient (BNV) | payer OTHER, SELFPAY | PROVIDERS: Visit Provider Radiology Diagnostic Radiology | DX: D25.9 Leiomyoma of uterus, unspecified (principal); N85.8 Other specified noninflammatory disorders of uterus | CPT/HCPCS: 76830; 76856 ==

== ENCOUNTER 2025-06-05 10:59 | Outpatient (AMB) | payer OTHER, SELFPAY ==
[2025-06-05 11:02] VITALS: BP 120/70; BMI 18.9
--- NOTE | 2025-06-05 11:02 | MHC.OFFVIS ---
Vital Signs 06/05/25 11:02 Height 5 ft 1 in Weight 100 lb BMI 18.9 BP 120/70 Intake Visit Reasons: 6 month US follow up/EMB Lawn And Tree Service Spray Supervisor Required: Yes Lawn And Tree Service Spray Supervisor Language: Field Adjuster Services: Lawn And Tree Service Spray Supervisor Present (in person) Lawn And Tree Service Spray Supervisor Name: Joana VERAS Information Interpreted: non-clinical & clinical Envelope Patternmaker: Envelope Patternmaker Present Accompanied by: Self / Same As Patient Allergies penicillamine (PENICILLAMINE) Adverse Reaction (Intermediate, Verified 06/05/25 11:12) PALPATATIONS Is last menstrual period known: Yes Last menstrual period: 09/04/20 Post menopausal: Yes Patient : No Do you need a note to return to daycare/school/sports/work: Yes (for surgery on tuesday) HPI Comments Details: Presenting for ultrasound follow-up , doing well with no complaints, no vaginal bleeding. Pelvic ultrasound done recently showed the following: Uterus: The uterus is normal in size, measuring 5.0 x 2.7 x 4.2 cm. Myometrium demonstrates heterogeneous echotexture. There is a left anterior fibroid measuring 11 x 12 x 11 mm. Endometrium: The endometrial stripe measures 8 mm in thickness and is mildly irregular in appearance. Again seen is fluid in the endometrial canal. Right ovary: The right ovary measures 1.7 x 1.3 x 1.2 cm. The right ovary is normal in size and echotexture. Left ovary: The left ovary measures 2.2 x 1.1 x 1.7 cm. The left ovary is normal in size and echotexture. Pelvic fluid: none. PFSH Medical History Hypertension Frequent UTI Surgical History No pertinent past surgical history Family History Father Prostate CA Mother No problems noted. Social History Household Members: None Alcohol intake: never Patient Tobacco Use Status: Never used Tobacco Female Reproductive History Menstrual Date of last menstrual period: 09/04/20 Total pregnancies: 2 Full term: 2 Review of Systems Card Reports as per HPI and Reports no additional complaints Resp Reports as per HPI and Reports no additional complaints GI Reports as per HPI and Reports no additional complaints Reports as per HPI Physical Exam Const General: cooperative, healthy appearing and comfortable Resp Effort & Inspection: normal respiratory effort Auscultation: clear to auscultation bilaterally Percussion: percussion normal Cardio Palpation: normal PMI Rate: regular rate Rhythm: regular rhythm Heart sounds: no murmurs and no rubs Peripheral pulses: Peripheral pulses 2+ throughout GI Inspection: Yes normal to inspection Palpation (GI): Soft to palpation, nontender, no guarding, not rigid and No hepatosplenomegaly present Percussion: Yes normal to percussion Auscultation: normal bowel sounds Rectal Exam - Female: deferred Assessment & Plan Assessment & Plan (1) Fluid in endometrial cavity: Comment: With thick abnormal endometrium by ultrasound Code(s): N85.9 - Noninflammatory disorder of uterus, unspecified Category: Medical Plan: Discussed with the patient endometrial thickness above 4 mm in menopause , the differential diagnosis of a thickened endometrium includes but not limited to endometrial polyp, hyperplasia or carcinoma. Explained to the patient that endometrial each thickness is less predictive of endometrial neoplasia in asymptomatic patients, i.e. those without postmenopausal uterine bleeding. The sensitivity and specificity for detecting endometrial carcinoma at an endometrial thickness of >= 5mm was 83 and 72 percent, respectively; this is lower than in patients with bleeding. Studies have shown that postmenopausal patients without uterine bleeding who had an endometrial thickness >11 mm had an endometrial carcinoma risk of 6.7 percent; this risk is similar to postmenopausal patients with bleeding and an endometrial thickness >5 mm. Recommended endometrial sampling to rule endometrial pathology via either office endometrial biopsy or diagnostic hysteroscopy/D&C with possible polypectomy/myomectomy. All pros and cons, risks and benefits of each approach were discussed with the patient, the patient decided to proceed with hysteroscopy D&C possible polypectomy/myomectomy Discussed with the patient the procedure , all benefits and risks including but not limited to inability to complete the procedure , insufficient endometrial tissue for a complete evaluation of the endometrial cavity , bleeding, infection, possible need for blood transfusion with all its risk ( HIV,syphilis, Hepatitis, anaphylaxis shock, others..), injury to bladder, rectum, possible need for laparoscopy/laparotomy or hysterectomy. The patient verbalized understanding and signed the consent. Instructions given the patient to stay NPO after midnight the day prior to the procedure and to take only amlodipine the morning of the surgical procedure and to schedule a 2 week postoperative appointment (2) Uterine myoma: Code(s): D25.9 - Leiomyoma of uterus, unspecified Category: Medical Plan: Discussed with the patient the findings on pelvic ultrasound & the risk of myosarcoma; in addition reviewed with the patient that malignancy and pre malignancy cannot be ruled out without hysterectomy for pathological evaluation ; furthermore, explained to the patient the limitation of pelvic ultrasound and endometrial biopsy in the setting. Discussed with the patient the options of treatment including expectant management versus hysterectomy; the pros and cons, risks benefits of each approach were discussed with the patient including the fact that in cases of myosarcoma, surgical treatment can lead to early diagnosis and positively affects the prognosis; after further discussion, the patient decided to proceed with expectant management. Will repeat pelvic ultrasound periodically. Instructions given to patient to call in case any of the following occurs: pressure symptoms, abnormal uterine bleeding, pelvic pain; and to schedule a 12-months pelvic ultrasound (order placed) and a follow-up appointment . All questions answered, the patient verbalized understanding and agreed with the plan . Orders: Orders US pelvic and transvaginal 12 Months D25.9 - Leiomyoma of uterus, unspecified Coding Level of Care Code Est Pt Level 3 (95735) Diagnoses Fluid in endometrial cavity N85.9 Uterine myoma D25.9
--- OUTSIDE RECORDS SUMMARY | 2025-06-05 12:05 | XMS_ITS | Clinical Summary ---
Author Organization [facility] Address [address] [place] [address] Care Team Providers Care Cement Mason Maintenance Name Role Phone Trisha Jacques PA-C Primary Care Provider [phone] Source Comments PLEASE NOTE, if this patient [...] mcg/actuation nasal sprayIndications: Throat dry Place 1 [place] into the nostril(s) once daily. 16 g [...] Saw urology on 01/09/2016 Dr. Malcolm at [facility] urology: negative workup With cysto and [...] 03/24/2015 Overview (01/15/2016): Yesika screening done at [facility] on 03/20/2015: No mammographic evidence of malignancy in the right breast. Further eval of the left breast group of microcalcification by additional views. Pt will be contacted directly for imaging. BIRADS category 0 incomplete. Need further imaging. Second mammogram done 04/02/2015 at [facility]: small cluster microcalcifications seen in the [...] Plan of Treatment Not on file Insurance [facility] Member Subscriber Plan / Payer (Ef fective 2014-Present) Name:Saima Hand Relation to Subscriber:Self Name:Saima Hand Payer ID:[id number] Group ID:Not on file Type:Medicaid Address: [facility] [id number] [place] [address] [facility] Care Teams Cement Mason Maintenance Relationship Specialty Start Date End Date Trisha Jacques PA-C [address] [place] [address] PCP - General 09/27/18
--- OUTSIDE RECORDS SUMMARY | 2025-06-05 12:05 | XMS_ITS | Encounter Summary ---
Author Organization [facility] Address [address] 7[address] [place] [address] Care Team Providers Care Life Insurance Salesperson Name Role Phone Misti Carrillo MD Primary Care Provider + Misti Carrillo MD Primary Care Provider + Misti Carrillo MD Unavailable [phone] Encounter Details Date Type Department Care Team (Latest Contact Info) Description 10/17/2019 Abstract [facility] CONVERSIONS Dental, Provider, DDS Social [...] on filedocumented in this encounter Care Teams Life Insurance Salesperson Relationship Specialty Start Date End Date Misti Carrillo MD [address] [place], [place] [phone] PCP - General Family Medicine 10/17/19 07/14/23 Misti Carrillo MD [address] [place], [place] [phone] PCP - General Internal Medicine 07/15/23 Misti Carrillo MD [address] [place] [id number] Family Medicine 07/15/23 documented as of this encounter
--- OUTSIDE RECORDS SUMMARY | 2025-06-05 12:06 | XMS_ITS | Clinical Summary ---
Author Organization [address] [facility] Address [address] [place] [address] Phone Care Team Providers Care Word Processing Supervisor Name Role Phone Toby Fink MD Primary [...] Panel) 08/27/2024 Colorectal Cancer Screening: Colonoscopy 08/27/2024 Falls Risk Assessment 08/27/2024 Hepatitis C Screening 08/27/2024 Osteoporosis Screening (Bone Density Screening) 08/27/2024 Social Influencers of Health Screening 08/27/2024 Depression Screening 11/07/2024 Influenza Vaccine (#1) 2025 , 11/12/2020, 10/19/2019, [...] complete this topic Insurance MEDICAID - [place] [facility] Member Subscriber Plan / Payer (Ef fective 2018-Present) Name:KALE ABREU Relation to Subscriber:Self Name:Kale Abreu Payer ID:[id number] Group ID:Not on file Type:Not on file Address: [address] [place] [address] Care Teams Word Processing Supervisor Relationship Specialty Start Date End Date Toby Fink MD [address] [place] [address] PCP - General Internal Medicine 08/27/24
== END 2025-06-05 11:34 | disposition home or self-care (01) ==
LOC: HO.HWS 11:00
PROVIDERS: PCP Internal Medicine; Visit Provider Obstetrics & Gynecology
DX: N85.9 Noninflammatory disorder of uterus, unspecified (principal); D25.9 Leiomyoma of uterus, unspecified
CPT/HCPCS: 99213

== ENCOUNTER → 2025-06-05 10:59 | Outpatient (BNVA) | payer OTHER, SELFPAY | PROVIDERS: PCP Internal Medicine; Visit Provider Obstetrics & Gynecology | DX: Z71.2 Person consulting for explanation of examination or test findings (principal); D25.9 Leiomyoma of uterus, unspecified; N85.9 Noninflammatory disorder of uterus, unspecified | CPT/HCPCS: 99212 ==

== ENCOUNTER 2025-06-13 11:19 | Day surgery (SDC) | payer OTHER, SELFPAY ==
--- OUTSIDE RECORDS SUMMARY | 2025-06-06 09:25 | XMS_ITS | Encounter Summary ---
Author Organization [facility] Address [address] [place] [address] Care Team Providers Care Metal Cleaner Name Role Phone Misti Carrillo MD Primary Care Provider + Misti Carrillo MD Primary Care Provider + Misti Carrillo MD Unavailable [phone] Encounter Details Date Type Department Care Team (Latest Contact Info) Description 10/17/2019 Abstract [facility] CONVERSIONS Dental, Provider, DDS Social History [...] on filedocumented in this encounter Care Teams Metal Cleaner Relationship Specialty Start Date End Date Misti Carrillo MD [address] [place], [place] [phone] PCP - General Family Medicine 10/17/19 07/14/23 Misti Carrillo MD [address] [place], [place] [phone] PCP - General Internal Medicine 07/15/23 Misti Carrillo MD [address] [place] [phone] Family Medicine 07/15/23 documented as of this encounter
--- OUTSIDE RECORDS SUMMARY | 2025-06-06 09:25 | XMS_ITS | Clinical Summary ---
Author Organization [facility] Address [address] [place] [address] Care Team Providers Care Digital Sales Representative Name Role Phone Trisha Jacques PA-C Primary Care Provider Source Comments PLEASE NOTE, if this patient [...] mcg/actuation nasal sprayIndications: Throat dry Place 1 [place] into the nostril(s) once daily. 16 g [...] Saw urology on 01/09/2016 Dr. Malcolm at [facility] urology: negative workup With cysto [...] 03/24/2015 Overview (01/15/2016): Yesika screening done at [facility] on 03/20/2015: No mammographic evidence of malignancy in the right breast. Further eval of the left breast group of microcalcification by additional views. Pt will be contacted directly for imaging. BIRADS category 0 incomplete. Need further imaging. Second mammogram done 04/02/2015 at [facility]: small cluster microcalcifications seen in the mis [...] ID:[id number] Group ID:Not on file Type:Medicaid Address: [facility] [id number] [place] [address] [facility] Care Teams Digital Sales Representative Relationship Specialty Start Date End Date Trisha Jacques PA-C [address] [place] [address] PCP - General 09/27/18
--- OUTSIDE RECORDS SUMMARY | 2025-06-06 09:26 | XMS_ITS | Clinical Summary ---
Author Organization [address] [facility] Address [address] [place] [address] Phone Care Team Providers Care Public Works Commissioner Name Role Phone Toby Fink MD Primary [...] complete this topic Insurance MEDICAID - [place] [facility] Member Subscriber Plan / Payer (Ef fective 2018-Present) Name:KALE ABREU Relation to Subscriber:Self Name:Kale Abreu Payer ID:[id number] Group ID:Not on file Type:Not on file Address: [address] [place] [address] Care Teams Public Works Commissioner Relationship Specialty Start Date End Date Toby Fink MD [address] [place] [address] PCP - General Internal Medicine 08/27/24
--- NOTE | 2025-06-12 09:45 | P.CONAN_ITS ---
Documented by User: Michaela Riley NP 06/12/25 09:45 HPI - Anesthesia Eval Consult details Narrative: 70yo F for D&C Hysteroscopy,possible myomectomy,possible polypectomy, [facility] Active Problems Active Problems: All Active Problems Seborrheic keratosis (Acute) Renal calcification (Acute) Dysuria (Acute) Vulvar lesion (Acute) Atrophic vaginitis (Acute) Vaginal discharge (Acute) Microscopic hematuria (Acute) Pelvic pain (Acute) Pelvic congestion (Acute) Uterine myoma (Acute) Fluid in endometrial cavity (Acute) Greater trochanteric bursitis of both hips (Acute) Frequent UTI (Acute) Palpitations (Acute) Essential hypertension (Acute) Colonoscopy refused (Acute) H. pylori infection (Acute) Past Medical History Medical History Hypertension Frequent UTI Family History Family History Father Prostate CA Mother No problems noted. Surgical History Surgical History No pertinent past surgical history Social History Social History Household Members: None Alcohol intake: never Patient Tobacco Use Status: Never used Tobacco Advance Directives: No Advance Directives Information Provided: Yes Meds Allergies Allergy/AdvReac Type Severity Reaction Status Date / Time penicillamine (PENICILLAMINE) AdvReac Intermediate PALPATATION Verified 06/13/25 12:23 S Home Medications ?Medication ?Instructions ?Recorded ?Confirmed ?Last Taken ?Type docusate sodium 100 mg capsule 100 mg PO BID 04/29/21 05/09/25 Unknown History (Colace) cetirizine 10 mg tablet 10 mg PO DAILY 05/09/2501/29 Unknown History Assessment and Plan Assessment Anesthesia Assessment: Chart Reviewed Documented by User: Gurvinder Ordonez MD 06/13/25 12:27 [facility] Past Medical History Medical History Hypertension Frequent UTI Family History Family History Father Prostate CA Mother No problems noted. Family history of problems with anesthesia: No Surgical History Surgical History No pertinent past surgical history History of Problems with Anesthesia: No Social History Social History Household Members: None Alcohol intake: never Patient Tobacco Use Status: Never used Tobacco Advance Directives: No Advance Directives Information Provided: Yes Meds Allergies Allergy/AdvReac Type Severity Reaction Status Date / Time penicillamine (PENICILLAMINE) AdvReac Intermediate PALPATATION Verified 06/13/25 12:23 S Home Medications ?Medication ?Instructions ?Recorded ?Confirmed ?Last Taken ?Type docusate sodium 100 mg capsule 100 mg PO BID 04/29/21 05/09/25 Unknown History (Colace) cetirizine 10 mg tablet 10 mg PO DAILY 05/09/2501/29 Unknown History Exam Airway Mallampati Class: I TM Dist: <=3cm Neck ROM: Full Loose/Missing/Broken Teeth: Yes, Upper and Lower Heart: ok Lungs: ok Assessment and Plan Assessment Anesthesia Assessment: Anesthesia Plan Discussed Final Anesthetic Review Family History of Problems with Anesthesia: No History of Problems with Anesthesia: No NPO: Yes ASA Class: III Final Preanesthetic Review: No Changes in Pt Med Stat, Meds/Allgs Chart Reviewed, Consent Obtained/Reviewed and Anes Risks/Benef Reviewed Patient Risk: Intermediate Procedure Risk: Low Anesthetic Plan Anesthetic Plan: GA and Agree w/ Assess. and Plan Disposition: Standard PACU
[2025-06-13] VITALS (8 sets, daily range): BP systolic 101–140; BP diastolic 52–66; PULSE 51–62; RESP 12–15; TEMP 36.1–36.6; O2SAT 97–100; BMI 19.1
[2025-06-13] MEDS: Lactated Ringers 1,000 ML 100 ML IVCONT (12:31)
--- NOTE | 2025-06-13 12:33 | MHC.SHP ---
Pre-Procedural Eval Section A - 24 Hr Update-Section A only Date of Service: 06/13/25 The patient is an INPATIENT: No Changes since office visit: No Cold of Flu in the past 2 weeks, No New Medical Problems, No Changes in Medication and No Patient answered all questions The patient has been examined within 24 hours of the surgical procedure. The History & Physical has been completed within 30 days and I have reviewed it.: Yes Section B - Complete if H&P > 30 days Chief Complaint: Noninflammatory disorder of uterus, unspecified Allergies: Allergies Allergy/AdvReac Type Severity Reaction Status Date / Time penicillamine (PENICILLAMINE) AdvReac Intermediate PALPATATION Verified 06/13/25 12:23 S Plan Diagnosis/Plan: Unchanged I have reviewed the history and physical and performed a pertinent physical examination on my patient. No changes have occurred unless specified. Time Spent With Patient Time: Total time managing care of this patient today ____ minutes.
--- NOTE | 2025-06-13 13:19 | P.OP_ITS ---
Operative Note Operative Note Date of Service: 06/13/25 Narrative: Preop Diagnosis: Endometrial fluid with abnormal endometrium by US Operation: Diagnostic Hysteroscopy, Dilataion & Curettage and polypectomy Post Op Diagnosis: Small fundal Endometrial Polyp QBL: Minimal Anesthesia: GLMA Surgeon: Favio Cook MD Forest Ranger Technician: None Complication: None Pathology: Endometrial Scrapings, Endometrial polyp Procedure: The patient was put in the dorsal lithotomy position, scrubbed, and draped in the usual manner. A sterile speculum was inserted in the patient's vagina. The anterior lip of the cervix was grasped with a single tooth tenaculum. The cervix was dilated up to 5 mm, then the scope was inserted in the patient's uterus. Inspection revealed a small fundal endometrial polyp. The Myosure Reach device was used; it was introduced through the operative channel and polypectomy done with no complications. The scope was then taken out from the uterine cavity, sharp curettings was carried on with minimal to moderate amount of tissues retrieved. At the end of the procedure, all instruments were taken out of the patient uterine and vaginal cavity. The single tooth tenaculum was removed and homeostasis was assured using pressure,. The patient tolerated the procedure well and was transferred to the PACU in a stable condition.
--- NOTE | 2025-06-13 13:19 | PM.OP ---
Brief Operative Note Date of Service: 06/13/25 Pre-op diagnosis: Endometrial fluid with abnormal endometrium by ultrasound Post-op diagnosis: same (Small endometrial fundal part) Procedure: Hysteroscopy D&C, Polypectomy Surgeon: Favio Cook MD Anesthesia: GLMA Was an Assembly Detailer used for this Procedure?: No Estimated blood loss (mL): 0 Pathology: other (Endometrial Scrapping. Polyp) Condition: stable Disposition: PACU
== END 2025-06-13 14:21 | disposition home or self-care (01) ==
PROVIDERS: Visit Provider Obstetrics & Gynecology
PROC: 0UDB8ZZ Extraction of Endometrium, Via Natural or Artificial Opening Endoscopic (ICD-10-PCS; CPT 58558; principal; 2025-06-13 13:40)
DX: N84.0 Polyp of corpus uteri (principal); D25.9 Leiomyoma of uterus, unspecified; N39.0 Urinary tract infection, site not specified; I10 Essential (primary) hypertension; Z79.899 Other long term (current) drug therapy; Z88.0 Allergy status to penicillin
CPT/HCPCS: 58558; 88305; J1100; J1885; J2003; J2405; J2704; J3010

== ENCOUNTER → 2025-06-13 11:19 | Outpatient (BNV) | payer OTHER, SELFPAY | PROVIDERS: Visit Provider Obstetrics & Gynecology | DX: N84.0 Polyp of corpus uteri (principal) | CPT/HCPCS: 58558 ==

== ENCOUNTER 2025-06-18 14:18 | Outpatient (REF) | payer OTHER, SELFPAY ==
[2025-06-19 03:50] LABS: Bacterial Vaginosis PCR NEGATIVE (Negative); Candida Group PCR NOT DETECTED (Not Detect); Candida glab krusei PCR NOT DETECTED (Not Detect); Trichomonas vaginalis PCR NOT DETECTED (Not Detect)
== END 2025-06-18 14:19 | disposition home or self-care (01) ==
LOC: HO.LNP 14:18
PROVIDERS: Visit Provider Obstetrics & Gynecology
DX: N84.0 Polyp of corpus uteri (principal); N76.0 Acute vaginitis; B96.89 Other specified bacterial agents as the cause of diseases classified elsewhere
CPT/HCPCS: 81515; 99212

== ENCOUNTER 2025-06-18 14:18 | Outpatient (AMB) | payer OTHER, SELFPAY ==
--- NOTE | 2025-06-18 14:51 | A.OFFVIS_ITS ---
Vital Signs 06/18/25 14:54 Height 5 ft Intake Visit Reasons: Vaginal odor Accounts Receivable Representative Required: Yes Accounts Receivable Representative Language: Mold Cooler Services: Accounts Receivable Representative Present (in person) Accounts Receivable Representative Name: Joana VERAS Information Interpreted: non-clinical & clinical Child Abuse Worker: Child Abuse Worker Present (Joana VERAS) Accompanied by: Employee Allergies penicillamine (PENICILLAMINE) Adverse Reaction (Intermediate, Verified 06/18/25 14:55) PALPATATIONS Post menopausal: Yes HPI Comments Details: The patient is presenting post hysteroscopy D&C no complaints minimal vaginal bleeding no feverishness chills or abdominal pain. The pathology showed the following: A. Endometrial polyp, resection: Benign endometrial polyp, with focal crowded glands with epithelial changes (see comment). B. Endometrium, curettage: Scant benign atrophic endometrium; no atypia or carcinoma. Comment: The area of gland crowding has epithelial changes that are different from surrounding glands, but insufficient for an outright diagnosis of intraepithelial neoplasia. Follow- up with resampling is warranted [facility] Medical History Hypertension Frequent UTI Surgical History No pertinent past surgical history Family History Father Prostate CA Mother No problems noted. Social History Household Members: None Are you a primary adult daycare coordinator to a significant other at home: No Do you presently have visiting nurse or other home services: No Alcohol intake: never Patient Tobacco Use Status: Never used Tobacco Assessment & Plan Assessment & Plan (1) Endometrial polyp: Comment: with crowded glands Code(s): N84.0 - Polyp of corpus uteri Category: Medical Plan: Discussed with the patient the results of the pathology endometrial polyp with crowding glans, referral to Gyne Onc for further management was placed Instructed the patient to call our office back in case a referral appointment is not scheduled, missed or canceled so that we will assist on rescheduling another appointment, the patient verbalized understanding agreed with the plan. (2) Bacterial vaginosis: Code(s): N76.0 - Acute vaginitis; B96.89 - Other specified bacterial agents as the cause of diseases classified elsewhere Category: Medical Plan: BV panel taken. Per CDC recommendation, will screen for STI, HepBs Ag, HIV, RPR, Hep C Ab ordered. Will treat with Flagyl 500 mg p.o. b.i.d. x 7 days, Instructions given to the patient to refrain from sexual activity or to use condoms consistently and correctly during the BV treatment regimen, not to douch, it might increase the risk for relapse, and to call if symptoms persist or recur. Orders: Orders Bacterial Vaginosis Panel Today N89.8 - Other specified noninflammatory disorders of vagina Referrals Gynecologic Oncology Referral N84.0 - Polyp of corpus uteri Medications: New metronidazole 500 mg PO BID 14 tabs 0RF 7 days Coding Level of Care Code Est Pt Level 3 (06531) Diagnoses Endometrial polyp N84.0 Bacterial vaginosis N76.0; B96.89
--- OUTSIDE RECORDS SUMMARY | 2025-06-18 15:12 | XMS_ITS | Encounter Summary ---
Author Organization [facility] Address [address] [place] [address] Care Team Providers Care Bonding Machine Setter Name Role Phone Misti Carrillo MD Primary Care Provider + Misti Carrillo MD Primary Care Provider + Misti Crarillo MD Unavailable [phone] Encounter Details Date Type Department Care Team (Latest Contact Info) Description 10/17/2019 Abstract [facility] CONVERSIONS Dental, Provider, DDS Social History Tobacco [...] Care Team (Late st Contact Info) Description 06/26/2025 11:45 AM EDT Office Visit [facility] CHC ADULT DENTAL [address] [place] [address] Tonio Dawson DMD [address] [place], [place] [id number] documented as of this encounter Visit Diagnoses Not on filedocumented in this encounter Care Teams Bonding Machine Setter Relationship Specialty Start Date End Date Misti Carrillo MD [address] [place], [place] [id number] PCP - General Family Medicine 10/17/19 07/14/23 Misti Carrillo MD [address] [place] [address] PCP - General Internal Medicine 07/15/23 Misti Carrillo MD [address] [place] [address] Family Medicine 07/15/23 documented as of this encounter
--- OUTSIDE RECORDS SUMMARY | 2025-06-18 15:12 | XMS_ITS | Clinical Summary ---
Author Organization [facility] Address [address] [place] [address] Care Team Providers Care Technician Helper Instrument Name Role Phone Trisha Jacques PA-C Primary Care Provider [phone] Source Comments PLEASE NOTE, if this patient [...] mcg/actuation nasal sprayIndications: Throat dry Place 1 [place] into the nostril(s) once daily. 16 g [...] Saw urology on 01/09/2016 Dr. Malcolm at [facility] urology: negative workup With cysto and [...] 03/24/2015 Overview (01/15/2016): Yesika screening done at [facility] on 03/20/2015: No mammographic evidence of malignancy in the right breast. Further eval of the left breast group of microcalcification by additional views. Pt will be contacted directly for imaging. BIRADS category 0 incomplete. Need further imaging. Second mammogram done 04/02/2015 at [facility]: small cluster microcalcifications seen in the mis [...] Treatment Not on file Insurance [facility] Member Subscriber Plan / Payer (Ef fective 2014-Present) Name:Saima Hand Relation to Subscriber:Self Name:Saima Hand Payer ID:[id number] Group ID:Not on file Type:Medicaid Address: [facility] [id number] [place] [address] [facility] Care Teams Technician Helper Instrument Relationship Specialty Start Date End Date Trisha Jacques PA-C [address] [place] [address] PCP - General 09/27/18
--- OUTSIDE RECORDS SUMMARY | 2025-06-18 15:12 | XMS_ITS | Clinical Summary ---
Author Organization [address] [facility] Address [address] [place] [address] Phone Care Team Providers Care Medical Education Specialist Name Role Phone Toby Fink MD [...] complete this topic Insurance [place] - [place] [facility] Member Subscriber Plan / Payer (Ef fective 2018-Present) Name:KALE ABREU Relation to Subscriber:Self Name:Kale Abreu Payer ID:[id number] Group ID:Not on file Type:Not on file Address: [address] [place] [address] Care Teams Medical Education Specialist Relationship Specialty Start Date End Date Toby Fink MD [address] [place] [address] PCP - General Internal Medicine 08/27/24
== END 2025-06-18 15:47 | disposition home or self-care (01) ==
LOC: HO.HWS 14:18
PROVIDERS: Visit Provider Obstetrics & Gynecology
DX: N84.0 Polyp of corpus uteri (principal); N76.0 Acute vaginitis; B96.89 Other specified bacterial agents as the cause of diseases classified elsewhere
CPT/HCPCS: 99213

== ENCOUNTER 2025-06-27 11:56 | Outpatient (REF) | payer OTHER, SELFPAY ==
--- OUTSIDE RECORDS SUMMARY | 2025-06-28 11:58 | XMS_ITS | Clinical Summary ---
Author Organization [facility] Address [address] [place] [address] Phone Care Team Providers Care Camp Maintenance Supervisor Name Role Phone Toby Fink MD [...] complete this topic Insurance [place]ID - [place] [facility] Member Subscriber Plan / Payer (Ef fective 2018-Present) Name:KALE ABREU Relation to Subscriber:Self Name:Kale Abreu Payer ID:[id number] Group ID:Not on file Type:Not on file Address: [address] [place] [address] Care Teams Camp Maintenance Supervisor Relationship Specialty Start Date End Date Toby Fink MD [address] [place] [address] PCP - General Internal Medicine 08/27/24
--- OUTSIDE RECORDS SUMMARY | 2025-06-28 11:58 | XMS_ITS | Clinical Summary ---
Author Organization [facility] Address [address] [place] [address] Care Team Providers Care Road Marker Name Role Phone Trisha Jacques PA-C Primary Care Provider [phone] Source Comments PLEASE NOTE, if this patient [...] mcg/actuation nasal sprayIndications: Throat dry Place 1 [place] into the nostril(s) once daily. 16 g [...] Saw urology on 01/09/2016 Dr. Malcolm at [facility] urology: negative workup With cysto [...] 03/24/2015 Overview (01/15/2016): Yesika screening done at [facility] on 03/20/2015: No mammographic evidence of malignancy in the right breast. Further eval of the left breast group of microcalcification by additional views. Pt will be contacted directly for imaging. BIRADS category 0 incomplete. Need further imaging. Second mammogram done 04/02/2015 at [facility]: small cluster microcalcifications seen in the [...] Plan of Treatment Not on file Insurance [facility] Member Subscriber Plan / Payer (Ef fective 2014-Present) Name:Saima Hand Relation to Subscriber:Self Name:Saima Hand Payer ID:[id number] Group ID:Not on file Type:Medicaid Address: [facility] [id number] [place] [address] [facility] Care Teams Road Marker Relationship Specialty Start Date End Date Trisha Jacques PA-C [address] [place] [address] PCP - General 09/27/18
--- OUTSIDE RECORDS SUMMARY | 2025-06-28 11:58 | XMS_ITS | Encounter Summary ---
Author Organization [employer] Address [address] [place] [address] Care Team Providers Care Punch Machine Operator Name Role Phone Misti Carrillo MD Primary Care Provider + Misti Carrillo MD Primary Care Provider + Misti Carrillo MD Unavailable [phone] Encounter Details Date Type Department Care Team (Latest Contact Info) Description 10/17/2019 Abstract [facility] CONVERSIONS Dental, Provider, DDS Social History [...] Care Team (Late st Contact Info) Description 07/10/2025 10:15 AM EDT Office Visit [facility] CHC ADULT DENTAL [address] [place] [address] Tonio Dawson, DMD [address] [place] [address] documented as of this encounter Visit Diagnoses Not on filedocumented in this encounter Care Teams Punch Machine Operator Relationship Specialty Start Date End Date Misti Carrillo MD [address] [place] [address] PCP - General Family Medicine 10/17/19 07/14/23 Misti Carrillo MD [address] [place] [address] PCP - General Internal Medicine 07/15/23 Misti Carrillo MD [address] [place] [address] Family Medicine 07/15/23 documented as of this encounter
== END 2025-06-27 11:57 | disposition home or self-care (01) ==
LOC: HO.HHCLNP 11:56
PROVIDERS: Visit Provider Family Medicine
DX: N39.0 Urinary tract infection, site not specified (principal)
CPT/HCPCS: 87086; 87088; 87186

== ENCOUNTER 2025-07-01 10:40 | Outpatient (REF) | payer OTHER, SELFPAY ==
--- OUTSIDE RECORDS SUMMARY | 2025-07-01 11:52 | XMS_ITS | Encounter Summary ---
Author Organization [email or web address] Address [address] [facility] [facility] [address] [facility] 7[address] [place] [address] Care Team Providers Care Maintenance Of Way Clerk Name Role Phone Misti Carrillo MD Primary Care Provider + Misti Carrillo MD Primary Care Provider + Misti Carrillo MD Unavailable [phone] Encounter Details Date Type Department Care Team (Latest Contact Info) Description 10/17/2019 Abstract [facility] CONVERSIONS Dental, Provider, DDS Social History [...] Description 07/10/2025 10:15 AM EDT Office Visit [facility] CHC ADULT DENTAL [address] [place] [address] Tonio Dawson, DMD [address] [place] [address] documented as of this encounter Visit Diagnoses Not on filedocumented in this encounter Care Teams Maintenance Of Way Clerk Relationship Specialty Start Date End Date Misti Carrillo MD [address] [place] [address] PCP - General Family Medicine 10/17/19 07/14/23 Misti Carrillo MD [address] [place] [address] PCP - General Internal Medicine 07/15/23 Misti Carrillo MD [address] [place] [address] Family Medicine 07/15/23 documented as of this encounter
--- OUTSIDE RECORDS SUMMARY | 2025-07-01 11:52 | XMS_ITS | Clinical Summary ---
Author Organization [facility] Address [address] [place] [address] Care Team Providers Care Calculating Machine Operator Name Role Phone Trisha Jacques PA-C Primary Care Provider [phone] Source Comments PLEASE NOTE, if this patient [...] mcg/actuation nasal sprayIndications: Throat dry Place 1 [place] into the nostril(s) once daily. 16 g [...] Saw urology on 01/09/2016 Dr. Malcolm at [facility] urology: negative workup With cysto [...] 03/24/2015 Overview (01/15/2016): Yesika screening done at [facility] on 03/20/2015: No mammographic evidence of malignancy in the right breast. Further eval of the left breast group of microcalcification by additional views. Pt will be contacted directly for imaging. BIRADS category 0 incomplete. Need further imaging. Second mammogram done 04/02/2015 at [facility]: small cluster microcalcifications seen in the [...] Treatment Not on file Insurance [facility] Member Subscriber Plan / Payer (Ef fective 2014-Present) Name:Saima Hand Relation to Subscriber:Self Name:Saima Hand Payer ID:[id number] Group ID:Not on file Type:Medicaid Address: [facility] [id number] [place] [address] [facility] Care Teams Calculating Machine Operator Relationship Specialty Start Date End Date Trisha Jacques PA-C [address] [place] [address] PCP - General 09/27/18
--- OUTSIDE RECORDS SUMMARY | 2025-07-01 11:52 | XMS_ITS | Clinical Summary ---
Author Organization 175 [facility] Address [address] [place] [address] Phone Care Team Providers Care Fisheries Manager Name Role Phone Toby Fink MD Primary [...] complete this topic Insurance [place] - [place] [facility] Member Subscriber Plan / Payer (Ef fective 2018-Present) Name:KALE ABREU Relation to Subscriber:Self Name:Kale Abreu Payer ID:[id number] Group ID:Not on file Type:Not on file Address: [address] [place] [address] Care Teams Fisheries Manager Relationship Specialty Start Date End Date Toby Fink MD [address] [place] [address] PCP - General Internal Medicine 08/27/24
[2025-07-01 14:21] LABS: Cholesterol 214 mg/dL (<200); HDL Cholesterol 69 mg/dL (>40); Triglycerides 174 mg/dL (<150)
[2025-07-01 14:31] LABS: HIV Num 1 0.08 S/CO (0.00-0.99); ~HepC Num1 0.07 S/CO (0.00-0.79); ~Hepatitis C Antibody Nonreactive (Nonreactive)
[2025-07-01 14:53] LABS: Reflex LDLD? No
[2025-07-02 06:23] LABS: CT PCR NOT DETECTED (Not Detect.); NG PCR NOT DETECTED (Not Detect.)
[2025-07-02 12:39] LABS: Bacterial Vaginosis PCR NEGATIVE (Negative); Candida Group PCR NOT DETECTED (Not Detect); Candida glab krusei PCR NOT DETECTED (Not Detect); Trichomonas vaginalis PCR NOT DETECTED (Not Detect)
== END 2025-07-01 10:41 | disposition home or self-care (01) ==
LOC: HO.HHCL 10:40
PROVIDERS: PCP Internal Medicine; Visit Provider Student in an Organized Health Care Education/Training Program
DX: Z11.3 Encounter for screening for infections with a predominantly sexual mode of transmission (principal); Z11.8 Encounter for screening for other infectious and parasitic diseases; Z11.59 Encounter for screening for other viral diseases; Z11.4 Encounter for screening for human immunodeficiency virus [HIV]; N89.8 Other specified noninflammatory disorders of vagina; E78.00 Pure hypercholesterolemia, unspecified
CPT/HCPCS: 36415; 80061; 81515; 86592; 86803; 87389; 87491; 87591

== ENCOUNTER 2025-07-15 10:32 | Outpatient (REF) | payer OTHER, SELFPAY ==
--- OUTSIDE RECORDS SUMMARY | 2025-07-15 15:39 | XMS_ITS | Encounter Summary ---
Author Organization [employer] Address [address] [place] [address] Care Team Providers Care Grab Jack Worker Name Role Phone Misti Carrillo MD Primary Care Provider + Misti Carrillo MD Primary Care Provider + Misti Carrillo MD Unavailable [phone] Encounter Details Date Type Department Care Team (Late st Contact Info) Description 10/19/2022 Abstract [facility] ADULT DENTAL [address] [place] [address] Allison Sheehan DDS [address] [place] [address] Social History Tobacco Use Types Packs/Day Years [...] on filedocumented in this encounter Care Teams Grab Jack Worker Relationship Specialty Start Date End Date Misti Carrillo MD [address] [place] [address] PCP - General Family Medicine 10/17/19 07/14/23 Misti Carrillo MD [address] [place] [address] PCP - General Internal Medicine 07/15/23 Misti Carrillo MD [address] [place] [address] Family Medicine 07/15/23 documented as of this encounter
--- OUTSIDE RECORDS SUMMARY | 2025-07-15 15:39 | XMS_ITS | Clinical Summary ---
Author Organization [employer] Address [address] [facility] 7[address] [place] [address] Care Team Providers Care Mail Truck Driver Name Role Phone Misti Carrillo MD Primary Care Provider + Misti Carrillo MD Unavailable [phone] Allergies Active Allergy Reactions Criticality Noted Date Comments Penicillins 10/17/2019 Other reaction(s): palpitations Medications amLODIPine (Norvasc) 2.5 MG tablet Take 1 tablet by mouth at bed time. Active ketotifen (Zaditor) 0.025 % ophthalmic solution Administer 1 drop into both eyes 2 times daily. 10 mL 1 3 Active chlorhexidine (Peridex) 0.12 % solution 0 Active cetirizine (ZyrTEC) 10 MG tablet Take 1 tablet (10 mg) by mouth Once per day. 90 tablet 3 4 Active Diclofenac Sodium 1 % gel APPLY [...] Take 1 tablet (40 mg) by mouth at bedtime. 90 tablet 1 5 05/16/20 26 Active sulfamethoxazol e-trimethoprim (Bactrim DS) 800-160 MG tabletIndicatio ns:Acute UTI Take 1 tablet by mouth 2 times daily for 3 days. 6 tablet 5 06/30/20 25 levoFLOXacin (Levaquin) 250 MG tabletIndicatio ns:Acute UTI Take 1 tablet (250 mg) by mouth Once per day for 3 days. 3 tablet 5 07/04/20 25 metroNIDAZOLE (Flagyl) 500 MG tablet Take 1 tablet (500 mg) by mouth 2 times daily for 5 days. 10 tablet 5 07/07/20 25 Active Problems Problem Noted Date Diagnosed Date Screening mammogram for breast cancer 05/16/2025 Positive colorectal cancer screening using Colog uard test 11/29/2024 Assessment & Plan (05/17/2025 3:59 PM EDT): Referral to GI for colonoscopy order again, colonoscopy was never scheduled after GI referral last year Filled with patient importance of having colonoscopy to rule out malignancy this time, she will follow-up with me as needed if she has not received appointment within 1 month Encounter for colorectal cancer screening 2024 Assessment & Plan (11/19/2024 12:08 PM EST): I discussed with patient CRC screening methods, including colonoscopy and cologuard. She wants to do Cologuard at this time. Uterine leiomyoma 11/19/2024 Assessment & Plan (11/19/2024 12:05 PM EST): Unclear if producing compressive symptoms on urinary bladder. Patient will FU with Service Cleaner. FU with me in 6 months. Ear [...] Assessment & Plan (08/10/2024 2:07 PM EDT): PERFORMANCE INSTRUCTOR reports that she is forgetting things at times, I notice she asked same questions today. Order labs and follow up in 3 months, will need mini COG. She has a PERFORMANCE INSTRUCTOR to help her with cooking, she will [...] recession 2024 Hypercholesterolemia 12/19/2023 Assessment & Plan (05/16/2025 11:44 AM EDT): Non compliant with atorvastatin Advised to take it at bedtime and check lipids in 3mo Assessment & Plan (11/19/2024 12:06 PM EST): [...] Benign essential HTN 11/30/2023 Assessment & Plan (05/17/2025 3:58 PM EDT): Controlled. Compliant w/meds Continue amlodipine same dose Counseled re low salt diet/increase moderate physical activity. Check home BP BIW and prn CP/AGUILAR/DOMÍNGUEZ Non smoking patient. Assessment & Plan (11/19/2024 11:39 AM EST): Controlled. Compliant w/meds Continue Amlodipine 2.5 mg Counseled re low salt diet/increase moderate physical activity. Check home BP BIW and prn CP/AGUILAR/DOMÍNGUEZ Non smoking patient. Cautioned Pt and PERFORMANCE INSTRUCTOR regarding cautious change of position due to vasovagal Sx. Patient denied having the Flu vaccine administered at this time. Assessment & Plan (08/10/2024 2:04 PM EDT): Controlled. Compliant w/meds Continue Amlodipine 2.5 mg Counseled re low salt diet/increase moderate physical activity. Check home BP BIW and prn CP/AGUILAR/DOMÍNGUEZ Non smoking patient. Cautioned Pt and PERFORMANCE INSTRUCTOR regarding cautious change of position due to [...] week. 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 Assessment & Plan (05/18/2024 12:10 PM EDT): [...] atrophic vaginitis versus hyperactive bladder. FU with Service Cleaner for results of endometrial biopsy, otherwise she [...] Encounters Date Type Department Care Team Description 07/09/2025 Telephone [facility] [address] [place] [phone] Misti Carrillo MD Nurse Triage 07/01/2025 10:40 AM EDT Office Visit [facility] [address] [place] [phone] Miryam Gtz MD Vaginal itching (Primary Dx); Hematuria, unspecified type 07/01/2025 Results Follow-Up [facility] [address] [place] [address] Sunday Segundo MD POCT urinalysis dipstick manually resulted, Culture, Urine, Routine 07/01/2025 Travel 06/27/2025 10:00 AM EDT Office Visit [facility] [address] [place] [phone] Sunday Segundo MD Acute UTI (Primary Dx); Recurrent hematuria 06/27/2025 Travel 06/26/2025 11:45 AM EDT Office Visit [facility] [address] [place] [address] Tonio Dawson DMD 06/26/[address] [address] Misti Carrillo MD Nurse Triage 05/16/2025 11:15 AM EDT Office Visit [address] [address] Misti Carrillo MD Benign essential HTN (Primary Dx); Hypercholesterolemia ; Positive colorectal cancer screening using Cologuard test; Screening mammogram for breast cancer 05/16/2025 Travel 05/15/[address] [address] Misti Carrillo MD Chart prep 05/08/2025 Telephone [facility] [address] [place] [address] Tonio Dawson DMD oral surgery appt 05/07/2025 Patient Outreach [address] [address] Misti Carrillo MD Pre-visit Planning (SDMT screening completed on 11/09/2024) 05/02/2025 1:00 PM EDT Office Visit [facility] [address] [place] [address] Caitlyn Snyder Dental calculus (Primary Dx) from Last 3 Months Immunizations Immunization Administration Dates Next Due Influenza High-dose Quadriva [...] drink = 0.6 oz pur e alcohol) Depression Answer Date Recorded Patient Health Questionnaire-9 Score 2 05/16/2025 Patient Health Questionnaire-9 Score 2 05/16/2025 Last PHQ-9: Questionnaire Data Not on file 0 05/16/2025 Housing Stability Answer Date Recorded What is [...] Answer Date Recorded Patient Health Questionnaire-2 Score 1 05/16/2025 Internet Access Answer Date Recorded Internet Access [...] Sign Reading Time Taken Comments Blood Pressure 122/71 07/01/2025 10:27 AM EDT Pulse 76 07/01/2025 10:27 AM EDT Temperature 36.5 C (97.7 F) 07/01/2025 10:27 AM EDT Respiratory Rate 20 07/01/2025 10:27 AM EDT Oxygen Saturation 99% 07/01/2025 10:27 AM EDT Inhaled Oxygen Concentration - - Weight 47.6 kg (105 lb) 07/01/2025 10:27 AM EDT Height 144.8 cm (4' 9 ) 07/01/2025 10:27 AM EDT Body Mass Index 22.72 07/01/2025 10:27 AM EDT Plan of Treatment Health Maintenance Due Date Last Done Comments CT Colonography 1955 Colonoscopy 1955 FIT 1955 Sigmoidoscopy 1955 Zoster Vaccines (1 of 2) 2003 Dental X-Ray: Bitewings 2025 2024 COVID-19 Vaccine ( season) 2025 Influenza Vaccine (#1) 2025 , 11/12/2020, 10/19/2019, Additional history exists Dental Oral Exam 11/02/2025 05/02/2025, 05/2024, 2024, Additional history exists Dental Prophylaxis 11/02/2025 05/02/2025, 1 11/13/2023, 2024, Additional history exists SDOH Screening 11/09/2025 11/09/2024 FOBT 11/22/2025 11/22/2024 Alcohol/Substance Use Screening 05/16/2026 05/16/2025 Depression Screening 05/16/2026 05/16/2025, 05/16/20 Mammogram 05/20/2026 05/20/2025, 05/07, 11/25/2023, Additional history exists Tobacco Screening 07/01/2026 07/01/2025 Dental X-Ray: Full Mouth 08/03/2026 023, 01/21/2022, 10/17/2019 HPV/Cotest 02/24/2027 02/24/2022, 04/2 , 01/29/2022 Pap Smear 02/24/2027 02/24/2022, 01/29/2022 Colorectal Cancer Screening 11/22/2027 FIT DNA/Cologuard 11/22/2027 11/22/2024 RSV Patients and Patients Aged 60 years or older (1 - 1-dose 75+ series) 01/11/2028 DTaP/Tdap/Td Vaccines (2 - Td or Tdap) 01/19/2028 01/18/2018 Lipid Panel 07/01/2030 07/01/2025, 12/09, 08/30/2024, Additional history exists Pneumococcal Vaccine: 50+ Years Completed 01/18/2018, 01/18/2018 Hepatitis C Screening Completed 07/01/2025 HIB Vaccines Aged Out No longer eligi [...] Procedure Name Priority Date/Time Associated Diagnosis Comments RPR (MONITOR) W/REFL TITER Routine 07/01/2025 10:46 AM EDT Vaginal itching HEPATITIS C AB W/REFL TO HCV RNA, QN, PCR Routine 07/01/2025 10:46 AM EDT Vaginal itching HIV 1/2 ANTIGEN/ANTIBODY, FOURTH GENERATION W/RFL Routine 07/01/2025 10:46 AM EDT Vaginal itching LIPID PANEL WITH REFLEX TO DIRECT LDL Routine 07/01/2025 10:46 AM EDT Hypercholesterolem ia BACTERIAL VAGINOSIS PANEL Routine 07/01/2025 10:41 AM EDT Vaginal itching CHLAMYDIA/N. GONORRHOEAE RNA, TMA, UROGENITAL Routine 07/01/2025 10:41 AM EDT Vaginal itching POCT URINALYSIS DIPSTICK Routine 06/27/2025 10:29 AM EDT Acute UTI CULTURE, URINE, ROUTINE Routine 06/27/2025 10:19 AM EDT Acute UTI LIMITED ORAL EVALUATION - PROBLEM FOCUSED Routine 06/26/2025 11:45 AM EDT BI MAMMOGRAM SCREENING TOMOSYNTHESIS BILATERAL Routine 05/20/2025 10:40 AM EDT Screening mammogram for breast cancer COMPREHENSIVE PERIODONTAL EVALUATION - NEW OR ESTABLISHED PATIENT Routine 05/02/2025 1:00 PM EDT PERIODIC ORAL EVALUATION - ESTABLISHED PATIENT Routine 05/02/2025 1:00 PM EDT INTRAORAL - PERIAPICAL EACH ADDITIONAL RADIOGRAPHIC IMAGE Routine 05/02/2025 1:00 PM EDT INTRAORAL - PERIAPICAL EACH ADDITIONAL RADIOGRAPHIC IMAGE Routine 05/02/2025 1:00 PM EDT INTRAORAL - PERIAPICAL EACH ADDITIONAL RADIOGRAPHIC IMAGE Routine 05/02/2025 1:00 PM EDT INTRAORAL - PERIAPICAL EACH ADDITIONAL RADIOGRAPHIC IMAGE Routine 05/02/2025 1:00 PM EDT INTRAORAL - PERIAPICAL FIRST RADIOGRAPHIC IMAGE Routine 05/02/2025 1:00 PM EDT ORAL HYGIENE INSTRUCTIONS Routine 05/02/2025 1:00 PM EDT CASE PRESENTATION, DETAILED AND EXTENSIVE TREATMENT PLANNING Routine 05/02/2025 1:00 PM EDT PROPHYLAXIS - ADULT Routine 05/02/2025 1 :00 PM EDT LAB COLOGUARD COLON CANCER SCREEN Routine 11/22/2024 11:47 AM EST Screening for colon cancer PANORAMIC RADIOGRAPHIC IMAGE Routine 08/02/2023 10:30 AM EDT ZZZ HISTORICAL HPV E6/E7 RFLX KATHLEEN 16 18/45 Routine 02/24/2022 10:32 AM EDT HM PAP/HPV Routine 02/24/2022 from Last 3 Months or Most Recently Relevant to Health Maintenance Results * (ABNORMAL) Lipid Panel with Reflex to Direct LDL (07/01/2025 10:46 AM EDT) Triglycerides 174(H) <150 mg/dL [facility] Comment:Desirable Triglyceri de: less than 150 mg/dLBorderline High Triglyceride 150-199 mg/dLHigh Triglyceride: 200-499 mg/dLVery High Triglyceride: greater than or equal to 5OO mg/dL Cholesterol 214(H) <200 mg/dL [facility] Comment:Desirable Cholestero l: less than 200 mg/dLBorderline High Cholesterol: 200-239 mg/dLHigh Cholesterol: greater than 239 mg/dL LDL Cholesterol Calculated 111(H) <100 mg/dL [facility] Comment:Desirable LDL: less than 100 mg/dLNear Optimal/Above Optimal LDL: 110- 129 mg/dLBorderline High LDL: 130-159 mg/dLHigh LDL: 160-189 mg/dLVery High LDL: greater than or equal to 190 mg/dL HDL Cholesterol 69 >40 mg/dL [facility] Comment:Desirable HDL: great er than 40 mg/dL Note: This HDL assay may give artificially low results in patients with liver disease. Blood 07/01/2025 10:4 6 AM EDT 07/01/2025 1:28 PM EDT us Misti Carrillo MD LAB BLOOD ORDERABLES Fin al Result [facility] [address] [place] [phone] * Hepatitis C Antibody with Reflex to HCV, RNA, Quantitative, Real-Time PCR (07/01/2025 10:46 AM EDT) Hepatitis C Antibody Nonreactive Nonreactive [facility] Comment:Antibodies to HCV no t detected; does not exclude early acuteHCV infection. Blood Venous blood specimen / Unknown 07/01/2025 10:46 AM EDT 07/01/2025 1:28 PM EDT us Miryam Gtz MD LAB BLOOD ORDERABLES Final Resul t Performing Organization Address [facility]/ZIP Co de Phone Number [facility] [address] [place] [address] [phone] * RPR (Monitor) with Reflex to??Titer (07/01/2025 10:46 AM EDT) RPR (Monitor) w/Refl Titer NON-REACTI VE NON-REACT JADIEL [facility] Comment:THIS TEST WAS PERFOR MED AT:[employer] [place] [phone] MICHAEL MD Rapid Plasma Reagin Ab Titer TNP [facility] Blood Venous blood specimen / Unknown 07/01/2025 10:46 AM EDT 07/01/2025 1:28 PM EDT Miryam Gtz MD LAB BLOOD ORDERABLES Final Resul t Performing Organization Address [facility] Co de Phone Number [facility] [address] [place] [address] [phone] * HIV-1/2 Antigen and Antibodies, Fourth Generation, with Reflexes (07/01/2025 10:46 AM EDT) Pathologist [facility] HIV AB/AG Nonreactive Nonreactive [facility] Comment:HIV-1 p24 Ag and/or HIV-1/HIV-2 Ab not detected.A test result that is nonreactive does not exclude thepossibility of exposure to or infection with HIV-1 and/orHIV-2. Nonreactive results in this assay for individualswith prior exposure to HIV-1 and/or HIV-2 may be due toantigen and antibody levels that are below the limit ofdetection of this assay.The [employer] HIV Ag/Ab Combo assay result andsupplemental assay results should be interpreted inconjunction with the patient's clinical presentation,history and other laboratory results. If the results areinconsistent with clinical evidence, additional testing issuggested to confirm the result. Blood Venous blood specimen / Unknown 07/01/2025 10:46 AM EDT 07/01/2025 1:28 PM EDT Miryam Gtz MD LAB BLOOD ORDERABLES Final Resul t Performing Organization Address [facility] Co de Phone Number [facility] [address] [place] [phone] * Bacterial Vaginosis Panel (07/01/2025 10:41 AM EDT) TRICHOMONAS VAGINALIS DETECTION BY PCR NOT DETECTED Not Detect [facility] BACTERIAL VAGINOSIS DETECTION BY PCR NEGATIVE Negative [facility] Comment:The BV organism targ ets [...] DETECTION BY PCR NOT DETECTED Not Detect [facility] Ria glab krusei PCR NOT DETECTED Not Detect [facility] Swab Vaginal structure / Unknown 07/01/2025 10:41 AM EDT 07/02/2025 11:34 AM EDT Miryam Gtz MD LAB MICROBIOLOGY - GENERAL ORDER VICTORIANO Final Result Performing Organization Address [facility] Co de Phone Number [facility] [address] [place] [phone] * Chlamydia/N. Gonorrhoeae RNA, TMA, Vaginal (07/01/2025 10:41 AM EDT) CT PCR NOT DETECTED Not Detect. [facility] Comment:A not detected test result [...] psychologicalconsequences. NG PCR NOT DETECTED Not Detect. [facility] Comment:A not detected test result [...] lead to adverse medical, social or psychologicalconsequences. Swab (Urine, Random) 07/01/2025 10:41 AM EDT 07/01/2025 5:39 PM EDT us Miryam Gtz MD LAB MICROBIOLOGY - GENERAL ORDER VICTORIANO Final Result [facility] [address] [place] [phone] * (ABNORMAL) POCT urinalysis dipstick manually resulted (06/27/2025 10:29 AM EDT) Color, UA Yellow Clarity, UA Clear Glucose, UA Negative Bilirubin, UA Negative Ketones, UA Negative Spec Grav, UA 1.010 Blood, UA Positive(A) Negative, None Detected Comment:small pH, UA 5.5 Protein, UA Negative Urobilinogen, UA 0.2 Leukocytes, UA Few 15(A) Negative, Rare, Trace Comment:small Nitrite, UA Negative Negative, None Detected Urine 06/27/2025 10:2 9 AM EDT Sunday Segundo MD POINT OF CARE TEST ENTER/EDIT OR DERABLES Final Result * Culture, Urine, Routine (06/27/2025 10:19 AM EDT) Urine Urine specimen obtained by clean catch procedure / Unknown 06/27/2025 10:19 AM EDT 06/28/2025 11:58 AM EDT Comment:UACC Narrative [facility] - 06/30/2025 8:02 AM EDT Enterococcus faecalis Quant 10,000 to 50,000 cfu/mL Enterococcus faecalis: Ampicillin <=2(S) Enterococcus faecalis: Levofloxacin 0.5(S) Enterococcus faecalis: Nitrofurantoin <=16(S) Enterococcus faecalis: Tetracycline >=16(R) Enterococcus faecalis: Vancomycin 2(S) Specimen Source: Urine clean catch Sunday Segundo MD LAB MICROBIOLOGY - GENERAL ORDER VICTORIANO Final Result [facility] [address] [place] [phone] * BI Mammogram Screening Tomosynthesis Bilateral (05/20/2025 10:40 AM EDT) Anatomical Region Laterality Modality Breast Bilateral Mammography 05/20/2025 10:4 0 AM EDT Narrative 05/31/2025 5:09 PM EDT [facility] [address] [place] [address] Mammography Report Signed Patient: Saima Pelaez MR #: [id number] : 1955 Acct:[id number] Age/Sex: 70 / F ADM Date: 05/20/25 Loc: HO.MAMMO Attending Dr: Misti Carrillo MD Ordering Physician: Misti Carrillo MD Results: 1Ne gative Date of Service: 05/20/25 Follow Up: 1 Year From Orig inal Mammogram Procedure(s): MM tomosynthesis screening BI Accession Number(s): [id number] cc: Misti Carrillo MD EXAMINATION: MM SCREENING DIGITAL BREAST TOMOSYNTHESIS, BILATERAL CLINICAL INFORMATION: Screening. Asymptomatic. COMPARISON: Mammography: Comparison is made with available priors TECHNIQUE: Digital breast mammography with tomosynthesis is performed in both the craniocaudal and mediolateral oblique views along with computer-aided detection (CAD). FINDINGS: There are scattered areas of fibroglandular [...] target due date for their next mammogram. Electronically signed by: Aishwarya Soliz DO 05/31/2025 05:06 PM EDT Dictated By: Aishwarya Soliz DO Signed By: <Electronically signed by Aishwarya Soliz DO in OV> 05/31/25 1706 DD/ 1040 TD/TT: 05/20/25 1055 Oral Pathologist: Procedure Note Donotuseinterpreter, Image - 05/31/20[facility] [address] [place] [address] Mammography Report Signed Patient: Naty PelaezR #: [id number] : 1955cct:[id number] Age/Sex: 70 / FADM Date: 05/20/25 Loc: DILIAO Attending Dr: Misti Carrillo MD Ordering Physician: Misti Carrillo MDResults: 1Ne gative Date of Service: 05/20/25Follow Up: 1 Year From Orig inal Mammogram Procedure(s): MM tomosynthesis screening BI Accession Number(s): [id number] cc: Misti Carrillo MD EXAMINATION: MM SCREENING DIGITAL BREAST TOMOSYNTHESIS, BILATERAL CLINICAL INFORMATION: Screening. Asymptomatic. COMPARISON: Mammography: Comparison is made with available priors TECHNIQUE: Digital breast mammography with tomosynthesis is performed in both the craniocaudal and mediolateral oblique views along with computer-aided detection (CAD). FINDINGS: There are scattered areas of fibroglandular [...] target due date for their next mammogram. Electronically signed by: Aishwarya Soliz DO 05/31/2025 05:06 PM EDT Dictated By: Aishwarya Soliz DO Signed By: <Electronically signed by Aishwarya Soliz DO in OV> 05/31/25 1706 DD/ 1040 TD/TT: 05/20/25 1055 Oral Pathologist: Misti Carrillo MD IM BI PROCEDURES Edited Result - Final * (ABNORMAL) Cologuard?? colon cancer screening (11/22/2024 11:47 AM EST) Cologuard Result Positive( A) Negative 11/29/2024 10:22 AM EST [facility] (CLIA #:[id number]) Comment: POSITIVE TEST RESULT. A positive Cologuard result should be followed with a colonoscopy or visual examination of the colon. The normal value (reference range) for this assay is negative. TEST DESCRIPTION: Composite algorithmic analysis of stool DNA-biomarkers with hemoglobin immunoassay. Quantitative values of individual biomarkers are not [...] Contreras et al, N Engl J Med 2014;370(14):9359-6350.) Cologuard may produce a false negative or [...] can be accessed at the following location: www.Compendium/results. Additional description of the Cologuard test process, warnings and precautions can be found at [email or web address]. Stool specimen (specimen) 11/22/2024 11:47 AM EST 11/23/2024 1:19 PM EST us Misti Carrillo MD LAB MOLECULAR DIAGNOSTIC S ORDERABLES Final Result [facility] (CLIA #:[id number]) [place] [address], * HPV E6/E7 RFLX KATHLEEN 16 18/45 (02/24/2022 10:32 AM EDT) HPV mRNA E6/E7 rflx Not Detected Not Detected [facility] Comment: Methodology: Mdm Sr-Mediated Amplification This assay detects E6/E7 viral messenger RNA (mRNA) from 14 high-risk HPV types (16,18,31,33,35,39,45,51,52,56,58,59,66,68). The analytical performance characteristics of this assay have been determined by [facility]. The modifications have not been cleared or approved by the FDA. This assay has been validated pursuant to the CLIA regulations and is used for clinical purposes. For additional information, please refer to http://education.Glassy Pro/faq/AKV381w3 (This link if provided for information/ educational purposes only.) THIS TEST WAS PERFORMED AT: [facility] [address] [place] [address] [address]LO[address],[place] [phone] DEV MICHAEL MD 02/24/2022 10:3 2 AM EDT Jessica Monroy HISTORICAL/NON ORDERABLE LABS Fi nal Result [facility] [address] * Pap Smear (02/24/2022) Historical Provider HEALTH MAINTENANCE Final Result from Last 3 Months or Most Recently Relevant to Health Maintenance Insurance [facility] [employer] OPT[employer] (O D-SNP) [place] [id number] DENTAL - [facility] Care Teams Mail Truck Driver Relationship Specialty Start Date End Date Misti Carrillo MD [address] [place] [address] PCP - General Internal Medicine 07/15/23 Misti Carrillo MD [address] [place] [phone] Family Medicine 07/15/23
--- OUTSIDE RECORDS SUMMARY | 2025-07-15 15:39 | XMS_ITS | Encounter Summary ---
Author Organization [employer] Address [address] [facility] 7[address] [place] [address] Care Team Providers Care Central Sterilization Technician Name Role Phone Misti Carrillo MD Primary Care Provider + Misti Carrillo MD Primary Care Provider + Misti Carrillo MD Unavailable [phone] Encounter Details Date Type Department Care Team (Latest Contact Info) Description 06/09/2022 Abstract C CONVERSIONS Dental, Provider, DDS Social History Tobacco [...] on filedocumented in this encounter Care Teams Central Sterilization Technician Relationship Specialty Start Date End Date Misti Carrillo MD [address] [place] [phone] PCP - General Family Medicine 10/17/19 07/14/23 Misti Carrillo MD [address] [place] [phone] PCP - General Internal Medicine 07/15/23 Misti Carrillo MD [address] [place] [phone] Family Medicine 07/15/23 documented as of this encounter
--- OUTSIDE RECORDS SUMMARY | 2025-07-15 15:39 | XMS_ITS | Clinical Summary ---
Author Organization [facility] Address [address] [place] [address] Care Team Providers Care Head Of Business Development Name Role Phone Trisha Jacques PA-C Primary Care Provider [phone] Source Comments PLEASE NOTE, if this patient [...] mcg/actuation nasal sprayIndications: Throat dry Place [address] [place] into the nostril(s) once daily. 16 g [...] Saw urology on 01/09/2016 Dr. [facility] u[facility]: negative workup With cysto and [...] 03/24/2015 Overview (01/15/2016): Yesika screening done at [facility] on 03/20/2015: No mammographic evidence of [...] on file Insurance [facility] Member Subscriber Plan / Payer (Ef fective 2014-Present) Name:Saima Hand Relation to Subscriber:Self Name:Saima Hand Payer ID:[id number] Group ID:Not on file Type:Medicaid Address: [facility] [id number] [place] [address] [facility] Care Teams Head Of Business Development Relationship Specialty Start Date End Date Trisha Jacques PA-C [address] [place] [address] PCP - General 09/27/18
--- OUTSIDE RECORDS SUMMARY | 2025-07-15 15:39 | XMS_ITS | Encounter Summary ---
Author Organization [employer] Address [address] [facility] [address] [place] [address] Care Team Providers Care Lay Health Advocate Name Role Phone Misti Carrillo MD Primary Care Provider + Misti Carrillo MD Unavailable [phone] Encounter Details Date Type Department Care Team (Late st Contact Info) Description 08/04/2023 Orders Only [facility] [address] [place], [place] [id number] Provider, MD Eloisa Social History Tobacco Use [...] on filedocumented in this encounter Care Teams Lay Health Advocate Relationship Specialty Start Date End Date Misti Carrillo MD [address] [place] [address] PCP - General Internal Medicine 07/15/23 iMsti Carrillo MD [address] [place] [id number] Family Medicine 07/15/23 documented as of this encounter
--- OUTSIDE RECORDS SUMMARY | 2025-07-15 15:39 | XMS_ITS | Encounter Summary ---
Author Organization [employer] Address [address] [facility] [address] [place] [address] Care Team Providers Care Plasma Processor Name Role Phone Misti Carrillo MD Primary Care Provider + Misti Carrillo MD Primary Care Provider + Misti Carrillo MD Unavailable [phone] Encounter Details Date Type Department Care Team (Latest Contact Info) Description 10/17/2019 Abstract [facility] CONVERSIONS Dental, Provider, DDS Social [...] on filedocumented in this encounter Care Teams Plasma Processor Relationship Specialty Start Date End Date Misti Carrillo MD [address] [place] [id number] PCP - General Family Medicine 10/17/19 07/14/23 Misti Carrillo MD [address] [place] [id number] PCP - General Internal Medicine 07/15/23 Misti Carrillo MD [address] [place] [address] Family Medicine 07/15/23 documented as of this encounter
--- OUTSIDE RECORDS SUMMARY | 2025-07-15 15:39 | XMS_ITS | Encounter Summary ---
Author Organization [employer] Address [address] [facility] [address] [place] [address] Care Team Providers Care Title Abstractor Name Role Phone Misti Carrillo MD Primary Care Provider + Misti Carrillo MD Primary Care Provider + Misti Carrillo MD Unavailable [phone] Reason for Visit * Reason Onset Date Comments Referral 03/11/2023 Encounter Details Date Type Department Care Team (Late st Contact Info) Description 03/11/2023 Telephone [facility] [address] [place] [address] Misti Carrillo MD [address] [place] [address] Referral Social History Tobacco Use Types Packs/Day [...] 03/11/2023 2:03 PM EDT 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 [facility] and has a f/u appt on 03/25/23 for allergy. Patient speaks Turkmen documented in this encounter Plan of Treatment Not on file documented as of this encounter Visit Diagnoses Diagnosis Allergic conjunctivitis of both eyes- Primary Other chronic allergic conjunctivitis Seasonal allergic rhinitis due to pollen documented in this encounter Care Teams Title Abstractor Relationship Specialty Start Date End Date Misti Carrillo MD [address] [place] [address] PCP - General Family Medicine 10/17/19 07/14/23 Misti Carrillo MD [address] [place] [address] PCP - General Internal Medicine 07/15/23 Misti Carrillo MD [address] [place] [address] Family Medicine 07/15/23 documented as of this encounter
== END 2025-07-15 10:33 | disposition home or self-care (01) ==
LOC: HO.LAB 10:32
PROVIDERS: PCP Internal Medicine; Visit Provider Urology
DX: N28.89 Other specified disorders of kidney and ureter (principal); N95.2 Postmenopausal atrophic vaginitis; N39.0 Urinary tract infection, site not specified; R82.89 Other abnormal findings on cytological and histological examination of urine
CPT/HCPCS: 52000; 81003; 88112; 99212

== ENCOUNTER 2025-07-15 10:32 | Outpatient (AMB) | payer OTHER, SELFPAY ==
--- NOTE | 2025-07-15 10:44 | MHC.OFFVIS ---
Intake Visit Reasons: Cysto Intake Note: Patient presents today for a cystoscopy Urology Medication:None Blood Thinner:none Antibiotic Allergies:Penicillin Lot:[id number] Exp:01/31/28 Allergies penicillamine (PENICILLAMINE) Adverse Reaction (Intermediate, Verified 07/15/25 10:52) PALPATATIONS Medication List - Last Reconciled 07/15/25 by Cecilia Rodriguez MD amlodipine 2.5 mg PO DAILY cetirizine 10 mg PO DAILY docusate sodium (Colace) 100 mg PO BID estradiol 0.01%(0.1mg/gram) (Estrace) Apply a pea-sized amount with fingertip vaginally everyday at bedtime; HPI Comments Details: 07/15/25--here for office cystoscopy. Saima is follow-up microscopic hematuria. She denies tobacco use. Urine cytology atypical cells. Cystoscopy findings bladder mucosa within normal limits. Pelvic exam narrow introitus vaginal and urethral atrophy. Plan Estrace cream. We will repeat urine cytology. Follow-up with nurse practitioner in 6 months to recheck urine. 02/04/25--Saima is a 70-year-old female who is evaluation for microscopic hematuria. She presents with her friend and declines performance solutions specialist. she was sent by Dr. Cook be a CT imaging was performed which noted some parenchymal calcifications in the kidneys. I have discussed further evaluation with 24 hour urine I have discussed reasons for blood in the urine may include but are not limited to kidney stones, cancer in the urinary tract, BPH, or inflammatory conditions of the urinary tract. I have discussed workup to include cystoscopy evaluation. Discussed further evaluation with office cystoscopy, we will send urine for cytology. She complains of dysuria and I have discussed avoiding dietary bladder irritants to include but not limited to caffeinated beverages spicy foods sodas. [facility] Medical History Hypertension Frequent UTI Surgical History No pertinent past surgical history Family History Father Prostate CA Mother No problems noted. Social History Household Members: None Are you a primary critical care registered nurse to a significant other at home: No Do you presently have visiting nurse or other home services: No Alcohol intake: never Patient Tobacco Use Status: Never used Tobacco Review of Systems Const All systems reviewed & are unremarkable except as noted in HPI and below Reports no additional complaints Eyes Reports no additional complaints ENT Reports no additional complaints Card Reports no additional complaints Resp Reports no additional complaints GI Reports no additional complaints Reports as per HPI Musc Reports no additional complaints Skin/Breast Reports system reviewed and no additional complaints, except as documented Neuro Reports no additional complaints Psych Reports no additional complaints Endo Reports no additional complaints Carlos/Lymph Reports no additional complaints Aller/Immun Reports no additional complaints Office Procedures Cystoscopy Consent Discussed risk and benefit or proposed procedure with the patient. Information consent for procedure given to the patient. Discussed technical aspects, risks, benefits and alternatives in full. Addressed all of the patient's questions and concerns regarding the procedure. The patient demonstrated knowledge and understanding. They wish to proceed with this procedure. Preparation The patient was prepped in the usual manner. A clinical education coordinator was present and in the room. Genitalia was prepped with betadine solution in a sterile manner. Lidocaine Jelly 2% was placed into the urethra and 16Fr flexible Olympus cystoscope was inserted into the meatus after adequate lubrication. Procedure Time out per protocol performed. Speculum used as indicated for adequate visualization of urethra, the flexible cystoscope is passed transurethrally: The bladder was inspected in its entirety with utilization retroflexion displaying: Tumor(s): no suspicious bladder lesions visualized Trabeculation: NA Mucosal Erthema: Orifices: normal shape and position Urethra: normal Cystoscopy findings: WNL, no suspicious bladder lesions visualized [id number] DISPOSABLE SCOPE URO-G FLEXIBLE SCOPE Procedure code (CPT) selection complete Office Meds lidocaine HCl 2 % mucosal jelly in applicator Performing Provider: Cecilia Rodriguez MD [facility] Administered by: Yaniv Read LPN on 07/15/25 11:07 Dose Route Admin Location Dispensed Lot Number Expiration Date NDC Histopathologist 10 mL intra-urethral 20 mL ciprofloxacin HCl 500 mg tablet Performing Provider: Cecilia Rodriguez MD [facility] Administered by: Yaniv Read LPN on 07/15/25 11:07 Dose Route Admin Location Dispensed Lot Number Expiration Date NDC Histopathologist 500 mg PO 1 tab Assessment & Plan Assessment & Plan (1) Dysuria: Code(s): R30.0 - Dysuria Category: Medical (2) Renal calcification: Code(s): N28.89 - Other specified disorders of kidney and ureter Category: Medical (3) Microscopic hematuria: Code(s): R31.29 - Other microscopic hematuria Category: Medical (4) Vaginal atrophy: Code(s): N95.2 - Postmenopausal atrophic vaginitis Category: Medical (5) Abnormal urine cytology: Code(s): R82.89 - Other abnormal findings on cytological and histological examination of urine Category: Medical Plan Estrace cream. Repeat urine cytology. Follow-up with nurse practitioner in 6 months. Continue to monitor urine and lower urinary tract symptoms. Orders: Orders AMB Cystoscopy Today N39.0 - Urinary tract infection, site not specified, R30.0 - Dysuria, R31.29 - Other microscopic hematuria Medications: New estradiol 0.01%(0.1mg/gram) (Estrace) Apply a pea-sized amount with fingertip vaginally everyday at bedtime; 42.5 grams 1RF Patient Instructions: The patient had an opportunity to ask questions regarding treatment plan. The patient expressed understanding and agreement with the above treatment plan. The patient is aware they should contact our office by phone for worsening of their current condition or the appearance of new symptoms. Compliance is encouraged with any medications and followup testing that is ordered. It is a privilege to be allowed the opportunity to participate in the urologic care of your patient. If you have any questions or concerns regarding treatment for the above conditions please do not hesitate to contact me. The office telephone contact is [phone]. This note is constructed in part using voice recognition software. While every effort has been made to ensure accuracy personal protection specialist errors may have been included. Yours sincerely, Cecilia Rodriguez MD Coding Level of Care Code Est Pt Level 4 (54196) Diagnoses Dysuria R30.0 Renal calcification N28.89 Microscopic hematuria R31.29 Vaginal atrophy N95.2 Abnormal urine cytology R82.89 CPT Codes Cystoscopy - CPT: 90052-[id number] ([id number])
--- OUTSIDE RECORDS SUMMARY | 2025-07-15 12:43 | XMS_ITS | Clinical Summary ---
Author Organization [facility] Address [address] [place] [address] Phone Care Team Providers Care Film Reader Name Role Phone Toby Fink MD Primary [...] 1955 Zoster Vaccines (1 of 2) 2003 Cholesterol Screening (Lipid Panel) 08/27/2024 Colorectal Cancer Screening: Colonoscopy 08/27/2024 Falls Risk Assessment 08/27/2024 Hepatitis C Screening 08/27/2024 Osteoporosis Screening (Bone Density Screening) 08/27/2024 Social Influencers of Health Screening 08/27/2024 Depression Screening 11/07/2024 COVID-19 Vaccine ( season) 2025 Influenza Vaccine (#1) 2025 , 11/12/2020, 10/19/2019, [...] complete this topic Insurance MEDICAID - [place] [facility] Member Subscriber Plan / Payer (Ef fective 2018-Present) Name:KALE ABREU Relation to Subscriber:Self Name:Kale Abreu Payer ID:[id number] Group ID:Not on file Type:Not on file Address: [address] [address] Care Teams Film Reader Relationship Specialty Start Date End Date Toby Fink MD [address] [place] [address] PCP - General Internal Medicine 08/27/24
== END 2025-07-15 11:41 | disposition home or self-care (01) ==
LOC: HO.HUSH 10:33
PROVIDERS: PCP Internal Medicine; Visit Provider Urology
DX: R30.0 Dysuria (principal); N28.89 Other specified disorders of kidney and ureter; R31.29 Other microscopic hematuria; N95.2 Postmenopausal atrophic vaginitis; R82.89 Other abnormal findings on cytological and histological examination of urine; N39.0 Urinary tract infection, site not specified; Z13.9 Encounter for screening, unspecified
CPT/HCPCS: 52000; 99213